=== PATIENT | female | born 1930 | race Caucasian/White ===

== ENCOUNTER 2016-05-12 11:05 | Emergency (ER) | payer OTHER, MEDICARE ==
[2016-05-12 11:18] VITALS: BP 152/73; PULSE 60; TEMP 97.9; BMI 21.6
--- NOTE | 2016-05-12 12:21 | PDOC ---
History of Present Illness - General Chief Complaint: Injury Stated Complaint: FALL, BACK PAIN Time Seen by Provider: 05/12/16 11:56 History Source: Patient, Parent(s) Exam Limitations: No Limitations - History of Present Illness Initial Comments: 05/12/16 12:15 Status post fall 10 days ago, was trying to sit on her walker and did not stabilize the walker when it slipped from behind her causing her to fall onto her bottom. 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 With family's assistance she was able to rise, continue to her activities but states had some tenderness to her lower back and bilateral knees. Has used some Tylenol with minimal relief Occurred: reports: just prior to arrival Severity: reports: mild Pain Location: reports: back Modifying Factors: improves with: None Past History - Travel Traveled outside of the country in the last 30 days: No Close contact w/someone who was outside of country & ill: No - Past Medical History Allergies/Adverse Reactions: Allergies Allergy/AdvReac Type Severity Reaction Status Date / Time codeine [Codeine] Allergy Mild sick Verified 05/12/16 11:13 Home Medications: Ambulatory Orders Aspirin [ASA -] 81 mg PO DAILY #0 tab.chew 02/27/12 Carvedilol [Coreg -] 6.25 mg PO BID #0 tablet 02/27/12 Furosemide [Lasix -] 20 mg PO DAILY #0 tablet 02/27/12 Potassium Chloride [K-Dur -] 10 meq PO DAILY #0 tablet.er 02/27/12 Ramipril [Altace] 2.5 mg PO DAILY #0 capsule 02/27/12 Acetaminophen [Tylenol .Regular Strength -] 650 mg PO Q4H PRN 02/12/13 Calcium Carb/Vit D3/Minerals [Calcium 600 + D Tablet] 1 each PO TID 02/12/13 Omega3/Dha/Epa/Fish Oil/Vit D3 [Cimhm-4-Gnsm Oil-Vit D3 Sftgl] 1 each PO DAILY 02/12/13 Alendronate Na [Fosamax (Weekly)] 70 mg PO MO 08/22/13 Nitroglycerin [Nitrostat] 0.4 mg SL PRN 08/22/13 Isosorbide Mononitrate [Imdur] 40 mg PO DAILY 09/30/14 Atorvastatin Ca [Lipitor] 10 mg PO SUMOTHSA 09/16/15 Atorvastatin Ca [Lipitor] 20 mg PO TUWE 09/16/15 Warfarin Sodium [Coumadin] 3.5 mg PO SUTUWEFRSA 09/16/15 Acetaminophen [Tylenol .Regular Strength -] 650 mg PO Q6H PRN #0 tablet Aspirin Coated [Ecotrin -] 81 mg PO DAILY tablet.ec 09/19/15 Atorvastatin Ca [Lipitor] 10 mg PO HS tablet 09/19/15 Calcium (Oyster Shell) [Os-Maik 500MG -] 1,000 mg PO DAILY tablet 09/19/15 Carvedilol [Coreg -] 6.25 mg PO BID tablet 09/19/15 Cholecalciferol (Vitamin D3) [Vitamin D3 -] 1,000 unit PO DAILY tab 09/19/15 Furosemide [Lasix -] 40 mg PO DAILY tablet 09/19/15 Lidocaine 5% Patch [Lidoderm -] 1 patch TP DAILY patch 09/19/15 Nitroglycerin Sublingual [Nitrostat -] 0.4 mg SL Q5M PRN #0 tab 09/19/15 [place]-3 Acid Ethyl Esters [Lovaza -] 1 gm PO BID cap 09/19/15 Polyethylene Glycol 3350 [Miralax 119 gm Btl -] 17 gm PO DAILY bottle 09/19/15 Ramipril [Altace] 2.5 mg PO DAILY capsule 09/19/15 Sennosides/Docusate Sodium [Pericolace -] 1 tablet PO HS tablet 09/19/15 Warfarin Na [Coumadin -] 6 mg PO DAILY@1800 tablet 09/19/15 Tramadol HCl [Ultram -] 50 mg PO Q6H PRN #30 tablet MDD 4 03/17/16 Anemia: No Asthma: No Cancer: No Cardiac Disorders: Yes (cabg x2 valve replacement) CVA: No COPD: No CHF: No Dementia: No Diabetes: No GI Disorders: No Disorders: No HTN: Yes Hypercholesterolemia: Yes Liver Disease: No Seizures: No Thyroid Disease: No - Surgical History Abdominal Surgery: No Appendectomy: Yes Cardiac Surgery: Yes (OPEN HEART SX X 2) Cholecystectomy: Yes Lung Surgery: No Neurologic Surgery: No Orthopedic Surgery: No - Psycho/Social/Smoking Cessation Hx Anxiety: No Suicidal Ideation: No Smoking Status: No Smoking History: Never smoked Have you smoked in the past 12 months: No Number of Cigarettes Smoked Daily: 0 Hx Alcohol Use: No Drug/Substance Use Hx: No Substance Use Type: None Hx Substance Use Treatment: No Trauma Specific PMHX - Complaint Specific PMHX Arthritis: No Back Injury: No Neck Injury: No Review of Systems - Review of Systems Able to Perform ROS?: Yes Is the patient limited Kyrgyz proficient: Yes Constitutional: Yes: Symptoms Reported HEENTM: No: Symptoms Reported Respiratory: No: Symptoms reported Cardiac (ROS): No: Symptoms Reported Musculoskeletal: Yes: Symptoms Reported, See HPI, Back Pain, Joint Pain (hip and pelvis ) Integumentary: Yes: Symptoms Reported, See HPI, Bruising Neurological: Yes: See HPI. No: Symptoms reported All Other Systems: Reviewed and Negative *Physical Exam - Vital Signs Last Vital Signs Temp Pulse Resp BP Pulse Ox 97.9 F 60 19 152/73 98 05/12/16 11:13 05/12/16 11:13 05/12/16 11:13 05/12/16 11:13 05/12/16 11:13 - Physical Exam General Appearance: Yes: Appropriately Dressed, Apparent Distress, Mild Distress HEENT: positive: BENEDICT, Normal ENT Inspection, TMs Normal, Pharynx Normal Neck: negative: Tender Respiratory/Chest: positive: Lungs Clear, Normal Breath Sounds Musculoskeletal: positive: Other (paion with pelvic rocking ) Extremity: positive: Normal Capillary Refill. negative: Normal Inspection Integumentary: positive: Normal Color, Dry, Pale, Bruising (healing ecchymoses noted to the inner aspect of her upper right thigh extending into groin, and deep purple bruise to the right or tuberosity of right femur. Range of motion is intact although stiff. Able to abduct and rotate either hip. Patient has extensive arthritis and deformities to bilateral knees, no ecchymoses bruising or crepitus noted to the bony aspects. Neurovascular is intact and baseline for patient to feet) Neurologic: positive: outpatient physical therapist II-XII NML intact, Fully Oriented, Alert, Normal Mood/ Affect, Normal Response, Motor Strength 5/5 Progress Note - Progress Note Progress Note: Pelvic fracture right side consistent with injury. Patient is 10 days post fracture and is ambulatory slowly. Is using tramadol for pain relief and will continue. Will follow-up with orthopedist/Dr. Huber this week *DC/Admit/Observation/Transfer Diagnosis at time of Disposition: Pelvic fracture Qualifiers: Encounter type: initial encounter Pelvic bone location: pubis Sublocation of pubis: unspecified portion of pubis Fracture type: closed Laterality: right Qualified Code(s): S32.501A - Unspecified fracture of right pubis, initial encounter for closed fracture Fall at home Qualifiers: Encounter type: initial encounter Qualified Code(s): W19.XXXA - Unspecified fall, initial encounter; Y92.099 - Unspecified place in other non-institutional residence as the place of occurrence of the external cause - Discharge Dispostion Disposition: HOME Condition at time of disposition: Stable Admit: No - Referrals Referrals: Ish Shultz MD [Primary Care Provider] - Juan José Huber MD [Staff Physician] - - Patient Instructions Printed Discharge Instructions: DI for Pelvic Pain Additional Instructions: Rest, ice to area on and off for 15 minutes 4-6 times a day Avoid heavy lifting or exercise until pain and swelling is resolved or until further directed Followup with orthopedist in one to 2 days if significantly improved may wait one week for followup with orthopedist May use tramadol every 8 hours as needed for pain
== END 2016-05-12 13:44 | disposition home or self-care (01) ==
LOC: JERFT 11:05
DX: S32.591A Other specified fracture of right pubis, initial encounter for closed fracture (principal); W17.89XA Other fall from one level to another, initial encounter; Y93.89 Activity, other specified; Y92.018 Other place in single-family (private) house as the place of occurrence of the external cause; I25.10 Atherosclerotic heart disease of native coronary artery without angina pectoris; I10 Essential (primary) hypertension; Z95.1 Presence of aortocoronary bypass graft; E78.00 Pure hypercholesterolemia, unspecified; Z95.2 Presence of prosthetic heart valve; Z79.01 Long term (current) use of anticoagulants
CPT/HCPCS: 73523-TC; 99281-25

== ENCOUNTER 2017-03-22 18:26 | Emergency (ER) | payer OTHER, MEDICARE ==
[2017-03-22 18:36] VITALS: BP 158/93; PULSE 69; TEMP 98.1; BMI 23.5
--- NOTE | 2017-03-22 18:37 | PDOC ---
Rapid Medical Evaluation Time Seen by Provider: 03/22/17 18:31 Medical Evaluation: Allergies Allergy/AdvReac Type Severity Reaction Status Date / Time codeine [Codeine] Allergy Mild sick Verified 02/05/17 14:52 03/22/17 18:31 I have performed a brief in-person evaluation of this patient. The patient presents with a chief complaint of: pain in right arm since last night. Pain to right arm is chronic worse last night preventing her from sleep. Denies fall or injury Pertinent physical exam findings: NAD unlabored breathing unable to raise arm, or extend arm I have ordered the following: analgesia The patient will proceed to the ED for further evaluation.
--- NOTE | 2017-03-22 19:24 | PDOC ---
History of Present Illness - General Chief Complaint: Pain Stated Complaint: ARM PAIN Time Seen by Provider: 03/22/17 18:31 History Source: Patient Exam Limitations: No Limitations - History of Present Illness Initial Comments: 03/22/17 19:19 Pt is an 86F with PMH CAD s/p CABG X2, HTN, HLD, chronic right arm pain who presented with acute onset severe right shoulder pain which woke her from sleep. Pain is severe and worse with slight movement. Pt took Tramadol x2 (last dose at 4PM). Pt states pain is significantly more severe than normal. She adamantly and repeatedly denies trauma, syncope, LOC. Pt is afebrile, hemodynamically stable and in significant distress due to pain of the shoulder. Past History - Past Medical History Allergies/Adverse Reactions: Allergies Allergy/AdvReac Type Severity Reaction Status Date / Time codeine [Codeine] Allergy Mild sick Verified 03/22/17 18:36 Home Medications: Ambulatory Orders Aspirin [ASA -] 81 mg PO DAILY #0 tab.chew 02/27/12 Potassium Chloride [K-Dur -] 10 meq PO DAILY #0 tablet.er 02/27/12 Calcium Carb/Vit D3/Minerals [Calcium 600 + D Tablet] 1 each PO TID 02/12/13 Omega3/Dha/Epa/Fish Oil/Vit D3 [Klphy-3-Rgkx Oil-Vit D3 Sftgl] 1 each PO DAILY 02/12/13 Alendronate Na [Fosamax (Weekly)] 70 mg PO MO 08/22/13 Nitroglycerin [Nitrostat] 0.4 mg SL PRN 08/22/13 Isosorbide Mononitrate [Imdur] 40 mg PO DAILY 09/30/14 Warfarin Sodium [Coumadin] 3.5 mg PO SUTUWEFRSA 09/16/15 Atorvastatin Ca [Lipitor] 10 mg PO HS tablet 09/19/15 Calcium (Oyster Shell) [Os-Maik 500MG -] 1,000 mg PO DAILY tablet 09/19/15 Carvedilol [Coreg -] 6.25 mg PO BID tablet 09/19/15 Cholecalciferol (Vitamin D3) [Vitamin D3 -] 1,000 unit PO DAILY tab 09/19/15 Furosemide [Lasix -] 40 mg PO DAILY tablet 09/19/15 Lidocaine 5% Patch [Lidoderm -] 1 patch TP DAILY patch 09/19/15 Nitroglycerin Sublingual [Nitrostat -] 0.4 mg SL Q5M PRN #0 tab 09/19/15 [place]-3 Acid Ethyl Esters [Lovaza -] 1 gm PO BID cap 09/19/15 Polyethylene Glycol 3350 [Miralax 119 gm Btl -] 17 gm PO DAILY bottle 09/19/15 Ramipril [Altace] 2.5 mg PO DAILY capsule 09/19/15 Sennosides/Docusate Sodium [Pericolace -] 1 tablet PO HS tablet 09/19/15 Tramadol HCl [Ultram -] 50 mg PO Q6H PRN #30 tablet MDD 4 03/17/16 Naproxen [Naprosyn -] 500 mg PO BID PRN #4 tablet 03/22/17 Anemia: No Asthma: No Cancer: No Cardiac Disorders: Yes (cabg x2 valve replacement, AFIB) CVA: No COPD: No CHF: No DVT: No Dementia: No Diabetes: No GI Disorders: No Disorders: No HTN: Yes Hypercholesterolemia: Yes Liver Disease: No Seizures: No Thyroid Disease: No - Surgical History Abdominal Surgery: No Appendectomy: Yes Cardiac Surgery: Yes (OPEN HEART SX X 2) Cholecystectomy: Yes Lung Surgery: No Neurologic Surgery: No Orthopedic Surgery: No - Suicide/Smoking/Psychosocial Hx Smoking Status: No Smoking History: Never smoked Have you smoked in the past 12 months: No Number of Cigarettes Smoked Daily: 0 Information on smoking cessation initiated: No Hx Alcohol Use: No Drug/Substance Use Hx: No Substance Use Type: None Hx Substance Use Treatment: No Review of Systems - Review of Systems HEENTM: Yes: See HPI. No: Blurred Vision, Difficulty Swallowing Respiratory: Yes: Symptoms reported. No: Shortness of Breath Cardiac (ROS): Yes: Symptoms Reported, See HPI. No: Chest Pain, Lightheadedness , Syncope ABD/GI: Yes: Symptoms Reported. No: Abdominal Distended, Nausea, Poor Appetite , Vomiting : Yes: Symptoms Reported. No: Dysuria, Frequency, Urgency Musculoskeletal: Yes: Symptoms Reported, Joint Pain (R shoulder pain with radiation through R arm to hand), Joint Swelling *Physical Exam - Vital Signs Last Vital Signs Temp Pulse Resp BP Pulse Ox 98.1 F 69 19 158/93 100 03/22/17 18:32 03/22/17 18:32 03/22/17 18:32 03/22/17 18:32 03/22/17 18:32 - Physical Exam General Appearance: Yes: Appropriately Dressed, Apparent Distress, Thin HEENT: positive: EOMI, BENEDICT, Normal ENT Inspection, Normal Voice Neck: positive: Trachea midline, Supple Respiratory/Chest: positive: Lungs Clear, Normal Breath Sounds. negative: Chest Tender, Respiratory Distress, Accessory Muscle Use Cardiovascular: positive: Regular Rhythm, Regular Rate, Murmur, Systolic Murmur (4/6 sys murmur at LLSB) Vascular Pulses: Dorsalis-Pedis (R): 2+, Doralis-Pedis (L): 2+ Gastrointestinal/Abdominal: positive: Normal Bowel Sounds, Soft. negative: Tender, Organomegaly, Pulsatile Mass Musculoskeletal: positive: Decreased Range of Motion (R shoulder) Extremity: positive: Normal Capillary Refill, Tender (Very tender on active and passive ROM), Other (R arm held in internal rotation adduction) Integumentary: negative: Erythema Neurologic: positive: Other (exam limited by pain) Medical Decision Making - Medical Decision Making 03/22/17 19:29 Pt is an 86F with PMH CAD s/p CABG X2, HTN, HLD, chronic right arm pain who presented with acute onset severe right shoulder pain which woke her from sleep. She took 2 Tramadol -R shoulder XR -NSAID *DC/Admit/Observation/Transfer Diagnosis at time of Disposition: Joint effusion - Discharge Dispostion Disposition: HOME Condition at time of disposition: Stable Admit: No - Prescriptions Prescriptions: Naproxen [Naprosyn -] 500 mg PO BID PRN #4 tablet PRN Reason: Pain - Referrals Referrals: Ish Shultz MD [Primary Care Provider] - Juan José Huber MD [Staff Physician] - - Patient Instructions Printed Discharge Instructions: DI for Osteoarthritis, DI for Joint Pain Additional Instructions: Please make sure you follow up with your primary doctor within 1 week. Please make sure you follow up with the orthopedist (Dr. Huber/Dr. Dang) within 1 week. Please take all your prescription medications as directed. If your symptoms get worse or if you develop new symptoms, please return to the emergency department. - Post Discharge Activity
[2017-03-22] MEDS ORDERED: NAPROXEN 500 MG TABLET (FP) PO PRN (19:58)
[2017-03-22] MEDS ORDERED: NAPROXEN 500 MG TABLET (FP) ONE (20:05)
--- NOTE | 2017-03-22 22:58 | PDOC ---
Attending Attestation - Resident Resident Name: Kai Mccullough - ED Attending Attestation I have performed the following: I have examined & evaluated the patient, The case was reviewed & discussed with the resident, I agree w/resident's findings & plan, Exceptions are as noted - HPI HPI: 03/22/17 22:58 86 yo female with chronic rt shoulder pain - Physicial Exam PE: 03/22/17 22:58 86 petite female with rt shoulder pain head ncat neck supple lungs cta b.l cvs [id number] abd soft,nontender extremities rt shoulder- no cellulitis, pain in rt AC joint,no deformity neuro axox3 ,ambulatory - Medical Decision Making 03/22/17 23:00 plan ortho follow
== END 2017-03-22 23:01 | disposition home or self-care (01) ==
LOC: JER 18:26
DX: M25.40 Effusion, unspecified joint (principal); I10 Essential (primary) hypertension; E78.5 Hyperlipidemia, unspecified; I25.10 Atherosclerotic heart disease of native coronary artery without angina pectoris
CPT/HCPCS: 73030-TC-RT; 99282-25

== ENCOUNTER 2017-03-25 08:45 | Emergency (ER) | payer OTHER, MEDICARE ==
[2017-03-25 08:52] VITALS: BMI 24.6
[2017-03-25 09:49] LABS: BASO % 0.4 % (0-2.0); EOS % 1.9 % (0-4.5); MCH 27.7 pg (25.7-33.7); MCHC 31.7 g/dl (32.0-36.0); MEAN CELL VOLUME 87.3 fl (80-96); NEUT % 73.7 % (42.8-82.8); PLATELET COUNT 222 K/MM3 (134-434); RDW 16.3 % (11.6-15.6); WHITE BLOOD COUNT 7.7 K/mm3 (4.0-10.0)
[2017-03-25 10:07] LABS: PROTHROMBIN TIME (PATIENT) 48.4 SEC (9.98-11.88)
--- NOTE | 2017-03-25 10:11 | PDOC ---
History of Present Illness - General Chief Complaint: Pain, Acute Stated Complaint: REVISIT/ RT ARM PAIN Time Seen by Provider: 03/25/17 09:10 - History of Present Illness Initial Comments: 03/25/17 10:06 " The patient is a 86 year old female, with a significant past medical history of afib on coumadin, CAD s/p CABG x2, HTN, HLD, and chronic right arm pain, who presents to the emergency department with bruising to R chest. Patient was here in this ER for R shoulder pain on 03/22/17. She was scheduled to see Dr. Huber for evaluation of her shoulder today but noticed that she had bruising along the R side of her chest. She denies any injury or trauma. Does not know exactly when the bruising started because she hasn't been able to undress herself due to her arm pain. She denies recent fevers, chills, headache or dizziness. She denies recent nausea, vomit, diarrhea or constipation. She denies recent dysuria, frequency, urgency or hematuria. She denies recent chest pain or shortness of breath. Pt is currently on coumadin, last INR check was 2 weeks ago. Pt denies any changes in her dosage recently. However, when she was seen here 3 days ago, she was started on naproxen for her shoulder pain, which she has been taking. Allergies: NKA Past surgical history: None reported. Social history: Nonsmoker. Denies EtOH use and recreational drug use. " Past History - Past Medical History Allergies/Adverse Reactions: Allergies Allergy/AdvReac Type Severity Reaction Status Date / Time codeine [Codeine] Allergy Mild sick Verified 03/25/17 08:47 Home Medications: Ambulatory Orders Aspirin [ASA -] 81 mg PO DAILY #0 tab.chew 02/27/12 Potassium Chloride [K-Dur -] 10 meq PO DAILY #0 tablet.er 02/27/12 Calcium Carb/Vit D3/Minerals [Calcium 600 + D Tablet] 1 each PO TID 02/12/13 Omega3/Dha/Epa/Fish Oil/Vit D3 [Cwswr-9-Tzxd Oil-Vit D3 Sftgl] 1 each PO DAILY 02/12/13 Alendronate Na [Fosamax (Weekly)] 70 mg PO MO 08/22/13 Nitroglycerin [Nitrostat] 0.4 mg SL PRN 08/22/13 Isosorbide Mononitrate [Imdur] 60 mg PO DAILY 09/30/14 Warfarin Sodium [Coumadin] 3.5 mg PO HS 09/16/15 Atorvastatin Ca [Lipitor] 10 mg PO HS tablet 09/19/15 Carvedilol [Coreg -] 6.25 mg PO BID tablet 09/19/15 Cholecalciferol (Vitamin D3) [Vitamin D3 -] 1,000 unit PO DAILY tab 09/19/15 Furosemide [Lasix -] 40 mg PO DAILY tablet 09/19/15 Carbidopa/Levodopa [Carbidopa-Levodopa 10-100 Tab] 1 each PO TID 03/25/17 Valsartan 80 mg PO HS 03/25/17 Valsartan [Diovan] 160 mg PO AM 03/25/17 Anemia: No Asthma: No Cancer: No Cardiac Disorders: Yes (cabg x2 valve replacement, AFIB) CVA: No COPD: No CHF: No DVT: No Dementia: No Diabetes: No GI Disorders: No Disorders: No HTN: Yes Hypercholesterolemia: Yes Liver Disease: No Seizures: No Thyroid Disease: No - Surgical History Abdominal Surgery: No Appendectomy: Yes Cardiac Surgery: Yes (OPEN HEART SX X 2) Cholecystectomy: Yes Lung Surgery: No Neurologic Surgery: No Orthopedic Surgery: No - Immunization History Immunization Up to Date: Yes - Suicide/Smoking/Psychosocial Hx Smoking Status: No Smoking History: Never smoked Have you smoked in the past 12 months: No Number of Cigarettes Smoked Daily: 0 Information on smoking cessation initiated: No Hx Alcohol Use: No Drug/Substance Use Hx: No Substance Use Type: None Hx Substance Use Treatment: No Review of Systems - Review of Systems Comments:: 03/25/17 10:09 "GENERAL/CONSTITUTIONAL: No fever or chills. No weakness. HEAD, EYES, EARS, NOSE AND THROAT: No change in vision. No ear pain or discharge. No sore throat. CARDIOVASCULAR: No chest pain or shortness of breath. RESPIRATORY: No cough, wheezing, or hemoptysis. GASTROINTESTINAL: No nausea, vomiting, diarrhea or constipation. GENITOURINARY: No dysuria, frequency, or change in urination. MUSCULOSKELETAL: +Right shoulder pain. No joint or muscle swelling or pain. No neck or back pain. SKIN: +Bruising to R chest wall NEUROLOGIC: No headache, vertigo, loss of consciousness, or change in strength/ sensation. ENDOCRINE: No increased thirst. No abnormal weight change. HEMATOLOGIC/LYMPHATIC: No anemia, easy bleeding, or history of blood clots. ALLERGIC/IMMUNOLOGIC: No hives or skin allergy. " *Physical Exam - Vital Signs Last Vital Signs Temp Pulse Resp BP Pulse Ox 97.7 F 52 L 16 135/87 98 03/25/17 08:49 03/25/17 08:49 03/25/17 08:49 03/25/17 08:49 03/25/17 08:49 - Physical Exam Comments: 03/25/17 10:10 "GENERAL: Awake, alert, and fully oriented, in no acute distress HEAD: No signs of trauma EYES: PERRLA, EOMI, sclera anicteric, conjunctiva clear ENT: Auricles normal inspection, hearing grossly normal, nares patent, oropharynx clear without exudates. Moist mucosa NECK: Nontender, no stepoffs, Normal ROM, supple, no lymphadenopathy, JVD, or masses LUNGS: Breath sounds equal, clear to auscultation bilaterally. No wheezes, and no crackles HEART: Regular rate and rhythm, normal S1 and S2, no murmurs, rubs or gallops CHEST: No chest wall tenderness, no crepitus ABDOMEN: Soft, nontender, normoactive bowel sounds. No guarding, no rebound. No masses EXTREMITIES: Normal range of motion, no edema. No clubbing or cyanosis. No cords , erythema, or tenderness NEUROLOGICAL: Cranial nerves II through XII intact. 5/5 strength and sensation in all extremities, Normal speech, normal gait SKIN: Warm, Dry, normal turgor, ecchymosis extending from Right breast to right upper back. No bruising over abdomen, no weiss-duncan or manish's sign " ED Treatment Course - LABORATORY CBC & Chemistry Diagram: 03/25/17 09:30 03/25/17 09:30 - ADDITIONAL ORDERS Additional order review: 03/25/17 09:30 RBC 3.73 MCV 87.3 MCHC 31.7 L RDW 16.3 H MPV 8.0 Neutrophils % 73.7 D Lymphocytes % 12.8 D Monocytes % 11.2 H Eosinophils % 1.9 Basophils % 0.4 - RADIOLOGY Radiology Studies Ordered: Category Date Time Status CHEST CT WITHOUT CONTRAST [CT] Stat CT Scan 03/25/17 09:24 Ordered Medical Decision Making - Medical Decision Making 03/25/17 10:13 86 F with bruising to R chest wall. No history of trauma and no tenderness on exam to suggest acute injury. However, pt does report R shoulder pain and may have suffered an injury despite having no recollection of it. Ecchymosis may also be spontaneous bleed 2/2 supratherapeutic coumadin or 2/2 concomitant coumadin and NSAID use. Pt hemodynamically stable at this time. No evidence of significant blood loss. - Labs, coags - CT chest 03/25/17 12:02 CT without fracture, no hematoma. Pt with INR 4. Pt instructed to hold coumadin tonight and f/u with PMD tomorrow. I discussed the physical exam findings, ancillary test results and final diagnoses with the patient. I answered all of the patient's questions. The patient was satisfied with the care received and felt comfortable with the discharge plan and treatment plan. The patient agrees to follow up with the primary care physician within 24-72 hours. *DC/Admit/Observation/Transfer Diagnosis at time of Disposition: Bruise without fracture or open wound, Spontaneous ecchymosis - Discharge Dispostion Disposition: HOME - Referrals - Patient Instructions Printed Discharge Instructions: DI for Hematoma (Bruise) Additional Instructions: DO NOT take your Coumadin until you have your bloodwork rechecked and have been evaluated by your primary doctor. You must see your primary doctor within 48 hours, as your Coumadin levels are too high. This is likely the cause of your bruising. DO NOT take any more naproxen for pain. Do not take any motrin, advil, aleve, or aspirin. These can worsen bleeding caused by Coumadin and can also cause damage to your kidneys. Your kidney function today was slightly worse than usual. Please have your primary doctor recheck this within 1 week. If you experience worsening bruising, bleeding, pain, lightheadedness, difficulty breathing, palpitations, or any other concerning symptoms, return to the ER immediately. - Post Discharge Activity - Attestations Physician Attestion: 03/25/17 10:48 I, Dr. Zion Penn MD, attest that this document has been prepared under my direction and personally reviewed by me in its entirety. I further attest, that it accurately reflects all work, treatment, procedures and medical decision -making performed by me.
[2017-03-25 10:12] LABS: ANION GAP 6 (8-16); BILIRUBIN,TOTAL 1.3 mg/dL (0.2-1.0); CALCIUM 9.7 mg/dL (8.5-10.1); CO2 28 mmol/L (21-32); CREATININE 1.3 mg/dL (0.55-1.02); GLUCOSE,RANDOM 82 mg/dL (74-106); SGOT/AST 25 U/L (15-37); SGPT/ALT 9 U/L (12-78); TOT PROT 6.6 g/dl (6.4-8.2)
[2017-03-25 10:13] LABS: ALK PHOS 120 U/L (45-117)
[2017-03-25 10:37] LABS: INR 4.28 (0.82-1.09)
[2017-03-25 12:46] VITALS: BP 145/68; PULSE 58; TEMP 98.2
== END 2017-03-25 12:45 | disposition home or self-care (01) ==
LOC: JER 08:45
DX: S49.81XA Other specified injuries of right shoulder and upper arm, initial encounter (principal); X58.XXXA Exposure to other specified factors, initial encounter; Y93.89 Activity, other specified; Y92.89 Other specified places as the place of occurrence of the external cause; Y99.8 Other external cause status; I25.10 Atherosclerotic heart disease of native coronary artery without angina pectoris; I10 Essential (primary) hypertension; Z95.1 Presence of aortocoronary bypass graft; I48.91 Unspecified atrial fibrillation; Z79.01 Long term (current) use of anticoagulants
CPT/HCPCS: 36415; 71250-TC; 80053; 85025; 85610; 85730; 86850; 86900; 86901; 99282-25

== ENCOUNTER 2018-02-16 14:35 | Inpatient (IN) | payer OTHER, MEDICARE ==
[2018-02-16 15:05] VITALS: BMI 20.4
--- NOTE | 2018-02-16 15:38 | PDOC ---
History of Present Illness - General Chief Complaint: Pain, Acute Stated Complaint: KNEE PAIN Time Seen by Provider: 02/16/18 15:03 History Source: Patient Exam Limitations: No Limitations - History of Present Illness Initial Comments: 02/16/18 15:37 The patient is a 87F with a PMH of afib on coumadin, CAD s/p CABG x2, HTN, HLD, and chronic right arm pain who presents to the ER with complaints of R knee pain. The patient states that she was in her normal state of health last night. In the middle of the night, she woke up and felt pain as she was walking behind her R knee. She fell back asleep. As she tried to get out of bed this morning around 0630, she states that she felt a sharp pain as she tried to walk on her R foot. She states that the pain goes away when she lays down and is only worsened by walking. The pain is located behind her R knee and does not radiate. She denies CP, SOB, fever, chills, nausea, vomiting, cough. Past History - Past Medical History Allergies/Adverse Reactions: Allergies Allergy/AdvReac Type Severity Reaction Status Date / Time codeine [Codeine] Allergy Mild sick Verified 02/16/18 15:04 NSAIDS (Non-Steroidal AdvReac Verified 02/16/18 15:04 Anti-Inflamma Home Medications: Ambulatory Orders Aspirin [ASA -] 81 mg PO DAILY #0 tab.chew 02/27/12 Potassium Chloride [K-Dur -] 10 meq PO DAILY #0 tablet.er 02/27/12 Calcium Carb/Vit D3/Minerals [Calcium 600 + D Tablet] 1 each PO TID 02/12/13 Omega3/Dha/Epa/Fish Oil/Vit D3 [Btikx-3-Oyby Oil-Vit D3 Sftgl] 1 each PO DAILY 02/12/13 Alendronate Na [Fosamax (Weekly)] 70 mg PO MO 08/22/13 Nitroglycerin [Nitrostat] 0.4 mg SL PRN 08/22/13 Isosorbide Mononitrate [Imdur] 60 mg PO DAILY 09/30/14 Warfarin Sodium [Coumadin] 3.5 mg PO HS 09/16/15 Atorvastatin Ca [Lipitor] 10 mg PO HS tablet 09/19/15 Carvedilol [Coreg -] 6.25 mg PO BID tablet 09/19/15 Cholecalciferol (Vitamin D3) [Vitamin D3 -] 1,000 unit PO DAILY tab 09/19/15 Furosemide [Lasix -] 40 mg PO DAILY tablet 09/19/15 Carbidopa/Levodopa [Carbidopa-Levodopa 10-100 Tab] 1 each PO TID 03/25/17 Valsartan 80 mg PO HS 03/25/17 Valsartan [Diovan] 160 mg PO AM 03/25/17 Anemia: No Asthma: No Cancer: No Cardiac Disorders: Yes (cabg x2 valve replacement, AFIB) CVA: No COPD: No CHF: No DVT: No Dementia: No Diabetes: No GI Disorders: No Disorders: No HTN: Yes Hypercholesterolemia: Yes Liver Disease: No Seizures: No Thyroid Disease: No - Surgical History Abdominal Surgery: No Appendectomy: Yes Cardiac Surgery: Yes (OPEN HEART SX X 2) Cholecystectomy: Yes Lung Surgery: No Neurologic Surgery: No Orthopedic Surgery: No - Immunization History Immunization Up to Date: Yes - Suicide/Smoking/Psychosocial Hx Smoking Status: No Smoking History: Never smoked Have you smoked in the past 12 months: No Number of Cigarettes Smoked Daily: 0 Hx Alcohol Use: No Drug/Substance Use Hx: No Substance Use Type: None Hx Substance Use Treatment: No Review of Systems - Review of Systems Able to Perform ROS?: Yes Comments:: 02/16/18 15:50 GENERAL/CONSTITUTIONAL: No fever or chills. No weakness. HEAD, EYES, EARS, NOSE AND THROAT: No change in vision. No ear pain or discharge. No sore throat. CARDIOVASCULAR: No chest pain, palpitations, or lightheadedness. RESPIRATORY: No cough, wheezing, shortness of breath, or hemoptysis. GASTROINTESTINAL: No nausea, vomiting, diarrhea, constipation, or abdominal pain. GENITOURINARY: No dysuria, frequency, hematuria, or change in urination. MUSCULOSKELETAL: Positive for R knee pain. No neck or back pain. SKIN: No rash or lesions. NEUROLOGIC: No headache, numbness, tingling, focal weakness, loss of consciousness, or change in strength/sensation. Is the patient limited Mauritanian proficient: No *Physical Exam - Vital Signs Last Vital Signs Temp Pulse Resp BP Pulse Ox 97.5 F L 48 L 17 133/49 L 100 02/16/18 15:02 02/16/18 15:02 02/16/18 15:02 02/16/18 15:02 02/16/18 15:02 - Physical Exam Comments: 02/16/18 15:51 GENERAL: Well developed, well nourished. Awake and alert. No acute distress. HEENT: Normocephalic, atraumatic. Hearing grossly normal. Moist mucous membranes. PERRLA, EOMI. No conjunctival pallor. Sclera are non-icteric. NECK: Supple. Full ROM. No JVD. CARDIOVASCULAR: Regular rate and rhythm. No murmurs, rubs, or gallops. Distal pulses are 2+ and symmetric. PULMONARY: No evidence of respiratory distress. Lungs clear to auscultation bilaterally. No wheezing, rales or rhonchi. ABDOMINAL: Soft. Non-tender. Non-distended. No rebound or guarding. GENITOURINARY: No CVA tenderness bilaterally. MUSCULOSKELETAL: Limited active and passive ROM in R knee 2/2 pain. TTP over posterior knee. EXTREMITIES: No cyanosis. No clubbing. No edema. No calf tenderness or swelling. SKIN: Warm and dry. Normal capillary refill. No rashes. No jaundice. NEUROLOGICAL: Alert, awake, appropriate. Cranial nerves 2-12 grossly intact. Normal speech. PSYCHIATRIC: Cooperative. Good eye contact. Appropriate mood and affect. ED Treatment Course - LABORATORY CBC & Chemistry Diagram: 02/16/18 16:00 02/16/18 16:00 - RADIOLOGY Radiology Studies Ordered: Category Date Time Status KNEE 3 POS-RIGHT [RAD] Stat Radiology 02/16/18 15:32 Ordered DUPLEX VASCUL US-1 LEG [US] Stat Ultrasound 02/16/18 15:28 Ordered Medical Decision Making - Medical Decision Making 02/16/18 15:52 The patient is an 87F with an extensive PMH who presents to the ER with complaints of R knee pain concerning for DVT, keating's cyst, fracture. Will order imaging and labs to ensure pt is in therapeutic range for coumadin. EKG unremarkable. Pending imaging and labs. 02/16/18 17:35 BNP elevated. Will d/w cardiology, Dr. Meyer. US reveals bakers cyst. Will inform pt. 02/16/18 18:11 Case d/w Dr. Laguna, cardiology, who states that the patient does not need to increase lasix and can f/u outpatient. Pt states that she cannot ambulate. I have endorsed the patient to JOHN Snyder for admission. *DC/Admit/Observation/Transfer Diagnosis at time of Disposition: Ambulatory dysfunction - Discharge Dispostion Condition at time of disposition: Guarded Decision to Admit order: Yes - Referrals Referrals: Ish Shultz MD [Primary Care Provider] - - Patient Instructions - Post Discharge Activity
--- NOTE | 2018-02-16 16:12 | PDOC ---
Attending Attestation - Resident Resident Name: RobbrianSamuel - ED Attending Attestation I have performed the following: I have examined & evaluated the patient, The case was reviewed & discussed with the resident, I agree w/resident's findings & plan, Exceptions are as noted - Medical Decision Making 02/16/18 16:12 I, Dr. Serena Anne, DO, attest that this document has been prepared under my direction and personally reviewed by me in its entirety. I further attest, that it accurately reflects all work, treatment, procedures and medical decision -making performed by me. 02/16/18 17:53 a/p: 87yo female with R knee pain and inability to ambulate -pt lives at home alone -on coumadin for aflutter -R posterior knee pain -leg swelling R>L -no calf ttp, ttp posterior knee, no warmth, no swelling, no effusion, no signs/ symptoms of septic joint -will send for xrays, labs, duplex ultrasound 02/16/18 17:55 knee xray shows extensive djd poss bakers cyst on duplex ultrasound - awaiting official read pt lives alone with bedroom upstairs pt unable to ambulate even with her walker will need obs, pt, social work and poss placement family and patient in agreement 02/16/18 18:11 resident discussed the case with SYMPHONY covering for Dr. Shultz who accepts pt to service <Serena Anne - Last Filed: 02/16/18 18:11> - HPI HPI: 02/16/18 18:02 The patient is an 87-year-old female with past medical history significant for Afib (on Coumadin), CAD s/p CABG x2, HTN, HLD presents to the emergency department with R. knee pain. The patient reports she woke up in middle of the night with the pain. The patient indicates the pain is localized towards the back of the R. knee, that worsened into a sharp pain when she woke up in the morning. The patient reports the pain is aggravated with ambulation even with a walker, with relief noted when lying down. The patient reports associated concern of bilateral lower extremity swelling Denies fever, chills, chest pain, shortness of breath, injury or trauma to the area, numbness, tingling, loss of sensation. Allergies: codeine, NSAIDs Social history: No past or present use of tobacco, alcohol, or recreational drugs. Surgical history: CABG, Joint Replacement (hip), Valve Replacement. PCP: Ish Aguirre MD - Physicial Exam PE: 02/16/18 18:13 GENERAL: Awake, alert, and fully oriented, in no acute distress HEAD: No signs of trauma EYES: PERRLA, EOMI, sclera anicteric, conjunctiva clear ENT: Auricles normal inspection, hearing grossly normal, nares patent, oropharynx clear without exudates. Moist mucosa NECK: Normal ROM, supple, no lymphadenopathy, JVD, or masses LUNGS: Breath sounds equal, clear to auscultation bilaterally. No wheezes, and no crackles HEART: +Irregular, not tachycardia, normal S1 and S2, no murmurs, rubs or gallops ABDOMEN: Soft, nontender. No guarding, no rebound. No masses EXTREMITIES: +R. Knee tenderness posteriorly, 2+ pitting edema R. lower extremity, 1+ pitting edema to the L. lower extremity, sleeve over the knee making the indentation, pedial pulse intact, brisk capillary refill. NEUROLOGICAL: Cranial nerves II through XII grossly intact. Normal speech. SKIN: Warm, Dry, normal turgor, no rashes or lesions noted. - Medical Decision Making 02/16/18 18:02 Documentation prepared by Perlita Navarro, acting as medical device for Serena Anne DO. <Perlita Navarro - Last Filed: 02/16/18 18:13>
[2018-02-16 16:27] LABS: EOS % 2.3 % (0-4.5); HEMATOCRIT 32.1 % (32.4-45.2); HEMOGLOBIN 10.6 GM/dL (10.7-15.3); LYMPH % 23.3 % (8-40); MCH 28.7 pg (25.7-33.7); MEAN PLT VOLUME 8.6 fl (7.5-11.1); MONO % 16.6 % (3.8-10.2); NEUT % 56.8 % (42.8-82.8); PLATELET COUNT 186 K/MM3 (134-434); RBC 3.69 M/mm3 (3.60-5.2); RDW 16.1 % (11.6-15.6); WHITE BLOOD COUNT 4.4 K/mm3 (4.0-10.0)
[2018-02-16 16:48] LABS: INR 2.4 (0.83-1.09); PROTHROMBIN TIME (PATIENT) 28.6 SEC (9.7-13.0)
[2018-02-16 17:03] LABS: ALBUMIN 3.1 g/dl (3.4-5.0); ALK PHOS 119 U/L (45-117); ANION GAP 6 MMOL/L (8-16); BLOOD UREA NITROGEN 24 mg/dL (7-18); CHLORIDE 106 mmol/L (98-107); CO2 28 mmol/L (21-32); CREATININE 0.7 mg/dL (0.55-1.3); GLUCOSE,RANDOM 90 mg/dL (74-106); N-TERMINAL BNP 2776.6 pg/ml (5-450); POTASSIUM 4.3 mmol/L (3.5-5.1); SGOT/AST 25 U/L (15-37); SGPT/ALT 8 U/L (13-61); SODIUM 139 mmol/L (136-145); TOT PROT 6.1 g/dl (6.4-8.2)
[2018-02-16] MEDS ORDERED: NITROGLYCERIN SUBLINGUAL 1/150 0.4 MG TAB SL PRN (18:30)
--- NOTE | 2018-02-16 20:52 | HP ---
CHIEF COMPLAINT: Right knee pain, inability to ambulate PCP: Dr. Ish Shultz HISTORY OF PRESENT ILLNESS: 87 year old female with a PMH significant for A-fib, CAD, HTN, HLD, Parkinson's disease, and osteoporosis presented to the ED with right knee pain that prevented her from ambulating. Patient reports that the pain started in the middle of the night and worsened until the morning. She reports the pain is worse towards the posterior aspect of the knee. When she tried to ambulate with her walker, she could not because the pain was too severe. She denies recent weight change, no SOB, chest pain, dizziness, numbness or tingling, LOC, syncope , n/v/d. Upon admission to the ED, patient was afebrile, VSS. Labs notable for BNP of 2776 (1 year ago 1643). X-ray of the right knee showed extensive DJD, duplex US showed keating's cyst. ED staff consulted with police judge Dr. Laguna, who found no need to increase lasix dose at this time and may f/u outpatient. Recent Travel: [facility], 3 months ago PAST MEDICAL HISTORY: A-fib (on coumadin) CAD HTN HLD PAST SURGICAL HISTORY: CABG x 2 Hip replacement Valve replacement Social History: Born in [facility], lives alone in a 2 story house, ambulates with a walker Smoking: Never Alcohol: Rarely, red wine Drugs: No Family History: Sister: Liver cancer Mother: Arthritis Allergies codeine [Codeine] Allergy (Mild, Verified 02/16/18 15:04) sick NSAIDS (Non-Steroidal Anti-Inflamma Adverse Reaction (Verified 02/16/18 15:04) pt is in coumadin HOME MEDICATIONS: Home Medications Medication Instructions Recorded Aspirin [ASA -] 81 mg PO DAILY #0 tab.chew 02/27/12 Potassium Chloride [K-Dur -] 10 meq PO DAILY #0 tablet.er 02/27/12 Calcium Carb/Vit D3/Minerals 1 each PO TID 02/12/13 [Calcium 600 + D Tablet] Omega3/Dha/Epa/Fish Oil/Vit D3 1 each PO DAILY 02/12/13 [Gazls-6-Ltfu Oil-Vit D3 Sftgl] Alendronate Na [Fosamax (Weekly)] 70 mg PO MO 08/22/13 Nitroglycerin [Nitrostat] 0.4 mg SL PRN 08/22/13 Isosorbide Mononitrate [Imdur] 60 mg PO DAILY 09/30/14 Warfarin Sodium [Coumadin] 3.5 mg PO HS 09/16/15 Atorvastatin Ca [Lipitor] 10 mg PO HS tablet 09/19/15 Carvedilol [Coreg -] 6.25 mg PO BID tablet 09/19/15 Cholecalciferol (Vitamin D3) 1,000 unit PO DAILY tab 09/19/15 [Vitamin D3 -] Furosemide [Lasix -] 40 mg PO DAILY tablet 09/19/15 Carbidopa/Levodopa 1 each PO TID 03/25/17 [Carbidopa-Levodopa 10-100 Tab] Losartan Potassium 0 mg PO DAILY 02/16/18 REVIEW OF SYSTEMS CONSTITUTIONAL: Absent: fever, chills, diaphoresis, generalized weakness, malaise, loss of appetite, weight change HEENT: Absent: rhinorrhea, nasal congestion, throat pain, throat swelling, difficulty swallowing, mouth swelling, ear pain, eye pain, visual changes CARDIOVASCULAR: Absent: chest pain, syncope, palpitations, irregular heart rate, lightheadedness , peripheral edema RESPIRATORY: Absent: cough, shortness of breath, dyspnea with exertion, orthopnea, wheezing, stridor, hemoptysis GASTROINTESTINAL: Absent: abdominal pain, abdominal distension, nausea, vomiting, diarrhea, constipation, melena, hematochezia GENITOURINARY: Absent: dysuria, frequency, urgency, hesitancy, hematuria, flank pain, genital pain MUSCULOSKELETAL: (+) Right knee pain Absent: myalgia, arthralgia, joint swelling, back pain, neck pain SKIN: Absent: rash, itching, pallor HEMATOLOGIC/IMMUNOLOGIC: Absent: easy bleeding, easy bruising, lymphadenopathy, frequent infections ENDOCRINE: Absent: unexplained weight gain, unexplained weight loss, heat intolerance, cold intolerance NEUROLOGIC: Absent: headache, focal weakness or paresthesias, dizziness, unsteady gait, seizure, mental status changes, bladder or bowel incontinence PSYCHIATRIC: Absent: anxiety, depression, suicidal or homicidal ideation, hallucinations. PHYSICAL EXAMINATION Vital Signs - 24 hr 02/16/18 02/16/18 02/16/18 15:02 18:08 19:10 Temperature 97.5 F L 97.8 F 97.9 F Pulse Rate 48 L Pulse Rate [ 50 L Apical] Respiratory 17 17 16 Rate Blood Pressure 133/49 L Blood Pressure 158/64 147/52 L [Right Arm] O2 Sat by Pulse 100 99 99 Oximetry (%) 02/16/18 02/16/18 20:13 20:19 Temperature 98.0 F Pulse Rate Pulse Rate [ 66 Apical] Respiratory 16 Rate Blood Pressure Blood Pressure 146/55 L [Right Arm] O2 Sat by Pulse 99 99 Oximetry (%) GENERAL: Elderly, thin, awake, alert, and fully oriented, in no acute distress. HEAD: Normal with no signs of trauma. EYES: Pupils equal, round and reactive to light, extraocular movements intact, sclera anicteric, conjunctiva clear. No lid lag. EARS, NOSE, THROAT: Ears normal, nares patent, oropharynx clear without exudates. Moist mucous membranes. NECK: Normal range of motion, supple without lymphadenopathy, JVD, or masses. LUNGS: Breath sounds equal, clear to auscultation bilaterally. No wheezes, and no crackles. No accessory muscle use. HEART: Regular rate and rhythm, normal S1 and S2 without murmur, rub or gallop. ABDOMEN: Soft, nontender, not distended, normoactive bowel sounds, no guarding, no rebound, no masses. No hepatomegaly or splenomegaly. MUSCULOSKELETAL: Normal range of motion at all joints. No bony deformities or tenderness. No CVA tenderness. UPPER EXTREMITIES: 5/5 parts advisor strength b/l 2+ pulses, warm, well-perfused. No cyanosis. No clubbing. No peripheral edema. LOWER EXTREMITIES: b/l knees enlarged bony deformities + crepitus with flexion, 3/5 strength with right leg raise, 5/5 left leg raise. Edematous, non-pitting R >L, no warmth or erythema, No calf tenderness. NEUROLOGICAL: No facial droop, normal speech. Normal gait. PSYCHIATRIC: Cooperative. Good eye contact. Appropriate mood and affect. SKIN: Warm, dry, normal turgor, no rashes or lesions noted, normal capillary refill. Laboratory Results - last 24 hr 02/16/18 02/16/18 02/16/18 16:00 16:00 16:00 WBC 4.4 RBC 3.69 Hgb 10.6 L Hct 32.1 L MCV 87.0 MCH 28.7 MCHC 33.0 RDW 16.1 H Plt Count 186 MPV 8.6 Absolute Neuts (auto) 2.5 Neutrophils % 56.8 D Lymphocytes % 23.3 D Monocytes % 16.6 H Eosinophils % 2.3 Basophils % 1.0 Nucleated RBC % 0 PT with INR 28.60 H INR 2.40 H Sodium 139 Potassium 4.3 Chloride 106 Carbon Dioxide 28 Anion Gap 6 L BUN 24 H Creatinine 0.7 Creat Clearance w eGFR > 60 Random Glucose 90 Calcium 9.0 Total Bilirubin 1.0 AST 25 ALT 8 L Alkaline Phosphatase 119 H B-Natriuretic Peptide 2776.6 H Total Protein 6.1 L Albumin 3.1 L CXR - Final read pending Right knee x-ray - Loss of bone density, extensive osteoarthritic changes with possible old lateral tibial plateau fracture, medial clips and vascular calcifications. There is a joint effusion. Similar findings in September 2015 study. [place] US RLE - 6 x 3.3 x 1.7 cm popliteal fossa cyst. - No DVT ASSESSMENT/PLAN: 87 year old female with a PMH significant for A-fib, CAD, HTN, HLD, Parkinson's disease, and osteoporosis presented to the ED with right knee pain that prevented her from ambulating. US showed bakers cyst. Patient was placed on observation and will need case management consult and possible LT placement. Right Knee pain - X-ray - APAP for pain management - PT consult ordered - Ortho consult ordered - Auto Accessories Installer consult for possible snf care placement A-fib - S/p mechanical valve placement - Currently on coumadin 3.5 mg - INR 2.40 today - Monitor INR and adjust coumadin dose accordingly CAD - S/p CABG - Asa 81 mg qday - Imdur 60 mg PO qday - Nitrostat 0.4 mg SL q5min PRN HTN - Valstartan 80 mg QHS - Lasix 40 mg PO qday HLD - Atorvastatin 10 mg PO qhs Parkinson's Disease - Carbidopa/Levodopa 10/100 PO TID Osteoporosis - Foxamax 70 mg PO qweek - Os-Maik 500 +D Supplements - Yarnell-3 2 mg PO BID - KcL 10 meq PO qday FEN - PO intake adequate - Electrolytes replete as indicated - Low sodium diet DVT Prophylaxis - On Coumadin Dispo: pt currently requires further inpatient care. FULL CODE Visit type - Emergency Visit Emergency Visit: Yes ED Registration Date: 02/16/18 Care time: The patient presented to the Emergency Department on the above date and was hospitalized for further evaluation of their emergent condition. - New Patient This patient is new to me today: Yes Date on this admission: 02/16/18 - Critical Care Critical Care patient: No
[2018-02-16] MEDS: CALCIUM 500MG/VIT-D 200 UNITS COMBO TABLET (FP) PO SCH (21:32)
[2018-02-16] MEDS: CARBIDOPA/LEVODOPA 10/100 TABLET (FP) PO SCH (21:32)
[2018-02-16] MEDS: CARVEDILOL 6.25 MG TABLET (FP) PO SCH (21:32)
[2018-02-16] MEDS: ATORVASTATIN CA 10 MG TABLET (FP) PO SCH (21:32)
[2018-02-16] MEDS ORDERED: ACETAMINOPHEN 325 MG TABLET (FP) PO PRN (22:40)
[2018-02-17] MEDS: CALCIUM 500MG/VIT-D 200 UNITS COMBO TABLET (FP) PO SCH ×3 (05:56→22:10)
[2018-02-17] MEDS: CARBIDOPA/LEVODOPA 10/100 TABLET (FP) PO SCH ×3 (05:56→22:10)
[2018-02-17] MEDS ORDERED: VALSARTAN 160 MG TABLET (UD) PO SCH (07:00)
[2018-02-17 07:28] LABS: HEMATOCRIT 33.8 % (32.4-45.2); HEMOGLOBIN 10.7 GM/dL (10.7-15.3); MCH 27.6 pg (25.7-33.7); MCHC 31.6 g/dl (32.0-36.0); MEAN CELL VOLUME 87.3 fl (80-96); MEAN PLT VOLUME 8.6 fl (7.5-11.1); PLATELET COUNT 177 K/MM3 (134-434); RBC 3.87 M/mm3 (3.60-5.2); RDW 15.6 % (11.6-15.6); WHITE BLOOD COUNT 4.8 K/mm3 (4.0-10.0)
[2018-02-17 07:34] LABS: INR 2.18 (0.83-1.09); PROTHROMBIN TIME (PATIENT) 25.9 SEC (9.7-13.0)
[2018-02-17 08:00] LABS: ANION GAP 8 MMOL/L (8-16); BLOOD UREA NITROGEN 23 mg/dL (7-18); CALCIUM 9.2 mg/dL (8.5-10.1); CHLORIDE 106 mmol/L (98-107); CO2 28 mmol/L (21-32); CREATININE 0.7 mg/dL (0.55-1.3); GLUCOSE,RANDOM 84 mg/dL (74-106); MAGNESIUM 2.1 mg/dL (1.8-2.4); POTASSIUM 3.9 mmol/L (3.5-5.1); SODIUM 141 mmol/L (136-145)
--- NOTE | 2018-02-17 09:11 | CON.ORTH ---
Consult Reason for Consultation:: right knee pain - Past Medical History Cardio/Vascular: Yes: AFIB, CAD, HTN, Hyperlipdemia Musculoskeletal: Yes: Chronic low back pain - Past Surgical History Past Surgical History: Yes: Joint Replacement (hip), Valve Replacement - Alcohol/Substance Use Hx Alcohol Use: No - Smoking History Smoking history: Never smoked Have you smoked in the past 12 months: No Aproximately how many cigarettes per day: 0 Home Medications - Allergies Allergies/Adverse Reactions: Allergies Allergy/AdvReac Type Severity Reaction Status Date / Time codeine [Codeine] Allergy Mild sick Verified 02/16/18 15:04 NSAIDS (Non-Steroidal AdvReac Verified 02/16/18 15:04 Anti-Inflamma - Home Medications Home Medications: Ambulatory Orders Aspirin [ASA -] 81 mg PO DAILY #0 tab.chew 02/27/12 Potassium Chloride [K-Dur -] 10 meq PO DAILY #0 tablet.er 02/27/12 Calcium Carb/Vit D3/Minerals [Calcium 600 + D Tablet] 1 each PO TID 02/12/13 Omega3/Dha/Epa/Fish Oil/Vit D3 [Cypyt-2-Mwxu Oil-Vit D3 Sftgl] 1 each PO DAILY 02/12/13 Alendronate Na [Fosamax (Weekly)] 70 mg PO MO 08/22/13 Nitroglycerin [Nitrostat] 0.4 mg SL PRN 08/22/13 Isosorbide Mononitrate [Imdur] 60 mg PO DAILY 09/30/14 Warfarin Sodium [Coumadin] 3.5 mg PO HS 09/16/15 Atorvastatin Ca [Lipitor] 10 mg PO HS tablet 09/19/15 Carvedilol [Coreg -] 6.25 mg PO BID tablet 09/19/15 Cholecalciferol (Vitamin D3) [Vitamin D3 -] 1,000 unit PO DAILY tab 09/19/15 Furosemide [Lasix -] 40 mg PO DAILY tablet 09/19/15 Carbidopa/Levodopa [Carbidopa-Levodopa 10-100 Tab] 1 each PO TID 03/25/17 Losartan Potassium 0 mg PO DAILY 02/16/18 Physical Exam for Ortho Vital Signs: Vital Signs Temperature 97.9 F 02/17/18 06:48 Pulse Rate 57 L 02/17/18 06:48 Respiratory Rate 20 02/17/18 06:48 Blood Pressure 157/56 L 02/17/18 06:48 O2 Sat by Pulse Oximetry (%) 99 02/16/18 20:44 Labs: CBC, BMP 02/17/18 06:15 02/17/18 06:15 INR, PTT INR 2.18 (0.83-1.09) H 02/17/18 06:15 - Lower Extremity Knee: Yes: Right, Deformity, Pain, Swelling, Tenderness, Other (+ swelling, + valgus deformity, + ttp, ROM 0-100, calf soft ,nt, nvi) Imaging - Results X-ray: Report Reviewed, Image Reviewed Assessment/Plan 87 year old female with a PMH significant for A-fib, CAD, HTN, HLD, Parkinson's disease, and osteoporosis presented to the ED with right knee pain that prevented her from ambulating. Patient reports that the pain started in the middle of the night and worsened until the morning. She reports the pain is worse towards the posterior aspect of the knee. When she tried to ambulate with her walker, she could not because the pain was too severe. She denies recent weight change, no SOB, chest pain, dizziness, numbness or tingling, LOC, syncope , n/v/d. Denies any recent injury/trauma. She has had injections in the past without much relief. a/p right knee severe tricompartmental djd with valgus deformity Risks and benefits were d/w pt in detail PT eval wbat she will think about whether or not she would like to have a cortisone injection will follow d/w Dr. Dang
[2018-02-17] MEDS ORDERED: PT OWN MED DRAWER 7, Y5N ONE ×3 (09:33→21:23)
[2018-02-17] MEDS: OMEGA-3 ACID ETHYL ESTERS (FATTY-ACIDS) 1 GM CAPSULE (FP) PO SCH ×2 (09:35→22:10)
[2018-02-17] MEDS: POTASSIUM CHLORIDE TABS 10 MEQ TABLET.ER (FP) PO SCH (09:35)
[2018-02-17] MEDS: CHOLECALCIFEROL (VITAMIN D3) 1,000 UNIT TABLET (FP) PO SCH (09:35)
[2018-02-17] MEDS: ISOSORBIDE MONONITRATE 30 MG TAB.SR.24H (FP) PO SCH (09:35)
[2018-02-17] MEDS: CARVEDILOL 6.25 MG TABLET (FP) PO SCH ×2 (09:35→22:10)
[2018-02-17] MEDS: ASPIRIN 81 MG CHEWABLE TABLETS PO SCH (09:35)
[2018-02-17] MEDS: FUROSEMIDE 40 MG TABLET (FP) PO SCH (09:35)
--- NOTE | 2018-02-17 10:31 | PN ---
Progress Note, Physician Chief Complaint: SEEN IN ROOM WITH ORTHOPEDICS DR GORDON B/L KNEE PAIN RIGHT GREATER THAN LEFT - Current Medication List Current Medications: Active Medications Acetaminophen (Tylenol -) 650 mg PO Q6H PRN PRN Reason: PAIN LEVEL 4 - 6 Aspirin (Asa -) 81 mg PO DAILY [facility] Last Admin: 02/17/18 09:35 Dose: 81 mg Atorvastatin Calcium (Lipitor -) 10 mg PO HS [facility] Last Admin: 02/16/18 21:32 Dose: 10 mg Calcium Carbonate/Cholecalciferol (Os-Maik 500+D -) 1 tab PO TID [facility] Last Admin: 02/17/18 05:56 Dose: 1 tab Carbidopa/Levodopa (Sinemet 10/100 -) 1 each PO TID [facility] Last Admin: 02/17/18 05:56 Dose: 1 each Carvedilol (Coreg -) 6.25 mg PO BID [facility] Last Admin: 02/17/18 09:35 Dose: 6.25 mg Cholecalciferol (Vitamin D3 -) 1,000 unit PO DAILY [facility] Last Admin: 02/17/18 09:35 Dose: 1,000 unit Furosemide (Lasix -) 40 mg PO DAILY [facility] Last Admin: 02/17/18 09:35 Dose: 40 mg Isosorbide Mononitrate (Imdur -) 60 mg PO DAILY [facility] Last Admin: 02/17/18 09:35 Dose: 60 mg Nitroglycerin (Nitrostat -) 0.4 mg SL [id number] PRN PRN Reason: CHEST PAINS Non-Formulary Medication (Alendronate Na [Fosamax (Weekly)]) 70 mg PO MO [facility] Lyobg-5-Dqos Ethyl Esters (Lovaza -) 2 gm PO BID [facility] Last Admin: 02/17/18 09:35 Dose: 2 gm Potassium Chloride (K-Dur -) 10 meq PO DAILY [facility] Last Admin: 02/17/18 09:35 Dose: 10 meq Valsartan (Diovan -) 80 mg PO HS [facility] Warfarin Sodium 3 mg/ Warfarin (Sodium 0.5 mg) 3.5 mg PO DAILY@1800 [facility] - Objective Vital Signs: Vital Signs Temperature 97.9 F 02/17/18 06:48 Pulse Rate 57 L 02/17/18 06:48 Respiratory Rate 20 02/17/18 06:48 Blood Pressure 157/56 L 02/17/18 06:48 O2 Sat by Pulse Oximetry (%) 99 02/16/18 20:44 Constitutional: Yes: Mild Distress Eyes: Yes: WNL HENT: Yes: WNL Neck: Yes: WNL Cardiovascular: Yes: Pulse Irregular Respiratory: Yes: WNL Gastrointestinal: Yes: WNL Genitourinary: Yes: WNL Musculoskeletal: Yes: Muscle Pain, Muscle Weakness Extremities: Yes: Other Integumentary: Yes: WNL Wound/Incision: Yes: Clean/Dry ...Motor Strength: LLE, RLE Psychiatric: Yes: WNL Labs: CBC, BMP 02/17/18 06:15 02/17/18 06:15 INR, PTT INR 2.18 (0.83-1.09) H 02/17/18 06:15 Problem List - Problems (1) Ambulatory dysfunction Code(s): R26.2 - DIFFICULTY IN WALKING, NOT ELSEWHERE CLASSIFIED (2) Afib Code(s): I48.91 - UNSPECIFIED ATRIAL FIBRILLATION Qualifiers: Atrial fibrillation type: paroxysmal Qualified Code(s): I48.0 - Paroxysmal atrial fibrillation (3) Arthritis Code(s): M19.90 - UNSPECIFIED OSTEOARTHRITIS, UNSPECIFIED SITE (4) Joint effusion Code(s): M25.40 - EFFUSION, UNSPECIFIED JOINT Assessment/Plan SCHEDULED FOR CORTISONE INJECTION TOMORROW TO RIGHT KNEE BY ORTHOPEDICS INR STABLE PAIN CONTROL PT EVAL
--- NOTE | 2018-02-17 10:36 | PN ---
Progress Note (short form) - Note Progress Note: Pt seen and examined with PMD. She has had gel injections in past which failed. I agree with my PA's note and impression. 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
[2018-02-17] MEDS ORDERED: methylPREDNISolone ACET (DEPO) 80 MG/1 ML VIAL IAR ONE (10:37)
--- NOTE | 2018-02-17 11:52 | EKG ---
Test Reason : Blood Pressure : / mmHG Vent. Rate : 043 BPM Atrial Rate : 043 BPM P-R Int : 154 ms QRS Dur : 100 ms QT Int : 424 ms P-R-T Axes : 082 015 -68 degrees QTc Int : 358 ms ATRIAL FIBRILLATION WITH SLOW VENTRICULAR RESPONSE INCOMPLETE RIGHT BUNDLE BRANCH BLOCK NONSPECIFIC ST AND T WAVE ABNORMALITY ABNORMAL ECG Confirmed by CHRISTIANO GATES MD ([id number]) on 02/17/2018 11:52:29 AM Referred By: Confirmed By:CHRISTIANO GATES MD
[2018-02-17] MEDS ORDERED: WARFARIN NA 3 MG TABLET ONE (17:54)
[2018-02-17] MEDS ORDERED: WARFARIN NA 1 MG TABLET (FP) ONE (17:54)
[2018-02-17] MEDS: WARFARIN NA PO SCH (18:05)
[2018-02-17] MEDS ORDERED: WARFARIN NA 3 MG TABLET PO SCH (22:00)
[2018-02-17] MEDS: ATORVASTATIN CA 10 MG TABLET (FP) PO SCH (22:10)
[2018-02-17] MEDS: VALSARTAN 80 MG TABLET (UD) PO SCH (22:10)
[2018-02-18] MEDS: CARBIDOPA/LEVODOPA 10/100 TABLET (FP) PO SCH ×3 (05:50→21:21)
[2018-02-18] MEDS: CALCIUM 500MG/VIT-D 200 UNITS COMBO TABLET (FP) PO SCH ×4 (05:50→21:26)
[2018-02-18] MEDS ORDERED: PT OWN MED DRAWER 7, Y5N ONE ×3 (07:10→15:01)
[2018-02-18 07:46] LABS: HEMATOCRIT 33.2 % (32.4-45.2); HEMOGLOBIN 10.6 GM/dL (10.7-15.3); MCH 27.5 pg (25.7-33.7); MCHC 31.8 g/dl (32.0-36.0); MEAN CELL VOLUME 86.6 fl (80-96); MEAN PLT VOLUME 8.5 fl (7.5-11.1); PLATELET COUNT 172 K/MM3 (134-434); RBC 3.83 M/mm3 (3.60-5.2); RDW 15.8 % (11.6-15.6); WHITE BLOOD COUNT 6.6 K/mm3 (4.0-10.0)
[2018-02-18 08:10] LABS: ANION GAP 6 MMOL/L (8-16); BLOOD UREA NITROGEN 26 mg/dL (7-18); CHLORIDE 107 mmol/L (98-107); CO2 27 mmol/L (21-32); CREATININE 0.7 mg/dL (0.55-1.3); GLUCOSE,RANDOM 90 mg/dL (74-106); POTASSIUM 3.9 mmol/L (3.5-5.1); SODIUM 140 mmol/L (136-145)
[2018-02-18 08:23] LABS: INR 2.19 (0.83-1.09)
[2018-02-18] MEDS: ASPIRIN 81 MG CHEWABLE TABLETS PO SCH (09:55)
[2018-02-18] MEDS: ISOSORBIDE MONONITRATE 30 MG TAB.SR.24H (FP) PO SCH (09:55)
[2018-02-18] MEDS: CHOLECALCIFEROL (VITAMIN D3) 1,000 UNIT TABLET (FP) PO SCH (09:55)
[2018-02-18] MEDS: POTASSIUM CHLORIDE TABS 10 MEQ TABLET.ER (FP) PO SCH (09:55)
[2018-02-18] MEDS: CARVEDILOL 6.25 MG TABLET (FP) PO SCH ×2 (09:55→21:22)
[2018-02-18] MEDS: FUROSEMIDE 40 MG TABLET (FP) PO SCH (09:55)
[2018-02-18] MEDS: OMEGA-3 ACID ETHYL ESTERS (FATTY-ACIDS) 1 GM CAPSULE (FP) PO SCH ×2 (09:56→21:25)
--- NOTE | 2018-02-18 10:09 | DS ---
Physical Examination Vital Signs: Vital Signs Temperature 98.3 F 02/18/18 06:59 Pulse Rate 60 02/18/18 06:59 Respiratory Rate 20 02/18/18 06:59 Blood Pressure 125/62 02/18/18 06:59 O2 Sat by Pulse Oximetry (%) 99 02/17/18 21:00 Constitutional: Yes: Moderate Distress Eyes: Yes: WNL HENT: Yes: WNL Neck: Yes: WNL Cardiovascular: Yes: Pulse Irregular Respiratory: Yes: WNL Gastrointestinal: Yes: WNL Renal/: Yes: WNL Musculoskeletal: Yes: Joint Stiffness, Muscle Pain, Muscle Weakness Extremities: Yes: Other Edema: Yes Peripheral Pulses WNL: Yes Integumentary: Yes: Other Wound/Incision: Yes: Open to air Neurological: Yes: Pre-Existing Deficit ...Motor Strength: LLE, RLE Psychiatric: Yes: WNL Labs: CBC, BMP 02/18/18 06:45 02/18/18 06:45 Discharge Summary Reason For Visit: AMBULATORY DYSFUNCTION Current Active Problems Ambulatory dysfunction (Acute) RIGHT KNEE ARTHRITIS AFIB HTN Procedures: Principal: XRAYS Hospital Course: CORTISONE INJECTION RIGHT KNEE PENDING, WILL NEED REHAB/SNF Condition: Guarded - Instructions Diet, Activity, Other Instructions: [facility] Referrals: Ish Shultz MD [Primary Care Provider] - Disposition: [facility] - Home Medications Comprehensive Discharge Medication List: Ambulatory Orders Aspirin [ASA -] 81 mg PO DAILY #0 tab.chew 02/27/12 Potassium Chloride [K-Dur -] 10 meq PO DAILY #0 tablet.er 02/27/12 Calcium Carb/Vit D3/Minerals [Calcium 600 + D Tablet] 1 each PO TID 02/12/13 Omega3/Dha/Epa/Fish Oil/Vit D3 [[id number]-[id number] Oil-Vit D3 Sftgl] 1 each PO DAILY 02/12/13 Alendronate Na [Fosamax (Weekly)] 70 mg PO MO 08/22/13 Nitroglycerin [Nitrostat] 0.4 mg SL PRN 08/22/13 Isosorbide Mononitrate [Imdur] 60 mg PO DAILY 09/30/14 Warfarin Sodium [Coumadin] 3.5 mg PO HS 09/16/15 Atorvastatin Ca [Lipitor] 10 mg PO HS tablet 09/19/15 Carvedilol [Coreg -] 6.25 mg PO BID tablet 09/19/15 Cholecalciferol (Vitamin D3) [Vitamin D3 -] 1,000 unit PO DAILY tab 09/19/15 Furosemide [Lasix -] 40 mg PO DAILY tablet 09/19/15 Carbidopa/Levodopa [Carbidopa-Levodopa 10-100 Tab] 1 each PO TID 03/25/17 Losartan Potassium 0 mg PO DAILY 02/16/18 Acetaminophen [Tylenol .Regular Strength -] 650 mg PO Q6H PRN tablet 02/18/18 Warfarin Na [Coumadin -] 3.5 mg PO DAILY@1800 tablet 02/18/18
--- NOTE | 2018-02-18 10:51 | PN ---
Progress Note (short form) - Note Progress Note: Ortho Pt seen and examined still with right knee pain Selected Entries 02/18/18 06:59 Temperature 98.3 F Pulse Rate 60 Respiratory 20 Rate Blood Pressure 125/62 Laboratory Tests 02/18/18 06:45 WBC 6.6 Hgb 10.6 L Hct 33.2 Plt Count 172 + swelling, + ttp, decr rom nvi a/p consent obtained, time out-performed, under sterile technique, right knee was aspirated, 40 cc of inflammatory fluid removed, 80 mg of depo-medrol injected into knee joint, injection tolerated well PT wbat pain control ok to d/c from ortho pov d/w Dr. Dang
[2018-02-18] MEDS ORDERED: LIDOCAINE HCL 1%, 10 MG/ML (20ML VIAL) NR ONE (11:00)
[2018-02-18] MEDS ORDERED: WARFARIN NA 1 MG TABLET (FP) ONE (18:01)
[2018-02-18] MEDS ORDERED: WARFARIN NA 3 MG TABLET ONE (18:01)
[2018-02-18] MEDS: WARFARIN NA PO SCH (18:02)
[2018-02-18] MEDS: ATORVASTATIN CA 10 MG TABLET (FP) PO SCH (21:23)
[2018-02-18] MEDS: VALSARTAN 80 MG TABLET (UD) PO SCH (21:26)
[2018-02-19] MEDS: CALCIUM 500MG/VIT-D 200 UNITS COMBO TABLET (FP) PO SCH ×3 (05:44→21:13)
[2018-02-19] MEDS: CARBIDOPA/LEVODOPA 10/100 TABLET (FP) PO SCH ×3 (05:44→21:15)
[2018-02-19] MEDS: CARVEDILOL 6.25 MG TABLET (FP) PO SCH ×2 (09:27→21:13)
[2018-02-19] MEDS: ISOSORBIDE MONONITRATE 30 MG TAB.SR.24H (FP) PO SCH (09:27)
[2018-02-19] MEDS: ASPIRIN 81 MG CHEWABLE TABLETS PO SCH (09:27)
[2018-02-19] MEDS: FUROSEMIDE 40 MG TABLET (FP) PO SCH ×2 (09:28→09:34)
[2018-02-19] MEDS: CHOLECALCIFEROL (VITAMIN D3) 1,000 UNIT TABLET (FP) PO SCH (09:28)
[2018-02-19] MEDS: POTASSIUM CHLORIDE TABS 10 MEQ TABLET.ER (FP) PO SCH (09:28)
[2018-02-19] MEDS: OMEGA-3 ACID ETHYL ESTERS (FATTY-ACIDS) 1 GM CAPSULE (FP) PO SCH ×2 (09:29→21:14)
[2018-02-19] MEDS ORDERED: PT OWN MED DRAWER 7, Y5N ONE ×2 (09:30→21:02)
[2018-02-19] MEDS ORDERED: WARFARIN NA 1 MG TABLET (FP) ONE (17:27)
[2018-02-19] MEDS ORDERED: WARFARIN NA 3 MG TABLET ONE (17:27)
[2018-02-19] MEDS: WARFARIN NA PO SCH (17:58)
--- NOTE | 2018-02-19 18:35 | PN ---
Progress Note (short form) - Note Progress Note: AWAITING SNF PLACEMENT COMFORTABLE POOR AMBULATORY MOTIONS NEEDS WALKER Problem List - Problems (1) Ambulatory dysfunction Code(s): R26.2 - DIFFICULTY IN WALKING, NOT ELSEWHERE CLASSIFIED (2) Afib Code(s): I48.91 - UNSPECIFIED ATRIAL FIBRILLATION Qualifiers: Atrial fibrillation type: paroxysmal Qualified Code(s): I48.0 - Paroxysmal atrial fibrillation (3) Arthritis Code(s): M19.90 - UNSPECIFIED OSTEOARTHRITIS, UNSPECIFIED SITE (4) Joint effusion Code(s): M25.40 - EFFUSION, UNSPECIFIED JOINT
[2018-02-19] MEDS: VALSARTAN 80 MG TABLET (UD) PO SCH (21:13)
[2018-02-19] MEDS: ATORVASTATIN CA 10 MG TABLET (FP) PO SCH (21:14)
[2018-02-20] MEDS ORDERED: PT OWN MED DRAWER 7, Y5N ONE ×2 (05:47→10:12)
[2018-02-20] MEDS: CALCIUM 500MG/VIT-D 200 UNITS COMBO TABLET (FP) PO SCH (05:58)
[2018-02-20] MEDS: CARBIDOPA/LEVODOPA 10/100 TABLET (FP) PO SCH (05:58)
[2018-02-20] MEDS: ISOSORBIDE MONONITRATE 30 MG TAB.SR.24H (FP) PO SCH (10:16)
[2018-02-20] MEDS: ASPIRIN 81 MG CHEWABLE TABLETS PO SCH (10:16)
[2018-02-20] MEDS: CARVEDILOL 6.25 MG TABLET (FP) PO SCH (10:16)
[2018-02-20] MEDS: FUROSEMIDE 40 MG TABLET (FP) PO SCH (10:16)
[2018-02-20] MEDS: POTASSIUM CHLORIDE TABS 10 MEQ TABLET.ER (FP) PO SCH (10:16)
[2018-02-20] MEDS: OMEGA-3 ACID ETHYL ESTERS (FATTY-ACIDS) 1 GM CAPSULE (FP) PO SCH (10:18)
[2018-02-20] MEDS: CHOLECALCIFEROL (VITAMIN D3) 1,000 UNIT TABLET (FP) PO SCH (10:18)
[2018-02-20 10:24] VITALS: BP 121/60; PULSE 57; TEMP 98.2
--- NOTE | 2018-02-20 11:58 | PN ---
Progress Note (short form) - Note Progress Note: AWAITING AUTH FOR SNF TOMORROW NO ACUTE CHANGES PAIN CONTROL +BM Problem List - Problems (1) Ambulatory dysfunction Code(s): R26.2 - DIFFICULTY IN WALKING, NOT ELSEWHERE CLASSIFIED (2) Afib Code(s): I48.91 - UNSPECIFIED ATRIAL FIBRILLATION Qualifiers: Atrial fibrillation type: paroxysmal Qualified Code(s): I48.0 - Paroxysmal atrial fibrillation (3) Arthritis Code(s): M19.90 - UNSPECIFIED OSTEOARTHRITIS, UNSPECIFIED SITE (4) Joint effusion Code(s): M25.40 - EFFUSION, UNSPECIFIED JOINT
[2018-02-21] MEDS ORDERED: PATIENT'S OWN MEDICATION (NON-FORMULARY) (Alendronate Na [Fosamax (Weekly)] 70 MG) PO SCH (18:29)
== END 2018-02-20 13:20 | DRG 554 ==
LOC: JER 14:35 → UNDOADMOB 18:06 → JERBED 18:06 → J8W 18:33 → JERBED 21:10 → OBSVTOIN 02-17 18:52 → INTOOBSV 02-17 18:52 → UNDODISIN 02-18 16:50
PROVIDERS: ADMIT Internal Medicine; ATTEND Family Medicine
PROC: 0S9C3ZX Drainage of Right Knee Joint, Percutaneous Approach, Diagnostic (ICD-10-PCS; principal; 2018-02-18)
PROC: 3E0U33Z Introduction of Anti-inflammatory into Joints, Percutaneous Approach (ICD-10-PCS; 2018-02-18)
PROC: 3E0U3BZ Introduction of Anesthetic Agent into Joints, Percutaneous Approach (ICD-10-PCS; 2018-02-18)
DX: M17.11 Unilateral primary osteoarthritis, right knee (principal); M25.461 Effusion, right knee; I25.10 Atherosclerotic heart disease of native coronary artery without angina pectoris; I10 Essential (primary) hypertension; E78.5 Hyperlipidemia, unspecified; G20 Parkinson's disease; M54.5 Low back pain; M81.0 Age-related osteoporosis without current pathological fracture; R26.2 Difficulty in walking, not elsewhere classified; I48.0 Paroxysmal atrial fibrillation; M25.40 Effusion, unspecified joint; M19.90 Unspecified osteoarthritis, unspecified site; Z95.2 Presence of prosthetic heart valve; Z79.01 Long term (current) use of anticoagulants; Z95.1 Presence of aortocoronary bypass graft; Z96.649 Presence of unspecified artificial hip joint
CPT/HCPCS: 36415; 71045-TC-FY; 73562-TC-RT-FY; 80048; 80053; 83735; 83880; 85025; 85027; 85610; 93005; 93010; 93971-TC; 97116-GP; 97161-GP; 99285-25; G0378

== ENCOUNTER 2018-10-18 08:57 | Inpatient (IN) | payer OTHER, MEDICARE ==
[2018-10-18 09:17] VITALS: BMI 23.5
--- NOTE | 2018-10-18 09:42 | PDOC ---
History of Present Illness - General Chief Complaint: Pain Stated Complaint: LT SIDE PAIN Time Seen by Provider: 10/18/18 09:17 - History of Present Illness Initial Comments: 10/18/18 09:42 88 y/o F hx of A-fib on coumadin, HTN , arthritis, osteoporosis presenting with 1 day of left shoulder pain. Pain worsened at 4 a.m this morning and was not relieved with tylenol. Describes pain as throbbing and radiating from her shoulder, down to her back and arm. No relieving factors, exacerbated by movement. There was a similar episode last year and she was treated in the ED for pain. She denies any chest pain, sob, fevers,loss of sensation in the affected arm, numbness, tingling or weakness. 10/18/18 13:40 Past History - Past Medical History Allergies/Adverse Reactions: Allergies Allergy/AdvReac Type Severity Reaction Status Date / Time codeine [Codeine] Allergy Mild sick Verified 10/18/18 09:21 NSAIDS (Non-Steroidal AdvReac Verified 10/18/18 09:21 Anti-Inflamma Home Medications: Ambulatory Orders Aspirin [ASA -] 81 mg PO DAILY #0 tab.chew 02/27/12 Potassium Chloride [K-Dur -] 10 meq PO DAILY #0 tablet.er 02/27/12 Calcium Carb/Vit D3/Minerals [Calcium 600 + D Tablet] 1 each PO TID 02/12/13 Omega3/Dha/Epa/Fish Oil/Vit D3 [Tkvll-7-Ecre Oil-Vit D3 Sftgl] 1 each PO DAILY 02/12/13 Alendronate Na [Fosamax (Weekly)] 70 mg PO MO 08/22/13 Nitroglycerin [Nitrostat] 0.4 mg SL PRN 08/22/13 Isosorbide Mononitrate [Imdur] 60 mg PO DAILY 09/30/14 Atorvastatin Ca [Lipitor] 10 mg PO HS tablet 09/19/15 Carvedilol [Coreg -] 6.25 mg PO BID tablet 09/19/15 Cholecalciferol (Vitamin D3) [Vitamin D3 -] 1,000 unit PO DAILY tab 09/19/15 Furosemide [Lasix -] 40 mg PO DAILY tablet 09/19/15 Carbidopa/Levodopa [Carbidopa-Levodopa 10-100 Tab] 1 each PO TID 03/25/17 Losartan Potassium 25 mg PO DAILY 02/16/18 Acetaminophen [Tylenol .Regular Strength -] 650 mg PO Q6H PRN tablet 02/18/18 Warfarin Na [Coumadin -] 3.5 mg PO DAILY@1800 tablet 02/18/18 Anemia: No Asthma: No Cancer: No Cardiac Disorders: Yes (cabg x2 valve replacement, AFIB) CVA: No COPD: No CHF: No DVT: No Dementia: No Diabetes: No GI Disorders: No Disorders: No HTN: Yes Hypercholesterolemia: Yes Liver Disease: No Seizures: No Thyroid Disease: No - Surgical History Abdominal Surgery: No Appendectomy: Yes Cardiac Surgery: Yes (OPEN HEART SX X 2) Cholecystectomy: Yes Lung Surgery: No Neurologic Surgery: No Orthopedic Surgery: Yes (right THR 9yrs ago) - Immunization History Immunization Up to Date: Yes - Suicide/Smoking/Psychosocial Hx Smoking Status: No Smoking History: Unknown if ever smoked Have you smoked in the past 12 months: No Number of Cigarettes Smoked Daily: 0 Hx Alcohol Use: No Drug/Substance Use Hx: No Substance Use Type: None Hx Substance Use Treatment: No *Physical Exam - Vital Signs Last Vital Signs Temp Pulse Resp BP Pulse Ox 97.5 F L 59 L 16 160/95 100 10/18/18 09:06 10/18/18 09:06 10/18/18 09:06 10/18/18 09:06 10/18/18 09:06 - Physical Exam General Appearance: Yes: Appropriately Dressed, Apparent Distress. No: Disheveled Respiratory/Chest: positive: Lungs Clear, Normal Breath Sounds. negative: Rales , Wheezing Cardiovascular: positive: Regular Rhythm, Regular Rate, S1, S2. negative: Edema , JVD Comments:: 10/18/18 09:46 2+ radial pulse bilaterally Musculoskeletal: positive: Normal Inspection, Decreased Range of Motion, Other ( Pt. unable to abduct left arm due to pain either passively or actively. Tenderness to palpation, no bruising observed. capillary refill time 2s. Able to move finger. No numbness or tingling, no less of sensation. Strength 3/5 on left, 5/5 on right) Neurologic: positive: Fully Oriented, Alert, Normal Mood/Affect, Normal Response. negative: Numbness, Confused, Disoriented ED Treatment Course - LABORATORY CBC & Chemistry Diagram: 10/18/18 10:30 10/18/18 11:48 Medical Decision Making - Medical Decision Making 10/18/18 12:01 ekg shows sinus bradycardia with 1st degree av block. Elevated troponin to 0.13 on labs back pain is improved on percocet at this time. Shoulder pain still persists. Patient is more comfortable. 10/18/18 13:[address] Laguna (sr[employer] system administrator covering for. Dr. guillen) he recommends continuing to trend her trops and admit the patient to telmetry. Additional aspirin 324mg not necessary since patient is already on anticoagulation and also takes daily baby aspirin. *DC/Admit/Observation/Transfer Diagnosis at time of Disposition: Pain, Atypical chest pain, Elevated troponin Left shoulder pain Qualifiers: Chronicity: chronic Qualified Code(s): M25.512 - Pain in left shoulder - Discharge Dispostion Decision to Admit order: Yes - Referrals Referrals: Ish Shultz MD [Primary Care Provider] - - Patient Instructions - Post Discharge Activity
--- NOTE | 2018-10-18 10:33 | PDOC ---
Documentation entered by Daniel Thayer SCRIBE, acting as scribe for Suzanne Juarez MD. Suzanne Juarez MD: This documentation has been prepared by the Flaca perez Elijah, SCRIBE, under my direction and personally reviewed by me in its entirety. I confirm that the documentation accurately reflects all work, treatment, procedures, and medical decision making performed by me. Attending Attestation - Resident Resident Name: YolyRiddhi - ED Attending Attestation I have performed the following: I have examined & evaluated the patient, The case was reviewed & discussed with the resident, I agree w/resident's findings & plan, Exceptions are as noted - HPI HPI: 10/18/18 10:26 The patient is an 88 year old female with a significant PMH of AFIB (Coumadin), CAD s/p CABG x2, HTN, HLD, and chronic right arm pain who presents to the emergency department with worsening L Shoulder pain lasting for x1 day. Patient describes the pain as 8/10 intensity and it radiates down her back/ L arm. Patient notes similar pain in the past and was admitted in the ED a year prior in the opposite Shoulder. Denies SOB, Nausea and Vomiting Allergies: Codeine and NSAIDS PCP: Dr. Shultz - Physicial Exam PE: GENERAL: Awake, alert, and fully oriented. In obvious discomfort. HEAD: No signs of trauma EYES: PERRLA, EOMI, sclera anicteric, conjunctiva clear ENT: Auricles normal inspection, hearing grossly normal, nares patent, oropharynx clear without exudates. Moist mucosa NECK: Normal ROM, supple, no lymphadenopathy, JVD, or masses LUNGS: Breath sounds equal, clear to auscultation bilaterally. No wheezes, and no crackles HEART: Regular rate and rhythm, normal S1 and S2, no murmurs, rubs or gallops ABDOMEN: Soft, nontender, normoactive bowel sounds. No guarding, no rebound. No masses EXTREMITIES: +Pain with palpation of the entire L shoulder, limited ROM due to pain. No obvious deformity. Remainder of extremities with normal range of motion , no edema. No clubbing or cyanosis. No cords, erythema, or tenderness NEUROLOGICAL: Cranial nerves II through XII grossly intact. Normal speech, normal gait. Motor and sensation intact SKIN: Warm, dry, normal turgor, no rashes or lesions noted. - Medical Decision Making 10/18/18 10:24 NSAIDs are not an option both due to coumadin and patient age. She is in severe pain, tylenol alone will not be sufficient. Pt and daughter are unclear what her prior reaction to codeine was (documented as "sick" in chart), will give 1 percocet. Will obtain cardiac workup in light of prior cardiac history, as the shoulder pain may be a manifestation of ACS
[2018-10-18 10:51] LABS: BASO % 0.8 % (0-2.0); EOS % 0.6 % (0-4.5); HEMATOCRIT 33.7 % (32.4-45.2); HEMOGLOBIN 11.1 GM/dL (10.7-15.3); LYMPH % 13.4 % (8-40); MCH 27.8 pg (25.7-33.7); MEAN CELL VOLUME 84.2 fl (80-96); MEAN PLT VOLUME 8.8 fl (7.5-11.1); MONO % 5.5 % (3.8-10.2); NEUT % 79.7 % (42.8-82.8); RDW 19.7 % (11.6-15.6)
[2018-10-18] MEDS ORDERED: LIDOCAINE 5% TOPICAL PATCH TP ONE (11:06)
[2018-10-18 11:14] LABS: PLATELET COUNT 196 K/MM3 (134-434)
[2018-10-18 11:22] LABS: INR 2.05 (0.83-1.09); PROTHROMBIN TIME (PATIENT) 24.4 SEC (9.7-13.0)
[2018-10-18] MEDS ORDERED: LIDOCAINE 5% TOPICAL PATCH ONE (11:23)
[2018-10-18 12:30] LABS: ALBUMIN 3.6 g/dl (3.4-5.0); BILIRUBIN,TOTAL 1.4 mg/dL (0.2-1); BLOOD UREA NITROGEN 21.6 mg/dL (7-18); CALCIUM 9.7 mg/dL (8.5-10.1); CREATININE 0.8 mg/dL (0.55-1.3); POTASSIUM 4.4 mmol/L (3.5-5.1); TOT PROT 6.5 g/dl (6.4-8.2)
[2018-10-18] MEDS ORDERED: ASPIRIN 81 MG CHEWABLE TABLETS PO ONE (13:09)
[2018-10-18] MEDS ORDERED: NITROGLYCERIN SUBLINGUAL 1/150 0.4 MG TAB SL PRN ×2 (13:15→13:21)
[2018-10-18] MEDS: CARBIDOPA/LEVODOPA 10/100 TABLET (FP) PO SCH ×2 (15:01→23:05)
--- NOTE | 2018-10-18 15:43 | HP ---
Admitting History and Physical - Primary Care Physician PCP: Ish Shultz - Admission Chief Complaint: L shoulder pain History of Present Illness: Patient is an 88 y/o female with past medical history of Afib on coumadin, CAD s /p CABG x 2, HTN, HLD, and chronic right arm pain. Patient presented to ER after experiencing left shoulder pain this morning at 430am. Patient states she took tylenol x 2 at home and did not feel any relief. While in ER EKG showed sinus bradycardia with 1st degree AV block which is a change from previous EKG and elevated troponin of 0.13. Patient denies chest pain or palpitations. History Source: Patient Limitations to Obtaining History: No Limitations - Past Medical History Cardiovascular: Yes: AFIB, CAD, HTN, Hyperlipdemia Musculoskeletal: Yes: Chronic low back pain - Past Surgical History Past Surgical History: Yes: Joint Replacement (hip), Valve Replacement - Smoking History Smoking history: Unknown if ever smoked Have you smoked in the past 12 months: No Aproximately how many cigarettes per day: 0 - Alcohol/Substance Use Hx Alcohol Use: No Home Medications - Allergies Allergies/Adverse Reactions: Allergies Allergy/AdvReac Type Severity Reaction Status Date / Time codeine [Codeine] Allergy Mild sick Verified 10/18/18 09:21 NSAIDS (Non-Steroidal AdvReac Verified 10/18/18 09:21 Anti-Inflamma - Home Medications Home Medications: Ambulatory Orders Aspirin [ASA -] 81 mg PO DAILY #0 tab.chew 02/27/12 Potassium Chloride [K-Dur -] 10 meq PO DAILY #0 tablet.er 02/27/12 Calcium Carb/Vit D3/Minerals [Calcium 600 + D Tablet] 1 each PO TID 02/12/13 Omega3/Dha/Epa/Fish Oil/Vit D3 [Baoql-9-Xzbb Oil-Vit D3 Sftgl] 1 each PO DAILY 02/12/13 Nitroglycerin [Nitrostat] 0.4 mg SL PRN 08/22/13 Isosorbide Mononitrate [Imdur] 60 mg PO DAILY 09/30/14 Atorvastatin Ca [Lipitor] 10 mg PO HS tablet 09/19/15 Carvedilol [Coreg -] 6.25 mg PO BID tablet 09/19/15 Cholecalciferol (Vitamin D3) [Vitamin D3 -] 1,000 unit PO DAILY tab 09/19/15 Furosemide [Lasix -] 40 mg PO DAILY tablet 09/19/15 Carbidopa/Levodopa [Carbidopa-Levodopa 10-100 Tab] 1 each PO TID 03/25/17 Losartan Potassium 25 mg PO DAILY 02/16/18 Acetaminophen [Tylenol .Regular Strength -] 650 mg PO Q6H PRN tablet 02/18/18 Warfarin Na [Coumadin -] 3.5 mg PO DAILY@1800 tablet 02/18/18 Review of Systems - Review of Systems Constitutional: reports: Weakness Eyes: reports: No Symptoms HENT: reports: No Symptoms Neck: reports: No Symptoms Cardiovascular: reports: No Symptoms Respiratory: reports: No Symptoms Gastrointestinal: reports: No Symptoms Genitourinary: reports: Dysuria, Frequency Breasts: reports: No Symptoms Reported Musculoskeletal: reports: Joint Pain (L shoulder) Integumentary: reports: No Symptoms Neurological: reports: Numbness Endocrine: reports: No Symptoms Hematology/Lymphatic: reports: No Symptoms Psychiatric: reports: No Symptoms Physical Examination Vital Signs: Vital Signs Temperature 97.7 F 10/18/18 14:20 Pulse Rate 56 L 10/18/18 14:20 Respiratory Rate 16 10/18/18 09:06 Blood Pressure 104/48 L 10/18/18 14:20 O2 Sat by Pulse Oximetry (%) 95 10/18/18 14:20 Constitutional: Yes: No Distress, Calm Eyes: Yes: Conjunctiva Clear HENT: Yes: Atraumatic Neck: Yes: Supple Cardiovascular: Yes: Regular Rate and Rhythm Respiratory: Yes: Regular, CTA Bilaterally Gastrointestinal: Yes: Normal Bowel Sounds, Soft Musculoskeletal: Yes: Back Pain, Other (L arm/shoulder pain) Extremities: Yes: WNL Edema: No Neurological: Yes: Alert, Oriented Psychiatric: Yes: Alert, Oriented Labs: CBC, BMP 10/18/18 10:30 10/18/18 11:48 Imaging - Results Chest X-ray: Report Reviewed X-ray: Report Reviewed Problem List - Problems (1) Atypical chest pain Assessment/Plan: -Cardiology consult -tele monitoring -Troponin 0.13, 0.29 -Nitro 0.4 SL q5m PRN -Aspirin 324mg PO x 1 in ER Code(s): R07.89 - OTHER CHEST PAIN (2) Elevated troponin Assessment/Plan: -Cardiology consult -tele monitoring -Troponin 0.13, 0.29 -Nitro 0.4 SL q5m PRN -Aspirin 324mg PO x 1 in ER Code(s): R74.8 - ABNORMAL LEVELS OF OTHER SERUM ENZYMES (3) Left shoulder pain Assessment/Plan: -Rheumatology consult -Shoulder xray shows chronic deformity -pain control Code(s): M25.512 - PAIN IN LEFT SHOULDER Qualifiers: Chronicity: chronic Qualified Code(s): M25.512 - Pain in left shoulder; G89.29 - Other chronic pain (4) Afib Assessment/Plan: -Coumadin 3.5mg -INR 2.05 -monitor INR daily -INR therapeutic range 2-3 Code(s): I48.91 - UNSPECIFIED ATRIAL FIBRILLATION Qualifiers: (5) Hyperlipidemia Assessment/Plan: -Atorvastatin Code(s): E78.5 - HYPERLIPIDEMIA, UNSPECIFIED Qualifiers: (6) S/P CABG (coronary artery bypass graft) Assessment/Plan: -Cardiology consult -Aspirin Code(s): Z95.1 - PRESENCE OF AORTOCORONARY BYPASS GRAFT (7) HTN (hypertension) Assessment/Plan: -Imdur, Furosemide, Carvedilol -low Na diet Code(s): I10 - ESSENTIAL (PRIMARY) HYPERTENSION Assessment/Plan see problem list SCDs
[2018-10-18] MEDS ORDERED: WARFARIN NA 1 MG TABLET (FP) PO SCH (18:00)
[2018-10-18] MEDS: WARFARIN NA 2.5 MG, WARFARIN NA 1 MG PO SCH (19:30)
[2018-10-18] MEDS: CARVEDILOL 6.25 MG TABLET (FP) PO SCH (22:05)
[2018-10-18] MEDS ORDERED: CARVEDILOL 3.125 MG TABLET (FP) ONE (22:20)
[2018-10-18] MEDS ORDERED: ATORVASTATIN CA 10 MG TABLET (FP) ONE (22:21)
[2018-10-18] MEDS: CALCIUM 500MG/VIT-D 200 UNITS COMBO TABLET (FP) PO SCH (23:05)
[2018-10-18] MEDS: ATORVASTATIN CA 10 MG TABLET (FP) PO SCH (23:05)
[2018-10-19] MEDS ORDERED: ACETAMINOPHEN 325 MG TABLET (FP) ONE (04:06)
[2018-10-19] MEDS: ACETAMINOPHEN 325 MG TABLET (FP) PO PRN ×2 (04:09→11:02)
[2018-10-19] MEDS: CALCIUM 500MG/VIT-D 200 UNITS COMBO TABLET (FP) PO SCH ×3 (07:10→22:54)
[2018-10-19] MEDS: CARBIDOPA/LEVODOPA 10/100 TABLET (FP) PO SCH ×3 (07:10→23:10)
[2018-10-19 07:25] LABS: BASO % 0.3 % (0-2.0); HEMATOCRIT 35.2 % (32.4-45.2); HEMOGLOBIN 11.5 GM/dL (10.7-15.3); LYMPH % 7.6 % (8-40); MCH 27.9 pg (25.7-33.7); MCHC 32.8 g/dl (32.0-36.0); MEAN PLT VOLUME 8.9 fl (7.5-11.1); MONO % 10.6 % (3.8-10.2); NEUT % 81.5 % (42.8-82.8); PLATELET COUNT 195 K/MM3 (134-434); RBC 4.14 M/mm3 (3.60-5.2); RDW 19.4 % (11.6-15.6); WHITE BLOOD COUNT 8.6 K/mm3 (4.0-10.0)
[2018-10-19 07:40] LABS: INR 2.61 (0.83-1.09); PROTHROMBIN TIME (PATIENT) 31.1 SEC (9.7-13.0)
[2018-10-19 08:01] LABS: ALBUMIN 3.7 g/dl (3.4-5.0); BILIRUBIN,TOTAL 1.7 mg/dL (0.2-1); BLOOD UREA NITROGEN 21.4 mg/dL (7-18); CALCIUM 9.3 mg/dL (8.5-10.1); CREATININE 0.8 mg/dL (0.55-1.3); MAGNESIUM 2.2 mg/dL (1.8-2.4); PHOSPHOROUS 2.9 mg/dL (2.5-4.9); TOT PROT 6.9 g/dl (6.4-8.2)
--- NOTE | 2018-10-19 08:17 | PDOC ---
*Physical Exam - Vital Signs Last Vital Signs Temp Pulse Resp BP Pulse Ox 98.6 F 73 22 H 128/86 98 10/18/18 18:00 10/18/18 21:10 10/18/18 21:10 10/18/18 21:10 10/18/18 21:10 - Physical Exam Comments: 10/19/18 08:16 received report from the lab regarding elevated troponin. pt resting comfortably, pain free. dr. bueno informed. ED Treatment Course - LABORATORY CBC & Chemistry Diagram: 10/19/18 06:05 10/19/18 06:05 - ADDITIONAL ORDERS Additional order review: 10/18/18 10:30 RBC 4.00 MCV 84.2 MCHC 33.0 RDW 19.7 H MPV 8.8 Neutrophils % 79.7 D Lymphocytes % 13.4 D Monocytes % 5.5 Eosinophils % 0.6 Basophils % 0.8 - Medications Given in the ED: ED Medications Discontinued Medications Generic Name Dose Route Start Last Admin Trade Name Freq PRN Reason Stop Dose Admin Aspirin 324 mg 10/18/18 13:09 10/18/18 15:01 Asa - PO 10/18/18 13:10 Not Given ONCE ONE Lidocaine 1 patch 10/18/18 11:06 10/18/18 11:30 Lidoderm Patch - TP 10/18/18 11:07 1 patch ONCE ONE Administration Oxycodone/Acetaminophen 1 combo 10/18/18 10:20 10/18/18 11:30 Percocet 5/325 - PO 10/18/18 10:21 1 combo ONCE ONE Administration *DC/Admit/Observation/Transfer Diagnosis at time of Disposition: Pain, Atypical chest pain, Elevated troponin Left shoulder pain Qualifiers: Chronicity: chronic Qualified Code(s): M25.512 - Pain in left shoulder - Referrals - Patient Instructions - Post Discharge Activity
--- NOTE | 2018-10-19 08:29 | PN ---
Progress Note, Physician - Current Medication List Current Medications: Active Medications Acetaminophen (Tylenol -) 650 mg PO Q6H PRN PRN Reason: PAIN LEVEL 4 - 6 Last Admin: 10/19/18 04:09 Dose: 650 mg Aspirin (Asa -) 81 mg PO DAILY [facility] Atorvastatin Calcium (Lipitor -) 10 mg PO HS [facility] Last Admin: 10/18/18 23:05 Dose: 10 mg Calcium Carbonate/Cholecalciferol (Os-Maik 500+D -) 1 tab PO TID [facility] Last Admin: 10/19/18 07:10 Dose: 1 tab Carbidopa/Levodopa (Sinemet 10/100 -) 1 each PO TID [facility] Last Admin: 10/19/18 07:10 Dose: 1 each Carvedilol (Coreg -) 6.25 mg PO BID [facility] Last Admin: 10/18/18 22:05 Dose: 6.25 mg Cholecalciferol (Vitamin D3 -) 1,000 unit PO DAILY [facility] Furosemide (Lasix -) 40 mg PO DAILY [facility] Isosorbide Mononitrate (Imdur -) 60 mg PO DAILY [facility] Lidocaine (Lidoderm Patch -) 1 patch TP DAILY [facility] Losartan Potassium (Cozaar -) 25 mg PO DAILY [facility] Miscellaneous (Lidoderm Patch Removal) 1 each MC DAILY@2200 [facility] Nitroglycerin (Nitrostat -) 0.4 mg SL Q5M PRN PRN Reason: CHEST PAIN Potassium Chloride (K-Dur -) 10 meq PO DAILY [facility] Warfarin Sodium 2.5 mg/ (Warfarin Sodium 1 mg) 3.5 mg PO DAILY@1800 [facility] Last Admin: 10/18/18 19:30 Dose: 3.5 mg - Objective Vital Signs: Vital Signs Temperature 98.6 F 10/18/18 18:00 Pulse Rate 73 10/18/18 21:10 Respiratory Rate 22 H 10/18/18 21:10 Blood Pressure 128/86 10/18/18 21:10 O2 Sat by Pulse Oximetry (%) 98 10/18/18 21:10 Cardiovascular: Yes: Regular Rate and Rhythm Respiratory: Yes: Regular, CTA Bilaterally Gastrointestinal: Yes: Normal Bowel Sounds, Soft Musculoskeletal: Yes: Joint Stiffness, Muscle Pain, Muscle Weakness Labs: CBC, BMP 10/19/18 06:05 10/19/18 06:05 INR, PTT INR 2.61 (0.83-1.09) H 10/19/18 06:05 Assessment/Plan Problems (1) Atypical chest pain Assessment/Plan: -Cardiology consult -tele monitoring -Troponin Laboratory Tests 10/18/18 10/18/18 10/19/18 10:30 11:48 06:05 Troponin I 0.13 H 0.29 H 0.84 H* -Nitro 0.4 SL q5m PRN -Aspirin 324mg PO x 1 in ER Code(s): R07.89 - OTHER CHEST PAIN (2) Elevated troponin Assessment/Plan: -Cardiology consult -tele monitoring -Troponin see above -Nitro 0.4 SL q5m PRN -Aspirin 324mg PO x 1 in ER Code(s): R74.8 - ABNORMAL LEVELS OF OTHER SERUM ENZYMES (3) Left shoulder pain Assessment/Plan: -Rheumatology consult--Ortho -Shoulder xray shows chronic deformity -pain control Code(s): M25.512 - PAIN IN LEFT SHOULDER Qualifiers: Chronicity: chronic Qualified Code(s): M25.512 - Pain in left shoulder; G89.29 - Other chronic pain (4) Afib Assessment/Plan: -Coumadin 3.5mg -INR 2.05 -monitor INR daily -INR therapeutic range 2-3 Code(s): I48.91 - UNSPECIFIED ATRIAL FIBRILLATION Qualifiers: (5) Hyperlipidemia Assessment/Plan: -Atorvastatin Code(s): E78.5 - HYPERLIPIDEMIA, UNSPECIFIED Qualifiers: (6) S/P CABG (coronary artery bypass graft) Assessment/Plan: -Cardiology consult -Aspirin Code(s): Z95.1 - PRESENCE OF AORTOCORONARY BYPASS GRAFT (7) HTN (hypertension) Assessment/Plan: -Imdur, Furosemide, Carvedilol -low Na diet Code(s): I10 - ESSENTIAL (PRIMARY) HYPERTENSION
[2018-10-19] MEDS: POTASSIUM CHLORIDE TABS 10 MEQ TABLET.ER (FP) PO SCH (09:35)
[2018-10-19] MEDS: CHOLECALCIFEROL (VIT D3) 1,000 UNIT (25 MCG) TABLET PO SCH (09:35)
[2018-10-19] MEDS: LOSARTAN POTASSIUM 25 MG TABLET PO SCH (09:35)
[2018-10-19] MEDS: ASPIRIN 81 MG CHEWABLE TABLETS PO SCH (09:35)
[2018-10-19] MEDS: CARVEDILOL 6.25 MG TABLET (FP) PO SCH ×2 (09:35→22:54)
[2018-10-19] MEDS: LIDOCAINE 5% TOPICAL PATCH TP SCH (09:36)
[2018-10-19] MEDS: FUROSEMIDE 40 MG TABLET (FP) PO SCH (09:36)
[2018-10-19] MEDS: ISOSORBIDE MONONITRATE 60 MG TAB.SR.24H (FP) PO SCH (09:36)
[2018-10-19] MEDS ORDERED: OMEGA3 PO SCH (10:00)
[2018-10-19] MEDS ORDERED: EPA PO SCH (10:00)
[2018-10-19] MEDS ORDERED: VIT D3 PO SCH (10:00)
[2018-10-19] MEDS ORDERED: FISH OIL PO SCH (10:00)
[2018-10-19] MEDS ORDERED: DHA PO SCH (10:00)
[2018-10-19] MEDS ORDERED: [UNRECOGNIZED DRUG - OTHER] PO SCH (10:00)
--- NOTE | 2018-10-19 10:27 | EKG ---
Test Reason : Blood Pressure : / mmHG Vent. Rate : 048 BPM Atrial Rate : 048 BPM P-R Int : 648 ms QRS Dur : 112 ms QT Int : 490 ms P-R-T Axes : 092 041 252 degrees QTc Int : 437 ms SINUS BRADYCARDIA WITH 1ST DEGREE A-V BLOCK NONSPECIFIC ST AND T WAVE ABNORMALITY ABNORMAL ECG WHEN COMPARED WITH ECG OF 16-FEB-2018 15:43, [place] INTERVAL HAS INCREASED ST NOW DEPRESSED IN ANTERIOR LEADS QT HAS LENGTHENED Confirmed by NATASHA WINTERS, NOE ([id number]) on 10/19/2018 10:27:31 AM Referred By: Confirmed By:NOE KAUR MD
[2018-10-19] MEDS ORDERED: PT OWN MED DRAWER 7, Y5N ONE ×2 (10:50→22:58)
--- NOTE | 2018-10-19 11:31 | CON.CARD ---
Consult Consult Specialty:: Cardiology Referred by:: Socrates Mayer DNP Reason for Consultation:: Demand ischemia - History of Present Illness Chief Complaint: Left shoulder pain History of Present Illness: The patient is an 86 year old female with a significant past medical history of HTN, hypercholesterolemia, A-Fib on coumadin, CAD s/p reop CABG (FREEMAN->mLAD, SVG ->PDA since occluded), diastolic dysfunction, s/p MV repair with mid MS, mod pulm HTN, HTN/HCVD, hyperlipidemia presented with left shoulder pain worse with lifting arm, sxs not amenable to Tylenol. She denies chest pain, dyspnea, palpitations, near or true syncope, orthopnea, PND or LE edema, loss of sensation in the affected arm, numbness, tingling or weakness. Elevated trops and BNP was noted. - History Source History Provided By: Patient Limitations to Obtaining History: No Limitations - Past Medical History Cardio/Vascular: Yes: AFIB, CAD, HTN, Hyperlipdemia Musculoskeletal: Yes: Chronic low back pain - Past Surgical History Past Surgical History: Yes: CABG, Joint Replacement (hip), Valve Replacement - Alcohol/Substance Use Hx Alcohol Use: No - Smoking History Smoking history: Unknown if ever smoked Have you smoked in the past 12 months: No Aproximately how many cigarettes per day: 0 Home Medications - Allergies Allergies/Adverse Reactions: Allergies Allergy/AdvReac Type Severity Reaction Status Date / Time codeine [Codeine] Allergy Mild sick Verified 10/18/18 09:21 NSAIDS (Non-Steroidal AdvReac Verified 10/18/18 09:21 Anti-Inflamma - Home Medications Home Medications: Ambulatory Orders Aspirin [ASA -] 81 mg PO DAILY #0 tab.chew 02/27/12 Potassium Chloride [K-Dur -] 10 meq PO DAILY #0 tablet.er 02/27/12 Calcium Carb/Vit D3/Minerals [Calcium 600 + D Tablet] 1 each PO TID 02/12/13 Omega3/Dha/Epa/Fish Oil/Vit D3 [Msuce-4-Jvrk Oil-Vit D3 Sftgl] 1 each PO DAILY 02/12/13 Nitroglycerin [Nitrostat] 0.4 mg SL PRN 08/22/13 Isosorbide Mononitrate [Imdur] 60 mg PO DAILY 09/30/14 Atorvastatin Ca [Lipitor] 10 mg PO HS tablet 09/19/15 Carvedilol [Coreg -] 6.25 mg PO BID tablet 09/19/15 Cholecalciferol (Vitamin D3) [Vitamin D3 -] 1,000 unit PO DAILY tab 09/19/15 Furosemide [Lasix -] 40 mg PO DAILY tablet 09/19/15 Carbidopa/Levodopa [Carbidopa-Levodopa 10-100 Tab] 1 each PO TID 03/25/17 Losartan Potassium 25 mg PO DAILY 02/16/18 Acetaminophen [Tylenol .Regular Strength -] 650 mg PO Q6H PRN tablet 02/18/18 Warfarin Na [Coumadin -] 3.5 mg PO DAILY@1800 tablet 02/18/18 Review of Systems - Review of Systems Musculoskeletal: reports: Joint Pain (Left shoulder discomfort) Vital Signs: Vital Signs Temperature 98.6 F 10/18/18 18:00 Pulse Rate 62 10/19/18 09:43 Respiratory Rate 22 H 10/19/18 09:43 Blood Pressure 152/88 10/19/18 09:43 O2 Sat by Pulse Oximetry (%) 98 10/18/18 21:10 Constitutional: Yes: Calm, Mild Distress Neck: Yes: Supple Respiratory: Yes: Regular, CTA Bilaterally Gastrointestinal: Yes: Normal Bowel Sounds, Soft Cardiovascular: Yes: Pulse Irregular JVD: No Carotid Bruit: No Heart Sounds: Yes: S1, S2 Murmur: Yes: Systolic Murmur, Grade 2 Edema: Yes Edema: LLE: Trace, RLE: Trace - Other Data Labs, Other Data: CBC, BMP 10/19/18 06:05 10/19/18 06:05 INR, PTT INR 2.61 (0.83-1.09) H 10/19/18 06:05 Troponin, BNP 10/18/18 10/19/18 11:48 06:05 Troponin I 0.29 H 0.84 H* B-Natriuretic Peptide 34692.0 H Troponin, BNP 10/18/18 10/19/18 11:48 06:05 Troponin I 0.29 H 0.84 H* B-Natriuretic Peptide 80224.0 H SB @ 48 1st deg AVB simiular to previous 10/05/2018 Prior Cardiac Procedures: CABG Ejection Fraction %: LVEF > or = 40 % Imaging - Results Chest X-ray: Report Reviewed (NAD) X-ray: Report Reviewed (Chronic deformity left shoulder similar to previous) Problem List - Problems (1) Atypical chest pain Code(s): R07.89 - OTHER CHEST PAIN (2) Elevated troponin Code(s): R74.8 - ABNORMAL LEVELS OF OTHER SERUM ENZYMES (3) HTN (hypertension) Code(s): I10 - ESSENTIAL (PRIMARY) HYPERTENSION Qualifiers: Hypertension type: essential hypertension Qualified Code(s): I10 - Essential (primary) hypertension (4) Left shoulder pain Code(s): M25.512 - PAIN IN LEFT SHOULDER Qualifiers: Chronicity: chronic Qualified Code(s): M25.512 - Pain in left shoulder; G89.29 - Other chronic pain (5) Anticoagulation adequate with anticoagulant therapy Code(s): Z79.01 - SNF (CURRENT) USE OF ANTICOAGULANTS (6) Coronary artery disease Code(s): I25.10 - ATHSCL HEART DISEASE OF [place] CORONARY ARTERY W/O ANG PCTRS Qualifiers: Coronary Disease-Associated Artery/Lesion type: [place] artery [place] vs. transplanted heart: [place] heart Associated angina: without angina Qualified Code(s): I25.10 - Atherosclerotic heart disease of [place] coronary artery without angina pectoris (7) Diastolic dysfunction with chronic heart failure Code(s): I50.32 - CHRONIC DIASTOLIC (CONGESTIVE) HEART FAILURE (8) Hyperlipidemia Code(s): E78.5 - HYPERLIPIDEMIA, UNSPECIFIED Qualifiers: Hyperlipidemia type: pure hypercholesterolemia (9) Hypertensive cardiomegaly without heart failure Code(s): I11.9 - HYPERTENSIVE HEART DISEASE WITHOUT HEART FAILURE (10) S/P CABG (coronary artery bypass graft) Code(s): Z95.1 - PRESENCE OF AORTOCORONARY BYPASS GRAFT (11) S/P mitral valve repair Code(s): Z98.890 - OTHER SPECIFIED POSTPROCEDURAL STATES (12) Shoulder arthritis Code(s): M12.9 - ARTHROPATHY, UNSPECIFIED (13) Demand ischemia Code(s): I24.8 - OTHER FORMS OF ACUTE ISCHEMIC HEART DISEASE Assessment/Plan 03/24/2018 Echo: cLVH with normal LV and RV size and systolic fxn LVEF 60-65%, severe LAE, mild LIANA, mildAS KATHRYN 1.1 cm^2, mod AR, mitral annular ring with mod MR, mod-severe TR RVSP 60 mm Hg 01/29/2017 Echo: Mild-mod cLVH, normal LV fxn, severe LAE 6.9 cm, LIANA, mild MS, mild-mod MR with mitral annular ring, mild-mod AR, mild MG 17 mmHg, KATHRYN 1.3 cm^2, severe TR and TV ring with RVSP 77 mmHg c/w severe pulm HTN 1. Atypical chest pain syndrome, left frozen shoulder 2. CAD s/p re-op CABG, demand ischemia 3. Diastolic dysfunction with severe pulm HTN 4. Paroxysmal aflutter, PAF on coumadin with therapeutic INR 5. s/p MV and TV repair, mild 6. HTN/HCVD 7. Hyperlipidemia 8. Postural hypotension with Parkinson's P:1. Trend trop to document peak 2. Continue ASA 81 qd, Imdur 60 qd, coumadin per INR with GI protection, Lipitor 40 qhs, carvedilol 6.25 bid, increased Lasix 40 qd, Lovaza 1 gm bid, losartan 25 qd 3. Analgesia as needed, rheum eval 4. F/u with Dr. Strickland as outpatient 5. Thank you for consultative opportunity
--- NOTE | 2018-10-19 11:45 | PN ---
Progress Note (short form) - Note Progress Note: PULMONARY CONSULTATION DICTATED 10/19/18 IMP LEFT ARM AND SHOULDER PAIN +TROPONIN ASHD S/P CABG PULMONARY HTN S/P MV REPAIR DIASTOLIC DYSFUNCTION HTN HLD AFIB OSTEOARTHRITIS [place] PLAN TREND TROPONIN ECHO ANALGESICS NITRATES CONSIDER ORTHOPEDICS CONSULT DR SUTTON Problem List - Problems (1) Atypical chest pain Code(s): R07.89 - OTHER CHEST PAIN (2) Demand ischemia Code(s): I24.8 - OTHER FORMS OF ACUTE ISCHEMIC HEART DISEASE (3) Elevated troponin Code(s): R74.8 - ABNORMAL LEVELS OF OTHER SERUM ENZYMES (4) HTN (hypertension) Code(s): I10 - ESSENTIAL (PRIMARY) HYPERTENSION Qualifiers: Hypertension type: essential hypertension Qualified Code(s): I10 - Essential (primary) hypertension (5) Left shoulder pain Code(s): M25.512 - PAIN IN LEFT SHOULDER Qualifiers: Chronicity: chronic Qualified Code(s): M25.512 - Pain in left shoulder; G89.29 - Other chronic pain (6) Pain Code(s): R52 - PAIN, UNSPECIFIED (7) AC separation Code(s): S43.109A - UNSP DISLOCATION OF UNSP ACROMIOCLAVICULAR JOINT, INIT Qualifiers: Encounter type: initial encounter Laterality: right Qualified Code(s): S43.101A - Unspecified dislocation of right acromioclavicular joint, initial encounter (8) Afib Code(s): I48.91 - UNSPECIFIED ATRIAL FIBRILLATION Qualifiers: (9) Anticoagulation adequate with anticoagulant therapy Code(s): Z79.01 - REHAB AID (CURRENT) USE OF ANTICOAGULANTS (10) Arthritis Code(s): M19.90 - UNSPECIFIED OSTEOARTHRITIS, UNSPECIFIED SITE (11) Coronary artery disease Code(s): I25.10 - ATHSCL HEART DISEASE OF [place] CORONARY ARTERY W/O ANG PCTRS Qualifiers: Coronary Disease-Associated Artery/Lesion type: [place] artery [place] vs. transplanted heart: [place] heart Associated angina: without angina Qualified Code(s): I25.10 - Atherosclerotic heart disease of [place] coronary artery without angina pectoris (12) Diastolic dysfunction with chronic heart failure Code(s): I50.32 - CHRONIC DIASTOLIC (CONGESTIVE) HEART FAILURE (13) S/P CABG (coronary artery bypass graft) Code(s): Z95.1 - PRESENCE OF AORTOCORONARY BYPASS GRAFT (14) S/P mitral valve repair Code(s): Z98.890 - OTHER SPECIFIED POSTPROCEDURAL STATES (15) Shoulder arthritis Code(s): M12.9 - ARTHROPATHY, UNSPECIFIED
--- NOTE | 2018-10-19 12:52 | PN ---
Progress Note (short form) - Note Progress Note: Pt seen and examined. She is an 88 year old female patient with many years of pain, decreased ROM, and overall dysfunction of both shoulders, recently left more than right. Denies recent history of trauma. I was asked to see the pt for her left shoulder today. PE Left shoulder - has dramatically decreased range of motion, very poor active motion. She can only actively forward flex or abduct about 15 degrees. Very poor RTC resistance strength. LUE grossly NVI. + swollen and tender globally around the left shoulder. X-rays Show extensive destruction of the left glenohumeral joint, very high riding humeral head, significant RTC arthropathy. Imp 88 yo F with chronic, end stage left shoulder RTC arthropathy. Rec Only surgical option would be a Total shoulder replacement, she is not interested in that. I offered her a cortisone injection, she is refusing at this time. Therefore I am recommending only Physical therapy. She can f/u as an out patient.
--- NOTE | 2018-10-19 13:17 | EKG ---
Test Reason : Blood Pressure : / mmHG Vent. Rate : 053 BPM Atrial Rate : 053 BPM P-R Int : 230 ms QRS Dur : 120 ms QT Int : 484 ms P-R-T Axes : 087 056 102 degrees QTc Int : 454 ms SINUS BRADYCARDIA WITH 1ST DEGREE A-V BLOCK RSR' OR QR PATTERN IN V1 SUGGESTS RIGHT VENTRICULAR CONDUCTION DELAY NONSPECIFIC ST AND T WAVE ABNORMALITY ABNORMAL ECG WHEN COMPARED WITH ECG OF 18-OCT-2018 11:08, NON-SPECIFIC CHANGE IN ST SEGMENT IN INFERIOR LEADS ST NO LONGER DEPRESSED IN ANTERIOR LEADS NONSPECIFIC T WAVE ABNORMALITY NO LONGER EVIDENT IN INFERIOR LEADS T WAVE INVERSION NO LONGER EVIDENT IN ANTERIOR LEADS Confirmed by NOE KAUR MD ([id number]) on 10/19/2018 1:17:44 PM Referred By: Zachery PERLA Confirmed By:NOE KAUR MD
[2018-10-19] MEDS ORDERED: LIDOCAINE HCL 1%, 10 MG/ML (50 mL VIAL) SQ ONE (15:16)
[2018-10-19] MEDS ORDERED: methylPREDNISolone ACET (DEPO) 40 MG/1 ML VIAL IM ONE (15:16)
--- NOTE | 2018-10-19 15:38 | CONSULT ---
Consult Consult Specialty:: Rheumatology - History of Present Illness History of Present Illness: 88 y/o female with past medical history of A. fib on Coumadin, CAD s/p CABG x 2 , HTN, HLD, osteoarthritis of the knees with significant damage in the right, osteoarthritis of shoulders and osteoporosis (on Zoledronic acid yearly injections), admitted with severe pain in the left shoulder. HPI. 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 She has not have steroid injections to the shoulders probably in more than 2 years. Two days ago she developed progressive pain in the left shoulder wityh no obvious triggering factor and yesterday the pain was very severe. X rays of the shoulders revealed no significant changes as compared with 07/05/18 : Right shoulder. Superior migration of the humerus having contact with acromion and clavicle. deformity with flattening of the upper area of the humeral head. Left shoulder. Narrowing of the glenohumeral joint with bone on bone contact and increased sclerosis and superior migration of humeral head and bone on bone contact with clavicle and increased sclerosis. Possible calcification of the rotator cuff Laboratory work-up: PT INR 2.61, creatinine 0.8, total bilirubin 1.7, AST 26 and ALT 8. - Past Medical History Cardio/Vascular: Yes: AFIB, CAD, HTN, Hyperlipdemia Musculoskeletal: Yes: Chronic low back pain Rheumatology: Yes: Other - Past Surgical History Past Surgical History: Yes: CABG, Joint Replacement (hip), Valve Replacement - Alcohol/Substance Use Hx Alcohol Use: No - Smoking History Smoking history: Unknown if ever smoked Have you smoked in the past 12 months: No Aproximately how many cigarettes per day: 0 Home Medications - Allergies Allergies/Adverse Reactions: Allergies Allergy/AdvReac Type Severity Reaction Status Date / Time codeine [Codeine] Allergy Mild sick Verified 10/18/18 09:21 NSAIDS (Non-Steroidal AdvReac Verified 10/18/18 09:21 Anti-Inflamma - Home Medications Home Medications: Ambulatory Orders Aspirin [ASA -] 81 mg PO DAILY #0 tab.chew 02/27/12 Potassium Chloride [K-Dur -] 10 meq PO DAILY #0 tablet.er 02/27/12 Calcium Carb/Vit D3/Minerals [Calcium 600 + D Tablet] 1 each PO TID 02/12/13 Omega3/Dha/Epa/Fish Oil/Vit D3 [Egwzr-2-Kvzs Oil-Vit D3 Sftgl] 1 each PO DAILY 02/12/13 Nitroglycerin [Nitrostat] 0.4 mg SL PRN 08/22/13 Isosorbide Mononitrate [Imdur] 60 mg PO DAILY 09/30/14 Atorvastatin Ca [Lipitor] 10 mg PO HS tablet 09/19/15 Carvedilol [Coreg -] 6.25 mg PO BID tablet 09/19/15 Cholecalciferol (Vitamin D3) [Vitamin D3 -] 1,000 unit PO DAILY tab 09/19/15 Furosemide [Lasix -] 40 mg PO DAILY tablet 09/19/15 Carbidopa/Levodopa [Carbidopa-Levodopa 10-100 Tab] 1 each PO TID 03/25/17 Losartan Potassium 25 mg PO DAILY 02/16/18 Acetaminophen [Tylenol .Regular Strength -] 650 mg PO Q6H PRN tablet 02/18/18 Warfarin Na [Coumadin -] 3.5 mg PO DAILY@1800 tablet 02/18/18 Review of Systems - Review of Systems Constitutional: reports: No Symptoms Eyes: reports: No Symptoms HENT: reports: No Symptoms Neck: reports: No Symptoms Cardiovascular: reports: No Symptoms Respiratory: reports: No Symptoms Musculoskeletal: reports: Other (See HPI) Physical Exam Vital Signs: Vital Signs Temperature 98 F 10/19/18 14:10 Pulse Rate 60 10/19/18 14:10 Respiratory Rate 19 10/19/18 14:10 Blood Pressure 143/74 10/19/18 14:10 O2 Sat by Pulse Oximetry (%) 100 10/19/18 13:01 Constitutional: Yes: Moderate Distress Eyes: Yes: WNL HENT: Yes: WNL Neck: Yes: WNL Cardiovascular: Yes: WNL Respiratory: Yes: WNL Gastrointestinal: Yes: WNL Musculoskeletal: Yes: Other (Tenderness and swelling of the left shoulder, mainly over the gleno-humeral joint and also tenderness over the grater tuberosity and lateral aspect of the joint (acromio-humeral). Moderate tenderness in the right shoulder and right knee.) Labs: CBC, BMP 10/19/18 06:05 10/19/18 06:05 Problem List - Problems (1) Left shoulder pain Assessment/Plan: Acute pain and swelling of the left shoulder. PROCEDURE: Under aseptic conditions I aspirated the left shoulder, obtained 3 ml of dark blood and injected 40 mg Depomedrol and 2 ml Lidocaine 1%. Impression. Probable hemarthrosis of the left shoulder. Rule out pseudogout. Patient has significant shoulder damage related to osteoarthritis and probable rotator cuff tear., Plan: Most likely she will improve with steroid injection. She is a poor candidate for surgery and she refuses surgery. Code(s): M25.512 - PAIN IN LEFT SHOULDER Qualifiers: Chronicity: chronic Qualified Code(s): M25.512 - Pain in left shoulder; G89.29 - Other chronic pain
--- NOTE | 2018-10-19 15:52 | ECHO ---
Name: LUZ SEBASTIAN Exam:Adult Echocardiogram Study Date: 10/19/2018 02:41 PM Age: 88 yrs Reason For Study: ACS Height: 56 in Weight: 105 lb BSA: 1.4 m2 MMode/2D Measurements & Calculations IVSd: 0.91 cm Ao root diam: 2.4 cm LVIDd: 4.3 cm LA dimension: 5.2 cm LVIDs: 2.9 cm LVPWd: 0.86 cm EDV(Teich): 83.2 ml LVOT diam: 2.0 cm ESV(Teich): 32.3 ml Doppler Measurements & Calculations MV E max arturo: 109.7 cm/sec Ao V2 max: 236.8 cm/sec MV A max arturo: 63.1 cm/sec Ao max P.4 mmHg MV E/A: 1.7 Ao V2 mean: 158.0 cm/sec Ao mean P.3 mmHg Ao V2 VTI: 52.3 cm KATHRYN(I,D): 1.1 cm2 AI P1/2t: 487.1 msec KATHRYN(V,D): 1.2 cm2 AI max arturo: 371.4 cm/sec LV V1 max P.5 mmHg AI max P.3 mmHg LV V1 mean P.7 mmHg AI dec slope: 223.3 cm/sec2 LV V1 max: 93.2 cm/sec LV V1 mean: 61.5 cm/sec LV V1 VTI: 19.1 cm MR max arturo: 400.5 cm/sec SV(LVOT): 57.0 ml MR max P.3 mmHg TR max arturo: 285.7 cm/sec Med Peak E' Arturo: 3.2 cm/sec TR max P.7 mmHg Med E/e': 33.9 Lat Peak E' Arturo: 5.2 cm/sec Lat E/e': 21.2 Procedure The study was technically difficult with many images being suboptimal in quality. Left Ventricle The left ventricular size, thickness and function are normal. The left ventricular ejection fraction is normal. Septal motion is consistent with post-operative state. Right Ventricle The right ventricle is not well visualized. Atria The left atrium is severely dilated. The right atrium is severely dilated. The interatrial septum bow s toward right atrium consistent with elevated left atrial pressure. Mitral Valve MV ring present. cannot exclude mitral stenosis. There is moderate mitral regurgitation. Tricuspid Valve There is mild tricuspid valve thickening. There is no tricuspid stenosis. There is severe tricuspid regurgitation. Right ventricular systolic pressure is elevated at 50-60mmHg. Aortic Valve The aortic valve is not well visualized. There is moderate aortic valve thickening. There is moderate aortic sclerosis.;. Mild valvular aortic stenosis. Mild to moderate aortic regurgitation. Pulmonic Valve The pulmonic valve is not well visualized. Great Vessels The aortic root is normal size. Pericardium/Pleura There is no pericardial effusion. Interpretation Summary MV ring present. There is moderate mitral regurgitation. The left ventricular ejection fraction is normal. Septal motion is consistent with post-operative state. The left atrium is severely dilated. The right atrium is severely dilated. There is moderate aortic valve thickening. The aortic valve is not well visualized. There is moderate aortic sclerosis.; Mild valvular aortic stenosis. There is severe tricuspid regurgitation. Right ventricular systolic pressure is elevated at 50-60mmHg. The interatrial septum bows toward right atrium consistent with elevated left atrial pressure. cannot exclude mitral stenosis Mild to moderate aortic regurgitation. The left ventricular size, thickness and function are normal MD Fahad Angeles 10/19/2018 03:51 PM
--- NOTE | 2018-10-19 15:53 | CONS ---
PULMONARY CONSULTATION DATE OF CONSULTATION: 10/19/2018 REFERRING PHYSICIAN: An Pack MD HISTORY: The patient is an 88-year-old white female who presents with a past medical history, which includes ASHD, status post coronary artery bypass graft, status post reopen, hypertension, status post mitral valve replacement, hypercholesterolemia , atrial fibrillation maintained on anticoagulation, hypertension, pulmonary hypertension, hypertensive cardiovascular disease, hyperlipidemia, diastolic dysfunction, hyperlipidemia, nonsmoker. Admitted to [facility] on October 18 with the complaint of left shoulder pain increasing with lifting arm. Patient denied recent travel. She denied any recent trauma to the area. She stated the symptoms would not improve with Tylenol. She denied any recent falls. Of note is on admission she was noted to have elevated troponin and BNP. She denied any shortness of breath, cough, or hemoptysis. She denies any history of occupational exposure to chemicals or fumes. Apparently, she is a nonsmoker. PAST MEDICAL HISTORY: Again includes ASHD, status post coronary artery bypass graft, status post reopen, history of hypertension, hyperlipidemia, moderate pulmonary hypertension, diastolic dysfunction, status post mitral valve replacement with mitral stenosis, atrial fibrillation, hypertension, hypercholesterolemia,Parkinsons SURGICAL HISTORY: Includes coronary artery bypass graft, hip replacement, and mitral valve replacement. MEDICATIONS: Include Lidoderm, Tylenol, Cozaar, Coumadin, Coreg, Sinemet, Lipitor, Lasix, Imdur, Nitrostat, aspirin, Os-Maik, K-Dur, and Vitamin D3. REVIEW OF SYSTEMS: No shortness of breath, no chest pain. Positive left arm pain, left shoulder pain. No abdominal pain, no lower extremity edema. PHYSICAL EXAMINATION: General: The patient is an elderly white female thin, well developed, awake in moderate distress secondary to pain. Vital Signs: Blood pressure is 152/88, respiratory rate is 98.6, heart rate is 62, respiratory rate is 22, O2 saturation is 98% on room air. HEENT: Normocephalic, atraumatic. Neck: Supple. Heart: Irregular S1, S2. Chest: Clear. Abdomen: Soft. Bowel sounds are present. Extremities: No cyanosis or edema. LABORATORIES: WBCs 8.6, hemoglobin 11.5, hematocrit 35.2 with a platelet count of 195,000. INR is 2.61. Troponin initially 0.13, most recent is 0.84. BNP is 13 ,515. Chest x-ray: Marked cardiomegaly. No acute infiltrates, no effusions, no evidence of cardiopulmonary congestion. Shoulder x-ray: Chronic deformity left humeral head, distal clavicle, and glenoid. No change from the previous exam July 05, 2018. IMPRESSION: 1. Left arm and shoulder pain, musculoskeletal. 2. Positive troponins 3. Diastolic dysfunction. 4. Arteriosclerotic heart disease status post coronary artery bypass graft. 5. Pulmonary hypertension. 6. Status post mitral valve replacement, residual mitral stenosis. 7. Hypertension. 8. Hyperlipidemia. 9. Atrial fibrillation. 10. Osteoarthritis. 11. Parkinsons PLAN: Trend troponins. Echocardiogram. Analgesics. Nitrates. Consult Orthopaedic consult as well as Rheumatology consult. Follow up chest x-ray. ARISTIDES SUTTON M.D. [id number] MTDD
[2018-10-19] MEDS ORDERED: WARFARIN NA 1 MG TABLET (FP) ONE (17:14)
[2018-10-19] MEDS ORDERED: WARFARIN NA 2.5 MG TABLET (FP) ONE (17:15)
[2018-10-19] MEDS: WARFARIN NA 2.5 MG, WARFARIN NA 1 MG PO SCH (17:35)
[2018-10-19] MEDS: ATORVASTATIN CA 10 MG TABLET (FP) PO SCH (22:53)
[2018-10-19] MEDS: LIDOCAINE PATCH REMOVAL MC SCH (23:03)
[2018-10-20] MEDS: CARBIDOPA/LEVODOPA 10/100 TABLET (FP) PO SCH ×3 (06:40→21:34)
[2018-10-20] MEDS: CALCIUM 500MG/VIT-D 200 UNITS COMBO TABLET (FP) PO SCH ×3 (06:40→21:32)
--- NOTE | 2018-10-20 08:14 | PN ---
Progress Note, Physician - Current Medication List Current Medications: Active Medications Acetaminophen (Tylenol -) 650 mg PO Q6H PRN PRN Reason: PAIN LEVEL 4 - 6 Last Admin: 10/19/18 11:02 Dose: 650 mg Aspirin (Asa -) 81 mg PO DAILY [facility] Last Admin: 10/19/18 09:35 Dose: 81 mg Atorvastatin Calcium (Lipitor -) 10 mg PO HS [facility] Last Admin: 10/19/18 22:53 Dose: 10 mg Calcium Carbonate/Cholecalciferol (Os-Maik 500+D -) 1 tab PO TID [facility] Last Admin: 10/20/18 06:40 Dose: 1 tab Carbidopa/Levodopa (Sinemet 10/100 -) 1 each PO TID [facility] Last Admin: 10/20/18 06:40 Dose: 1 each Carvedilol (Coreg -) 6.25 mg PO BID [facility] Last Admin: 10/19/18 22:54 Dose: 6.25 mg Cholecalciferol (Vitamin D3 -) 1,000 unit PO DAILY [facility] Last Admin: 10/19/18 09:35 Dose: 1,000 unit Furosemide (Lasix -) 40 mg PO DAILY [facility] Last Admin: 10/19/18 09:36 Dose: 40 mg Isosorbide Mononitrate (Imdur -) 60 mg PO DAILY [facility] Last Admin: 10/19/18 09:36 Dose: 60 mg Lidocaine (Lidoderm Patch -) 1 patch TP DAILY [facility] Last Admin: 10/19/18 09:36 Dose: 1 patch Losartan Potassium (Cozaar -) 25 mg PO DAILY [facility] Last Admin: 10/19/18 09:35 Dose: 25 mg Miscellaneous (Lidoderm Patch Removal) 1 each MC DAILY@2200 [facility] Last Admin: 10/19/18 23:03 Dose: 1 each Nitroglycerin (Nitrostat -) 0.4 mg SL Q5M PRN PRN Reason: CHEST PAIN Potassium Chloride (K-Dur -) 10 meq PO DAILY [facility] Last Admin: 10/19/18 09:35 Dose: 10 meq Warfarin Sodium 2.5 mg/ (Warfarin Sodium 1 mg) 3.5 mg PO DAILY@1800 [facility] Last Admin: 10/19/18 17:35 Dose: 3.5 mg - Objective Vital Signs: Vital Signs Temperature 98.1 F 10/20/18 02:00 Pulse Rate 67 10/20/18 05:33 Respiratory Rate 20 10/20/18 05:33 Blood Pressure 141/80 10/20/18 05:33 O2 Sat by Pulse Oximetry (%) 100 10/19/18 21:00 Cardiovascular: Yes: S1, S2 Respiratory: Yes: Regular, CTA Bilaterally Gastrointestinal: Yes: Normal Bowel Sounds, Soft. No: Tenderness Labs: CBC, BMP 10/19/18 06:05 10/19/18 06:05 INR, PTT INR 2.61 (0.83-1.09) H 10/19/18 06:05 Assessment/Plan Problems (1) Atypical chest pain Assessment/Plan: -Cardiology consult NOTED -tele monitoring -Troponin Laboratory Tests 10/18/18 10/19/18 10/20/18 11:48 06:05 05:30 Troponin I 0.29 H 0.84 H* 0.38 H -Nitro 0.4 SL q5m PRN -Aspirin 324mg PO x 1 in ER Code(s): R07.89 - OTHER CHEST PAIN (2) Elevated troponin Assessment/Plan: -Cardiology consult NOTED -tele monitoring -Troponin see above -Nitro 0.4 SL q5m PRN -Aspirin 324mg PO x 1 in ER Code(s): R74.8 - ABNORMAL LEVELS OF OTHER SERUM ENZYMES (3) Left shoulder pain Assessment/Plan: -Rheumatology consult--Ortho APPRECIATED -Shoulder xray shows chronic deformity -pain control Code(s): M25.512 - PAIN IN LEFT SHOULDER Qualifiers: Chronicity: chronic Qualified Code(s): M25.512 - Pain in left shoulder; G89.29 - Other chronic pain (4) Afib Assessment/Plan: -Coumadin 3.5mg -INR 2.05 -monitor INR daily -INR therapeutic range 2-3 Code(s): I48.91 - UNSPECIFIED ATRIAL FIBRILLATION Qualifiers: (5) Hyperlipidemia Assessment/Plan: -Atorvastatin Code(s): E78.5 - HYPERLIPIDEMIA, UNSPECIFIED Qualifiers: (6) S/P CABG (coronary artery bypass graft) Assessment/Plan: -Cardiology consult -Aspirin Code(s): Z95.1 - PRESENCE OF AORTOCORONARY BYPASS GRAFT (7) HTN (hypertension) Assessment/Plan: -Imdur, Furosemide, Carvedilol -low Na diet Code(s): I10 - ESSENTIAL (PRIMARY) HYPERTENSION DC PLAN DISCUSSED WITH PATIENT--SNF
[2018-10-20] MEDS: ISOSORBIDE MONONITRATE 60 MG TAB.SR.24H (FP) PO SCH (10:49)
[2018-10-20] MEDS: FUROSEMIDE 40 MG TABLET (FP) PO SCH (10:49)
[2018-10-20] MEDS: CHOLECALCIFEROL (VIT D3) 1,000 UNIT (25 MCG) TABLET PO SCH (10:49)
[2018-10-20] MEDS: ASPIRIN 81 MG CHEWABLE TABLETS PO SCH (10:49)
[2018-10-20] MEDS: LIDOCAINE 5% TOPICAL PATCH TP SCH (10:50)
[2018-10-20] MEDS: LOSARTAN POTASSIUM 25 MG TABLET PO SCH (10:50)
[2018-10-20] MEDS: POTASSIUM CHLORIDE TABS 10 MEQ TABLET.ER (FP) PO SCH (10:50)
[2018-10-20] MEDS: CARVEDILOL 6.25 MG TABLET (FP) PO SCH ×2 (10:50→21:31)
--- NOTE | 2018-10-20 10:55 | PN ---
Progress Note, Physician History of Present Illness: Left shoulder discomfort improved with arthrocensis of bloody effusion and intraarticular injection of steroids and lidocaine, denies chest pain or dyspnea. - Current Medication List Current Medications: Active Medications Acetaminophen (Tylenol -) 650 mg PO Q6H PRN PRN Reason: PAIN LEVEL 4 - 6 Last Admin: 10/19/18 11:02 Dose: 650 mg Aspirin (Asa -) 81 mg PO DAILY [facility] Last Admin: 10/19/18 09:35 Dose: 81 mg Atorvastatin Calcium (Lipitor -) 10 mg PO HS [facility] Last Admin: 10/19/18 22:53 Dose: 10 mg Calcium Carbonate/Cholecalciferol (Os-Maik 500+D -) 1 tab PO TID [facility] Last Admin: 10/20/18 06:40 Dose: 1 tab Carbidopa/Levodopa (Sinemet 10/100 -) 1 each PO TID [facility] Last Admin: 10/20/18 06:40 Dose: 1 each Carvedilol (Coreg -) 6.25 mg PO BID [facility] Last Admin: 10/19/18 22:54 Dose: 6.25 mg Cholecalciferol (Vitamin D3 -) 1,000 unit PO DAILY [facility] Last Admin: 10/19/18 09:35 Dose: 1,000 unit Furosemide (Lasix -) 40 mg PO DAILY [facility] Last Admin: 10/19/18 09:36 Dose: 40 mg Isosorbide Mononitrate (Imdur -) 60 mg PO DAILY [facility] Last Admin: 10/19/18 09:36 Dose: 60 mg Lidocaine (Lidoderm Patch -) 1 patch TP DAILY [facility] Last Admin: 10/19/18 09:36 Dose: 1 patch Losartan Potassium (Cozaar -) 25 mg PO DAILY [facility] Last Admin: 10/19/18 09:35 Dose: 25 mg Miscellaneous (Lidoderm Patch Removal) 1 each MC DAILY@2200 [facility] Last Admin: 10/19/18 23:03 Dose: 1 each Nitroglycerin (Nitrostat -) 0.4 mg SL Q5M PRN PRN Reason: CHEST PAIN Potassium Chloride (K-Dur -) 10 meq PO DAILY [facility] Last Admin: 10/19/18 09:35 Dose: 10 meq Warfarin Sodium 2.5 mg/ (Warfarin Sodium 1 mg) 3.5 mg PO DAILY@1800 [facility] Last Admin: 07/17/19 17:35 Dose: 3.5 mg - Objective Vital Signs: Vital Signs Temperature 98.1 F 10/20/18 02:00 Pulse Rate 67 10/20/18 05:33 Respiratory Rate 20 10/20/18 05:33 Blood Pressure 141/80 10/20/18 05:33 O2 Sat by Pulse Oximetry (%) 100 10/19/18 21:00 Constitutional: Yes: No Distress, Calm, Thin Neck: Yes: Supple Cardiovascular: Yes: Regular Rate and Rhythm, Murmur (2/6 SM) Respiratory: Yes: Regular, CTA Bilaterally Gastrointestinal: Yes: Soft, Hypoactive Bowel Sounds Musculoskeletal: Yes: Joint Stiffness (Left shoulde) Edema: No Labs: CBC, BMP 10/19/18 06:05 10/19/18 06:05 INR, PTT INR 2.61 (0.83-1.09) H 10/19/18 06:05 - ....Imaging EKG: Report Reviewed (Tele: SR) Problem List - Problems (1) Atypical chest pain Code(s): R07.89 - OTHER CHEST PAIN (2) Elevated troponin Code(s): R74.8 - ABNORMAL LEVELS OF OTHER SERUM ENZYMES (3) HTN (hypertension) Code(s): I10 - ESSENTIAL (PRIMARY) HYPERTENSION Qualifiers: Hypertension type: essential hypertension Qualified Code(s): I10 - Essential (primary) hypertension (4) Left shoulder pain Code(s): M25.512 - PAIN IN LEFT SHOULDER Qualifiers: Chronicity: chronic Qualified Code(s): M25.512 - Pain in left shoulder; G89.29 - Other chronic pain (5) Anticoagulation adequate with anticoagulant therapy Code(s): Z79.01 - S[employer] LIVING (CURRENT) USE OF ANTICOAGULANTS (6) Coronary artery disease Code(s): I25.10 - ATHSCL HEART DISEASE OF [place] CORONARY ARTERY W/O ANG PCTRS Qualifiers: Coronary Disease-Associated Artery/Lesion type: [place] artery [place] vs. transplanted heart: [place] heart Associated angina: without angina Qualified Code(s): I25.10 - Atherosclerotic heart disease of [place] coronary artery without angina pectoris (7) Diastolic dysfunction with chronic heart failure Code(s): I50.32 - CHRONIC DIASTOLIC (CONGESTIVE) HEART FAILURE (8) Hyperlipidemia Code(s): E78.5 - HYPERLIPIDEMIA, UNSPECIFIED Qualifiers: Hyperlipidemia type: pure hypercholesterolemia Qualified Code(s): E78.00 - Pure hypercholesterolemia, unspecified; E78.0 - Pure hypercholesterolemia (9) Hypertensive cardiomegaly without heart failure Code(s): I11.9 - HYPERTENSIVE HEART DISEASE WITHOUT HEART FAILURE (10) S/P CABG (coronary artery bypass graft) Code(s): Z95.1 - PRESENCE OF AORTOCORONARY BYPASS GRAFT (11) S/P mitral valve repair Code(s): Z98.890 - OTHER SPECIFIED POSTPROCEDURAL STATES (12) Shoulder arthritis Code(s): M12.9 - ARTHROPATHY, UNSPECIFIED (13) Demand ischemia Code(s): I24.8 - OTHER FORMS OF ACUTE ISCHEMIC HEART DISEASE Assessment/Plan 10/18/2018 X-rays: Extensive destruction of the left glenohumeral joint, very high riding humeral head, significant RTC arthropathy 10/19/2018 Echo: Normal LV size and fxn, RV not well seen, severe KRISTAN, MV ring, mild KATHRYN 1.1 cm^2, MG 11 mmHg, mild-mod AR, severe TR, RVSP 50-60 mmHg 03/24/2018 Echo: cLVH with normal LV and RV size and systolic fxn LVEF 60-65%, severe LAE, mild LIANA, mild KATHRYN 1.1 cm^2, mod AR, mitral annular ring with mod MR, mod-severe TR RVSP 60 mm Hg 01/29/2017 Echo: Mild-mod cLVH, normal LV fxn, severe LAE 6.9 cm, LIANA, mild MS, mild-mod MR with mitral annular ring, mild-mod AR, mild MG 17 mmHg, KATHRYN 1.3 cm^2, severe TR and TV ring with RVSP 77 mmHg c/w severe pulm HTN 1. Atypical chest pain syndrome referable to chronic, end stage left shoulder RTC arthropathy, probable hemarthrosis of the left shoulder. Rule out pseudogout 2. CAD s/p re-op CABG, demand ischemia 3. Diastolic dysfunction with severe pulm HTN 4. Paroxysmal aflutter, PAF on coumadin with therapeutic INR 5. s/p MV and TV repair, mild 6. HTN/HCVD 7. Hyperlipidemia 8. Postural hypotension with Parkinson's P:1.Trops have peaked and downtrending 2. Continue ASA 81 qd, Imdur 60 qd, coumadin per INR with GI protection, Lipitor 40 qhs, carvedilol 6.25 bid, increased Lasix 40 qd, Lovaza 1 gm bid, losartan 25 qd 3. Analgesia as needed, declined total shoulder replacement, underwent let shoulder arthrocentesis by rheum with relief, plan for PT 4. F/u with Dr. Strickland as outpatient, august d/c [facility]
--- NOTE | 2018-10-20 12:44 | PN ---
Progress Note (short form) - Note Progress Note: PULMONARY Denies shortness of breath, cough or wheezing. Still with left shoulder pain. Vital Signs Period Temp Pulse Resp BP Sys/Pratt Pulse Ox Last 24 Hr 97.5 F-98.6 F 60-71 18-20 127-143/67-80 100-100 Gen: NAD at rest Heart: RRR Lung: decreased breath sounds at the bases Abd: soft, nontender Ext: no edema CBC, BMP 10/19/18 06:05 10/19/18 06:05 Active Medications Acetaminophen (Tylenol -) 650 mg PO Q6H PRN PRN Reason: PAIN LEVEL 4 - 6 Last Admin: 10/19/18 11:02 Dose: 650 mg Aspirin (Asa -) 81 mg PO DAILY [facility] Last Admin: 10/20/18 10:49 Dose: 81 mg Atorvastatin Calcium (Lipitor -) 10 mg PO HS [facility] Last Admin: 10/19/18 22:53 Dose: 10 mg Calcium Carbonate/Cholecalciferol (Os-Maik 500+D -) 1 tab PO TID [facility] Last Admin: 10/20/18 06:40 Dose: 1 tab Carbidopa/Levodopa (Sinemet 10/100 -) 1 each PO TID [facility] Last Admin: 10/20/18 06:40 Dose: 1 each Carvedilol (Coreg -) 6.25 mg PO BID [facility] Last Admin: 10/20/18 10:50 Dose: 6.25 mg Cholecalciferol (Vitamin D3 -) 1,000 unit PO DAILY [facility] Last Admin: 10/20/18 10:49 Dose: 1,000 unit Furosemide (Lasix -) 40 mg PO DAILY [facility] Last Admin: 10/20/18 10:49 Dose: 40 mg Isosorbide Mononitrate (Imdur -) 60 mg PO DAILY [facility] Last Admin: 10/20/18 10:49 Dose: 60 mg Lidocaine (Lidoderm Patch -) 1 patch TP DAILY [facility] Last Admin: 10/20/18 10:50 Dose: 1 patch Losartan Potassium (Cozaar -) 25 mg PO DAILY [facility] Last Admin: 10/20/18 10:50 Dose: 25 mg Miscellaneous (Lidoderm Patch Removal) 1 each MC DAILY@2200 [facility] Last Admin: 10/19/18 23:03 Dose: 1 each Nitroglycerin (Nitrostat -) 0.4 mg SL Q5M PRN PRN Reason: CHEST PAIN Potassium Chloride (K-Dur -) 10 meq PO DAILY [facility] Last Admin: 10/20/18 10:50 Dose: 10 meq Warfarin Sodium 2.5 mg/ (Warfarin Sodium 1 mg) 3.5 mg PO DAILY@1800 [facility] Last Admin: 10/19/18 17:35 Dose: 3.5 mg A/P Atypical Chest Pain CAD s/p CABG +Troponins likely Demand Ischemia LV Diastolic Dysfunction Pulmonary HTN Paroxysmal Atrial Fibrillation h/o MVR/TVR HTN Hyperlipidemia Parkinsons - continue lasix - rate controlled - continue anticoagulation - pain control - d/c planning
[2018-10-20 15:26] LABS: INR 3.09 (0.83-1.09); PROTHROMBIN TIME (PATIENT) 36.9 SEC (9.7-13.0)
[2018-10-20] MEDS: WARFARIN NA 2.5 MG, WARFARIN NA 1 MG PO SCH (18:02)
[2018-10-20] MEDS: ATORVASTATIN CA 10 MG TABLET (FP) PO SCH (21:32)
[2018-10-20] MEDS: LIDOCAINE PATCH REMOVAL MC SCH (21:38)
[2018-10-21] MEDS: CARBIDOPA/LEVODOPA 10/100 TABLET (FP) PO SCH ×2 (05:58→14:44)
[2018-10-21] MEDS: CALCIUM 500MG/VIT-D 200 UNITS COMBO TABLET (FP) PO SCH ×2 (05:59→14:44)
[2018-10-21 06:37] VITALS: PULSE 59
[2018-10-21 06:39] LABS: INR 2.93 (0.83-1.09); PROTHROMBIN TIME (PATIENT) 34.9 SEC (9.7-13.0)
--- NOTE | 2018-10-21 10:44 | PN ---
Progress Note, Physician History of Present Illness: Left shoulder discomfort recurred despite arthrocensis of bloody effusion and intraarticular injection of steroids and lidocaine, denies chest pain or dyspnea. - Current Medication List Current Medications: Active Medications Acetaminophen (Tylenol -) 650 mg PO Q6H PRN PRN Reason: PAIN LEVEL 4 - 6 Last Admin: 10/19/18 11:02 Dose: 650 mg Aspirin (Asa -) 81 mg PO DAILY [facility] Last Admin: 10/20/18 10:49 Dose: 81 mg Atorvastatin Calcium (Lipitor -) 10 mg PO HS [facility] Last Admin: 10/20/18 21:32 Dose: 10 mg Calcium Carbonate/Cholecalciferol (Os-Maik 500+D -) 1 tab PO TID [facility] Last Admin: 10/21/18 05:59 Dose: 1 tab Carbidopa/Levodopa (Sinemet 10/100 -) 1 each PO TID [facility] Last Admin: 10/21/18 05:58 Dose: 1 each Carvedilol (Coreg -) 6.25 mg PO BID [facility] Last Admin: 10/20/18 21:31 Dose: 6.25 mg Cholecalciferol (Vitamin D3 -) 1,000 unit PO DAILY [facility] Last Admin: 10/20/18 10:49 Dose: 1,000 unit Furosemide (Lasix -) 40 mg PO DAILY [facility] Last Admin: 10/20/18 10:49 Dose: 40 mg Isosorbide Mononitrate (Imdur -) 60 mg PO DAILY [facility] Last Admin: 10/20/18 10:49 Dose: 60 mg Lidocaine (Lidoderm Patch -) 1 patch TP DAILY [facility] Last Admin: 10/20/18 10:50 Dose: 1 patch Losartan Potassium (Cozaar -) 25 mg PO DAILY [facility] Last Admin: 10/20/18 10:50 Dose: 25 mg Miscellaneous (Lidoderm Patch Removal) 1 each MC DAILY@2200 [facility] Last Admin: 10/20/18 21:38 Dose: 1 each Nitroglycerin (Nitrostat -) 0.4 mg SL Q5M PRN PRN Reason: CHEST PAIN Potassium Chloride (K-Dur -) 10 meq PO DAILY [facility] Last Admin: 10/20/18 10:50 Dose: 10 meq Warfarin Sodium 2.5 mg/ (Warfarin Sodium 1 mg) 3.5 mg PO DAILY@1800 [facility] Last Admin: 10/20/18 18:02 Dose: Not Given - Objective Vital Signs: Vital Signs Temperature 98.3 F 10/21/18 06:00 Pulse Rate 59 L 10/21/18 06:00 Respiratory Rate 18 10/21/18 06:00 Blood Pressure 138/65 10/21/18 06:00 O2 Sat by Pulse Oximetry (%) 96 10/20/18 21:00 Constitutional: Yes: No Distress, Calm Neck: Yes: Supple Cardiovascular: Yes: Regular Rate and Rhythm, Murmur (2/6 SM) Respiratory: Yes: Regular, CTA Bilaterally Gastrointestinal: Yes: Normal Bowel Sounds, Soft Edema: No Labs: CBC, BMP 10/19/18 06:05 10/19/18 06:05 INR, PTT INR 2.93 (0.83-1.09) H 10/21/18 05:35 - ....Imaging EKG: Report Reviewed (Tele: NS PAC) Problem List - Problems (1) Atypical chest pain Code(s): R07.89 - OTHER CHEST PAIN (2) Elevated troponin Code(s): R74.8 - ABNORMAL LEVELS OF OTHER SERUM ENZYMES (3) HTN (hypertension) Code(s): I10 - ESSENTIAL (PRIMARY) HYPERTENSION Qualifiers: Hypertension type: essential hypertension Qualified Code(s): I10 - Essential (primary) hypertension (4) Left shoulder pain Code(s): M25.512 - PAIN IN LEFT SHOULDER Qualifiers: Chronicity: chronic Qualified Code(s): M25.512 - Pain in left shoulder; G89.29 - Other chronic pain (5) Anticoagulation adequate with anticoagulant therapy Code(s): Z79.01 - [employer] (CURRENT) USE OF ANTICOAGULANTS (6) Coronary artery disease Code(s): I25.10 - ATHSCL HEART DISEASE OF [place] CORONARY ARTERY W/O ANG PCTRS Qualifiers: Coronary Disease-Associated Artery/Lesion type: [place] artery [place] vs. transplanted heart: [place] heart Associated angina: without angina Qualified Code(s): I25.10 - Atherosclerotic heart disease of [place] coronary artery without angina pectoris (7) Diastolic dysfunction with chronic heart failure Code(s): I50.32 - CHRONIC DIASTOLIC (CONGESTIVE) HEART FAILURE (8) Hyperlipidemia Code(s): E78.5 - HYPERLIPIDEMIA, UNSPECIFIED Qualifiers: Hyperlipidemia type: pure hypercholesterolemia Qualified Code(s): E78.00 - Pure hypercholesterolemia, unspecified; E78.0 - Pure hypercholesterolemia (9) Hypertensive cardiomegaly without heart failure Code(s): I11.9 - HYPERTENSIVE HEART DISEASE WITHOUT HEART FAILURE (10) S/P CABG (coronary artery bypass graft) Code(s): Z95.1 - PRESENCE OF AORTOCORONARY BYPASS GRAFT (11) S/P mitral valve repair Code(s): Z98.890 - OTHER SPECIFIED POSTPROCEDURAL STATES (12) Shoulder arthritis Code(s): M12.9 - ARTHROPATHY, UNSPECIFIED (13) Demand ischemia Code(s): I24.8 - OTHER FORMS OF ACUTE ISCHEMIC HEART DISEASE Assessment/Plan 10/18/2018 X-rays: Extensive destruction of the left glenohumeral joint, very high riding humeral head, significant RTC arthropathy 10/19/2018 Echo: Normal LV size and fxn, RV not well seen, severe KRISTAN, MV ring, mild KATHRYN 1.1 cm^2, MG 11 mmHg, mild-mod AR, severe TR, RVSP 50-60 mmHg 03/24/2018 Echo: cLVH with normal LV and RV size and systolic fxn LVEF 60-65%, severe LAE, mild LIANA, mild KATHRYN 1.1 cm^2, mod AR, mitral annular ring with mod MR, mod-severe TR RVSP 60 mm Hg 01/29/2017 Echo: Mild-mod cLVH, normal LV fxn, severe LAE 6.9 cm, LIANA, mild MS, mild-mod MR with mitral annular ring, mild-mod AR, mild MG 17 mmHg, KATHRYN 1.3 cm^2, severe TR and TV ring with RVSP 77 mmHg c/w severe pulm HTN 1. Atypical chest pain syndrome referable to chronic, end stage left shoulder RTC arthropathy, probable hemarthrosis of the left shoulder. Rule out pseudogout 2. CAD s/p re-op CABG, demand ischemia 3. Diastolic dysfunction with severe pulm HTN 4. Paroxysmal aflutter, PAF on coumadin with therapeutic INR 5. s/p MV and TV repair, mild 6. HTN/HCVD 7. Hyperlipidemia 8. Postural hypotension with Parkinson's P:1.Trops have peaked and downtrending 2. Continue ASA 81 qd, Imdur 60 qd, coumadin per INR with GI protection, Lipitor 40 qhs, carvedilol 6.25 bid, increased Lasix 40 qd, Lovaza 1 gm bid, losartan 25 qd 3. Analgesia as needed, declined total shoulder replacement, underwent let shoulder arthrocentesis by rheum, plan for PT 4. F/u with Dr. Strickland as outpatient, august d/c [facility]
[2018-10-21] MEDS: ASPIRIN 81 MG CHEWABLE TABLETS PO SCH (11:00)
[2018-10-21] MEDS: FUROSEMIDE 40 MG TABLET (FP) PO SCH (11:00)
[2018-10-21] MEDS: ISOSORBIDE MONONITRATE 60 MG TAB.SR.24H (FP) PO SCH (11:00)
[2018-10-21] MEDS: POTASSIUM CHLORIDE TABS 10 MEQ TABLET.ER (FP) PO SCH (11:00)
[2018-10-21] MEDS: CARVEDILOL 6.25 MG TABLET (FP) PO SCH (11:00)
[2018-10-21] MEDS: CHOLECALCIFEROL (VIT D3) 1,000 UNIT (25 MCG) TABLET PO SCH (11:00)
[2018-10-21] MEDS: LOSARTAN POTASSIUM 25 MG TABLET PO SCH (11:00)
[2018-10-21] MEDS: LIDOCAINE 5% TOPICAL PATCH TP SCH (11:07)
[2018-10-21 11:10] VITALS: BP 116/60; TEMP 98.1
--- NOTE | 2018-10-21 11:18 | PN ---
Progress Note, Physician History of Present Illness: pulmonary alert,oob-chair,+ shoulder pain s/p arthrocentesis ,-sob - Current Medication List Current Medications: Active Medications Acetaminophen (Tylenol -) 650 mg PO Q6H PRN PRN Reason: PAIN LEVEL 4 - 6 Last Admin: 10/19/18 11:02 Dose: 650 mg Aspirin (Asa -) 81 mg PO DAILY [facility] Last Admin: 10/21/18 11:00 Dose: 81 mg Atorvastatin Calcium (Lipitor -) 10 mg PO HS [facility] Last Admin: 10/20/18 21:32 Dose: 10 mg Calcium Carbonate/Cholecalciferol (Os-Maik 500+D -) 1 tab PO TID [facility] Last Admin: 10/21/18 05:59 Dose: 1 tab Carbidopa/Levodopa (Sinemet 10/100 -) 1 each PO TID [facility] Last Admin: 10/21/18 05:58 Dose: 1 each Carvedilol (Coreg -) 6.25 mg PO BID [facility] Last Admin: 10/21/18 11:00 Dose: 6.25 mg Cholecalciferol (Vitamin D3 -) 1,000 unit PO DAILY [facility] Last Admin: 10/21/18 11:00 Dose: 1,000 unit Furosemide (Lasix -) 40 mg PO DAILY [facility] Last Admin: 10/21/18 11:00 Dose: 40 mg Isosorbide Mononitrate (Imdur -) 60 mg PO DAILY [facility] Last Admin: 10/21/18 11:00 Dose: 60 mg Lidocaine (Lidoderm Patch -) 1 patch TP DAILY [facility] Last Admin: 10/21/18 11:07 Dose: 1 patch Losartan Potassium (Cozaar -) 25 mg PO DAILY [facility] Last Admin: 10/21/18 11:00 Dose: 25 mg Miscellaneous (Lidoderm Patch Removal) 1 each MC DAILY@2200 [facility] Last Admin: 10/20/18 21:38 Dose: 1 each Nitroglycerin (Nitrostat -) 0.4 mg SL Q5M PRN PRN Reason: CHEST PAIN Potassium Chloride (K-Dur -) 10 meq PO DAILY [facility] Last Admin: 10/21/18 11:00 Dose: 10 meq Warfarin Sodium 2.5 mg/ (Warfarin Sodium 1 mg) 3.5 mg PO DAILY@1800 [facility] Last Admin: 10/20/18 18:02 Dose: Not Given - Objective Vital Signs: Vital Signs Temperature 98.1 F 10/21/18 11:09 Pulse Rate 59 L 10/21/18 11:09 Respiratory Rate 18 10/21/18 11:09 Blood Pressure 116/60 10/21/18 11:09 O2 Sat by Pulse Oximetry (%) 96 10/20/18 21:00 Constitutional: Yes: Calm, Thin Eyes: Yes: WNL HENT: Yes: WNL Neck: Yes: WNL Cardiovascular: Yes: Regular Rate and Rhythm, S1, S2 Respiratory: Yes: Rales (few bibasailar crackles) Gastrointestinal: Yes: Normal Bowel Sounds, Soft Extremities: Yes: WNL Edema: No Labs: CBC, BMP 10/19/18 06:05 10/19/18 06:05 INR, PTT INR 2.93 (0.83-1.09) H 10/21/18 05:35 Problem List - Problems (1) Atypical chest pain Code(s): R07.89 - OTHER CHEST PAIN (2) Demand ischemia Code(s): I24.8 - OTHER FORMS OF ACUTE ISCHEMIC HEART DISEASE (3) Elevated troponin Code(s): R74.8 - ABNORMAL LEVELS OF OTHER SERUM ENZYMES (4) HTN (hypertension) Code(s): I10 - ESSENTIAL (PRIMARY) HYPERTENSION Qualifiers: Hypertension type: essential hypertension Qualified Code(s): I10 - Essential (primary) hypertension (5) Left shoulder pain Code(s): M25.512 - PAIN IN LEFT SHOULDER Qualifiers: Chronicity: chronic Qualified Code(s): M25.512 - Pain in left shoulder; G89.29 - Other chronic pain (6) Pain Code(s): R52 - PAIN, UNSPECIFIED (7) AC separation Code(s): S43.109A - UNSP DISLOCATION OF UNSP ACROMIOCLAVICULAR JOINT, INIT Qualifiers: Encounter type: initial encounter Laterality: right Qualified Code(s): S43.101A - Unspecified dislocation of right acromioclavicular joint, initial encounter (8) Afib Code(s): I48.91 - UNSPECIFIED ATRIAL FIBRILLATION Qualifiers: (9) Anticoagulation adequate with anticoagulant therapy Code(s): Z79.01 - [facility] (CURRENT) USE OF ANTICOAGULANTS (10) Arthritis Code(s): M19.90 - UNSPECIFIED OSTEOARTHRITIS, UNSPECIFIED SITE (11) Coronary artery disease Code(s): I25.10 - ATHSCL HEART DISEASE OF [place] CORONARY ARTERY W/O ANG PCTRS Qualifiers: Coronary Disease-Associated Artery/Lesion type: [place] artery [place] vs. transplanted heart: [place] heart Associated angina: without angina Qualified Code(s): I25.10 - Atherosclerotic heart disease of [place] coronary artery without angina pectoris (12) Diastolic dysfunction with chronic heart failure Code(s): I50.32 - CHRONIC DIASTOLIC (CONGESTIVE) HEART FAILURE (13) S/P CABG (coronary artery bypass graft) Code(s): Z95.1 - PRESENCE OF AORTOCORONARY BYPASS GRAFT (14) S/P mitral valve repair Code(s): Z98.890 - OTHER SPECIFIED POSTPROCEDURAL STATES (15) Shoulder arthritis Code(s): M12.9 - ARTHROPATHY, UNSPECIFIED Assessment/Plan IMP LEFT ARM AND SHOULDER PAIN ATYPICAL CP +TROPONIN ASHD S/P CABG PULMONARY HTN S/P MV REPAIR DIASTOLIC DYSFUNCTION HTN HLD AFIB OSTEOARTHRITIS [facility] DR SUTTON Problem List - Problems (1) Atypical chest pain Code(s): R07.89 - OTHER CHEST PAIN (2) Demand ischemia Code(s): I24.8 - OTHER FORMS OF ACUTE ISCHEMIC HEART DISEASE (3) Elevated troponin Code(s): R74.8 - ABNORMAL LEVELS OF OTHER SERUM ENZYMES (4) HTN (hypertension) Code(s): I10 - ESSENTIAL (PRIMARY) HYPERTENSION Qualifiers: Hypertension type: essential hypertension Qualified Code(s): I10 - Essential (primary) hypertension (5) Left shoulder pain Code(s): M25.512 - PAIN IN LEFT SHOULDER Qualifiers: Chronicity: chronic Qualified Code(s): M25.512 - Pain in left shoulder; G89.29 - Other chronic pain (6) Pain Code(s): R52 - PAIN, UNSPECIFIED (7) AC separation Code(s): S43.109A - UNSP DISLOCATION OF UNSP ACROMIOCLAVICULAR JOINT, INIT Qualifiers: Encounter type: initial encounter Laterality: right Qualified Code(s): S43.101A - Unspecified dislocation of right acromioclavicular joint, initial encounter (8) Afib Code(s): I48.91 - UNSPECIFIED ATRIAL FIBRILLATION Qualifiers: (9) Anticoagulation adequate with anticoagulant therapy Code(s): Z79.01 - ACCOUNT [employer]ANNER (CURRENT) USE OF ANTICOAGULANTS (10) Arthritis Code(s): M19.90 - UNSPECIFIED OSTEOARTHRITIS, UNSPECIFIED SITE (11) Coronary artery disease Code(s): I25.10 - ATHSCL HEART DISEASE OF [place] CORONARY ARTERY W/O ANG PCTRS Qualifiers: Coronary Disease-Associated Artery/Lesion type: [place] artery [place] vs. transplanted heart: [place] heart Associated angina: without angina Qualified Code(s): I25.10 - Atherosclerotic heart disease of [place] coronary artery without angina pectoris (12) Diastolic dysfunction with chronic heart failure Code(s): I50.32 - CHRONIC DIASTOLIC (CONGESTIVE) HEART FAILURE (13) S/P CABG (coronary artery bypass graft) Code(s): Z95.1 - PRESENCE OF AORTOCORONARY BYPASS GRAFT (14) S/P mitral valve repair Code(s): Z98.890 - OTHER SPECIFIED POSTPROCEDURAL STATES (15) Shoulder arthritis Code(s): M12.9 - ARTHROPATHY, UNSPECIFIED
--- NOTE | 2018-10-21 12:21 | DS ---
Physical Examination Vital Signs: Vital Signs Temperature 98.1 F 10/21/18 11:09 Pulse Rate 59 L 10/21/18 11:09 Respiratory Rate 18 10/21/18 11:09 Blood Pressure 116/60 10/21/18 11:09 O2 Sat by Pulse Oximetry (%) 96 10/21/18 10:00 Findings/Remarks: Patient is an 88 y/o female with past medical history of Afib on coumadin, CAD s /p CABG x 2, HTN, HLD, and chronic right arm pain. Patient presented to ER after experiencing left shoulder pain this morning at 430am. Patient states she took tylenol x 2 at home and did not feel any relief. While in ER EKG showed sinus bradycardia with 1st degree AV block which is a change from previous EKG and elevated troponin of 0.13. Patient denies chest pain or palpitations. Constitutional: Yes: Well Nourished, No Distress, Calm Cardiovascular: Yes: Regular Rate and Rhythm Respiratory: Yes: Regular Gastrointestinal: Yes: Normal Bowel Sounds, Soft Musculoskeletal: Yes: Other (lEFT SHOULDER PAIN) Extremities: Yes: WNL Edema: No Peripheral Pulses WNL: Yes Neurological: Yes: Alert, Oriented Psychiatric: Yes: Alert, Oriented Labs: CBC, BMP 10/19/18 06:05 10/19/18 06:05 Discharge Summary Reason For Visit: CORONARY ARTERY DISEASE, ATYPICAL CHEST PAIN Current Active Problems Atypical chest pain (Acute) Demand ischemia (Acute) Elevated troponin (Acute) HTN (hypertension) (Acute) Left shoulder pain (Acute) Pain (Acute) Hospital Course: Laboratory Last Values WBC 8.6 K/mm3 (4.0-10.0) 10/19/18 06:05 RBC 4.14 M/mm3 (3.60-5.2) 10/19/18 06:05 Hgb 11.5 GM/dL (10.7-15.3) 10/19/18 06:05 Hct 35.2 % (32.4-45.2) 10/19/18 06:05 MCV 85.0 fl (80-96) 10/19/18 06:05 MCH 27.9 pg (25.7-33.7) 10/19/18 06:05 MCHC 32.8 g/dl (32.0-36.0) 10/19/18 06:05 RDW 19.4 % (11.6-15.6) H 10/19/18 06:05 Plt Count 195 K/MM3 (134-434) 10/19/18 06:05 MPV 8.9 fl (7.5-11.1) 10/19/18 06:05 Absolute Neuts (auto) 7.0 K/mm3 (1.5-8.0) 10/19/18 06:05 Neutrophils % 81.5 % (42.8-82.8) 10/19/18 06:05 Lymphocytes % 7.6 % (8-40) L D 10/19/18 06:05 Monocytes % 10.6 % (3.8-10.2) H D 10/19/18 06:05 Eosinophils % 0.0 % (0-4.5) D 10/19/18 06:05 Basophils % 0.3 % (0-2.0) 10/19/18 06:05 Nucleated RBC % 0 % (0-0) 10/19/18 06:05 PT with INR 34.90 SEC (9.7-13.0) H 10/21/18 05:35 INR 2.93 (0.83-1.09) H 10/21/18 05:35 PTT (Actin FS) 35.4 SECONDS (25.2-36.5) 10/18/18 10:30 Sodium 141 mmol/L (136-145) 10/19/18 06:05 Potassium 4.0 mmol/L (3.5-5.1) 10/19/18 06:05 Chloride 106 mmol/L (98-107) 10/19/18 06:05 Carbon Dioxide 28 mmol/L (21-32) 10/19/18 06:05 Anion Gap 8 MMOL/L (8-16) 10/19/18 06:05 BUN 21.4 mg/dL (7-18) H 10/19/18 06:05 Creatinine 0.8 mg/dL (0.55-1.3) 10/19/18 06:05 Est GFR (CKD-EPI)AfAm 76.29 10/19/18 06:05 Est GFR (CKD-EPI)NonAf 65.82 10/19/18 06:05 POC Glucometer 84 UNITS (80-120) 10/21/18 12:03 Random Glucose 123 mg/dL (74-106) H 10/19/18 06:05 Calcium 9.3 mg/dL (8.5-10.1) 10/19/18 06:05 Phosphorus 2.9 mg/dL (2.5-4.9) 10/19/18 06:05 Magnesium 2.2 mg/dL (1.8-2.4) 10/19/18 06:05 Total Bilirubin 1.7 mg/dL (0.2-1) H 10/19/18 06:05 AST 26 U/L (15-37) 10/19/18 06:05 ALT 8 U/L (13-61) L 10/19/18 06:05 Alkaline Phosphatase 107 U/L (45-117) 10/19/18 06:05 Creatine Kinase 120 U/L (26-192) 10/20/18 05:30 Creatine Kinase Index 1.3 % (0.0-5.0) 10/18/18 10:30 CK-MB (CK-2) 2.2 ng/mL (0.5-3.6) 10/18/18 10:30 Troponin I 0.38 ng/ml (0.00-0.05) H 10/20/18 05:30 B-Natriuretic Peptide 72325.0 pg/ml (5-450) H 10/19/18 06:05 Total Protein 6.9 g/dl (6.4-8.2) 10/19/18 06:05 Albumin 3.7 g/dl (3.4-5.0) 10/19/18 06:05 Triglycerides 73 mg/dL (0-150) 10/19/18 06:05 Cholesterol 124 mg/dL (50-200) 10/19/18 06:05 Total LDL Cholesterol 59 mg/dL (5-100) 10/19/18 06:05 HDL Cholesterol 68 mg/dL (40-60) H 10/19/18 06:05 TSH 0.68 uIU/ml (0.358-3.74) 10/19/18 06:05 Vital Signs Temp 98.1 F 10/21/18 11:09 Pulse 59 L 10/21/18 11:09 Resp 18 10/21/18 11:09 BP 116/60 10/21/18 11:09 Pulse Ox 96 10/21/18 10:00 Intake & Output 10/20/18 10/21/18 10/21/18 23:59 11:59 23:59 Intake Total 804 250 Balance 804 250 Weight 47.446 kg Intake: IV 10 10 saline lock 10 10 Oral 794 240 Other: Voiding Method Toilet Toilet # Unmeasured Voids Void 1 1 Weight Measurement Method Standing Scale Condition: Stable - Instructions Diet, Activity, Other Instructions: INR check on wednesday10/24/18 F/U with cardiology and orthopedic surgery outpatient within 2 weeks Referrals: Eduarda Strickland MD [Staff Physician] - Pasquale Dang MD [Staff Physician] - Disposition: [facility] FACILITY - Home Medications Comprehensive Discharge Medication List: Ambulatory Orders Aspirin [ASA -] 81 mg PO DAILY #0 tab.chew 02/27/12 Potassium Chloride [K-Dur -] 10 meq PO DAILY #0 tablet.er 02/27/12 Calcium Carb/Vit D3/Minerals [Calcium 600 + D Tablet] 1 each PO TID 02/12/13 Omega3/Dha/Epa/Fish Oil/Vit D3 [Wuuph-7-Ojlt Oil-Vit D3 Sftgl] 1 each PO DAILY 02/12/13 Nitroglycerin [Nitrostat] 0.4 mg SL PRN 08/22/13 Isosorbide Mononitrate [Imdur] 60 mg PO DAILY 09/30/14 Atorvastatin Ca [Lipitor] 10 mg PO HS tablet 09/19/15 Carvedilol [Coreg -] 6.25 mg PO BID tablet 09/19/15 Cholecalciferol (Vitamin D3) [Vitamin D3 -] 1,000 unit PO DAILY tab 09/19/15 Furosemide [Lasix -] 40 mg PO DAILY tablet 09/19/15 Carbidopa/Levodopa [Carbidopa-Levodopa 10-100 Tab] 1 each PO TID 03/25/17 Losartan Potassium 25 mg PO DAILY 02/16/18 Acetaminophen [Tylenol .Regular Strength -] 650 mg PO Q6H PRN tablet 02/18/18 Alendronate Na [Fosamax (Weekly)] 70 mg PO WEEKLY mg 10/21/18 Lidocaine 5% Patch [Lidoderm -] 1 patch TP DAILY patch 10/21/18 Warfarin Na [Coumadin -] 2.5 mg PO WEFR tablet 10/21/18 Warfarin Na [Coumadin -] 3.5 mg PO SUMOTUTHSA tablet 10/21/18
[2018-10-21] MEDS ORDERED: WARFARIN NA 2.5 MG TABLET (FP) PO SCH (18:00)
[2018-10-22] MEDS ORDERED: WARFARIN NA 2.5 MG, WARFARIN NA 1 MG PO SCH (18:00)
[2018-10-24] MEDS ORDERED: PATIENT'S OWN MEDICATION (NON-FORMULARY) (Alendronate Na [Fosamax (Weekly)] 70 MG) PO SCH (13:05)
== END 2018-10-21 15:01 | DRG 554 ==
LOC: JER 08:57 → JERBED 15:02 → J4W 10-19 08:41
PROVIDERS: ADMIT Family Medicine; ATTEND Family Medicine
PROC: 0R9K3ZX Drainage of Left Shoulder Joint, Percutaneous Approach, Diagnostic (ICD-10-PCS; principal; 2018-10-19)
PROC: 3E0U3BZ Introduction of Anesthetic Agent into Joints, Percutaneous Approach (ICD-10-PCS; 2018-10-19)
PROC: 3E0U33Z Introduction of Anti-inflammatory into Joints, Percutaneous Approach (ICD-10-PCS; 2018-10-19)
DX: M25.012 Hemarthrosis, left shoulder (principal); I24.8 Other forms of acute ischemic heart disease; I48.92 Unspecified atrial flutter; M25.512 Pain in left shoulder; R07.89 Other chest pain; I48.91 Unspecified atrial fibrillation; E78.5 Hyperlipidemia, unspecified; R00.1 Bradycardia, unspecified; I44.0 Atrioventricular block, first degree; I25.10 Atherosclerotic heart disease of native coronary artery without angina pectoris; Z95.1 Presence of aortocoronary bypass graft; R74.8 Abnormal levels of other serum enzymes; I27.20 Pulmonary hypertension, unspecified; G20 Parkinson's disease; I11.9 Hypertensive heart disease without heart failure; I95.1 Orthostatic hypotension
CPT/HCPCS: 36415; 71045-TC-FY; 73030-TC-LT-FY; 80053; 80061; 82550; 82553; 82962; 83721; 83735; 83880; 84100; 84436; 84443; 84484; 85025; 85610; 85730; 93005; 93010; 93306-TC; 97116-GP; 97161-GP; 99284-25

== ENCOUNTER 2020-01-07 05:05 | Inpatient (IN) | payer OTHER, MEDICARE ==
--- NOTE | 2020-01-07 05:29 | PDOC ---
Attending Attestation - Resident Resident Name: Carson Cordero - ED Attending Attestation I have performed the following: I have examined & evaluated the patient, The case was reviewed & discussed with the resident, I agree w/resident's findings & plan - HPI HPI: 01/07/20 05:41 Pt comes with CP radiating to the back 01/07/20 06:54 She mainly complains of right neck pain extending to her right arm - Physicial Exam PE: 01/07/20 06:54 Pt has no fever pt has aura heart rate pt has mechanical valve; crunching sound of S1S2 lungs CTA B abd soft NT ND + BS no flank pain right calf swollen>> left - Medical Decision Making 01/07/20 06:57 CBC normal labs and CXR and duplex of the right leg pending pt will need admission 01/07/20 21:35 SIGNED OUT TO THE DAY TEAM Discharge - Discharge Information Problems reviewed: Yes Clinical Impression/Diagnosis: Neck pain, Acute electrocardiogram changes Condition: Guarded - Follow up/Referral - Patient Discharge Instructions - Post Discharge Activity
--- OUTSIDE RECORDS SUMMARY | 2020-01-07 05:45 | XMS ---
:1930 Author Organization [facility] Care Team Providers Name Role Phone Nicora, Christopher Unavailable Nicora, Christopher Unavailable Nicora, Christopher Unavailable Nicora, Christopher Unavailable Nicora, Christopher Unavailable Nicora, Christopher Unavailable Nicora, Christopher Unavailable Nicora, Christopher Unavailable Nicora, Christopher Unavailable Nicora, Christopher Unavailable Nicora, Christopher Unavailable Re-disclosure Warning The records that you are about to access may contain information from federally- assisted alcohol or drug abuse programs. If such information is present, then the following federally mandated warning applies: This information has been disclosed to you from records protected by federal confidentiality rules (42 CFR part 2). The federal rules prohibit you from making any further disclosure of this information unless further disclosure is expressly permitted by the written consent of the person to whom it pertains or as otherwise permitted by 42 CFR part 2. A general authorization for the release of medical or other information is NOT sufficient for this purpose. The Federal rules restrict any use of the information to criminally investigate or prosecute any alcohol or drug abuse patient.The records that you are about to access may contain highly sensitive health information, the redisclosure of which is protected by Article 27-F of the [facility] Public Health law. If you continue you may haveaccess to information: Regarding HIV / AIDS; Provided by facilities licensed or operated by the [facility] Office of Mental Health; or Provided by the [facility] Office for People With Developmental Disabilities. If such information is present, then the following [facility] mandated warning applies: This information has been disclosed to you from confidential records which are protected by state law. State law prohibits you from making any further disclosure of this information without the specific written consent of the person to whom it pertains, or as otherwise permitted by law. Any unauthorized further disclosure in violation of state law may result in a fine or long-term sentence or both. A general authorization for the release of medical or other information is NOT sufficient authorization for further disclosure. Advance Directives Directive Description Insurance Salesperson Marketing Performance Analyst Status Observation Data S ource(s) Description Resuscitation [facility] Resuscitat ion SIG[facility]ARE Rehabilitation ([facility] & [facility] [place]) Resuscitation [facility] Resuscitat ion [facility] Rehabilitation ([facility] tion & [facility] [place]) CPR [facility] CPR SIGM ACARE [facility] ([facility] [place]) Allergies and Adverse Reactions Type Description Substance Reaction Status Data Source(s ) Miscellaneous nsaids nsaids SIG[facility]ARE allergy ([facility] [place] ) Drug allergy codeine phosphate codeine SIGMA CARE (bulk) phosphate ([facility] (bulk) [facility] & [facility] [place] ) Encounters Encounter Providers Location Date Indications Data Source(s ) [place] [facility] ( Joanna Keron Nicora 03:00:00 PM [facility] EDT & Nursing [facility] er) Patient admitted. Medications Medication Brand Start Product Dose Route Administrative Pharm[facility] Indications Reaction Description Data Name Date Form Instructions Instructions Source(s) gabapentin gabape 11/22/ complet gabapen tin SIG[facility]ARE 100 mg ntin 2019 ed 100 mg (Joanna capsule 100 MG 11:00: capsule [place] Oral 00 AM [facility] EDT tion & e Nursing Center) Xarelto rivaro 11/18/ complet Xarelto 15 SIGMACARE (rivaroxaba xaban 2019 ed mg tablet ([facility] n) 15 mg 15 MG 08:45: [place] tablet Oral 45 AM Rehabilita Tablet EDT tion & [Xarel Nursing to] Center) Miralax POLYET 11/18/ complet Miralax 17 SIG[facility]ARE (polyethyle HYLENE 2019 ed gram/dose ( Joanna ne glycol GLYCOL 03:23: oral powder Ewing 3350) 17 3350 16 AM Rehabilita gram/dose 02820 EDT tion & oral powder MG Nursing Powder Center) for Oral Soluti on [Lindsey ax] tramadol 50 tramad 11/15/ complet tramad ol 50 SIGMACARE mg tablet ol 2019 ed mg tablet ([facility] hydroc 07:11: Ewing hlorid 52 AM Rehabilita e 50 EDT tion & MG Nursing Oral Center) Tablet warfarin 3 Warfar 11/15/ complet warfari n 3 SIG[facility]ARE mg tablet in 2018 ed mg tablet ([facility] Sodium 06:25: Ewing 3 MG 02 AM Rehabilita Oral EDT tion & Tablet Nursing Center) acetaminoph Acetam 11/09/ complet acetam inophe SIGMACARE en 325 mg inophe 2019 ed n 325 mg ([facility] tablet n 325 07:03: tablet Ewing MG 57 AM Rehabilita Oral EDT tion & Tablet Nursing Center) acetaminoph Acetam 11/09/ complet acetam inophe SIGMACARE en 325 mg inophe 2019 ed n 325 mg ([facility] tablet n 325 07:03: tablet Ewing MG 57 AM Rehabilita Oral EDT tion & Tablet Nursing Center) Coumadin Warfar 10/24/ complet Coumadin 4 SIGMACARE (warfarin) in 2019 ed mg tablet ([facility] 4 mg tablet Sodium 05:35: Hill s 4 MG 38 AM Rehabilita Oral EDT tion & Tablet Nursing [[facility]) din] calcium 507708 10/21/ complet calcium SI GMACARE carbonate-v 60577 2018 ed carbonate-vi (Room 77 itamin D3 01:07: tamin D3 500 Ewing 500 mg 56 PM mg (1,250 Rehabil eula (1,250 EDT mg)-600 unit tion & mg)-600 tablet Nursing unit tablet Center) calcium 464466 10/21/ complet calcium SI GMACARE carbonate-v 89753 2018 ed carbonate-vi (Joanna itamin D3 01:07: tamin D3 500 Ewing 500 mg 56 PM mg (1,250 Rehabil eula (1,250 EDT mg)-600 unit tion & mg)-600 tablet Nursing unit tablet Center) atorvastati atorva atorva statin SIGMACARE n 10 mg statin 2019 ed 10 mg tablet ([facility] tablet 10 MG 12:47: Ewing Oral 28 PM Rehabilita Tablet EDT tion & Nursing Center) atorvastati atorva atorva statin SIGMACARE n 10 mg statin 2019 ed 10 mg tablet ([facility] tablet 10 MG 12:47: Ewing Oral 28 PM Rehabilita Tablet EDT tion & Nursing Center) lidocaine 5 Lidoca lidoca ine 5 SIGMACARE % topical ine 2019 ed % topical ([facility] patch 0.05 09:54: patch Ewing MG/MG 42 AM Rehabilita Medica EDT tion & susan Nursing Patch Center) lidocaine 5 Lidoca lidoca ine 5 SIGMACARE % topical ine 2019 ed % topical ([facility] patch 0.05 09:54: patch Ewing MG/MG 42 AM Rehabilita Medica EDT tion & susan Nursing Patch Center) Tubersol Purifi Tubersol 5 SIGMACARE (tuberculin ed 2019 ed tub. ([facility] ppd) 5 tub. Protei 07:45: unit/0.1 mL Ewing unit/0.1 mL n 29 AM intradermal Rehabilita intradermal Deriva EDT injection t ion & injection tive solution Nursin g solution of Center) Tuberc ulin 50 UNT/ML Inject able Soluti on [Tuber jose guadalupe] atorvastati atorva atorva statin SIG[facility]ARE n 10 mg statin 2018 ed 10 mg tablet ([facility] tablet 10 MG 07:45: Ewing Oral 29 AM Rehabilita Tablet EDT tion & Nursing Center) cholecalcif Cholec cholec alcife SIGMACARE jenna alcife 2019 ed rol (vitamin ([facility] (vitamin rol 07:45: D3) 1,000 Hill s D3) 1,000 1000 29 AM unit tablet Re habilita unit tablet UNT EDT tion & Oral Nursing Tablet Center) warfarin 1 Warfar warfari n 1 SIGMACARE mg tablet in 2019 ed mg tablet ([facility] Sodium 07:45: Ewing 1 MG 29 AM Rehabilita Oral EDT tion & Tablet Nursing Center) warfarin Warfar complet warfarin 2.5 SIGMACARE 2.5 mg in 2019 ed mg tablet ([facility] tablet Sodium 07:45: Ewing 2.5 MG 29 AM Rehabilita Oral EDT tion & Tablet Nursing Center) warfarin Warfar complet warfarin 2.5 SIG[facility] 2.5 mg in 2019 ed mg tablet ([facility] tablet Sodium 07:45: Ewing 2.5 MG 29 AM Rehabilita Oral EDT tion & Tablet Nursing Center) isosorbide 24 HR complet isosorbi de SIGMACARE mononitrate Isosor 2019 ed mononitrate (Joanna ER 60 mg bide 07:45: ER 60 mg Ewing tablet,exte Mononi 29 AM tablet,ext en Rehabilita nded trate EDT ded release tion & release 24 60 MG 24 hr Nursing hr Extend Center) ed Releas e Oral Tablet cholecalcif Cholec complet cholec alcife SIGMACARE jenna alcife 2019 ed rol (vitamin ([facility] (vitamin rol 07:45: D3) 1,000 Hill s D3) 1,000 1000 29 AM unit tablet Re habilita unit tablet UNT EDT tion & Oral Nursing Tablet Center) Coreg carved Coreg 12.5 S IGMACARE (carvedilol ilol 2019 ed mg tablet ([facility] ) 12.5 mg 12.5 07:45: Ewing tablet MG 29 AM Rehabilita Oral EDT tion & Tablet Nursing [Coreg Center) ] furosemide Furose complet furosem verenice SIGMACARE 40 mg mide 2018 ed 40 mg tablet ([facility] tablet 40 MG 07:45: Ewing Oral 29 AM Rehabilita Tablet EDT tion & Nursing Center) losartan 25 Losart complet losart an 25 SIGMACARE mg tablet an 2019 ed mg tablet ([facility] Potass 07:45: Ewing ium 25 29 AM Rehabilita MG EDT tion & Oral Nursing Tablet Center) furosemide Furose complet furosem verenice SIGMACARE 40 mg mid2018 ed 40 mg tablet ([facility] tablet 40 MG 07:45: Ewing Oral 29 AM Rehabilita Tablet EDT tion & Nursing Center) carbidopa Carbid carbidop a 10 SIGMACARE 10 opa 10 2019 ed mg-levodopa ([facility] mg-levodopa MG / 07:45: 100 mg Hill s 100 mg Levodo 29 AM tablet Rehabili ta tablet pa 100 EDT tion & MG Nursing Oral Center) Tablet acetaminoph Acetam acetam inophe SIGMACARE en 325 mg inophe 2019 ed n 325 mg ([facility] tablet n 325 07:45: tablet Ewing MG 29 AM Rehabilita Oral EDT tion & Tablet Nursing Center) Nitrostat Nitrog Nitrosta t SIGMACARE (nitroglyce lyceri 2019 ed 0.4 mg ([facility] rin) 0.4 mg n 0.4 07:45: sublingual Ewing sublingual MG 29 AM tablet Rehabi cirilo tablet Sublin EDT tion & gual Nursing Tablet Center) [Nitro stat] calcium 219154 calcium SI GMACARE carbonate [id number] ed carbonate ([facility] 600 mg 07:45: 600 mg Ewing (1,500 29 AM (1,500 Rehabilita mg)-vitamin EDT mg)-vitamin t ion & D3 400 unit D3 400 unit N ursing tablet tablet Center) omega 525698 omega SIGMAC ARE 3-dha-epa-f 58002 2019 ed 6-yuo-ejo-fi (Joanna nuris oil 07:45: sh oil 1,000 Hi lls 1,000 mg 29 AM mg (120 Rehabil eula (120 mg-180 EDT mg-180 mg) ti on & mg) capsule capsule Nursi ng [place]) losartan 25 Losart losart an 25 SIGMACARE mg tablet an 2019 ed mg tablet ([facility] Potass 07:45: Ewing ium 25 29 AM Rehabilita MG EDT tion & Oral Nursing Tablet Center) Coreg carved Coreg 12.5 S IGMACARE (carvedilol ilol 2019 ed mg tablet ([facility] ) 12.5 mg 12.5 07:45: Ewing tablet MG 29 AM Rehabilita Oral EDT tion & Tablet Nursing [Coreg Center) ] potassium Microe potassiu m SIGMACARE chloride ER ncapsu 2019 ed chloride ER (Joanna 10 mEq lated 07:45: 10 mEq Ewing tablet,exte Potass 29 AM tablet,ext en Rehabilita nded ium EDT ded tion & release(par Chlori release(par t Nursing t/cryst) de ) Center) MEQ Extend ed Releas e Oral Tablet carbidopa Carbid 10/21/ complet carbidop a 10 SIGMACARE 10 opa 10 2018 ed mg-levodopa ([facility] mg-levodopa MG / 07:45: 100 mg Hill s 100 mg Levodo 29 AM tablet Rehabili ta tablet pa 100 EDT tion & MG Nursing Oral Center) Tablet Nitrostat Nitrog complet Nitrosta t SIGMACARE (nitroglyce lyceri 2019 ed 0.4 mg ([facility] rin) 0.4 mg n 0.4 07:45: sublingual Ewing sublingual MG 29 AM tablet Rehabi cirilo tablet Sublin EDT tion & gual Nursing Tablet Center) [Nitro stat] Enteric Aspiri Enteric SI GMACARE Coated n 81 2018 ed Coated (Joanna Aspirin MG 07:45: Aspirin 81 [facility] (aspirin) Delaye 29 AM mg Rehabil eula 81 mg d EDT tablet,delay tion & tablet,uzma Releas ed release Nursing yed release e Oral Center ) Tablet isosorbide 24 HR isosorbi de SIGMACARE mononitrate Isosor 2019 ed mononitrate (Joanna ER 60 mg bide 07:45: ER 60 mg Ewing tablet,exte Mononi 29 AM tablet,ext en Rehabilita nded trate EDT ded release tion & release 24 60 MG 24 hr Nursing hr Extend Center) ed Releas e Oral Tablet potassium Microe potassiu m SIGMACARE chloride ER ncapsu 2019 ed chloride ER (Joanna 10 mEq lated 07:45: 10 mEq Ewing tablet,exte Potass 29 AM tablet,ext en Rehabilita nded ium EDT ded tion & release(par Chlori release(par t Nursing t/cryst) de ) Center) MEQ Extend ed Releas e Oral Tablet omega 752559 omega SIGMAC ARE 3-dha-epa-f 59344 2019 ed 1-zyj-dhy-fi (Joanna nuris oil 07:45: sh oil 1,000 Hi lls 1,000 mg 29 AM mg (120 Rehabil eula (120 mg-180 EDT mg-180 mg) ti on & mg) capsule capsule Nursi [facility]) Enteric Aspiri Enteric SI GMACARE Coated n 81 2019 ed Coated (Joanna Aspirin MG 07:45: Aspirin 81 [facility] (aspirin) Delaye 29 AM mg Rehabil eula 81 mg d EDT tablet,delay tion & tablet,uzma Releas ed release Nursing yed release e Oral Center ) Tablet acetaminoph Acetam acetam inophe SIGMACARE en 325 mg inophe 2019 ed n 325 mg ([facility] tablet n 325 07:45: tablet Ewing MG 28 AM Rehabilita Oral EDT tion & Tablet Nursing Center) acetaminoph Acetam acetam inophe SIGMACARE en 325 mg inophe 2019 ed n 325 mg ([facility] tablet n 325 07:45: tablet Ewing MG 28 AM Rehabilita Oral EDT tion & Tablet Nursing Center) Insurance Providers Payer name Policy type Policy ID Covered Covered republican's Policy P shelton / Coverage republican ID relationship to Torres Inf ormation type torres [facility] [id number] Self [id number] Medicare Medicare [id number] Self [id number] A Part B Part B Medicare Medicare [id number] Self [id number] A Part A Part A [facility] 8 [id number] [employer] [id number] Medicare 2 [id number] Self [id number] A Part B Medicare 18 [id number] Self [id number] A Part A MEDICARE [id number] SP [id number] A [facility] [id number] SP [id number] CARE OPTIONS MEDICARE [id number] SP [id number] A [facility] [id number] SP [id number] CARE OPTIONS Problems, Conditions, and Diagnoses Code Display Name Description Problem Effective Data Source (s) Type Dates K59.00 Constipation, Constipation, Diagnosis 11/18/2018 SIGMACAR E unspecified unspecified 12:00:00 AM ([facility] & [facility] [place] ) M25.512 Pain in left Pain in left Diagnosis 11/15/2018 SIGMACARE shoulder shoulder 12:00:00 AM ([facility] & Nursing [place] ) M19.90 Unspecified Unspecified Diagnosis 11/08/2018 SIGMACARE osteoarthritis, osteoarthritis, 12:00:00 AM ([facility] unspecified site unspecified site EDT Re habilitation & Nursing Center ) 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 12:00:00 AM ([facility] & Nursing Center ) G20 Parkinson's disease Parkinson's disease Diagnosis 019 SIGMACARE 12:00:00 AM ([facility] Rehabilitation & Nursing Center ) E78.5 Hyperlipidemia, Hyperlipidemia, Diagnosis 10/21/2018 SIGM ACARE unspecified unspecified 12:00:00 AM ([facility] Rehabilitation & [facility] ) I10 Essential (primary) Essential (primary) Diagnosis SIGMACARE hypertension hypertension 12:00:00 AM ([facility] [place] ) I20.9 Angina pectoris, Angina pectoris, Diagnosis 10/21/2018 SI GMACARE unspecified unspecified 12:00:00 AM ([facility] & [facility] [place] ) I20.0 Unstable angina Unstable angina Diagnosis 10/21/2018 SIGM ACARE 12:00:00 AM ([facility] [place] ) E55.9 Vitamin D Vitamin D Diagnosis 10/21/2018 SIGMACARE deficiency, deficiency, 12:00:00 AM ([facility] unspecified unspecified EDT Rehabilitati on & Nursing Center ) E78.1 Pure Pure Diagnosis 10/21/2018 SIGMACARE hyperglyceridemia hyperglyceridemia 12:00:00 AM ([facility] & [facility] [place] ) E87.6 Hypokalemia Hypokalemia Diagnosis 10/21/2018 SIGMACARE 12:00:00 AM ([facility] [place] ) Z29.9 Encounter for Encounter for Diagnosis 10/21/2018 SIGMACAR E prophylactic prophylactic 12:00:00 AM ([facility] measures, measures, EDT Rehabilitation & unspecified unspecified Nursing Cent er) M81.8 Other osteoporosis Other osteoporosis Diagnosis 9 SIGMACARE without current without current 12:00:00 AM ([facility] pathological pathological EDT Rehabilita tion & fracture fracture Nursing Center ) Z11.1 Encounter for Encounter for Diagnosis 10/21/2018 SIGMACAR E screening for screening for 12:00:00 AM ([facility] respiratory respiratory EDT Rehabilitati on & tuberculosis tuberculosis Nursing Ce nter) I48.2 Chronic atrial Chronic atrial Diagnosis 10/21/2018 SIGMAC ARE fibrillation fibrillation 12:00:00 AM ([facility] ) R52 Pain, unspecified Pain, unspecified Diagnosis 10/21/2018 SIGMACARE 12:00:00 AM ([facility] & [facility] ) R50.9 Fever, unspecified Fever, unspecified Diagnosis 9 SIGMACARE 12:00:00 AM ([facility] ) Results ID Date Data Source 400 11/18/2018 03:02:00 AM EDT SIGMACARE ([facility]) Name Value Range Interpretation Description Data Source(s ) Supporting Code Document(s ) PROTIME 16.4SEC 10.5-12. Above high normal <td SIGMACARE 9 ID="Observatio ([facility] s w-Gdsy-zz4t182 Rehabilitation & 2-dp3o-3874rs3c-4269-q9 Nursing Center) [id number] d">(205) PROTIME</td><t d ID="Observatio b-Ypyos-aq0a50 12-oc4q-9935-a 322-755fi99u9n 6d">16.4</td>< td ID="Observatio h-Chgo-ly6j133 0-lz6v-9898ni5m-0050-b4 22-026gp91t9v4 d">SEC</td><td ID="Observatio e-CjqRlohd-ra0 i5639-op0j-770 4-h510-166uz05 e8e6d">10.5-12 .9</td><td ID="Observatio g-Xdndnqvu-av3 i3235-dg5p-934 2-b914-084ry33 e8e6d">H</td>< td ID="Observatio m-Kygqpj-tq2i8 560-my9o-6374- w310-274ur58i7 e6d">Final</td > INR 1.45 0.90-1.11 Above <td ID="Iiekijdijbe-Kqri-o3l5k83qh3q9k89q-f6j6-79e5-[id number]">(405) INR</td><td SIGMACARE high ID="Observation -Qauen-e9t5d20v-[id number]">1.45</td><td (Joanna normal ID="Yibzamtweix-Oilk-r5g0 [id number]"></td><td Ewing ID="Shgcrlxhlpc-YluVshph-[id number]-[id number]">0.90-1.11</td><td Rehabilitation ID="Observation-Abnormal- [id number]">H</td><td & Nursing ID="Xiqdzyvraif-Pacuar-w8 [id number]">Final</td> Center) Type: Lab, Date: 11/18/2018 12:32 PM, User: N/APLEASE NOTE NEW REFERENCE RANGE2.0-3.0: FOR TREATMENT OF VENOUS THROMBOSIS,PULMONARY EMBOLISM,SYTEMIC ID Date Data Source 400 11/15/2018 03:42:00 AM EDT SIGMACARE ([facility] Rehabilitation & Nursing Center) Name Value Range Interpretation Description Data Source(s ) Supporting Code Document(s ) PROTIME 28.7SEC 10.5-12. Above high normal <td SIGMACARE 9 ID="Observatio ([facility] z-Xjaf-tt435lv Rehabilitation & 9-g792-7470j502-0573-q3 Nursing Center) [id number] 0">(205) PROTIME</td><t d ID="Observatio y-Unwyj-zr407s f7-z555-9569-b 2a5-16m18qo3bu 80">28.7</td>< td ID="Observatio y-Bkrj-os178ir 7-a722-6667x247-6229-r8 e8-28e76xf2ay5 0">SEC</td><td ID="Observatio w-AcrSdvmk-jv7 86ih0-j930-887 2-e7p9-99z38jb 9bb80">10.5-12 .9</td><td ID="Observatio t-Ejvwsimz-gn1 42on4-d284-270 7-e1e1-08l91ic 9bb80">H</td>< td ID="Observatio q-Mylfzu-vx266 rv5-j473-0566- d4r9-77f94ir9m b80">Final</td > INR 2.52 0.90-1.11 Above <td ID="Qyaironyssb-Zpvr-[id number]">(405) INR</td><td SIGMACARE high ID="Observation -Ldtaw-29dt3971-p18e23ep3663-u55p-0063-3874-5l1zd3sn9pc3">2.52</td><td (Joanna normal ID="Ttptgaphcnc-Eqof-26kc [id number]"></td><td Ewing ID="Tekdgwbtjro-LejCbufq-[id number]">0.90-1.11</td><td Rehabilitation ID="Observation-Abnormal- [id number]-[id number]">H</td><td & Nursing ID="Ukkyrjpbrjy-Kcrlrj-54 ej9906-r15x-0130-1005-8u7lx4zr7hj7">Final</td> Center) Type: Lab, Date: 11/15/2018 12:57 PM, User: N/APLEASE NOTE NEW REFERENCE RANGE2.0-3.0: FOR TREATMENT OF VENOUS THROMBOSIS,PULMONARY EMBOLISM,SYTEMIC ID Date Data Source 400 11/14/2018 03:42:00 AM EDT SIGMACARE ([facility] & [facility] [place]) Name Value Range Interpretation Description Data Source(s ) Supporting Code Document(s ) PROTIME 37.2SEC 10.5-12. Above high normal <td SIGMACARE 9 ID="Observatio ([facility] k-Utub-5of874o Rehabilitation & i-sf4a-9290bi7n-5560-i9 Nursing Center) [id number] a">(205) PROTIME</td><t d ID="Observatio b-Oyfjl-1zt546 jk-kg5q-4232-a 16e-53b5o3ql05 1a">37.2</td>< td ID="Observatio i-Frjp-9co965b a-to3p-2489px3k-1514-q8 6e-34t0b7lr473 a">SEC</td><td ID="Observatio o-XgkPndmd-2wz 362au-dv3s-029 6-w30b-98d5s9t f961a">10.5-12 .9</td><td ID="Observatio e-Bcermdjl-5sy 909hz-dn6m-063 8-b40r-42x0o4d f961a">H</td>< td ID="Observatio w-Xrpuuw-6pc61 9ge-vp7d-0507- v86o-05x3f8si0 61a">Final</td > INR 3.25 0.90-1.11 Above <td ID="Qwxutqmgnwb-Yctt-[id number]-e773-vqrc1d87r3zy">(405) INR</td><td SIGMACARE high ID="Observation -[id number]-[id number]-o134-qtst1y48w2uq">3.25</td><td (Joanna normal ID="Cijutthcxaw-Loqv-4226 70r9-6840-253k-q580-gzle2z82n8lr"></td><td Ewing ID="Ueljfqbncat-VmrRsrtm-[id number]-v069-knxg1d50p9bx">0.90-1.11</td><td Rehabilitation ID="Observation-Abnormal- [id number]-[id number]">H</td><td & Nursing ID="Blbhteozwcj-Hppjnp-77 [id number]-o638-nkmt5h56h8cn">Final</td> Center) Type: Lab, Date: 11/14/2018 12:59 PM, User: N/APLEASE NOTE NEW REFERENCE RANGE2.0-3.0: FOR TREATMENT OF VENOUS THROMBOSIS,PULMONARY EMBOLISM,SYTEMIC ID Date Data Source PANIC 11/11/2018 04:04:00 AM EDT SIGMACARE ([facility]) Name Value Range Interpretation Description Data Source(s ) Supporting Code Document(s ) PANIC ST Very abnormal <td SIGMACARE RESOLUTIONS (applies to ID="Observati (Joanna H ills non-numeric units nf-Kiti-h6737 Rehabili tation & f95-967d-8169 Nursing Center) -bded-fd6jd65 ea344">(PANIC ) PANIC RESOLUTIONS</ td><td ID="Observati kg-Fqabj-m243 4q01-003w-096 3-vwfs-zs3rq6 7kc897">ST</t d><td ID="Observati at-Xevu-u8487 b38-737m-4072 -bded-lm8jl32 ea344"></td>< td ID="Observati oj-SngNlhww-n 2715w46-840o- 5994-uikn-oi1 hg66kt739"></ td><td ID="Observati va-Nujhcjpi-v 6442g74-559s- 7165-xnjp-xh3 ax28ac374">AA </td><td ID="Observati xe-Fgfksx-i95 12m35-131m-34 86-vhtv-tu0ii 58gz363">Delia l</td> ID Date Data Source 400 11/11/2018 03:42:00 AM EDT SIGMACARE ([facility]) Name Value Range Interpretation Description Data Source(s ) Supporting Code Document(s ) PROTIME 57.5SEC 10.5-12. Above high normal <td SIGMACARE 9 ID="Observatio ([facility] a-Oyen-2h4xe35 Rehabilitation & 1-225k-0222-87 Nursing Center) [id number] e">(205) PROTIME</td><t d ID="Observatio y-Lkixx-4s3th9 13-999k-4885-8 8a2-4n4yjx9803 ce">57.5</td>< td ID="Observatio k-Ynif-8w3sz55 6-615g-5528-87 a9-6s0lwz2569q e">SEC</td><td ID="Observatio v-MueDknhy-8a2 zi984-730a-513 0-44f3-0x1rad8 950ce">10.5-12 .9</td><td ID="Observatio t-Lnwymrlm-8w7 bj383-657z-380 1-02i2-6z2xkx6 950ce">H</td>< td ID="Observatio o-Mymtda-1r5eg [id number]- 72h8-9h6wph434 0ce">Final</td > INR 5.01 0.90-1.11 Above <td ID="Kuhnlzhidco-Rizq-[id number]-0zmv-6w1341a57n91">(405) INR</td><td SIGMACARE upper ID="Tjhkanqemrj-Snhys-[id number]-0srd-0w1116j97p16">5.01</td><td (Joanna panic ID="Xygwbitiems-Ynmr-v0g9 [id number]-5f4569e11u40"></td><td Ewing limits ID="Itejizfjhgn-CmvTqksd-c1w4rf87j5x7hj26-2tj3-293n-2bzs-6r6814p81r09">0.90-1.11</td><td Rehabilitation ID="Observation-Abnormal- [id number]">HH</td><td & Nursing ID="Observation -Raeesd-[id number]">Correction</td> Center) Type: Lab, Date: 11/11/2018 01:20 PM, User: N/ACONFIRMED BYREPEAT TESTINGPLEASE NOTE NEW REFERENCE RANGE2.0-3.0: FOR JOSIE ATMENT OF VENOUS THROMBOSIS,PULMONARY EMBOLISM,SYTEMIC EMBOLISM,TISSUE HEART V ALVE,ACUTE MYOCARDIAL INFARCTION AND ATRIAL FIB.2.5-3.5: FOR RECURRENT EMBOLISM, MEC HANICAL HEART VALVES AND ANTIPHOSPHOLIPID ANTIBODIES.Performed at: A ID Date Data Source 140 11/08/2018 05:32:00 AM EDT [facility] ([facility]) Name Value Range Interpretation Description Data Source(s ) Supporting Code Document(s ) SED RATE 42MM 0-22 Above high normal <td [facility] ID="Observation ([facility] ls -Test-lp41evw1- Rehabilitation & r93a-319t-xf5t- Nursing Center ) 705p6s126rwz">( 140) SED RATE</td><td ID="Observation -Value-sr70rdn0 -o50n-166o-ob3d -531y5j140ngq"> 42</td><td ID="Observation -Unit-by96nrq3- q27k-888n-ij8t- 389w1y440ciw">M M</td><td ID="Observation -RefRange-ab99e hi5-n84d-940e-a m6t-014y1j879jy d">0-22</td><td ID="Observation -Abnormal-ab99e vl1-f70m-819u-a h6z-007u6k148ec d">H</td><td ID="Observation -Status-qd61lhc 9-x74y-662sf02z-898z-uy2 f-069r8q744eyn" >Final</td> ID Date Data Source 100 11/08/2018 03:22:00 AM EDT [facility] ([facility]) Name Value Range Interpretation Description Data Source(s ) Supporting Code Document(s ) WBC 4.99509 4.1-10. <td [facility] 0/MM3 9 ID="Observati ([facility] lr-Qint-66358 Rehabilitation & 281-n7at-6830 [facility]) -oe72-478u942 85d34">(110) WBC</td><td ID="Observati dn-Lpgri-8676 7796-p8bo-581 9-ux38-323r91 185d34">4.80< /td><td ID="Observati oh-Nbcw-41543 068-w3kb-3122 -bu57-235d180 85d34">1000/M M3</td><td ID="Observati tj-YmpNuxqq-5 6430133-b1oe- 6755-dw02-968 p15814k54">4. 1-10.9</td><t d ID="Observati ge-Eatjaluw-6 1429082-c4sg- 8839-mk25-193 n21458y40"></ td><td ID="Observati gi-Vsally-673 11737-x1fx-66 79-fy65-667k4 0510q20">Delia l</td> RBC 3.49MIL 4.00-6. Below low normal <td [facility] /MM3 10 ID="Observati ([facility] kz-Gpob-vaiel Rehabilitation & 0pl-9xkh-05f6 [facility]) -98q5-oc98v24 a24f0">(111) RBC</td><td ID="Observati bi-Qcjca-jrtk e4fo-3zun-22i 3-99j3-tz46z3 7a24f0">3.49< /td><td ID="Observati yi-Lpiw-phwuq 4dn-0tlb-38n8 -33b6-dh87u70 a24f0">MIL/MM 3</td><td ID="Observati cx-EqfBhlwn-s enph2af-0mye- 19h7-86d3-rb1 1e35k45g9">4. 00-6.10</td>< td ID="Observati wa-Tklcrsqn-z dyqe0eo-5otu- 08z8-56q8-vm4 4o86d59l6">L< /td><td ID="Observati ce-Lbrhcc-ydx vy2td-9vaw-85 h3-89y7-fh56e 64l94c8">Delia l</td> HEMOGLOBIN 9.79G/D 12.0-15 Below low normal <td [facility] L .5 ID="Observati ([facility] uj-Skwr-m601z Rehabilitation & ad6-tm86-693x [facility]) -9667-71qwbo3 1fe31">(113) HEMOGLOBIN</t d><td ID="Observati pv-Hbajr-s602 ixc1-wi46-362 d-2081-63ylac 51fe31">9.79< /td><td ID="Observati sb-Plsl-a960q te3-wv31-760r -9667-86okvo4 1fe31">G/DL</ td><td ID="Observati sz-YecErtky-l 749kaw3-nb82- 523g-4108-21f mes97mm03">12 .0-15.5</td>< td ID="Observati yg-Fvbzwbqh-p 165ujx9-go31- 615j-7751-25k hhv99hx60">L< /td><td ID="Observati lm-Aqhbke-i46 7rlu4-jy21-80 8o-3846-91ade d07gq53">Delia l</td> HEMATOCRIT 30.5% 36-46 Below low normal <td [facility] ID="Observati ([facility] gj-Rnlm-924z0 Rehabilitation & 825-819m-617r [facility]) -p8j1-78rr04l ea63c">(114) HEMATOCRIT</t d><td ID="Observati if-Innyh-052i 9608-412k-609 z-n8o2-60xj41 aea63c">30.5< /td><td ID="Observati vo-Wrcb-570a0 409-560r-465o -u8a2-95xc39o ea63c">%</td> <td ID="Observati cy-HobEltmw-8 29f9740-090j- 992a-a5m2-32b v18unx79y">36 -46</td><td ID="Observati ui-Sqhfwyji-9 09p4374-138v- 814d-e6l1-30u n37mnf38h">L< /td><td ID="Observati rb-Ydhpww-008 l4457-254o-09 4w-o5q3-90vu3 2zgd34s">Delia l</td> MCV 87.4FL 80-97 <td [facility] ID="Observati ([facility] ag-Urkb-6694c Rehabilitation & i41-67hu-3476 Nursing Center) -h824-u2bpiv7 42ea8">(115) MCV</td><td ID="Observati xo-Jrjco-3999 ui96-90yy-320 4-o298-y2bxxh 442ea8">87.4< /td><td ID="Observati aw-Ukld-3225l f05-22kb-9977 -w096-e8mnmj1 42ea8">FL</td ><td ID="Observati vy-EvcTcmyg-3 632wj55-23it- 1068-c599-u1j jvn901vq8">80 -97</td><td ID="Observati fo-Hbbceqcq-0 309qr44-65wt- 1631-a816-b5r cba970ga4"></ td><td ID="Observati ix-Ciqicp-120 5cr23-94qv-08 22-q892-g4biv d329he2">Delia l</td> MCH 28.0PG 26-32 <td [facility] ID="Observati ([facility] hg-Whpi-43wo8 Rehabilitation & 6o7-ah9h-6lf5 Nursing Center) -992e-k50vkw4 d1c78">(116) MCH</td><td ID="Observati vp-Ypmpj-07nu 85q6-cr0i-7pk 9-655p-p42ezf 5d1c78">28.0< /td><td ID="Observati sg-Mxya-75cb6 7l0-og0v-0sx2 -992e-e66bin1 d1c78">PG</td ><td ID="Observati sp-BrgEbqlg-7 1fi91i5-wb7z- 2ly9-325w-f05 qpp5u6a37">26 -32</td><td ID="Observati cq-Vphzmqfa-0 5js59u8-wh8q- 4ix3-824z-e19 dmr1t2v12"></ td><td ID="Observati pa-Ujmpnh-79k u38m6-oj9w-5a j3-824l-s41xj u3k5e76">Delia l</td> MCHC 32.1G/D 31-36 <td [facility] L ID="Observati ([facility] zp-Qrky-87315 Rehabilitation & gmt-597p-235f [facility]) -05e7-0rgn1b9 c23e7">(117) MCHC</td><td ID="Observati ru-Vnotq-7264 8hfq-532s-992 y-96o5-5gbm5c 3c23e7">32.1< /td><td ID="Observati rv-Pqwf-06995 rvi-842m-320u -94x3-0tmp7h0 c23e7">G/DL</ td><td ID="Observati xo-KwzUpczb-2 8719bbd-545e- 514e-17g6-4rn a5k5f41o3">31 -36</td><td ID="Observati as-Qmzryzfw-7 8719bbd-545e- 373y-08w9-3qm r5o3w74g6"></ td><td ID="Observati iv-Saidod-628 49vhb-620s-50 0k-80g2-2weu5 j8p73l5">Delia l</td> RDW 20.1% 11.5-16 Above high <td [facility] .5 normal ID="Observati ([facility] bw-Jebn-75bw6 Rehabilitation & 94f-5638-0241 [facility]) -r82m-4we0541 a1fcf">(118) RDW</td><td ID="Observati pz-Qfrfh-23km 553w-4503-790 2-p82x-1zk178 8a1fcf">20.1< /td><td ID="Observati yp-Dsaw-88yz1 68h-6400-5800 -g78b-8mi9417 a1fcf">%</td> <td ID="Observati wl-CmgXcpgl-5 7fe083q-1623- 1526-x15l-2hs 0704b1awb">11 .5-16.5</td>< td ID="Observati sx-Tbcoiqml-2 0fp665y-3400- 5206-y28h-8oj 4284a8fpp">H< /td><td ID="Observati av-Iznert-43l z953t-5094-99 65-m50l-8qr40 25a6rdc">Delia l</td> PLATELET 485Z210 140-440 <td [facility] COUNT 0/MM3 ID="Observati ([facility] op-Lszu-4503y Rehabilitation & 93l-185h-33x8 Nursing Center) -pr5y-9o40523 c7243">(119) PLATELET COUNT</td><td ID="Observati ou-Gkoqf-7600 d71s-777u-69c 8-vc6w-6l6418 9j0486">221</ td><td ID="Observati gc-Axfw-6162c 04b-585j-38i1 -rv9g-1x66993 c7243">X1000/ MM3</td><td ID="Observati nd-XyzSxvev-2 534m09p-350k- 29p6-kd9u-3d8 6932j5820">14 0-440</td><td ID="Observati db-Xyrokkol-5 530m48j-993p- 01j4-gg3b-5d5 3917f2274"></ td><td ID="Observati fs-Xvagsq-934 1q43p-369t-46 t0-ue3q-3p591 68k5809">Delia l</td> NEUTROPHILS 63.0% 37-80 <td [facility] ID="Observati ([facility] kp-Jozd-28o3y Rehabilitation & v64-901z-30r3 [facility]) -6yk8-ar3uk9c 51ff6">(120) NEUTROPHILS</ td><td ID="Observati gc-Lsfke-38n6 ww90-355l-52d 2-9dg9-ob0xj0 d51ff6">63.0< /td><td ID="Observati if-Mqax-01e6a k37-820i-61s7 -4cs1-zb1fv4x 51ff6">%</td> <td ID="Observati kp-VqdOlvfw-3 9c4aq49-843f- 68c0-3ec3-rq6 vm7y86ai0">37 -80</td><td ID="Observati tc-Gvqyqwyl-0 7q1do83-309y- 73s0-6ol6-zu1 oe7l10pb4"></ td><td ID="Observati vg-Ifkogc-06w 4di56-747r-26 r3-5wh9-my4ko 4w60pc6">Delia l</td> LYMPHOCYTES 22.4% 10-50 <td [facility] ID="Observati ([facility] sf-Piip-brf90 Rehabilitation & f73-4859-9wc7 [facility]) -k323-949799z d5373">(121) LYMPHOCYTES</ td><td ID="Observati ue-Fhdpx-voc9 1a08-1241-6xg 4-j815-031440 qd2307">22.4< /td><td ID="Observati oe-Gimo-nyn80 i21-5155-4vy4 -e284-952925v d5373">%</td> <td ID="Observati we-CxkQwbhf-l sq34v97-8707- 8ny0-y673-031 461zr2363">10 -50</td><td ID="Observati sp-Hprskuhi-d vl60n28-1909- 9lp5-n974-619 953oe2878"></ td><td ID="Observati ro-Cagojd-xnh 13q23-9490-7l d7-l320-74371 9sk1041">Delia l</td> MONOCYTES 11.6% 1-12 <td [facility] ID="Observati ([facility] sy-Uapw-wc8c1 Rehabilitation & 033-mrq5-2z5v [facility]) -e9o8-734797l 11276">(122) MONOCYTES</td ><td ID="Observati hl-Aoach-af2y 1885-ken1-6b9 e-n1c9-117682 s81306">11.6< /td><td ID="Observati pd-Ritc-ey7y1 744-uvm6-8w0v -h7q7-857047r 33664">%</td> <td ID="Observati vq-EgnCabmp-o r8m3499-xna9- 5y3m-t6q4-025 014f95335">1- 12</td><td ID="Observati rr-Qifszdxs-s l0s0359-lrc1- 4p5k-v4p9-820 809m59854"></ td><td ID="Observati gn-Vumprs-xb4 e3085-gfw4-3l 2h-v0t8-80224 6g80031">Delia l</td> EOSINOPHILS 2.6% 0-5 <td [facility] ID="Observati ([facility] nb-Gjgv-626q2 Rehabilitation & wa4-64j5-9i6q [facility]) -o069-8jwf9c7 00b">(123) EOSINOPHILS</ td><td ID="Observati rh-Mapqf-478x 8ne0-23g0-1o7 e-w166-8ztv8o 000b">2.6</ td><td ID="Observati ar-Cekl-001y6 ts7-88p0-5t6t -c270-4zkv8q4 ">%</td> <td ID="Observati xr-BpvRhfxb-3 67b7bq1-21r1- 3e2j-t350-8kz x1o402h66">0- 5</td><td ID="Observati wp-Sgmxhvgz-7 17c1jx7-58y2- 1d2z-y578-8zp s8i149y90"></ td><td ID="Observati rs-Vgibci-701 h5ni5-14a4-7q 4d-l913-0pnd8 z444o72">Delia l</td> BASOPHILS 0.4% 0-2 <td [facility] ID="Observati ([facility] cr-Xfaz-34n96 Rehabilitation & 1jr-001m-3333 [facility]) -l070-5uv1ncb 84daf">(124) BASOPHILS</td ><td ID="Observati gp-Gpeub-41z2 59rz-687k-137 1-p984-9fw7md a84daf">0.4</ td><td ID="Observati tt-Hjay-10x36 7bj-003f-7488 -q128-9ew5bae 84daf">%</td> <td ID="Observati dz-EzjDarwe-6 1o347it-127f- 4593-v109-5fk 7ufd33mnn">0- 2</td><td ID="Observati qr-Lwxiywry-8 3f577tc-678b- 9682-m616-1lj 6npp15jth"></ td><td ID="Observati qf-Jdsids-24r 380rh-836c-99 44-c539-9of5l or00rwa">Delia l</td> ABS 3030CEL 2000-78 <td [facility] NEUTROPHILS LS/MM3 00 ID="Observati ([facility] oa-Flen-w7056 Rehabilitation & 600-58y3-0qy8 Nursing Center) -47r7-7fr7560 0ee93">(181) ABS NEUTROPHILS</ td><td ID="Observati zh-Vbszy-o752 2978-63i9-4bi 1-11b6-6sf547 50ee93">3030< /td><td ID="Observati vt-Dula-t2011 761-45j6-3vl5 -70d6-8fy9655 0ee">CELLS/ MM3</td><td ID="Observati zu-QtyRiivn-y 7099162-14y8- 3oj5-66r7-1df 25281xg89">20 00-7800</td>< td ID="Observati bo-Ubmpmpge-a 1898195-72j8- 3cj5-78i4-2ns 28123zy70"></ td><td ID="Observati pn-Xmdbjq-u94 64097-20f6-4y o9-37o3-4jn50 555pz47">Delia l</td> ID Date Data Source 400 11/04/2018 02:42:00 AM EDT [facility] ([facility]) Name Value Range Interpretation Description Data Source(s ) Supporting Code Document(s ) PROTIME 33.8SEC 10.5-12. Above high normal <td [facility] 9 ID="Observatio ([facility] p-Myri-7421d27 Rehabilitation & 0-k185-9h38e563-7g70-q3 Nursing Center) c1-s6y30n115y3 5">(205) PROTIME</td><t d ID="Observatio p-Zybva-7741o9 01-p238-3h41-a 7z4-u4m15n907b 05">33.8</td>< td ID="Observatio b-Trsj-6831o91 5-x929-3w83c160-4n62-b5 c1-v2i88o139k8 5">SEC</td><td ID="Observatio d-ZjhJpykk-352 6c916-a235-4l8 9-m6v7-e2a98l3 15c05">10.5-12 .9</td><td ID="Observatio s-Nyjprsek-354 3s296-u023-2l7 2-i4p0-i4c66n9 15c05">H</td>< td ID="Observatio w-Lzxmqh-5143s 802-p104-0d07- b1u3-g1s36e785 c05">Final</td > INR 2.96 0.90-1.11 Above <td ID="Crfqfxsnfxy-Aycb-653cq69f106sm41r-37vo-4p7p-cn5e-40113nd0un10">(405) INR</td><td [facility] high ID="Observation -Tefus-884xp18n-01rp030kf58a-59xa-2w9q-jh1g-20321so8qx94">2.96</td><td (Joanna normal ID="Xqtjowjbgup-Kcoa-794i j45q-19la-6f8o-on3c-24942zs4lx23"></td><td Ewing ID="Qecnqbtoeon-RpdVujzw-220hj12s266mr38d-79vn-5r0n-wn8p-92781qh9ro58">0.90-1.11</td><td Rehabilitation ID="Observation-Abnormal- 739gm03z-63lf-6a5z-pb3l-63366ty8wn43">H</td><td & Nursing ID="Qpvqgeqwcfl-Seylbe-16 4td33r-68oh-2e8g-xb3b-04195bn1ya59">Final</td> Center) Type: Lab, Date: 11/04/2018 01:56 PM, User: N/APLEASE NOTE NEW REFERENCE RANGE2.0-3.0: FOR TREATMENT OF VENOUS THROMBOSIS,PULMONARY EMBOLISM,SYTEMIC ID Date Data Source 400 10/28/2018 03:12:00 AM EDT [facility] ([facility]) Name Value Range Interpretation Description Data Source(s ) Supporting Code Document(s ) PROTIME 25.3SEC 10.5-12. Above high normal <td [facility] 9 ID="Observatio ([facility] u-Mytd-969p652 Rehabilitation & 3-64l9-02q755d9-83q8-d4 Nursing Center) 05-93x624m4v52 c">(205) PROTIME</td><t d ID="Observatio v-Drecg-607v81 13-42o1-04m7-a 605-83u833z2k8 6c">25.3</td>< td ID="Observatio z-Sqre-257f943 8-84b0-89i020t6-96y9-u1 05-73e998i1t99 c">SEC</td><td ID="Observatio w-XntXhgbo-097 m0296-64k7-59i 4-r942-21b948p 0f26c">10.5-12 .9</td><td ID="Observatio q-Xfgotpji-803 c3787-09r3-67b 4-w319-16q837i 0f26c">H</td>< td ID="Observatio a-Cwvzhj-069a6 629-70z1-05e3- p072-79p342s4k 26c">Final</td > INR 2.22 0.90-1.11 Above <td ID="Sswabpblnck-Jexo-77o1n84l29l8q28m-2zs5-6c18-m514-a09z13i75137">(405) INR</td><td [facility] high ID="Observation -Btvcm-10e2u17r-9qe304r6f89i-3an5-7w25-c488-j15t94w92629">2.22</td><td (Joanna normal ID="Eptxhmkbauc-Gvyh-75h8 g51j-4vi1-8z76-e967-h03u40z80395"></td><td Ewing ID="Leuvyfkonia-SlgRzonf-27g4s97w89q8y49g-6ya2-7v75-c276-f04c44y91898">0.90-1.11</td><td Rehabilitation ID="Observation-Abnormal- 61h1d08u-0yi2-5o45-z709-u04u03z77405">H</td><td & Nursing ID="Nxagxbkirqk-Hmslne-48 f2x28p-8lz2-5j93-r463-o46z15f89974">Final</td> Center) Type: Lab, Date: 10/28/2018 12:31 PM, User: N/APLEASE NOTE NEW REFERENCE RANGE2.0-3.0: FOR TREATMENT OF VENOUS THROMBOSIS,PULMONARY EMBOLISM,SYTEMIC ID Date Data Source 400 10/24/2018 03:13:00 AM EDT [facility] ([facility]) Name Value Range Interpretation Description Data Source(s ) Supporting Code Document(s ) PROTIME 18.2SEC 10.5-12. Above high normal <td [facility] 9 ID="Observatio ([facility] i-Lpge-7e6y513 Rehabilitation & h-05hy-3h50-a1 Nursing Center) 28-g4ge1wt79e8 1">(205) PROTIME</td><t d ID="Observatio p-Plrvr-0z3o03 7b-55uv-3c77-a 128-n0bc8is30f 41">18.2</td>< td ID="Observatio j-Mjki-7q1o274 i-82ob-9p65-a1 28-e1ok7uh82p4 1">SEC</td><td ID="Observatio u-EtePvgmx-3z8 i452c-41if-6v2 7-v269-a1rh0px 12f41">10.5-12 .9</td><td ID="Observatio z-Atfkwlme-1b7 x809i-81xv-3v1 6-y565-d9zj8em 12f41">H</td>< td ID="Observatio u-Snvfqq-2t4y7 87d-31rd-4e64- r979-c3tx9ov93 f41">Final</td > INR 1.60 0.90-1.11 Above <td ID="Rltzikpmwrc-Bysn-e980304wo257710z-eczy-0ai1-c088-6013fjo71408">(405) INR</td><td [facility] high ID="Observation -Nzbws-h456720m-ayuvz410548f-ilwe-5gb0-q923-4232ezv96149">1.60</td><td (Joanna normal ID="Jhgsunineqb-Mcie-q413 667o-nmba-0qx34sh9-h595-8381wqt17602"></td><td Ewing ID="Ozufgacnfcg-IzxPdxcs-n985661xk627135e-mzqo-7nm7-p410-5826muf87205">0.90-1.11</td><td Rehabilitation ID="Observation-Abnormal- e320161u-qpjd-9qn9-m552-8002frw99999">H</td><td & Nursing ID="Btttkkzjhcn-Ngdqld-u5 14794j-axjr-4wo7-t649-3357tix60795">Final</td> Center) Type: Lab, Date: 10/24/2018 12:46 PM, User: N/APLVELVETE NOTE NEW REFERENCE RANGE2.0-3.0: FOR TREATMENT OF VENOUS THROMBOSIS,PULMONARY EMBOLISM,SYTEMIC ID Date Data Source 100 10/24/2018 03:13:00 AM EDT [facility] ([facility]) Name Value Range Interpretation Description Data Source(s ) Supporting Code Document(s ) WBC 5.77243 4.1-10. <td [facility] 0/MM3 9 ID="Observati ([facility] dl-Ipwv-28r5i Rehabilitation & 209-0470-1tj5 [facility]) -acd0-67uf820 6fede">(110) WBC</td><td ID="Observati zv-Jdiqh-30r3 y905-9632-7pa 3-uny9-16ci32 26fede">5.18< /td><td ID="Observati xd-Voua-55q3b 445-7556-6tv4 -acd0-28rb124 6fede">1000/M M3</td><td ID="Observati uq-GvzMjlth-8 1o1q296-5757- 3qm7-iec1-91n g5196qkdy">4. 1-10.9</td><t d ID="Observati ps-Poeasqun-9 2x3b982-1601- 3cf9-qbj9-62k x2426wtyd"></ td><td ID="Observati ig-Pjdwoc-57z 4w751-0495-8b o4-xzv5-36rx8 426fede">Delia l</td> RBC 4.29MIL 4.00-6. <td [facility] /MM3 10 ID="Observati ([facility] cc-Lgin-17h2b Rehabilitation & 351-m291-05r1 [facility]) -9440-8lf6r42 82116">(111) RBC</td><td ID="Observati ww-Ydivh-04u1 o074-a399-04m 6-5372-1sv7n8 592207">4.29< /td><td ID="Observati ud-Oecb-87e3d 741-c031-35l6 -9440-2ju8d10 38624">MIL/MM 3</td><td ID="Observati hi-QmtNhysu-9 7c5g295-n517- 26h3-8996-4lz 5d7406942">4. 00-6.10</td>< td ID="Observati ae-Dyqxksxy-6 0c4p978-i411- 13y5-4037-0fs 2o6113967"></ td><td ID="Observati fc-Xqlbzy-03a 6a937-d862-24 h1-5205-8hn7p 9509913">Delia l</td> HEMOGLOBIN 11.3G/D 12.0-15 Below low normal <td [facility] L .5 ID="Observati ([facility] bi-Kftx-3k0n0 Rehabilitation & mnl-v73y-6y41 [facility]) -9817-zq79h72 3919c">(113) HEMOGLOBIN</t d><td ID="Observati hg-Hjzsj-9i4a 2hhk-c63e-4f6 8-0049-kn65o0 48967o">11.3< /td><td ID="Observati fj-Hqvh-7c5x8 utp-q54l-5c71 -9817-vb75i83 3919c">G/DL</ td><td ID="Observati vu-GtiEefaq-3 g5q6xlp-j33r- 2m37-6599-rv4 9w340286m">12 .0-15.5</td>< td ID="Observati ib-Phonykkr-3 l8s5xch-o86y- 4z04-5759-ln2 2h146712h">L< /td><td ID="Observati zu-Gnldaz-2w5 n4fst-y94x-8z 28-9876-yx91e 689825h">Delia l</td> HEMATOCRIT 35.4% 36-46 Below low normal <td [facility] ID="Observati ([facility] uo-Gskp-0c6q0 Rehabilitation & tk7-62fv-4tv3 [facility]) -4b97-9442d35 4eeea">(114) HEMATOCRIT</t d><td ID="Observati pe-Hsrww-5o6t 8sk8-65db-2ff 2-4z98-3398i4 04eeea">35.4< /td><td ID="Observati di-Pqof-8s7w1 qy3-90sg-5sv5 -2q73-9132f21 4eeea">%</td> <td ID="Observati dw-YauFksyw-6 v9v6ju9-91sd- 1ap0-9u01-674 2f521vsyi">36 -46</td><td ID="Observati ut-Sdzikdzb-0 f1v8vt9-68qd- 0rh9-4t11-195 9r106ucre">L< /td><td ID="Observati yr-Ewyjdv-7c5 b8tn6-17du-3m u2-5w24-8660k 904eeea">Delia l</td> MCV 82.6FL 80-97 <td [facility] ID="Observati ([facility] bl-Zbhv-30p3k Rehabilitation & 787-7503-893m [facility]) -p5d0-cl4buj1 af872">(115) MCV</td><td ID="Observati wm-Zokrf-07f3 x915-4106-019 f-q8y4-qg2ptt 4oz626">82.6< /td><td ID="Observati ob-Ooac-42l5p 009-2838-008u -e5a4-ot0bup1 af872">FL</td ><td ID="Observati ei-FjyUcunm-8 5u9j190-6004- 896m-u4n8-sm2 pvn4md441">80 -97</td><td ID="Observati vb-Ranagjpi-7 9y8w600-4660- 282k-t3y4-bn6 cpo7eg909"></ td><td ID="Observati io-Lvugij-68m 5s984-0443-32 1i-j7d4-do2vt q5nl205">Delia l</td> MCH 26.3PG 26-32 <td [facility] ID="Observati ([facility] ec-Illb-5e7w6 Rehabilitation & e13-0722-65g6 [facility]) -8402-n61tj39 f69e7">(116) MCH</td><td ID="Observati nj-Jsvxx-3n7b 8z25-5453-75o 1-2785-t07xw1 1f69e7">26.3< /td><td ID="Observati ut-Akrf-4v0q9 m51-0305-05k0 -8402-b75hy11 f69e7">PG</td ><td ID="Observati wt-BscJcagg-3 l3y0f28-5082- 97u8-0893-m77 oe10l38k2">26 -32</td><td ID="Observati uy-Necvdmlc-8 l4z4c84-2642- 68q6-6625-d28 mc81k62x3"></ td><td ID="Observati qi-Rqvkqh-6u7 a5h40-2502-74 l4-6952-g19cd 35e58b8">Delia l</td> MCHC 31.9G/D 31-36 <td [facility] L ID="Observati ([facility] lk-Xxew-9q495 Rehabilitation & 22c-q490-95zi [facility]) -8761-xzb85u5 2ee39">(117) MCHC</td><td ID="Observati pn-Mkdfo-1n50 451l-z738-86e c-9962-hch08e 52ee39">31.9< /td><td ID="Observati ks-Eujq-0l503 82m-a501-05vj -8761-xzz14a6 2ee39">G/DL</ td><td ID="Observati mi-TfaHvyjn-6 q99987x-c249- 69mq-7489-uaw 90b41qb49">31 -36</td><td ID="Observati ve-Ogpytcch-8 l57710x-x717- 38xy-4879-weo 28i21bu40"></ td><td ID="Observati if-Lakdie-7e0 9754m-d785-03 pw-7651-dnx73 g51cj53">Delia l</td> RDW 21.4% 11.5-16 Above high <td [facility] .5 normal ID="Observati ([facility] am-Nqzv-n25xg Rehabilitation & ljz-4hm5-9pmb [facility]) -8096-a20396b cc856">(118) RDW</td><td ID="Observati dd-Qcisk-d93n pzzz-1nj3-5id y-5695-u25205 dme961">21.4< /td><td ID="Observati dm-Lnfg-s83hv rat-9mh3-6afy -8096-c85896w cc856">%</td> <td ID="Observati ca-IwnZanxi-s 88fbaee-3ed5- 4tma-2190-v03 255pyd573">11 .5-16.5</td>< td ID="Observati fb-Tbtodgyz-y 88fbaee-3ed5- 1qsi-3007-y01 766huc266">H< /td><td ID="Observati qu-Potvqn-f15 fgppr-6id5-3t jv-1461-r8345 2pod557">Delia l</td> PLATELET 054R074 140-440 <td [facility] COUNT 0/MM3 ID="Observati ([facility] kd-Zaof-b9at2 Rehabilitation & 13t-6578-878l [facility]) -f77i-755iz6j fb34c">(119) PLATELET COUNT</td><td ID="Observati rj-Tfefx-t6fz 161g-4916-929 d-v58t-256ia7 cfb34c">235</ td><td ID="Observati ui-Dvlf-z8uf5 05l-5244-467g -s94n-841xv4b fb34c">X1000/ MM3</td><td ID="Observati hv-ZnwOwffe-v 1se183z-7492- 955i-m69t-140 om7fpj33v">14 0-440</td><td ID="Observati nn-Nepnicyv-a 5tb605k-9794- 680a-z64d-454 pq3xtc58f"></ td><td ID="Observati oj-Ccpefr-w1n s145n-6080-11 2f-t46o-792md 7tuv39e">Delia l</td> NEUTROPHILS 55.2% 37-80 <td [facility] ID="Observati ([facility] fz-Jydi-yyts9 Rehabilitation & 511-or55-7h81 [facility]) -p7fc-obyb40k 88516">(120) NEUTROPHILS</ td><td ID="Observati wx-Nwhrl-vhov 6807-vk43-7f8 7-j9vm-juqp73 q09569">55.2< /td><td ID="Observati tg-Jsmy-fqgc5 177-oi50-3h34 -q4hu-zynb64t 91102">%</td> <td ID="Observati mw-ZqnFxlqd-w frc2092-us30- 5d19-p1ly-yew k31s41560">37 -80</td><td ID="Observati gq-Yltyuorb-r ofh5281-ju91- 7l23-k6lu-qeg v04q77321"></ td><td ID="Observati vz-Oabwtk-wvi w5962-fa49-3u 97-u9fh-oflf2 6h23709">Delia l</td> LYMPHOCYTES 27.5% 10-50 <td [facility] ID="Observati ([facility] wm-Fkgl-56v49 Rehabilitation & 726-2762-4o64 [facility]) -b4dm-o0yu4q7 52ad0">(121) LYMPHOCYTES</ td><td ID="Observati et-Qkhgi-28i2 6022-3525-9k4 5-g2pr-j5oh5c 552ad0">27.5< /td><td ID="Observati tv-Eqoa-23n49 992-6762-4y50 -z7pp-j1nr1y9 52ad0">%</td> <td ID="Observati sx-UjfRjnpt-6 3t14039-8605- 8g20-w5jo-d8l c1e707gx2">10 -50</td><td ID="Observati uc-Unwjywdp-9 4h92026-4030- 0e09-x2rv-v9a c3r141dp6"></ td><td ID="Observati qm-Vyleuh-53j [address]2909-7l 53-h8rb-e2wp6 z354dq5">Delia l</td> MONOCYTES 12.1% 1-12 Above high <td [facility] normal ID="Observati ([facility] xf-Qsdz-935p3 Rehabilitation & pm6-d408-63ww [facility]) -e167-3d71ndr 23e14">(122) MONOCYTES</td ><td ID="Observati zn-Ngymn-065x 6tb5-y979-04c r-g341-6s35tk a23e14">12.1< /td><td ID="Observati ny-Iakx-792l0 he7-m858-62vh -x580-0s18gjc 23e14">%</td> <td ID="Observati vg-GncObigh-7 19q3as7-h500- 63wk-f014-4x4 2ndx94r70">1- 12</td><td ID="Observati ty-Aobfticd-3 62d5np1-s017- 36td-r826-1v7 7uuv76k44">H< /td><td ID="Observati ph-Bahtdo-725 t5ky5-e880-97 cz-a600-9r80b mg14i97">Delia l</td> EOSINOPHILS 4.4% 0-5 <td [facility] ID="Observati ([facility] gt-Tczm-2u575 Rehabilitation & 72u-x641-5w4h [facility]) -q57e-j24485e ff9f8">(123) EOSINOPHILS</ td><td ID="Observati mp-Mbyqy-9p97 869h-b605-7n7 a-p63h-x67674 dff9f8">4.4</ td><td ID="Observati po-Ldxa-3r739 10r-p080-5x7o -o81e-i86582a ff9f8">%</td> <td ID="Observati un-AzvXuxzi-3 c28357d-r455- 3g0f-z25u-k97 028cxu6d0">0- 5</td><td ID="Observati zs-Dyqitcct-5 w59849y-s476- 9i3s-n43y-n61 053gnw4t0"></ td><td ID="Observati en-Xgiqnf-9y7 7411t-x156-0e 4f-j98p-k6576 7rkr9v1">Delia l</td> BASOPHILS 0.8% 0-2 <td [facility] ID="Observati ([facility] ut-Grpy-65b29 Rehabilitation & 9w2-nm79-55a5 [facility]) -b443-ak36f80 0c95a">(124) BASOPHILS</td ><td ID="Observati mx-Uxivd-44c5 65x0-dy61-46e 8-e557-fe81c0 80c95a">0.8</ td><td ID="Observati dv-Yylw-45j95 9v5-ay07-80j7 -m581-au71q96 0c95a">%</td> <td ID="Observati br-JicImxqw-9 5w760o4-mb75- 75e9-n460-og5 2h652r26y">0- 2</td><td ID="Observati ql-Dkapohve-6 3i950h4-hq73- 67z7-k588-dt8 1r608x09p"></ td><td ID="Observati kc-Lsrcik-15g 539t8-yz83-88 u8-z572-cr81u 489a82w">Delia l</td> ABS 2860CEL 1999- <td [facility] NEUTROPHILS LS/MM3 00 ID="Observati ([facility] zn-Kdjm-e48p9 Rehabilitation & 56k-j287-707f Nursing [facility]) -868e-agi0n0g b8dd5">(181) ABS NEUTROPHILS</ td><td ID="Observati ko-Ceumq-t31p 178o-i380-151 q-196t-wfc6s6 fb8dd5">2860< /td><td ID="Observati kl-Zabm-j03x3 24x-n653-363c -868e-efr1j1c b8dd5">CELLS/ MM3</td><td ID="Observati hq-EtlYeisu-q 74c482o-w712- 284t-228a-wzq 3b5ec7vo4">20 00-7800</td>< td ID="Observati ws-Pagepvwm-k 53f627g-j338- 381z-249s-qoz 7x2pd4ni1"></ td><td ID="Observati mp-Cajamn-t58 u476k-t628-84 0z-016t-gfd6b 3qt7nh1">Delia l</td> ID Date Data Source 380 10/24/2018 03:02:00 AM EDT [facility] ([facility] & [facility]) Name Value Range Interpretation Description Data Source(s ) Supporting Code Document(s ) GLUCOSE 84MG/DL 70-99 <td [facility] ID="Observati ([facility] fm-Qvqe-447w8 Rehabilitation & v98-9ke0-85y4 Nursing Center) -2u15-zy13a13 baf18">(301) GLUCOSE</td>< td ID="Observati gv-Zuetn-530x 0u70-4iu5-02v 8-3q11-yr28k2 9baf18">84</t d><td ID="Observati he-Trxr-528v1 w64-0ro8-73h1 -7f10-jb51g70 baf18">MG/DL< /td><td ID="Observati ln-RnqPfylp-3 21g2c68-3xp2- 26a6-0s83-ki5 0j48scb31">70 -99</td><td ID="Observati pm-Jlzhiuwb-2 02w3l38-0gf9- 17s6-4u32-fy6 3o37mti46"></ td><td ID="Observati yj-Jmiuvl-675 p2d20-8nn3-34 w2-5h75-sm35y 87zbw16">Delia l</td> BLOOD UREA 20MG/DL 8-20 <td [facility] NITR ID="Observati ([facility] qd-Iiva-gh277 Rehabilitation & p17-20o3-4072 [facility]) -9364-w0292u2 55fa1">(302) BLOOD UREA NITR</td><td ID="Observati ga-Pjntc-gg44 7c91-45w7-762 8-0897-o3914m 355fa1">20</t d><td ID="Observati qn-Yugu-vx943 p08-81q4-2703 -9364-h7608o9 55fa1">MG/DL< /td><td ID="Observati pa-EhfEsmbc-y o956s72-89f0- 5580-6478-w27 18l779su5">8- 20</td><td ID="Observati xb-Jizmdaxl-x y300j04-98d2- 4088-8897-r51 26b208ej1"></ td><td ID="Observati xg-Darieh-gd1 10p15-45r7-45 87-3619-o5471 g342qk6">Delia l</td> CREATININE 0.66MG/ 0.44-1. <td [facility] DL 03 ID="Observati ([facility] sb-Cooj-5f560 Rehabilitation & e7s-66p1-88f8 [facility]) -895e-35c1v6h ffc40">(311) CREATININE</t d><td ID="Observati wf-Rfudi-5h37 6x7j-75r5-69s 8-245y-06w8b0 cffc40">0.66< /td><td ID="Observati zh-Eogb-1z817 y6x-11p4-99p4 -895e-64a2d9e ffc40">MG/DL< /td><td ID="Observati cu-BxvEriai-5 f443w8g-34h3- 48m4-887k-99e 9p8zfua42">0. 44-1.03</td>< td ID="Observati ga-Zihdfyic-8 a920a8v-59z7- 38q7-491t-22i 9p8qzfd35"></ td><td ID="Observati zu-Fkwdwc-5m9 10f1v-69k8-52 z1-255s-45h7g 4ugpt54">Delia l</td> GFR >60mL/m 60-100 <td [facility] in ID="Observati ([facility] na-Vwmg-v6422 Rehabilitation & gi0-wn41-0c9u [facility]) -t301-3p24q97 f8472">(412) GFR</td><td ID="Observati xh-Gagyi-y833 9dc5-so01-3l3 g-t629-5d54s6 0p4420">>60</ td><td ID="Observati ak-Ejab-y2048 vn5-aj68-7k3d -m034-1n25o65 f8472">mL/min </td><td ID="Observati mw-YskTabty-e 4742iv0-gw53- 7j1v-f597-2i0 1q20b5030">60 -100</td><td ID="Observati go-Ebuloyod-b 4872fs0-iz58- 7c6o-a231-5m2 3r59o5238"></ td><td ID="Observati xy-Cncxpr-r47 51dz6-bi57-1e 0c-v914-2d35s 75g0890">Delia l</td> GFR - AA >60mL/m 60-100 <td [facility] in ID="Observati ([facility] ui-Hajl-x7362 Rehabilitation & rtf-e966-4lv7 [facility]) -j895-dpu87l4 6d6fb">(411) GFR - AA</td><td ID="Observati qw-Xybeg-d746 6pgu-b548-2ec 5-d396-oyp53l 96d6fb">>60</ td><td ID="Observati bs-Jfsk-w6293 wup-v763-7jx8 -p203-sca85n9 6d6fb">mL/min </td><td ID="Observati la-AgiVoqxv-z 0559edc-e560- 1qa9-o147-ijq 91c06m6gb">60 -100</td><td ID="Observati gu-Sgkihmlu-u 0559edc-e560- 9ng1-q980-uwn 56q39a0ec"></ td><td ID="Observati va-Mrdzum-p02 53vpz-d909-7b r1-o710-rjv58 b02e5qe">Delia l</td> SODIUM 139MMOL 136-144 <td [facility] /L ID="Observati ([facility] wa-Fbfi-c1119 Rehabilitation & 200-3741-3ji8 [facility]) -9461-1p3i1x7 5703a">(307) SODIUM</td><t d ID="Observati nl-Feekk-j395 4168-8794-3ad 3-9997-7f4n4e 64782q">139</ td><td ID="Observati ka-Kbrn-l1532 180-3371-1ng9 -9461-9r5h5c7 5703a">MMOL/L </td><td ID="Observati oj-EfrWnywy-o 3373570-2961- 4sb7-1806-3i9 q2m36739h">13 6-144</td><td ID="Observati jv-Rccywktf-p 9378812-5506- 2xu3-6424-3m9 o2y17093l"></ td><td ID="Observati xs-Xkiubm-u89 [address]-5d a6-7437-5p2i2 j08122r">Delia l</td> POTASSIUM 4.4MMOL 3.6-5.1 <td [facility] /L ID="Observati ([facility] wp-Glmp-54z30 Rehabilitation & jql-n844-0246 [facility]) -r0l2-5x208m2 57db3">(308) POTASSIUM</td ><td ID="Observati xu-Nvdro-59v8 8poq-r719-029 3-y8x1-1f332i 157db3">4.4</ td><td ID="Observati ts-Bnpk-24l22 xzv-q679-9054 -y2x2-4x771n9 57db3">MMOL/L </td><td ID="Observati yh-UbkQbcyr-5 1t17ahw-h547- 6296-f9s6-5f1 00c727yh9">3. 6-5.1</td><td ID="Observati bn-Iyaqthbd-6 4y09hse-t301- 4727-a0m2-2e9 89j158gx8"></ td><td ID="Observati dc-Qofpxz-73x 14hhy-z508-54 74-h0b1-5k325 j485fl8">Delia l</td> CHLORIDE 103MMOL 101-111 <td [facility] /L ID="Observati ([facility] oz-Yiod-7qqh2 Rehabilitation & p1c-9354-2h24 [facility]) -45i9-r909v78 fa7fc">(309) CHLORIDE</td> <td ID="Observati pu-Bulry-2tiy 8e3v-6338-2v7 0-99h4-q806a9 8fa7fc">103</ td><td ID="Observati af-Jrao-1vtf7 b2l-1166-0y09 -81t4-w565d38 fa7fc">MMOL/L </td><td ID="Observati sv-BarJhvac-2 hca5s4o-0455- 0g95-78a6-u22 2r01ou1sn">10 1-111</td><td ID="Observati ub-Sftciwwv-6 fds8w3h-6497- 8f16-93q1-x73 9g31il3uu"></ td><td ID="Observati qe-Ocrbua-8mj v9c9g-5816-4t 67-03a3-g554o 24ee6at">Delia l</td> TOTAL CO2 26MEQ/L 23-29 <td [facility] ID="Observati ([facility] vw-Vkbb-k2s76 Rehabilitation & 829-106z-68b1 [facility]) -81bb-3n1t928 941f0">(310) TOTAL CO2</td><td ID="Observati js-Dzbcd-m3r5 6660-575b-83f 9-62he-6l5d58 4941f0">26</t d><td ID="Observati ks-Eevi-h8v79 041-762p-30z2 -81bb-7r9y901 941f0">MEQ/L< /td><td ID="Observati oo-BnqDhzhp-o 3v14653-557h- 78c8-42wn-3z0 q145794n6">23 -29</td><td ID="Observati go-Kvnkioso-t 6l11392-957w- 79z5-63zq-2u4 q451954n1"></ td><td ID="Observati ok-Vrdeiv-b7e 36731-841s-47 y2-83nc-0e6r1 74657y8">Delia l</td> TOTAL PROTEIN 5.6G/DL 6.1-7.9 Below low normal <td [facility] ID="Observati ([facility] nn-Ozdk-9fy6c Rehabilitation & u35-k2g4-78b7 [facility]) -9756-5b8mu69 ade8d">(315) TOTAL PROTEIN</td>< td ID="Observati ro-Gzrxb-1yg1 fv12-j0o0-56q 7-8976-6e1cc0 9ade8d">5.6</ td><td ID="Observati zk-Oslq-0eh3h q92-n7e5-45i1 -9756-6v9pr35 ade8d">G/DL</ td><td ID="Observati pj-PysRlliv-6 fr8om22-m2a4- 23l2-2998-8j6 dv98hio8x">6. 1-7.9</td><td ID="Observati at-Quuflxpf-4 gd7av21-t9s7- 03c4-4722-2l4 rj78xnx5z">L< /td><td ID="Observati la-Acmlbh-6ld 0ug48-x1r5-21 w2-2913-1d9vd 28psx1o">Delia l</td> ALBUMIN 3.1G/DL 3.5-4.8 Below low normal <td [facility] ID="Observati ([facility] fz-Vtaz-5t527 Rehabilitation & 8ma-393h-502d [facility]) -9cbb-kn898zp b80c1">(303) ALBUMIN</td>< td ID="Observati ch-Dugqk-9x18 95jp-653a-205 k-2bkz-ce848q bb80c1">3.1</ td><td ID="Observati th-Kqhk-6x406 2xk-795m-827n -9cbb-uu163ut b80c1">G/DL</ td><td ID="Observati nk-KwgUcach-1 d4084kz-258m- 904v-7zxi-xh6 90brn84q4">3. 5-4.8</td><td ID="Observati ts-Lbdfvjgo-7 a2851og-790j- 838s-9kcb-pb5 33ovd84w6">L< /td><td ID="Observati hx-Lqrbtm-2a9 951ki-097u-19 3m-7izb-sd002 yqa78t5">Delia l</td> AST 23U/L 15-41 <td [facility] ID="Observati ([facility] je-Mjdk-b0253 Rehabilitation & 76s-3bm2-3122 [facility]) -k0v3-5v69zcd dc7d4">(314) AST</td><td ID="Observati nq-Zetsy-d350 440j-0pg0-242 7-g4r0-0i79sh adc7d4">23</t d><td ID="Observati ae-Wrdz-l7971 31z-4cg7-3221 -g9k2-3b47mfw dc7d4">U/L</t d><td ID="Observati re-RdaBfgwz-o 950563a-7oa5- 5654-r7s2-0p4 4mtvyj9y4">15 -41</td><td ID="Observati zv-Mzhsfjge-z 802304d-8jt5- 6138-y7v2-6a7 4aykim0g1"></ td><td ID="Observati zk-Sicojd-a18 5050z-9bt0-23 05-i2f9-4b68k cpsd6w1">Delia l</td> ALK PHOS 67U/L 32-91 <td [facility] ID="Observati ([facility] fz-Aufh-4o3et Rehabilitation & 9ip-17jr-14p5 [facility]) -xu4b-3gn56u8 aa9e1">(304) ALK PHOS</td><td ID="Observati tf-Tqtvq-5a2t m9wg-94jx-61m 6-hx1w-6sn14b 7aa9e1">67</t d><td ID="Observati bu-Hbrz-2m6gy 8mn-91db-33r3 -nt8r-6me28k8 aa9e1">U/L</t d><td ID="Observati uc-YsyKqjek-1 s7aa5xy-77ca- 25q1-co6a-1gt 66x3mf7m8">32 -91</td><td ID="Observati qd-Ewmubjya-4 w4do7lr-71td- 98j3-lt5u-0ny 50i0jt7b9"></ td><td ID="Observati fw-Tbzwcr-0w7 fh2kz-05iy-60 e5-at5d-7ye19 a5hc3j2">Delia l</td> ALT 21U/L 14-54 <td [facility] ID="Observati ([facility] mn-Qnav-r9436 Rehabilitation & 749-9436-16cw [facility]) -2z37-06705o1 c49c1">(305) ALT</td><td ID="Observati bi-Tapvt-v335 3451-4611-26w h-7x87-93363h 2c49c1">21</t d><td ID="Observati ft-Bcoo-f3376 894-5147-72vo -9t00-62099n0 c49c1">U/L</t d><td ID="Observati uo-IynYqinq-m 0405797-9047- 82jq-8y89-737 38k1f41f3">14 -54</td><td ID="Observati iy-Clceznbr-i 5130627-4038- 52wh-1d73-116 23d0c42v8"></ td><td ID="Observati yq-Jqwjfm-r77 [address]-11 zh-5j59-24528 a8s06t7">Delia l</td> CALCIUM 9.4MG/D 8.9-10. <td [facility] L 3 ID="Observati ([facility] eq-Fejq-37yx0 Rehabilitation & 44a-315n-87p2 [facility]) -4vz8-oh909t5 55e37">(306) CALCIUM</td>< td ID="Observati zc-Zggqt-72tu 061a-361k-24h 9-1fe6-ji163o 855e37">9.4</ td><td ID="Observati fm-Frni-94hj2 93b-025u-81f0 -4mv9-qj574t8 55e37">MG/DL< /td><td ID="Observati kg-XjcXcebp-8 7pb451g-730f- 28z2-1op5-ax9 91t366b56">8. 9-10.3</td><t d ID="Observati he-Ynallstr-1 4bq906c-931u- 97i7-9ev2-gi2 83q404z30"></ td><td ID="Observati gm-Axrbgq-09k h931g-905p-92 g9-8ek3-kj542 l087p87">Delia l</td> TOTAL BILI 1.6MG/D 0.3-1.2 Above high <td [facility] L normal ID="Observati ([facility] nc-Onkr-35l64 Rehabilitation & 466-71c7-5161 [facility]) -99aa-3684f32 27da7">(316) TOTAL BILI</td><td ID="Observati fx-Zyxjv-34r7 3000-47r8-292 4-21io-0657x4 427da7">1.6</ td><td ID="Observati as-Ydzc-26v52 697-90e4-7252 -99aa-7124h55 27da7">MG/DL< /td><td ID="Observati ej-NybCfxcn-2 5f08843-02d9- 5675-52dm-533 3z7361be1">0. 3-1.2</td><td ID="Observati ru-Cdkydjgd-3 3m50982-84y8- 8781-12xj-334 1m8155pq5">H< /td><td ID="Observati qn-Rfifcv-87o 49841-20c1-10 65-08hm-6974b 4625dg3">Delia l</td> Procedure Vital Signs ID Date Data Source [id number] 11/18/2018 12:28:40 PM EDT [facility] ([facility]) Name Value Range Interpretation Code Description Data Source(s) PULSE 60 bpm 60 bpm [facility] ([facility] PAIN LEVEL 0 0 [facility] ([facility] DIASTOLIC BLOOD 50 mmHg 50 mmHg [facility] ([facility] SYSTOLIC BLOOD 109 mmHg 109 mmHg [facility] ([facility] PAIN LEVEL 0 0 [facility] PULSE 63 bpm 63 bpm [facility] PAIN LEVEL 4 4 [facility] ([facility] DIASTOLIC BLOOD 62 mmHg 62 mmHg [facility] ([facility] SYSTOLIC BLOOD 120 mmHg 120 mmHg [facility] ([facility] WEIGHT 101.2 lbs 101.2 lbs [facility] PULSE 58 bpm 58 bpm [facility] PAIN LEVEL 0 0 [facility] ([facility] DIASTOLIC BLOOD 78 mmHg 78 mmHg [facility] ([facility] SYSTOLIC BLOOD 140 mmHg 140 mmHg [facility] ([facility] PAIN LEVEL 0 0 [facility] DIASTOLIC BLOOD 71 mmHg 71 mmHg [facility] ([facility] SYSTOLIC BLOOD 105 mmHg 105 mmHg [facility] PAIN LEVEL 0 0 [facility] PULSE 73 bpm 73 bpm [facility] DIASTOLIC BLOOD 65 mmHg 65 mmHg [facility] ([facility] SYSTOLIC BLOOD 115 mmHg 115 mmHg [facility] ([facility] PAIN LEVEL 0 0 [facility] WEIGHT 100.2 lbs 100.2 lbs [facility] ([facility] PAIN LEVEL 0 0 [facility] ([facility] TEMPERATURE 97.9 F 97.9 F [facility] PULSE 67 bpm 67 bpm [facility] PAIN LEVEL 0 0 [facility] DIASTOLIC BLOOD 54 mmHg 54 mmHg [facility] ([facility] SYSTOLIC BLOOD 107 mmHg 107 mmHg [facility] ([facility] PAIN LEVEL 0 0 [facility] WEIGHT 103.6 lbs 103.6 lbs [facility] DIASTOLIC BLOOD 56 mmHg 56 mmHg [facility] ([facility] SYSTOLIC BLOOD 126 mmHg 126 mmHg [facility] ([facility] PULSE 55 bpm 55 bpm [facility] PAIN LEVEL 0 0 [facility] DIASTOLIC BLOOD 77 mmHg 77 mmHg [facility] ([facility] SYSTOLIC BLOOD 135 mmHg 135 mmHg [facility] ([facility] PULSE 65 bpm 65 bpm [facility] PAIN LEVEL 2 2 [facility] PAIN LEVEL 0 0 [facility] HEIGHT 56 in 56 in [facility] ([facility] WEIGHT 104.4 lbs 104.4 lbs [facility] DIASTOLIC BLOOD 61 mmHg 61 mmHg [facility] ([facility] SYSTOLIC BLOOD 123 mmHg 123 mmHg [facility] ([facility])
--- NOTE | 2020-01-07 05:46 | PDOC ---
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 She was on the couch when the pain started. It is severe (9/10), sharp and achy. It is made worse by any manipulation of the aforementioned areas yet it is painful at rest too. She endorses regular pain episodes like this except they always happen on the left side. She states the episodes are from her OA. 01/07/20 20:14 01/09/20 03:15 Past History - Medical History Allergies/Adverse Reactions: Allergies Allergy/AdvReac Type Severity Reaction Status Date / Time codeine [Codeine] Allergy Mild sick Verified 10/18/18 09:21 NSAIDS (Non-Steroidal AdvReac Verified 10/18/18 09:21 Anti-Inflamma Home Medications: Ambulatory Orders Aspirin [ASA -] 81 mg PO DAILY #0 tab.chew 02/27/12 Potassium Chloride [K-Dur -] 10 meq PO DAILY #0 tablet.er 02/27/12 Calcium Carb/Vit D3/Minerals [Calcium 600 + D Tablet] 1 each PO TID 02/12/13 Omega3/Dha/Epa/Fish Oil/Vit D3 [Miepo-6-Hohg Oil-Vit D3 Sftgl] 1 each PO DAILY 02/12/13 Nitroglycerin [Nitrostat] 0.4 mg SL PRN 08/22/13 Isosorbide Mononitrate [Imdur] 60 mg PO DAILY 09/30/14 Carvedilol [Coreg -] 6.25 mg PO BID tablet 09/19/15 Cholecalciferol (Vitamin D3) [Vitamin D3 -] 1,000 unit PO DAILY tab 09/19/15 Furosemide [Lasix -] 40 mg PO DAILY tablet 09/19/15 Carbidopa/Levodopa [Carbidopa-Levodopa 10-100 Tab] 1 each PO TID 03/25/17 Losartan Potassium 100 mg PO DAILY 02/16/18 Acetaminophen [Tylenol .Regular Strength -] 650 mg PO Q6H PRN tablet 02/18/18 Lidocaine 5% Patch [Lidoderm -] 1 patch TP DAILY patch 10/21/18 Atorvastatin Ca [Lipitor] 40 mg PO HS 01/07/20 Rivaroxaban [Xarelto] 20 mg PO DAILY 01/07/20 Anemia: No Asthma: No Cancer: No Cardiac Disorders: Yes (cabg x2 valve replacement, AFIB) CVA: No COPD: No CHF: No DVT: No Dementia: No Diabetes: No GI Disorders: No Disorders: No HTN: Yes Hypercholesterolemia: Yes Liver Disease: No Seizures: No Thyroid Disease: No - Surgical History Abdominal Surgery: No Appendectomy: Yes Cardiac Surgery: Yes (OPEN HEART SX X 2) Cholecystectomy: Yes Lung Surgery: No Neurologic Surgery: No Orthopedic Surgery: Yes (right THR 9yrs ago) - Immunization History Immunization Up to Date: Yes - Psycho-Social/Smoking History Smoking Status: No Smoking History: Unknown if ever smoked Have you smoked in the past 12 months: No Number of Cigarettes Smoked Daily: 0 Review of Systems - Review of Systems Able to Perform ROS?: No (too much pain to answer ) *Physical Exam - Physical Exam General Appearance: Yes: Nourished, Appropriately Dressed, Apparent Distress, Moderate Distress (in 8/10 pain. ) HEENT: positive: EOMI, BENEDICT Neck: positive: Trachea midline, Supple Respiratory/Chest: positive: Lungs Clear. negative: Chest Tender Cardiovascular: positive: Regular Rhythm, Regular Rate Gastrointestinal/Abdominal: positive: Normal Bowel Sounds, Soft Musculoskeletal: positive: Normal Inspection, Decreased Range of Motion. negative: CVA Tenderness Extremity: positive: Normal Capillary Refill, Normal Inspection. negative: Normal Range of Motion Integumentary: positive: Normal Color, Warm. negative: Rash Neurologic: positive: Fully Oriented, Alert ED Treatment Course - LABORATORY CBC & Chemistry Diagram: 01/08/20 06:17 01/08/20 06:17 Medical Decision Making - Medical Decision Making 01/09/20 03:16 Admit ACS r/o Discharge - Discharge Information Problems reviewed: Yes Clinical Impression/Diagnosis: Neck pain, Acute electrocardiogram changes Condition: Guarded - Follow up/Referral - Patient Discharge Instructions - Post Discharge Activity
[2020-01-07 06:52] LABS: BASO % 0.4 % (0-2.0); EOS % 0.5 % (0-4.5); HEMATOCRIT 36.1 % (32.4-45.2); LYMPH % 8.9 % (8-40); MCH 32.5 pg (25.7-33.7); MCHC 33.1 g/dl (32.0-36.0); MEAN CELL VOLUME 98.2 fl (80-96); MEAN PLT VOLUME 8.4 fl (7.5-11.1); MONO % 5.6 % (3.8-10.2); NEUT % 84.6 % (42.8-82.8); PLATELET COUNT 182 K/MM3 (134-434); RBC 3.68 M/mm3 (3.60-5.2); RDW 15.7 % (11.6-15.6); WHITE BLOOD COUNT 7.6 K/mm3 (4.0-10.0)
[2020-01-07] MEDS ORDERED: LIDOCAINE 5% TOPICAL PATCH TP ONE (06:52)
[2020-01-07 06:57] LABS: ALBUMIN 3.8 g/dl (3.4-5.0); ALK PHOS 74 U/L (45-117); ANION GAP 5 MMOL/L (8-16); BILIRUBIN,TOTAL 1.2 mg/dL (0.2-1); BLOOD UREA NITROGEN 19.9 mg/dL (7-18); CALCIUM 9.2 mg/dL (8.5-10.1); CHLORIDE 103 mmol/L (98-107); CO2 29 mmol/L (21-32); CREATININE 0.7 mg/dL (0.55-1.3); GLUCOSE,RANDOM 129 mg/dL (74-106); POTASSIUM 4.5 mmol/L (3.5-5.1); SGOT/AST 24 U/L (15-37); SGPT/ALT 9 U/L (13-61); SODIUM 137 mmol/L (136-145); TOT PROT 6.9 g/dl (6.4-8.2)
[2020-01-07 07:06] LABS: INR 2.15 (0.83-1.09); PROTHROMBIN TIME (PATIENT) 25.6 SEC (9.7-13.0)
[2020-01-07 07:08] LABS: ACTIVATED PTT 36.7 SECONDS (25.2-36.5)
--- NOTE | 2020-01-07 07:17 | PDOC ---
*Physical Exam - Vital Signs Last Vital Signs Temp Pulse Resp BP Pulse Ox 98.0 F 59 L 20 189/75 H 100 01/07/20 06:36 01/07/20 06:36 01/07/20 06:36 01/07/20 06:36 01/07/20 06:36 Heart Score/ECG Review - History History: Moderately suspicious - Electrocardiogram EKG: Non specific repolarization disturbance - Age Age: >/= 65 - Risk Factors Risk Factors Heart Score: Yes Hx Hypertension, Yes Positive family hx of cardiac disease Based on the list above the patient has:: 1-2 risk factors - Troponin Troponin: 1-3x normal limit - Score Heart Score - Total: 6 - ECG Intrepretation Rhythm: Irregularly Irregular - [place]: Normal ED Treatment Course - LABORATORY CBC & Chemistry Diagram: 01/07/20 06:13 01/07/20 06:13 - ADDITIONAL ORDERS Additional order review: Laboratory Results 01/07/20 01/07/20 06:13 06:13 PT with INR 25.60 H INR 2.15 H PTT (Actin FS) 36.7 H Sodium 137 Potassium 4.5 Chloride 103 Carbon Dioxide 29 Anion Gap 5 L BUN 19.9 H Creatinine 0.7 Est GFR (CKD-EPI)AfAm 89.03 Est GFR (CKD-EPI)NonAf 76.82 Random Glucose 129 H Calcium 9.2 Total Bilirubin 1.2 H AST 24 ALT 9 L Alkaline Phosphatase 74 Troponin I < 0.02 Total Protein 6.9 Albumin 3.8 01/07/20 06:13 RBC 3.68 MCV 98.2 H MCHC 33.1 RDW 15.7 H D MPV 8.4 Neutrophils % 84.6 H Lymphocytes % 8.9 Monocytes % 5.6 Eosinophils % 0.5 D Basophils % 0.4 - Medications Given in the ED: ED Medications Discontinued Medications Generic Name Dose Route Start Last Admin Trade Name Freq PRN Reason Stop Dose Admin Lidocaine 1 patch 01/07/20 06:52 01/07/20 07:06 Lidoderm Patch - TP 01/07/20 06:53 1 patch ONCE ONE Administration Oxycodone/Acetaminophen 1 combo 01/07/20 05:36 01/07/20 06:16 Percocet 5/325 - PO 01/07/20 05:37 1 combo ONCE ONE Administration Medical Decision Making - Medical Decision Making 01/07/20 07:13 Signed out to me from Dr. Cordero. 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 Per chart review has history of AFIB. Now here for R-sided neck and back pain. New onset ECG changes: AFLUTTER HR 52, QTc 451, no REUBEN/D, TWI II/III RLE swelling, non-tender. 01/07/20 07:31 Discussed with son at bedside who takes care of patient. Patient has had cardiac valve replacement, 2x CABG 20 years ago and 8 years ago, significant cardiac history Past ECG: sinus bradycardia with 1st degree AV block, no TWI or REUBEN/D on October 2018 Patient still says she has R neck pain, has a lidocaine patch and Percocet given. No chest pain or SOB now. Given patient has significant cardiac surgical history and new onset Aflutter with inferior lead TWI with right neck pain, high suspicion for cardiac pathology. HEART score at least 6 Labs notable for: - CBC WNL - INR 2.15, undertherapeutic for valve replacement goal 2.5-3.5 - CMP WNL - trop negative BP 190/90, has not taken anti-HTN medications today. Takes carvedilol, losartan, and isosorbide for HTN. Bradycardic to 55 at this time, giving home losartan 25mg out of concern for HTN and bradycardia. 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 01/07/20 08:35 R arm BP 111/71 L arm BP 172/86 Confirming by manual BP, but considering aortic dissection given BP differential. Cleared for contrast for CTA. 01/07/20 10:00 BLLE US no DVT either leg. 01/07/20 10:43 BP 170/80, holding from prior. 01/07/20 11:32 CTA: Normal enhancement of the thoracic and abdominal aorta without evidence of aneurysmal dilatation or dissection. Significant cardiomegaly. Bilateral lung interstitial thickening that may be chronic or on the basis of mild pulmonary venous congestion. No focal infiltrates are identified. Nonvisualization of the gallbladder likely post cholecystectomy. Dilated intrahepatic bile ducts and dilated common bile duct measuring 1.2 cm in AP dimension. Right renal cyst measuring 3 cm. No evidence of dissection on CTA. Will admit for ECG changes and R neck pain to tele for further evaluation. Contacting Dr. Shultz. 01/07/20 12:31 Discussed case with donna Aguirre for tele/obs admit. Regular diet ordered for lunch. Discharge - Discharge Information Problems reviewed: Yes Clinical Impression/Diagnosis: Neck pain, Acute electrocardiogram changes Condition: Guarded - Admission Yes - Follow up/Referral Referrals: Ish Shultz MD [Primary Care Provider] - - Patient Discharge Instructions - Post Discharge Activity
[2020-01-07] MEDS ORDERED: LOSARTAN POTASSIUM 25 MG TABLET PO ONE (07:34)
--- OUTSIDE RECORDS SUMMARY | 2020-01-07 13:05 | XMS ---
:1930 Author Organization [facility] Care Team Providers Name Role Phone [...] is protected by Article 27-F of the [facility] Public Health law. If you continue you may haveaccess to information: Regarding HIV / AIDS; Provided by facilities licensed or operated by the [facility] Office of Mental Health; or Provided by the [facility] Office for People With Developmental Disabilities. If such information is present, then the following [facility] mandated warning applies: This information has been [...] law may result in a fine or senior care sentence or both. A general authorization for the release of medical or other information is NOT sufficient authorization for further disclosure. Advance Directives Directive Description Dope Heater Labeler Status Observation Data S ource(s) Description Resuscitation [facility] Resuscitat ion SIGMACARE Rehabilitation ([facility] tion & Nursing [place]) Resuscitation [facility] Resuscitat ion SIGMACARE Rehabilitation ([facility] tion & Nursing [place]) CPR [facility] CPR SIGM ACARE [facility] & [facility] [place]) Allergies and Adverse Reactions Type Description Substance Reaction Status Data Source(s ) Miscellaneous nsaids nsaids SIGMACARE allergy ([facility] Rehabilitation & Nursing [place] ) Drug allergy codeine phosphate codeine SIGMA CARE (bulk) phosphate ([facility] (bulk) [facility] & Nursing [place] ) Encounters Encounter Providers Location Date Indications Data Source(s ) Inpatient Attender: [facility] 10/21/2018 SIGMACARE ( [employer] Christnicholaser Nicora 03:00:00 PM [facility] EDT & Nursing [facility] er) Patient admitted. Medications Medication Brand Start Product Dose Route Administrative Pharmacy [facility] Indications Reaction Description Data Name Date Form Instructions Instructions Source(s) gabapentin gabape 11/22/ complet gabapen tin SIGMACARE 100 mg ntin 2019 ed 100 mg ([employer] capsule 100 MG 11:00: capsule [place] [facility] Xarelto rivaro 11/18/ complet Xarelto 15 SIGMACARE (rivaroxaba xaban 2019 ed mg tablet ([facility] n) 15 mg 15 MG 08:45: [place] tablet Oral 45 AM Rehabilita Tablet EDT tion & [Xarel Nursing to] Center) Miralax POLYET 11/18/ complet Miralax 17 SIGMACARE (polyethyle HYLENE 2019 ed gram/dose ( [employer] ne glycol GLYCOL 03:23: oral powder [place] 3350) 17 3350 16 AM Rehabilita gram/dose 13563 EDT tion & oral powder MG Nursing Powder Center) for Oral Soluti on [Lindsey ax] tramadol 50 tramad 11/15/ complet tramad ol 50 SIGMACARE mg tablet ol 2019 ed mg tablet ([facility] hydroc 07:11: [place] hlorid 52 AM Rehabilita e 50 EDT tion & MG Nursing Oral Center) Tablet warfarin 3 Warfar 11/15/ complet warfari n 3 SIGMACARE mg tablet in 2019 ed mg tablet ([facility] Sodium 06:25: [place] 3 MG 02 AM Rehabilita Oral EDT tion & Tablet Nursing Center) acetaminoph Acetam 11/09/ complet acetam inophe SIGMACARE en 325 mg inophe 2019 ed n 325 mg ([facility] tablet n 325 07:03: tablet [place] MG 57 AM Rehabilita Oral EDT tion & Tablet Nursing Center) acetaminoph Acetam 11/09/ complet acetam inophe SIGMACARE en 325 mg inophe 2019 ed n 325 mg ([facility] tablet n 325 07:03: tablet [place] MG 57 AM Rehabilita Oral EDT tion & Tablet Nursing Center) Coumadin Warfar 10/24/ complet Coumadin 4 SIGMACARE (warfarin) in 2019 ed mg tablet ([facility] 4 mg tablet Sodium 05:35: [place] 4 MG 38 AM Rehabilita Oral EDT tion & Tablet Nursing [[facility] Center) din] calcium 989471 10/21/ complet calcium SI GMACARE carbonate-v 17138 2018 ed carbonate-vi (Zayo itamin D3 01:07: tamin D3 500 [place] 500 mg 56 PM mg (1,250 Rehabil eula (1,250 EDT mg)-600 unit tion & mg)-600 tablet Nursing unit tablet Center) calcium 540158 10/21/ complet calcium SI GMACARE carbonate-v 94570 2019 ed carbonate-vi ([employer] itamin D3 01:07: tamin D3 500 [place] 500 mg 56 PM mg (1,250 Rehabil eula (1,250 EDT mg)-600 unit tion & mg)-600 tablet Nursing unit tablet Center) atorvastati atorva atorva statin SIG[facility] n 10 mg statin 2019 ed 10 mg tablet ([facility] tablet 10 MG 12:47: [place] Oral 28 PM Rehabilita Tablet EDT tion & Nursing Center) atorvastati atorva atorva statin SIGMACARE n 10 mg statin 2019 ed 10 mg tablet ([facility] tablet 10 MG 12:47: [place] Oral 28 PM Rehabilita Tablet EDT tion & Nursing Center) lidocaine 5 Lidoca lidoca ine 5 SIGMACARE % topical ine 2019 ed % topical ([facility] patch 0.05 09:54: patch [place] MG/MG 42 AM Rehabilita Medica EDT tion & susan Nursing Patch Center) lidocaine 5 Lidoca lidoca ine 5 SIGMACARE % topical ine 2019 ed % topical ([facility] patch 0.05 09:54: patch [place] MG/MG 42 AM Rehabilita Medica EDT tion & susan Nursing Patch Center) Tubersol Purifi Tubersol 5 SIGMACARE (tuberculin ed 2019 ed tub. ([facility] ppd) 5 tub. Protei 07:45: unit/0.1 mL [place] unit/0.1 mL n 29 AM intradermal Rehabilita intradermal Deriva EDT injection t ion & injection tive solution Nursin g solution of Center) Tuberc ulin 50 UNT/ML Inject able Soluti on [Tuber jose guadalupe] atorvastati atorva atorva statin SIGMACARE n 10 mg statin 2018 ed 10 mg tablet ([facility] tablet 10 MG 07:45: [place] Oral 29 AM Rehabilita Tablet EDT tion & Nursing Center) cholecalcif Cholec cholec alcife SIGMACARE jenna alcife 2019 ed rol (vitamin ([facility] (vitamin rol 07:45: D3) 1,000 [place] D3) 1,000 1000 29 AM unit tablet Re habilita unit tablet UNT EDT tion & Oral Nursing Tablet Center) warfarin 1 Warfar 07/19/ complet warfari n 1 SIG[facility]ARE mg tablet in 2019 ed mg tablet ([facility] Sodium 07:45: [place] 1 MG 29 AM Rehabilita Oral EDT tion & Tablet Nursing Center) warfarin Warfar complet warfarin 2.5 SIGMACARE 2.5 mg in 2019 ed mg tablet ([facility] tablet Sodium 07:45: [place] 2.5 MG 29 AM Rehabilita Oral EDT tion & Tablet Nursing Center) warfarin Warfar complet warfarin 2.5 SIGMACARE 2.5 mg in 2019 ed mg tablet ([facility] tablet Sodium 07:45: [place] 2.5 MG 29 AM Rehabilita Oral EDT tion & Tablet Nursing Center) isosorbide 24 HR complet isosorbi de SIGMACARE mononitrate Isosor 2019 ed mononitrate ([employer] ER 60 mg bide 07:45: ER 60 mg [place] tablet,exte Mononi 29 AM tablet,ext en Rehabilita [...] ([facility] ) 12.5 mg 12.5 07:45: [place] tablet MG 29 AM Rehabilita Oral EDT tion & Tablet Nursing [[facility]) ] furosemide Furose complet furosem verenice SIGMACARE 40 mg mide 2018 ed 40 mg tablet ([place] [facility] tablet 40 MG 07:45: [place] Oral 29 AM Rehabilita Tablet EDT tion & Nursing Center) losartan 25 Losart complet losart an 25 SIGMACARE mg tablet an 2019 ed mg tablet ([facility] Potass 07:45: [place] ium 25 29 AM Rehabilita MG EDT tion & Oral Nursing Tablet Center) furosemide Furose complet furosem verenice SIGMACARE 40 mg mide 2018 ed 40 mg tablet ([facility] tablet 40 MG 07:45: [place] Oral 29 AM Rehabilita Tablet EDT tion [...] ([facility] tablet n 325 07:45: tablet [place] MG 29 AM Rehabilita Oral EDT tion & Tablet Nursing Center) Nitrostat Nitrog complet Nitrosta t SIGMACARE (nitroglyce lyceri 2019 ed 0.4 mg ([facility] rin) 0.4 mg n 0.4 07:45: sublingual [place] sublingual MG 29 AM tablet Rehabi cirilo tablet Sublin EDT tion & gual Nursing Tablet Center) [Nitro stat] calcium 188824 calcium SI GMAC[facility] carbonate 136532018 ed carbonate ([facility] 600 mg 07:45: 600 mg [place] (1,500 29 AM (1,500 Rehabilita mg)-vitamin EDT mg)-vitamin t ion & D3 400 unit D3 400 unit N ursing tablet tablet Center) omega 765432 omega SIGMAC ARE 3-dha-epa-f 98493 2019 ed 9-ijo-fco-fi ([employer] nuris oil 07:45: sh oil 1,000 Hi lls 1,000 mg 29 AM mg (120 Rehabil eula (120 mg-180 EDT mg-180 mg) ti on & mg) capsule capsule Nursi ng [place]) losartan 25 Losart losart an 25 SIGMACARE mg tablet an 2019 ed mg tablet ([facility] Potass 07:45: [place] ium 25 29 AM Rehabilita MG EDT tion & Oral Nursing Tablet Center) Coreg carved Coreg 12.5 S IGMACARE (carvedilol ilol 2019 ed mg tablet ([facility] ) 12.5 mg 12.5 07:45: [place] tablet MG 29 AM Rehabilita Oral EDT tion & Tablet Nursing [[facility]) ] potassium Microe potassiu m SIGMACARE chloride ER ncapsu 2019 ed chloride ER ([employer] 10 mEq lated 07:45: 10 mEq [place] tablet,exte Potass 29 AM tablet,ext en Rehabilita [...] rin) 0.4 mg n 0.4 07:45: sublingual [place] sublingual MG 29 AM tablet Rehabi cirilo tablet Sublin EDT tion & gual Nursing Tablet Center) [Nitro stat] Enteric Aspiri complet Enteric SI GMACARE Coated n 81 2019 ed Coated ([employer] Aspirin MG 07:45: Aspirin 81 [place] [facility] (aspirin) Delaye 29 AM mg Rehabil eula 81 mg d EDT tablet,delay tion & tablet,uzma Releas ed release Nursing yed release e Oral Center ) Tablet isosorbide 24 HR complet isosorbi de SIGMACARE mononitrate Isosor 2019 ed mononitrate ([employer] ER 60 mg bide 07:45: ER 60 mg [place] tablet,exte Mononi 29 AM tablet,ext en Rehabilita nded trate EDT ded release tion & release 24 60 MG 24 hr Nursing hr Extend Center) ed Releas e Oral Tablet potassium Microe complet potassiu m SIGMACARE chloride ER ncapsu 2019 ed chloride ER ([employer] 10 mEq lated 07:45: 10 mEq [place] tablet,exte Potass 29 AM tablet,ext en Rehabilita nded ium EDT ded tion & release(par Chlori release(par t Nursing t/cryst) de ) Center) MEQ Extend ed Releas e Oral Tablet omega 931779 complet omega SIGMAC ARE 3-dha-epa-f 62715 2019 ed 3-zyl-lfw-fi ([employer] nuris oil 07:45: sh oil 1,000 Hi lls 1,000 mg 29 AM mg (120 Rehabil eula (120 mg-180 EDT mg-180 mg) ti on & mg) capsule capsule Nursi [facility]) Enteric Aspiri complet Enteric SI GMACARE Coated n 81 2019 ed Coated ([employer] Aspirin MG 07:45: Aspirin 81 [place] [facility] (aspirin) [place] 29 AM mg Rehabil eula 81 mg d EDT tablet,delay tion & tablet,uzma Releas ed release Nursing yed release e Oral Center ) Tablet acetaminoph Acetam acetam inophe SIGMACARE en 325 mg inophe 2019 ed n 325 mg ([facility] tablet n 325 07:45: tablet [place] MG 28 AM Rehabilita Oral EDT tion & Tablet Nursing Center) acetaminoph Acetam complet acetam inophe SIGMACARE en 325 mg inophe 2019 ed n 325 mg ([facility] tablet n 325 07:45: tablet [place] MG 28 AM Rehabilita Oral EDT tion & Tablet Nursing Center) Insurance Providers Payer name Policy type Policy ID Covered Covered green party's Policy P shelton / Coverage green party ID relationship to [facility] Inf ormation type torres MEDICARE [id number] SP [id number] [facility] [id number] SP [id number] CARE OPTIONS [facility] [id number] Self [id number] Medicare Medicare [id number] [facility] [id number] A Part B Part B Medicare Medicare [id number] [facility] [id number] A Part A Part A [facility] [id number] [facility] [id number] Medicare 2 [id number] Self [id number] A Part B Medicare 18 [id number] Self [id number] A Part A MEDICARE [id number] A MEDICARE [id number] SP [id number] A [facility] [id number] SP [id number] CARE OPTIONS Problems, Conditions, and Diagnoses Code Display Name Description Problem Effective Data Source (s) Type Dates K59.00 Constipation, Constipation, Diagnosis 11/18/2018 SIGMACAR E unspecified unspecified 12:00:00 AM ([facility] Rehabilitation & Nursing [place] ) M25.512 Pain in left Pain in left Diagnosis 11/15/2018 SIGMACARE shoulder shoulder 12:00:00 AM ([facility] Rehabilitation & Nursing [place] ) M19.90 Unspecified Unspecified Diagnosis 11/08/2018 SIGMACARE osteoarthritis, osteoarthritis, 12:00:00 AM ([facility] unspecified site unspecified site ED Re habilitation & Nursing Center ) 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 ) I10 Essential (primary) Essential (primary) Diagnosis SIGMACARE hypertension hypertension 12:00:00 AM ([facility] & [facility] ) I20.9 Angina pectoris, Angina pectoris, Diagnosis 10/21/2018 SI GMACARE unspecified unspecified 12:00:00 AM ([facility] & [facility] ) I20.0 Unstable angina Unstable angina Diagnosis 10/21/2018 SIGM ACARE 12:00:00 AM ([facility] Rehabilitation & [facility] ) E55.9 Vitamin D Vitamin D Diagnosis 10/21/2018 SIGMACARE deficiency, deficiency, 12:00:00 AM ([facility] unspecified unspecified [facility] Rehabilitati on & Nursing Center ) E78.1 Pure Pure Diagnosis 10/21/2018 SIGMACARE hyperglyceridemia hyperglyceridemia 12:00:00 AM ([facility] & [facility] ) E87.6 Hypokalemia Hypokalemia Diagnosis 10/21/2018 SIGMACARE 12:00:00 AM ([facility] Rehabilitation & [facility] ) Z29.9 Encounter for Encounter for Diagnosis 10/21/2018 SIGMACAR E prophylactic prophylactic 12:00:00 AM ([facility] measures, measures, EDT Rehabilitation & unspecified unspecified Nursing Cent er) M81.8 Other osteoporosis Other osteoporosis Diagnosis 9 SIGMACARE without current without current 12:00:00 AM ([facility] pathological pathological EDT Rehabilita tion & fracture fracture Nursing Center ) Z11.1 Encounter for Encounter for Diagnosis 10/21/2018 SIGMACAR E screening for screening for 12:00:00 AM ([facility] tuberculosis Nursing Ce nter) I48.2 Chronic atrial Chronic atrial Diagnosis 10/21/2018 SIGMAC ARE fibrillation fibrillation 12:00:00 AM ([facility] Rehabilitation & [facility] ) R52 Pain, unspecified Pain, unspecified Diagnosis 10/21/2018 SIGMACARE 12:00:00 AM ([facility] Rehabilitation & [facility] ) R50.9 Fever, unspecified Fever, unspecified Diagnosis 9 SIGMACARE 12:00:00 AM ([facility] ) Results ID Date Data Source 400 11/18/2018 03:02:00 AM EDT SIGMACARE ([facility]) Name Value Range Interpretation Description Data Source(s ) Supporting Code Document(s ) PROTIME 16.4SEC 10.5-12. Above high normal <td SIGMACARE 9 ID="Observatio ([facility] s b-Lene-ea9u414 Rehabilitation & 4-ug2m-8296qa6e-0261-s1 Nursing Center) 22-833ue86e5d9 d">(205) PROTIME</td><t d ID="Observatio f-Rceub-gm2n69 08-yq2q-0139-a 322-795ja06c8l 6d">16.4</td>< td ID="Observatio l-Ugze-jy2n907 4-dy1u-9044sq4r-4354-e0 22-829us48l5v0 d">SEC</td><td ID="Observatio g-XnqRhawl-ra8 t4326-uq6q-964 8-w920-247rt48 e8e6d">10.5-12 .9</td><td ID="Observatio s-Wnenrwmj-md5 e6304-lo2e-207 9-w752-091ad40 e8e6d">H</td>< td ID="Observatio o-Qwhgca-dy5r5 270-de3b-8060- c212-714tt89u3 e6d">Final</td > INR 1.45 0.90-1.11 Above <td ID="Lwzhqgywskq-Hrtc-y4r1q92di8e9k28o-n8t7-57s6-[id number]">(405) INR</td><td SIGMACARE high ID="Observation -Tlodl-w6k5w41s-j0n5a9u3d64k-c8b7-28c6-[id number]">1.45</td><td ([employer] normal ID="Xbndnjbvhhp-Crll-k7p4 x75p-r7g0-22j0-[id number]"></td><td [place] ID="Mvjitmqiuku-TkpNxboa-i5s0e67kd6c3k61u-k6q7-81x4-[id number]">0.90-1.11</td><td Rehabilitation ID="Observation-Abnormal- n4p0z56u-x8o5-98r0-[id number]">H</td><td & Nursing ID="Fcohrvjxtcm-Jliexw-p4 b2o05g-h2b7-82a9-[id number]">Final</td> Center) Type: Lab, Date: 11/18/2018 12:32 PM, User: N/APLEASE NOTE NEW REFERENCE RANGE2.0-3.0: FOR TREATMENT OF VENOUS THROMBOSIS,PULMONARY EMBOLISM,SYTEMIC ID Date Data Source 400 11/15/2018 03:42:00 AM EDT SIGMACARE ([facility] Rehabilitation & Nursing Center) Name Value Range Interpretation Description Data Source(s ) Supporting Code Document(s ) PROTIME 28.7SEC 10.5-12. Above high normal <td SIGMACARE 9 ID="Observatio ([facility] y-Ouai-ky491iz Rehabilitation & 0-h013-9571i363-9468-a4 Nursing Center) [id number] 0">(205) PROTIME</td><t d ID="Observatio s-Bdcxc-ry222d o1-s993-0359-b 7y8-57p27jm5oi 80">28.7</td>< td ID="Observatio t-Upfn-bd552db 5-c107-2653j953-5809-s8 e8-46m19sj3wi7 0">SEC</td><td ID="Observatio p-IxmVusuz-as0 20vo4-s406-990 3-l1s2-63b10re 9bb80">10.5-12 .9</td><td ID="Observatio k-Bwwalvtk-ep9 47hg9-z417-866 2-v7v1-83u23zm 9bb80">H</td>< td ID="Observatio d-Dpucip-mp713 zi8-v456-0834- s5r8-08w15mq2j b80">Final</td > INR 2.52 0.90-1.11 Above <td ID="Bftifobktys-Pzts-11vm946888py6018-u10x-6996-3974-4s7kx0mk4rx8">(405) INR</td><td SIGMACARE high ID="Observation -Eqvei-08mk2365-v86v54eb5267-f10a-6443-4153-5m5oq7nj9jg3">2.52</td><td ([employer] normal ID="Emqgxhkedyh-Ncza-51my 9918-[id number]-1699-0044-5x4wq5ma7ph7"></td><td [place] ID="Ltkdduipdmk-BhcDnewh-[id number]-u23o-[id number]">0.90-1.11</td><td Rehabilitation ID="Observation-Abnormal- 16id7764-x66t-9316-5521-4m6bt4qo8uh2">H</td><td & Nursing ID="Bkjjzyfsczw-Jdsjid-73 eg1293-i84h-4535-1806-5f1zk4pz7la7">Final</td> Center) Type: Lab, Date: 11/15/2018 12:57 PM, User: N/APLEASE NOTE NEW REFERENCE RANGE2.0-3.0: FOR TREATMENT OF VENOUS THROMBOSIS,PULMONARY EMBOLISM,SYTEMIC ID Date Data Source 400 11/14/2018 03:42:00 AM EDT SIGMACARE ([facility] & Nursing [place]) Name Value Range Interpretation Description Data Source(s ) Supporting Code Document(s ) PROTIME 37.2SEC 10.5-12. Above high normal <td SIGMACARE 9 ID="Observatio ([facility] q-Enlx-2mz844s Rehabilitation & r-fv0y-7388in8l-5744-c4 Nursing Center) 6e-90i4l7ol806 a">(205) PROTIME</td><t d ID="Observatio j-Przpk-6qq859 or-ds2i-8232-a 16e-78x3z3uu79 1a">37.2</td>< td ID="Observatio c-Mpnc-3cv068s r-is6t-6420bb2o-9454-b6 6e-58c0g2wo350 a">SEC</td><td ID="Observatio v-KgjJtueg-7et 293sa-jk8q-659 7-t64u-88x5o5m f961a">10.5-12 .9</td><td ID="Observatio t-Lyughrwj-8ec 126ax-xy2b-252 6-t34a-44n9q1a f961a">H</td>< td ID="Observatio b-Gfbinh-8jb12 3xq-no5q-2030- k20h-37y7m9nc2 61a">Final</td > INR 3.25 0.90-1.11 Above <td ID="Mwkwtufocjn-Zmdu-704231o7391401i7-3296-427h-b748-uqrc2d46e6fo">(405) INR</td><td SIGMACARE high ID="Observation -Dpxsf-091445q1-4906795995z4-7954-058k-r341-owcj8q85t2ms">3.25</td><td ([employer] normal ID="Wchvcwicyll-Wwuy-8876 89n1-0264-950t-k464-mudn3m77g4ze"></td><td [place] ID="Hqitkrnlxxa-SsvWncqh-[id number]-x150-oawp3d28f1wi">0.90-1.11</td><td Rehabilitation ID="Observation-Abnormal- 325621t2-0043-625c-k978-gxno6i66k1ks">H</td><td & Nursing ID="Djntdhbczqd-Tshlnd-23 1284p3-6450-936g-f817-hjqn6u18j5vi">Final</td> Center) Type: Lab, Date: 11/14/2018 12:59 PM, User: N/APLEASE NOTE NEW REFERENCE RANGE2.0-3.0: FOR TREATMENT OF VENOUS THROMBOSIS,PULMONARY EMBOLISM,SYTEMIC ID Date Data Source PANIC 11/11/2018 04:04:00 AM EDT SIGMACARE ([facility]) Name Value Range Interpretation Description Data Source(s ) Supporting Code Document(s ) PANIC ST Very abnormal <td SIG[facility]ARE RESOLUTIONS (applies to ID="Observati ([employer] H ills non-numeric units qv-Ndpa-b4768 Rehabili tation & e34-915g-2869 Nursing Center) -bded-nm3xc07 ea344">(PANIC ) PANIC RESOLUTIONS</ td><td ID="Observati mr-Wghbk-v606 7a51-637k-826 2-ettn-dl7uk9 4xt875">ST</t d><td ID="Observati zj-Tuif-o3650 w61-253g-6595 -bded-rb6ix24 ea344"></td>< td ID="Observati ve-PqaXgaze-d 2368h51-007t- 3070-ljsl-ll6 pe06tv930"></ td><td ID="Observati rq-Hhognzad-x 3964t51-662q- 8079-jama-kw1 fb39lp883">AA </td><td ID="Observati xu-Plulmy-o84 88l16-560k-00 39-rrmq-yt4gv 45ra187">Delia l</td> ID Date Data Source 400 11/11/2018 03:42:00 AM EDT SIGMACARE ([facility]) Name Value Range Interpretation Description Data Source(s ) Supporting Code Document(s ) PROTIME 57.5SEC 10.5-12. Above high normal <td SIGMACARE 9 ID="Observatio ([facility] j-Oqig-4t6gb83 Rehabilitation & 7-005q-2318-87 Nursing Center) [id number] e">(205) PROTIME</td><t d ID="Observatio s-Vexem-3p0kh5 33-057s-0399-8 8j9-4y4qem8544 ce">57.5</td>< td ID="Observatio c-Ozdq-2b7gp96 6-074m-2709-87 a9-5h8wwa3955h e">SEC</td><td ID="Observatio v-RxpLzrfs-5u0 mn787-220t-567 1-49v5-1d2oxt5 950ce">10.5-12 .9</td><td ID="Observatio t-Qpdboubw-1a8 np263-048m-959 7-83z4-6l2eaa3 950ce">H</td>< td ID="Observatio j-Nngvbf-8k9jf 162-881d-3951- 83i0-0f8rak014 0ce">Final</td > INR 5.01 0.90-1.11 Above <td ID="Hrnsqvztfwd-Preb-d4y9hr32i0l1fs60-6mn3-126l-5muh-7f9421e87l57">(405) INR</td><td SIG[facility]ARE upper ID="Oaxhjgvraez-Qproa-h7g2ma05m5r3om86-2ro2-593a-0mxd-7u4818h94l28">5.01</td><td ([employer] panic ID="Lctbbrnggib-Juwh-j8a8 pw53-5wx9-286u-5wye-8b3207t07q00"></td><td [place] limits ID="Wtyaqamljyu-EdrYxhvk-m4i9xm78i1o3vi98-6rl4-967c-1rqu-5n3420h28j05">0.90-1.11</td><td Rehabilitation ID="Observation-Abnormal- d6q8je12-3ax4-678f-8vvu-6g8946h58l37">HH</td><td & Nursing ID="Observation -Zpmzke-p1r5cv81-6hn8i0v3vs66-4ni9-892h-1tul-5p8579m67i28">Correction</td> Center) Type: Lab, Date: 11/11/2018 01:20 PM, User: N/ACONFIRMED BYREPEAT TESTINGPLEASE NOTE NEW REFERENCE RANGE2.0-3.0: FOR JOSIE ATMENT OF VENOUS THROMBOSIS,PULMONARY EMBOLISM,SYTEMIC EMBOLISM,TISSUE HEART V ALVE,ACUTE MYOCARDIAL INFARCTION AND ATRIAL FIB.2.5-3.5: FOR RECURRENT EMBOLISM, MEC HANICAL HEART VALVES AND ANTIPHOSPHOLIPID ANTIBODIES.Performed at: A ID Date Data Source 140 11/08/2018 05:32:00 AM EDT SIGMACARE ([facility]) Name Value Range Interpretation Description Data Source(s ) Supporting Code Document(s ) SED RATE 42MM 0-22 Above high normal <td SIGMACARE ID="Observation ([facility] ls -Test-nw26mif0- Rehabilitation & v24z-215j-eo6c- Nursing Center ) 468t5w227fsn">( 140) SED RATE</td><td ID="Observation -Value-ku29zci2 -j44t-541r-fd9f -611j2m507gry"> 42</td><td ID="Observation -Unit-kd24eiw9- z48i-929a-lu2b- 630g6r263bva">M M</td><td ID="Observation -RefRange-ab99e xa7-s99x-962n-a e7e-062h0q628dj d">0-22</td><td ID="Observation -Abnormal-ab99e qc5-o29m-389n-a x9q-633e6d394ej d">H</td><td ID="Observation -Status-ph58sfe 5-y51g-451zh66e-033c-uz7 f-574u9r191aog" >Final</td> ID Date Data Source 100 11/08/2018 03:22:00 AM EDT SIGMACARE ([facility]) Name Value Range Interpretation Description Data Source(s ) Supporting Code Document(s ) WBC 4.50614 4.1-10. <td [facility] 0/MM3 9 ID="Observati ([facility] cx-Vtpo-37052 Rehabilitation & [id number]-[id number]-[id number] [facility] [place]) -[id number] 85d34">(110) WBC</td><td ID="Observati wr-Xafgr-0100 [id number]-y7zd-698 5-zh22-855w66 185d34">4.80< /td><td ID="Observati ur-Thdq-36333 302-k1ge-5092 -qb04-982m096 85d34">1000/M M3</td><td ID="Observati qt-GhbXyqxp-1 [id number]- 1204-lf48-776 [id number]">4. 1-10.9</td><t d ID="Observati in-Dwmbfpah-1 [id number]-s0cl- 5299-vk68-225 [id number]"></ td><td ID="Observati cz-Vxhtuc-602 39312-s3vo-32 43-rp88-059o3 2359p38">Delia l</td> RBC 3.49MIL 4.00-6. Below low normal <td [facility] /MM3 10 ID="Observati ([facility] gh-Mdzr-nkwnq Rehabilitation & 1ia-5zbm-55b2 [facility] [place]) -25n7-xx50x80 a24f0">(111) RBC</td><td ID="Observati ib-Jfvak-gxsg i5ok-2kbt-73c 9-78a2-jj74a3 7a24f0">3.49< /td><td ID="Observati ay-Lkhu-ymflo 3re-9xxt-14o8 -70v6-sa09p59 a24f0">MIL/MM 3</td><td ID="Observati zc-IwgLfhxi-i dtqs9oh-1sif- 74p0-77h3-tx9 1m63f59e0">4. 00-6.10</td>< td ID="Observati zc-Rvlrqndx-q dmtc4kn-1wpg- 86w7-91e5-jn8 4b53b46t6">L< /td><td ID="Observati nw-Uvqiek-lhx xu8rr-0toq-23 w3-43i8-ew91f 02h78e0">Delia l</td> HEMOGLOBIN 9.79G/D 12.0-15 Below low normal <td [facility] L .5 ID="Observati ([facility] az-Mhnr-w608e Rehabilitation & py2-xv23-326y [facility] [place]) -9667-76chhv1 1fe31">(113) HEMOGLOBIN</t d><td ID="Observati el-Lkume-j251 ynb9-bh57-856 s-8903-61ixuq 51fe31">9.79< /td><td ID="Observati og-Ablt-f934q dz6-zj64-877b -9667-63ceco5 1fe31">G/DL</ td><td ID="Observati ix-MeyMdfgu-k 681xhr8-lz12- 941a-7915-87z wpq28va65">12 .0-15.5</td>< td ID="Observati xx-Ktdnzuvx-m 757yza2-os86- 813y-5997-21m zjb34bg95">L< /td><td ID="Observati qd-Racuur-t96 3ibp4-ln00-37 3m-2825-68wqq y13eh55">Delia l</td> HEMATOCRIT 30.5% 36-46 Below low normal <td [facility] ID="Observati ([facility] sr-Ljos-993m9 Rehabilitation & 784-252r-334q [facility] [place]) -m5a7-77an66f ea63c">(114) HEMATOCRIT</t d><td ID="Observati en-Dxzhy-568x 3952-999i-363 q-f4r8-14wl77 aea63c">30.5< /td><td ID="Observati wb-Vkus-468c6 708-432j-930b -u7w9-61xa98l ea63c">%</td> <td ID="Observati hc-NfnZxuaq-0 22q7642-339s- 995u-v4t6-35g z65uzt05z">36 -46</td><td ID="Observati hd-Ouitslds-8 18y4725-268u- 714d-s6r7-49h p55tid15f">L< /td><td ID="Observati xk-Nobwpf-782 m8174-172r-73 3q-a3o5-74kq5 3pnc31r">Delia l</td> MCV 87.4FL 80-97 <td [facility] ID="Observati ([facility] au-Pqmq-4316i Rehabilitation & l40-22wm-6532 [facility] [place]) -p184-l5jocq7 42ea8">(115) MCV</td><td ID="Observati sk-Qgvyg-3509 fr30-15oi-990 4-s460-s4gzer 442ea8">87.4< /td><td ID="Observati ud-Qexr-3058n q61-58cg-5408 -x349-s8jwyk4 42ea8">FL</td ><td ID="Observati iz-XpjCtpiv-8 349sm63-19kn- 5431-o842-e8v kez109av7">80 -97</td><td ID="Observati em-Qtlizveb-1 772kp34-38kt- 4530-e370-b8q byd342wp1"></ td><td ID="Observati hy-Sntjzc-537 2jz33-45vg-57 05-x873-v9kcm x806bz8">Delia l</td> MCH 28.0PG 26-32 <td [facility] ID="Observati ([facility] jb-Hzzn-25sz3 Rehabilitation & 0i7-qk7f-4xr1 Nursing Center) -992e-q19pml6 d1c78">(116) MCH</td><td ID="Observati cp-Ydpve-61vo 45i9-uf2f-7im 6-673t-x40mok 5d1c78">28.0< /td><td ID="Observati ko-Gjhm-93ww3 1m6-dl2o-3fs2 -992e-b49yyb2 d1c78">PG</td ><td ID="Observati rs-JaaYfqsv-1 9nj41w5-ou6g- 6id9-883w-y30 tmy5i8b76">26 -32</td><td ID="Observati zc-Rahuhchc-0 3el98d8-co9s- 2ly5-206r-d99 sub9p2y31"></ td><td ID="Observati cy-Quiskr-50e j08w4-dn4t-7e y4-754g-x37uz t6o0w69">Delia l</td> MCHC 32.1G/D 31-36 <td [facility] L ID="Observati ([facility] ob-Scqs-62595 Rehabilitation & wsr-655a-825q [facility] [place]) -70e8-5vns1g9 c23e7">(117) MCHC</td><td ID="Observati dv-Ziaym-5319 3cmh-410h-739 c-81m1-4coi5y 3c23e7">32.1< /td><td ID="Observati jg-Codb-46856 oyu-489m-045w -19r6-0roi1v3 c23e7">G/DL</ td><td ID="Observati mf-DwyInmvm-8 8719bbd-545e- 780d-97r0-5rg s7e4c46r8">31 -36</td><td ID="Observati dc-Ekknchbk-1 8719bbd-545e- 892t-99k1-7mn g8b5e44s3"></ td><td ID="Observati tf-Bbmtlx-881 98exx-854g-27 4w-65v2-8axp9 a4o84x9">Delia l</td> RDW 20.1% 11.5-16 Above high <td [facility] .5 normal ID="Observati ([facility] oi-Odtw-54yt9 Rehabilitation & 95s-2448-3693 [facility] [place]) -p52k-1nn6549 a1fcf">(118) RDW</td><td ID="Observati vt-Ulqgy-76al 454n-5233-849 7-r69o-5eo433 8a1fcf">20.1< /td><td ID="Observati yc-Msku-01hc2 23a-8062-5180 -m58q-2tc9502 a1fcf">%</td> <td ID="Observati vk-NkeWzejl-6 9wj834f-1304- 8451-v49s-1na 1027t7syn">11 .5-16.5</td>< td ID="Observati tk-Stteociz-3 2ks452v-5843- 7954-s93a-2xg 6889l3sfs">H< /td><td ID="Observati ya-Zoccgp-50j w503r-8830-13 94-k44t-4bv59 75l6vps">Delia l</td> PLATELET 572Q383 140-440 <td [facility] COUNT 0/MM3 ID="Observati ([facility] zp-Xmbj-9869k Rehabilitation & 11o-962n-85j4 [facility] [place]) -st6m-9v20731 c7243">(119) PLATELET COUNT</td><td ID="Observati ix-Tdpqv-7656 k94w-858n-25m 5-sz7a-8e5328 3q4688">221</ td><td ID="Observati mf-Xirp-9845v 73u-457e-22h9 -os4u-9d95660 c7243">X1000/ MM3</td><td ID="Observati yf-RtnLuulh-9 595p98x-987l- 21z7-fu6n-7d7 4726o9729">14 0-440</td><td ID="Observati wd-Ovfjsghe-5 596y01w-622x- 75y5-lo5w-8c8 5679i2762"></ td><td ID="Observati xo-Qpcprt-527 2i61n-795z-66 e0-pi1m-0p809 17p9268">Delia l</td> NEUTROPHILS 63.0% 37-80 <td [facility] ID="Observati ([facility] up-Pfsw-91x1p Rehabilitation & i87-930p-94l1 [facility] [place]) -3wk9-hm9kz6h 51ff6">(120) NEUTROPHILS</ td><td ID="Observati oo-Ovtgy-06k0 hs63-125p-14p 2-9wd6-bz9rd6 d51ff6">63.0< /td><td ID="Observati qf-Vzsj-01x8a p43-428f-28y9 -3lb8-em2ru4c 51ff6">%</td> <td ID="Observati wz-DqgHopno-2 4s8mx14-270i- 44q1-6rm3-ww5 qv2z04qx3">37 -80</td><td ID="Observati uc-Nhmgomvk-3 4g5jw75-165z- 81u7-7lc5-ee0 zd9t68iz5"></ td><td ID="Observati in-Eehvcn-55y 2ak30-283f-21 r2-3bp5-uk9kx 9r55wr1">Delia l</td> LYMPHOCYTES 22.4% 10-50 <td [facility] ID="Observati ([facility] br-Squs-oym50 Rehabilitation & i88-2659-1nx8 [facility] [place]) -x022-632741x d5373">(121) LYMPHOCYTES</ td><td ID="Observati jc-Bzoqn-bsi9 8k18-4122-9pf 0-v912-790356 sb9097">22.4< /td><td ID="Observati tg-Nhfz-sic42 x37-4864-3et7 -u561-132307w d5373">%</td> <td ID="Observati dg-YuuXuozf-s vi70m84-3775- 1qg2-j238-454 742qh7115">10 -50</td><td ID="Observati wf-Kmogzfwk-v fe81o09-9023- 4lr7-p404-048 466uo3199"></ td><td ID="Observati ni-Egfefq-eac 21b32-6906-9z y6-g627-21727 5qj2811">Delia l</td> MONOCYTES 11.6% 1-12 <td [facility] ID="Observati ([facility] bm-Kqat-tx8u8 Rehabilitation & 015-dyv9-0m2l [facility] [place]) -e4a4-384714h 84621">(122) MONOCYTES</td ><td ID="Observati hq-Xjdst-pv9l 4729-rxr5-4t4 i-v1i8-794595 y57541">11.6< /td><td ID="Observati sj-Czqc-cm1n9 626-yab8-6p0u -b8p2-089276y 91101">%</td> <td ID="Observati ch-VtuWfbjb-o s3z5461-blr1- 7z2d-i4x6-178 961m43356">1- 12</td><td ID="Observati rh-Qgdfwcbk-l j0o0167-idh6- 3d1h-d1f1-310 691c87385"></ td><td ID="Observati eu-Vvxwur-en5 d2223-peh8-6n 2q-b2y9-30633 4u33727">Delia l</td> EOSINOPHILS 2.6% 0-5 <td [facility] ID="Observati ([facility] cg-Sgor-371h2 Rehabilitation & fz3-01i7-4u1b [facility] [place]) -b564-7ete7h3 00b">(123) EOSINOPHILS</ td><td ID="Observati gf-Rcvtf-393e 2xu9-99w9-4w5 j-v182-8fkw5s 000b">2.6</ td><td ID="Observati ry-Xnze-511b5 cz2-60j4-6z5r -d140-3rnk5a2 ">%</td> <td ID="Observati aw-KacNutjj-2 12o3jt1-72z2- 1s4t-e575-9au j5u767g54">0- 5</td><td ID="Observati et-Gcqilqzr-8 11r9ra0-10p1- 9o3l-e913-7zh z2r711q73"></ td><td ID="Observati gr-Hmjuxu-575 m4aa5-10b8-3o 0z-k908-8qou0 p800e35">Delia l</td> BASOPHILS 0.4% 0-2 <td [facility] ID="Observati ([facility] qf-Mvwq-52e98 Rehabilitation & 4ft-849a-8631 [facility] [place]) -w127-2kz1gyl 84daf">(124) BASOPHILS</td ><td ID="Observati ee-Gjcga-34m6 90in-054b-676 7-h570-8jr1px a84daf">0.4</ td><td ID="Observati zf-Hpws-54h33 4up-322v-9218 -j360-9jo6qtr 84daf">%</td> <td ID="Observati ky-MhdRxaiy-2 5z601xo-796a- 4429-y958-5mn 5uoc14ban">0- 2</td><td ID="Observati rv-Inkbfkfg-0 7k624uq-848x- 3829-k284-8ur 0ecu27viy"></ td><td ID="Observati br-Faiatf-72a 044ps-271i-63 40-p241-3xo0i dh66gtm">Delia l</td> ABS 3030CEL 1999- <td [facility] NEUTROPHILS LS/MM3 00 ID="Observati ([facility] ly-Btnb-f2357 Rehabilitation & 982-91a9-0vj0 Nursing Center) -87i1-0nt3647 0ee93">(181) ABS NEUTROPHILS</ td><td ID="Observati cd-Asukr-m173 3457-41h3-1bn 0-28a7-5dt859 50ee93">3030< /td><td ID="Observati uj-Jyaf-u4969 044-28y6-5is3 -51q8-3nu1576 0ee">CELLS/ MM3</td><td ID="Observati sx-HnvVpszl-n 8211382-15k8- 4sr7-82j7-4ks 09445lx38">20 00-7800</td>< td ID="Observati lz-Yyqymdsl-g 8229971-57k9- 3ke6-38m2-0pg 87126uj79"></ td><td ID="Observati ba-Rdeodm-v60 68091-92d5-4f r2-38s7-6rh98 652eb46">Delia l</td> ID Date Data Source 400 11/04/2018 02:42:00 AM EDT [facility] ([facility] [place]) Name Value Range Interpretation Description Data Source(s ) Supporting Code Document(s ) PROTIME 33.8SEC 10.5-12. Above high normal <td [facility] 9 ID="Observatio ([facility] d-Biav-8512k97 Rehabilitation & 0-y998-1h41p573-1r30-u9 Nursing Center) c1-a2z21z449g4 5">(205) PROTIME</td><t d ID="Observatio m-Omvrj-6625o4 01-e545-0g33-a 4e9-u4x40k533m 05">33.8</td>< td ID="Observatio g-Eoxa-8252u49 2-x368-4d18i290-2z02-d9 c1-o6b88u479k3 5">SEC</td><td ID="Observatio j-QcnQznxb-595 7n322-l847-5k6 1-j3p2-e2u12g6 15c05">10.5-12 .9</td><td ID="Observatio d-Hknglguq-093 5g818-t586-9u5 7-r8a6-n3d52w7 15c05">H</td>< td ID="Observatio f-Fttobl-4430s 286-o716-1d65- z9n2-p2d65e303 c05">Final</td > INR 2.96 0.90-1.11 Above <td ID="Zjdfyvwoyfg-Saqn-104xn30g514jf08l-74tm-9w6h-pj8d-56564cv4kk34">(405) INR</td><td [facility] high ID="Observation -Lvftu-196fp82v-27ua148vs41g-71oh-3b4a-um6w-52060on3to25">2.96</td><td ([employer] normal ID="Bctebkduewp-Epvz-965c f87c-55dc-2n0u-qw3s-39429bo8aj54"></td><td [place] ID="Hqggojyenwz-IwoRsccx-366on86l952gl37w-45ok-7t0j-aa3d-10717ft3em48">0.90-1.11</td><td Rehabilitation ID="Observation-Abnormal- 393ab74m-14tn-8d0s-ob8d-40613ay4bs91">H</td><td & Nursing ID="Dmqqiqworbj-Zzqnes-84 6ge60j-48ex-6h1f-ww4y-68541it4dk66">Final</td> Center) Type: Lab, Date: 11/04/2018 01:56 PM, User: N/APLEASE NOTE NEW REFERENCE RANGE2.0-3.0: FOR TREATMENT OF VENOUS THROMBOSIS,PULMONARY EMBOLISM,SYTEMIC ID Date Data Source 400 10/28/2018 03:12:00 AM EDT [facility] ([facility]) Name Value Range Interpretation Description Data Source(s ) Supporting Code Document(s ) PROTIME 25.3SEC 10.5-12. Above high normal <td [facility] 9 ID="Observatio ([facility] v-Romb-229g300 Rehabilitation & 5-39r1-43p552x4-99p4-p6 Nursing Center) 05-70e047z1n53 c">(205) PROTIME</td><t d ID="Observatio l-Hjxhg-036c87 82-41q4-04n4-a 605-29d575t3b4 6c">25.3</td>< td ID="Observatio n-Kulp-666b206 4-27f2-44k208y7-43y7-i5 05-88k917e0k41 c">SEC</td><td ID="Observatio e-ZgeJigeq-964 x4100-48d2-96o 8-h338-82q960e 0f26c">10.5-12 .9</td><td ID="Observatio i-Pbyxniwa-040 d5827-39n5-17m 0-n311-31b642u 0f26c">H</td>< td ID="Observatio e-Oalfzt-488o0 260-99k4-45a7- i854-84o767m5c 26c">Final</td > INR 2.22 0.90-1.11 Above <td ID="Tcniyazykhc-Zxax-79h3s07e36c4d99a-0jf3-7p19-y154-o02a64p68004">(405) INR</td><td [facility] high ID="Observation -Mtvbs-55k5s81a-8lz474t5n54i-2nk3-7u57-y933-l10d02r62318">2.22</td><td ([employer] normal ID="Icumxhaylqb-Krwd-15f3 i23a-7rg7-9c01-l669-o02d52f23539"></td><td [place] ID="Wobjpugdmtf-YgxYtlns-04r7e65g70h3k00e-8su0-6q96-s356-g18d61e83531">0.90-1.11</td><td Rehabilitation ID="Observation-Abnormal- 45i7f33t-4as5-6f45-n714-i32b85t96896">H</td><td & Nursing ID="Svenippwjnk-Zykfhs-17 b9n40n-9up7-5z47-r085-b70a31z90015">Final</td> Center) Type: Lab, Date: 10/28/2018 12:31 PM, User: N/APLEASE NOTE NEW REFERENCE RANGE2.0-3.0: FOR TREATMENT OF VENOUS THROMBOSIS,PULMONARY EMBOLISM,SYTEMIC ID Date Data Source 400 10/24/2018 03:13:00 AM EDT [facility] ([facility] [place] [facility] [place]) Name Value Range Interpretation Description Data Source(s ) Supporting Code Document(s ) PROTIME 18.2SEC 10.5-12. Above high normal <td [facility] 9 ID="Observatio ([facility] r-Bubi-2j3d698 Rehabilitation & j-95wk-5v50-a1 [facility] [place]) 28-k3in8np49e2 1">(205) PROTIME</td><t d ID="Observatio w-Vbxcj-7z9z52 6m-12be-0v68-a 128-p8dz6gq18t 41">18.2</td>< td ID="Observatio z-Pmjx-8i5h597 y-90tw-4c21-a1 28-r5rm5qw29z1 1">SEC</td><td ID="Observatio g-AwcVkumo-1g2 c928f-58ef-3h7 4-b030-u8ck3kr 12f41">10.5-12 .9</td><td ID="Observatio d-Sqjmzbky-1c0 s189t-03zo-7a8 5-o766-n8qh3js 12f41">H</td>< td ID="Observatio x-Embqym-7a9r9 21s-08hm-7l34- z424-z3nv0vz00 f41">Final</td > INR 1.60 0.90-1.11 Above <td ID="Jnpzusacilb-Rmjc-c053794vh726909n-eced-8bn7-m785-0556zog32857">(405) INR</td><td [facility] high ID="Observation -Uwwwo-e176544p-bnatu992661j-ebjv-0ro8-i919-7768aqv12274">1.60</td><td ([employer] normal ID="Azqxijyzcjh-Scvh-f353 169b-zaks-1ti88cn4-z093-0045ozw96284"></td><td [place] ID="Coumkdlqdjp-TpdAjavu-z154487au323447u-ewpt-8hg7-w948-1841emb28961">0.90-1.11</td><td Rehabilitation ID="Observation-Abnormal- m287127k-rojx-1su4-m766-0104bvp60339">H</td><td & Nursing ID="Hoqhnvtubpb-Ewgwcc-j8 88577x-amkh-7qn8-q276-4311bde75761">Final</td> Center) Type: Lab, Date: 10/24/2018 12:46 PM, User: N/APLEASE NOTE NEW REFERENCE RANGE2.0-3.0: FOR TREATMENT OF VENOUS THROMBOSIS,PULMONARY EMBOLISM,SYTEMIC ID Date Data Source 100 10/24/2018 03:13:00 AM EDT [facility] ([facility] & [facility] [place]) Name Value Range Interpretation Description Data Source(s ) Supporting Code Document(s ) WBC 5.91966 4.1-10. <td [facility] 0/MM3 9 ID="Observati ([facility] wl-Amcz-79v8q Rehabilitation & 585-8587-3qt5 [facility] [place]) -acd0-62vm682 6fede">(110) WBC</td><td ID="Observati gl-Mynhs-12d1 x121-0658-4uh 0-ykg9-77jh35 26fede">5.18< /td><td ID="Observati xn-Bbwq-54b4a 747-6939-1en2 -acd0-74xl077 6fede">1000/M M3</td><td ID="Observati fb-OjuFmyst-0 4t0g727-6729- 2op0-tim0-60x h2283kczt">4. 1-10.9</td><t d ID="Observati ew-Bngjiodl-1 3h3c908-7866- 6lm7-vtp8-96x a8655glvf"></ td><td ID="Observati lr-Xhqgua-04e 5k137-5465-8n x5-guh3-39bx6 426fede">Delia l</td> RBC 4.29MIL 4.00-6. <td [facility] /MM3 10 ID="Observati ([facility] wc-Ycin-07y3b Rehabilitation & 924-k896-06z8 Nursing Center) -9440-5il1b91 93049">(111) RBC</td><td ID="Observati df-Oysnv-33y6 y108-n437-12o 9-9825-2uv3t9 741757">4.29< /td><td ID="Observati gr-Zzop-39i7k 916-l996-59v8 -9440-3cq7f59 13836">MIL/MM 3</td><td ID="Observati ts-ExgVckle-8 0o0n917-k760- 40e5-4831-2dy 7c5323497">4. 00-6.10</td>< td ID="Observati wa-Jswhmfwq-5 4c8t688-v169- 26f8-4199-3py 0u4178413"></ td><td ID="Observati os-Ncuhhv-10f 2h117-q999-71 i1-8726-3om6a 0964658">Delia l</td> HEMOGLOBIN 11.3G/D 12.0-15 Below low normal <td [facility] L .5 ID="Observati ([facility] ob-Cgvq-2u8q6 Rehabilitation & esa-v22t-8h07 [facility] [place]) -9817-qx18v12 3919c">(113) HEMOGLOBIN</t d><td ID="Observati tt-Idefj-9g9o 5day-d61c-4s8 9-9274-eg99k3 97186y">11.3< /td><td ID="Observati wy-Qtnv-1v5a2 pqa-n68l-8m03 -9817-es84v94 3919c">G/DL</ td><td ID="Observati vu-XmbRcdni-7 v9k3qzg-v97t- 6r73-8298-mf3 7x043497x">12 .0-15.5</td>< td ID="Observati qs-Cbawrukj-9 i5g9lce-r27y- 9w91-9935-rt5 4s118557x">L< /td><td ID="Observati kz-Leegnj-4e6 n8pog-t90c-6j 93-0747-qa24i 557215t">Delia l</td> HEMATOCRIT 35.4% 36-46 Below low normal <td [facility] ID="Observati ([facility] dd-Efyk-0v7f0 Rehabilitation & ih4-23jh-2gy7 [facility] [place]) -2s67-0876h22 4eeea">(114) HEMATOCRIT</t d><td ID="Observati ny-Rrhpi-1l1f 1km9-68nk-4zm 9-2w34-9834p8 04eeea">35.4< /td><td ID="Observati zu-Jxzs-8z2h8 im3-93dq-7wl8 -9k29-9270m32 4eeea">%</td> <td ID="Observati sk-ErsOpbzs-7 u1q7fk3-34bl- 5wl6-2j92-738 5n677bwfz">36 -46</td><td ID="Observati iw-Tymphkbo-3 j1r3pm1-46wh- 8va0-2e62-824 7d603xdev">L< /td><td ID="Observati xw-Jxwkoi-9t9 x2bf0-55fa-1z j3-8z74-7013j 904eeea">Delia l</td> MCV 82.6FL 80-97 <td [facility] ID="Observati ([facility] cf-Rytd-19x3d Rehabilitation & 026-2837-835a Nursing [place]) -q0k5-nf6icd9 af872">(115) MCV</td><td ID="Observati pp-Xjolz-20e6 q060-4695-613 c-y9y8-od5xql 0vs571">82.6< /td><td ID="Observati oi-Nqtz-89c7t 179-9005-585r -n7c3-gg4vey0 af872">FL</td ><td ID="Observati cs-HnuCmspa-4 5a5k991-2839- 339e-p5s9-pj9 sql1kv968">80 -97</td><td ID="Observati al-Aiwkwyhw-9 1d7q972-0346- 371x-p7e8-le0 hmk8rb635"></ td><td ID="Observati ro-Ovlkzn-11y 2m900-4410-21 4m-m2o0-sm6ok q9ze102">Delia l</td> MCH 26.3PG 26-32 <td [facility] ID="Observati ([facility] fa-Fjyt-4m6v2 Rehabilitation & n15-7803-54e3 [facility] [place]) -8402-v72in46 f69e7">(116) MCH</td><td ID="Observati bd-Wftek-8f2m 8r08-3630-56n 9-6450-f09vd3 1f69e7">26.3< /td><td ID="Observati qz-Zmfi-0z5n7 x73-5693-30h7 -8402-h46wr69 f69e7">PG</td ><td ID="Observati zt-XhwSyxph-4 o9r5t86-1291- 64a1-5924-k22 xa70o93w3">26 -32</td><td ID="Observati we-Maipffxo-0 n1f3s41-8868- 06y8-0165-y58 nk76c38r1"></ td><td ID="Observati ds-Oowxdm-8c7 f7s98-6981-95 k5-0261-z68oy 11o72e0">Delia l</td> MCHC 31.9G/D 31-36 <td [facility] L ID="Observati ([facility] ms-Yeou-6p865 Rehabilitation & 87i-o003-53wb [facility] [place]) -8761-fyx97v2 2ee39">(117) MCHC</td><td ID="Observati cz-Dyrsm-5j76 173j-z304-23f r-3922-cfy90d 52ee39">31.9< /td><td ID="Observati eq-Lyxa-7w758 11r-k314-53sy -8761-csm82z9 2ee39">G/DL</ td><td ID="Observati oj-RylGocen-9 o26985n-f613- 03gb-6746-ccq 39y56ud72">31 -36</td><td ID="Observati qq-Dkzchspo-8 p84255w-y921- 49kh-5904-hur 16d53iw06"></ td><td ID="Observati is-Tvulbw-9z6 5498f-k755-35 nw-8286-hox69 g72gx93">Delia l</td> RDW 21.4% 11.5-16 Above high <td [facility] .5 normal ID="Observati ([facility] hp-Hgpj-f14ob Rehabilitation & kbj-6gd1-9ehi [facility]) -8096-d20683n cc856">(118) RDW</td><td ID="Observati ms-Ddkht-r54b kcou-8ce7-5vb i-0531-r08876 apn774">21.4< /td><td ID="Observati oz-Puvk-u06vx mbe-0vr8-2doh -8096-w15725z cc856">%</td> <td ID="Observati ml-YarPemee-v 88fbaee-3ed5- 9jrm-9109-a96 710tdr405">11 .5-16.5</td>< td ID="Observati kc-Etfrhvio-h 88fbaee-3ed5- 2hpq-1986-v39 318ing229">H< /td><td ID="Observati io-Aevsdj-z85 ahfjo-1nc3-0m mc-8929-r0905 8kkk806">Delia l</td> PLATELET 504B274 140-440 <td [facility] COUNT 0/MM3 ID="Observati ([facility] lz-Uipi-z0ai6 Rehabilitation & 25l-5356-525u [facility]) -r28c-507vx8n fb34c">(119) PLATELET COUNT</td><td ID="Observati io-Swsas-q4tq 463k-7392-803 x-c80f-994hn4 cfb34c">235</ td><td ID="Observati fo-Nogu-f7op0 49u-4875-059k -l66z-375im7m fb34c">X1000/ MM3</td><td ID="Observati kf-SjkJzkbx-o 5ew558l-1478- 405p-e92e-785 ms6hpp09o">14 0-440</td><td ID="Observati eu-Skpkozsl-n 8fd656t-0140- 557n-d38f-563 on5skx53z"></ td><td ID="Observati sm-Wwixit-f0k h683x-9872-08 0e-n69y-660zb 8snk22q">Delia l</td> NEUTROPHILS 55.2% 37-80 <td [facility] ID="Observati ([facility] eb-Zbsj-iigs0 Rehabilitation & 578-jb10-2u39 [facility] [place]) -k1tp-otkn19g 77195">(120) NEUTROPHILS</ td><td ID="Observati yk-Ukvak-eneu 5774-wd54-2m8 3-d5ua-qmis46 y88773">55.2< /td><td ID="Observati ey-Jzpv-qghc2 265-xm03-8n50 -a2hk-aief82r 89234">%</td> <td ID="Observati rf-WqzOmkdw-r qbs3889-dm09- 3v25-q3ys-bdw q30l37939">37 -80</td><td ID="Observati mf-Dgtodkkj-i szp4723-hp51- 5v01-w2ws-jmw n10p49344"></ td><td ID="Observati kj-Roxlvy-mqx d7573-zs49-4x 69-x5yz-kkjw3 0u48486">Delia l</td> LYMPHOCYTES 27.5% 10-50 <td [facility] ID="Observati ([facility] vk-Rrue-27f27 Rehabilitation & 030-4759-7h04 [facility] [place]) -s7ob-s9mp3s1 52ad0">(121) LYMPHOCYTES</ td><td ID="Observati se-Iflke-31q1 1662-9863-0f0 3-b6fv-t1rs3l 552ad0">27.5< /td><td ID="Observati ha-Mmbt-55e97 269-3385-0e63 -y3or-v4da7p0 52ad0">%</td> <td ID="Observati cr-KysSumvk-3 5m19580-6532- 3x61-l8zh-n4j i7o396wu5">10 -50</td><td ID="Observati wo-Klalarpy-6 0b83299-5000- 0t12-l4oj-a0i y1f525ue5"></ td><td ID="Observati xz-Czxpae-26b [address]-2x 53-z9pg-r4de5 v273ry7">Delia l</td> MONOCYTES 12.1% 1-12 Above high <td [facility] normal ID="Observati ([facility] bx-Lnrn-503k9 Rehabilitation & si5-r444-05go [facility] [place]) -s412-0b46gwb 23e14">(122) MONOCYTES</td ><td ID="Observati lg-Zwosg-985l 2yp3-q617-39r j-q562-5e31rq a23e14">12.1< /td><td ID="Observati hk-Jxiq-627t3 yr6-w977-13mo -a244-8o52ugo 23e14">%</td> <td ID="Observati pc-FioVelwv-4 21k3ct2-r809- 18ho-h261-3g8 4iwy58p84">1- 12</td><td ID="Observati mo-Qunvxvlr-7 27c7rn7-z108- 22oy-y189-5x1 0ekd61y45">H< /td><td ID="Observati by-Gbrrlu-921 a1gz5-o766-46 we-i898-2x30a jx85y32">Delia l</td> EOSINOPHILS 4.4% 0-5 <td [facility] ID="Observati ([facility] il-Jxlr-5p030 Rehabilitation & 51p-l882-9d0q [facility] [place]) -r23l-n50021z ff9f8">(123) EOSINOPHILS</ td><td ID="Observati pk-Wysmg-8a59 500m-y546-8m2 v-i55o-z99439 dff9f8">4.4</ td><td ID="Observati lu-Zssb-8g824 60o-j050-9d1x -l35q-d13877h ff9f8">%</td> <td ID="Observati wd-TwtQhbbj-0 l99685p-t936- 1c4r-p31f-m40 001fhf4o8">0- 5</td><td ID="Observati tf-Wpfurqqu-2 k60254f-z417- 5f5g-h18u-r31 463ssw7h5"></ td><td ID="Observati tr-Fpwpyd-3u7 2994e-x498-2v 1u-e36y-s4842 3dnd3z7">Delia l</td> BASOPHILS 0.8% 0-2 <td [facility] ID="Observati ([facility] tf-Jtwn-52j11 Rehabilitation & 2d1-zm44-61q3 [facility] [place]) -z203-wq55o65 0c95a">(124) BASOPHILS</td ><td ID="Observati jj-Vfdji-63o4 02b1-kt78-92s 2-f466-dy99v3 80c95a">0.8</ td><td ID="Observati hb-Evex-10n04 9z9-wd29-65b5 -l774-rm99e73 0c95a">%</td> <td ID="Observati rh-FmqHlxuy-6 6w961e7-vd68- 20k2-z442-hm6 6f299x07w">0- 2</td><td ID="Observati yo-Uidlxgnr-0 2l656u4-wb85- 95g7-m068-vf5 2f305c40p"></ td><td ID="Observati sx-Iandol-87e 569e8-ie38-95 f9-z758-gn58o 080k17h">Delia l</td> ABS 2860CEL 2000-78 <td [facility] NEUTROPHILS LS/MM3 00 ID="Observati ([facility] wl-Vtab-n40h4 Rehabilitation & 92u-c587-050b Nursing Center) -868e-efw7d4z b8dd5">(181) ABS NEUTROPHILS</ td><td ID="Observati gh-Tqfiv-v47i 074s-t804-159 m-396w-sjf4o5 fb8dd5">2860< /td><td ID="Observati zb-Xmhe-b84v5 77z-v717-311c -868e-hld9z1i b8dd5">CELLS/ MM3</td><td ID="Observati ia-ItoDtjgr-t 66t178w-k305- 598x-788o-xvh 6a7mg7ih7">20 00-7800</td>< td ID="Observati kr-Eoulrarg-t 34u523r-n122- 254r-918h-akx 1e6cn0ht5"></ td><td ID="Observati af-Jycpjr-q89 a268b-k566-35 8g-567d-vtz8h 7ev1an7">Delia l</td> ID Date Data Source 380 10/24/2018 03:02:00 AM EDT [facility] ([facility] & [facility] [place]) Name Value Range Interpretation Description Data Source(s ) Supporting Code Document(s ) GLUCOSE 84MG/DL 70-99 <td [facility] ID="Observati ([facility] pm-Llyw-916a0 Rehabilitation & m27-3rb2-34z9 Nursing Center) -7g50-fg14z27 baf18">(301) GLUCOSE</td>< td ID="Observati mx-Jimvg-785k 9k75-9ld1-72g 3-3m97-gq86m5 9baf18">84</t d><td ID="Observati wq-Wmrf-698q7 f79-5sc6-74d9 -5a98-ja97l06 baf18">MG/DL< /td><td ID="Observati zy-ZwnYnmkk-3 29w6r88-6tb5- 94m9-2v91-nf5 1r02fiu68">70 -99</td><td ID="Observati sx-Mzjjjlin-8 72p6c12-7oc6- 31e2-7e51-it1 0h17tyo12"></ td><td ID="Observati ky-Dxeapl-490 f1f65-8yx7-68 l8-7s42-zl90d 41clj43">Delia l</td> BLOOD UREA 20MG/DL 8-20 <td [facility] NITR ID="Observati ([facility] dl-Lzlf-se746 Rehabilitation & d03-78o1-8111 [facility] [place]) -9364-m1873u8 55fa1">(302) BLOOD UREA NITR</td><td ID="Observati xj-Ezwtx-rc16 3d86-42c0-775 0-6416-q0090y 355fa1">20</t d><td ID="Observati mz-Psqk-hw320 z64-49k9-0148 -9364-y4739z2 55fa1">MG/DL< /td><td ID="Observati hl-PooFqanz-l l144t51-15l5- 4427-7995-p28 32d642ij4">8- 20</td><td ID="Observati hs-Aqvzpftx-a w354e19-64m4- 6248-2696-v34 57z445vu8"></ td><td ID="Observati xm-Rywjnl-cl9 40p01-61h7-32 21-5525-k0509 m328cu9">Delia l</td> CREATININE 0.66MG/ 0.44-1. <td [facility] DL 03 ID="Observati ([facility] [facility] wp-Axou-3w835 Rehabilitation & f7v-33y4-45k0 [facility]) -895e-51q1c1y ffc40">(311) CREATININE</t d><td ID="Observati xy-Nqmez-9h42 4q5x-36d7-73y 1-841l-64w9p8 cffc40">0.66< /td><td ID="Observati ys-Tckf-9a680 o5x-93b3-81m7 -895e-27b1d4n ffc40">MG/DL< /td><td ID="Observati tw-NwgMchkl-9 d434x3w-45v4- 99q1-325c-26j 1e8fuoq46">0. 44-1.03</td>< td ID="Observati vb-Rslpueyc-8 o314c9d-51d1- 23p8-989g-49k 2c2ostq72"></ td><td ID="Observati cf-Rrlysd-8o7 73b2r-68y0-87 z4-198o-30i6p 5qcpx62">Delia l</td> GFR >60mL/m 60-100 <td [facility] in ID="Observati ([facility] kc-Wbmf-y5340 Rehabilitation & sb8-vq83-0h3n [facility] [place]) -a857-2c60v46 f8472">(412) GFR</td><td ID="Observati pr-Mmfoa-s306 2gs4-mf03-8w1 v-m296-9x97y6 3a5491">>60</ td><td ID="Observati vd-Avrb-s3570 hj3-kj50-7f7x -p868-6l06f84 f8472">mL/min </td><td ID="Observati hf-OqsEbwgq-p 2856nj5-qn36- 5l2s-r291-6e0 5a83d0309">60 -100</td><td ID="Observati jm-Qcvjchmw-s 8098dy3-ul13- 6e1r-n681-5i4 3c94j5429"></ td><td ID="Observati ml-Cxwqpr-y79 62gt9-zk69-1w 5w-k967-3k47r 19s2521">Delia l</td> GFR - AA >60mL/m 60-100 <td [facility] in ID="Observati ([facility] vq-Cpus-a5798 Rehabilitation & zgm-p488-6eh1 [facility] [place]) -m337-ute66t3 6d6fb">(411) GFR - AA</td><td ID="Observati pt-Tljcq-e556 4uza-i174-2wu 5-b569-jzu61c 96d6fb">>60</ td><td ID="Observati xc-Okbd-t5606 wjb-q225-9db9 -s052-xvp78r8 6d6fb">mL/min </td><td ID="Observati pc-VzcCtznn-e 0559edc-e560- 7nh3-l920-yop 81f08v6bd">60 -100</td><td ID="Observati yw-Tmogmyyg-y 0559edc-e560- 1jm4-n729-msu 94a28c2av"></ td><td ID="Observati wn-Ysebve-l63 61gmz-y033-3e u6-s005-twt40 y61r6ug">Delia l</td> SODIUM 139MMOL 136-144 <td [facility] /L ID="Observati ([facility] uo-Baxp-n6887 Rehabilitation & 695-0148-4vw2 [facility] [place]) -9461-2w4g9u8 5703a">(307) SODIUM</td><t d ID="Observati sk-Qlwpw-p702 6013-0997-0re 7-2574-9z1w1k 64956j">139</ td><td ID="Observati dm-Ckli-i8775 144-1067-4vi3 -9461-2t1v3v2 5703a">MMOL/L </td><td ID="Observati uy-HpfJjeeh-x 7295967-1754- 9jm1-9059-0g7 m1p69226n">13 6-144</td><td ID="Observati qn-Lmqcpcru-g 2211290-7941- 5wc9-1681-0j8 e0q92942q"></ td><td ID="Observati xc-Obtzpy-v58 16863-9261-3d r5-8107-9x2y9 t04466c">Delia l</td> POTASSIUM 4.4MMOL 3.6-5.1 <td [facility] /L ID="Observati ([facility] zb-Biao-83v06 Rehabilitation & xzs-h006-7647 [facility] [place]) -l4n5-5j069m4 57db3">(308) POTASSIUM</td ><td ID="Observati rj-Csgbe-45p2 9ltg-j318-696 3-y2i8-7d020h 157db3">4.4</ td><td ID="Observati pm-Sozc-91k32 ipa-f774-0295 -m1q8-0l324p5 57db3">MMOL/L </td><td ID="Observati tq-RuqRtkjs-7 1p19dap-o183- 4014-f0a5-6y4 24p440ry3">3. 6-5.1</td><td ID="Observati as-Uudxpevk-5 2g36rnk-v377- 3255-a0v7-6v2 63j789vm6"></ td><td ID="Observati ic-Lzkcqo-25k 52kmv-v801-74 65-c1v3-9o037 y217ap9">Delia l</td> CHLORIDE 103MMOL 101-111 <td [facility] /L ID="Observati ([facility] np-Olps-0ahp1 Rehabilitation & s6b-5280-2h52 [facility] [place]) -20k4-a381u43 fa7fc">(309) CHLORIDE</td> <td ID="Observati qn-Wcvjq-1toa 2a8e-8996-9j6 5-44a2-m542e5 8fa7fc">103</ td><td ID="Observati uo-Snhr-4vnz0 j2h-8815-1j27 -92q6-w687o99 fa7fc">MMOL/L </td><td ID="Observati ci-JnxEfzzq-5 xnx7n9z-5770- 9k07-38r5-d66 3u92ys1jh">10 1-111</td><td ID="Observati ga-Lzlwuphv-2 ymc2o8e-6745- 6c95-66p8-g38 2i89qk7ud"></ td><td ID="Observati gp-Tqbwvy-8qf b5w8u-0231-0p 65-34j3-f084y 47qr6lp">Delia l</td> TOTAL CO2 26MEQ/L 23-29 <td [facility] ID="Observati ([facility] tj-Cuxz-f2z84 Rehabilitation & 941-219z-52r2 [facility] [place]) -81bb-5p8b603 941f0">(310) TOTAL CO2</td><td ID="Observati cl-Vjtyv-l0m5 6042-462n-14e 9-14cg-4i0x47 4941f0">26</t d><td ID="Observati mq-Kcfp-u6d20 139-995v-63z0 -81bb-1y3n071 941f0">MEQ/L< /td><td ID="Observati nr-NasJzzxx-j 8e33459-963x- 42s2-22ko-2e7 j587109c2">23 -29</td><td ID="Observati sz-Xjgcxqej-p 8q89448-088f- 56k1-54jo-8x6 d063549v7"></ td><td ID="Observati wq-Rrgnnc-l9o 20823-664a-02 m3-42lq-8h5c1 56273n4">Delia l</td> TOTAL PROTEIN 5.6G/DL 6.1-7.9 Below low normal <td [facility] ID="Observati ([facility] hk-Mfww-0pt4g Rehabilitation & p94-n8o4-39r7 Nursing Center) -9756-1n7mh59 ade8d">(315) TOTAL PROTEIN</td>< td ID="Observati hu-Ukgwq-1vo2 mq10-b9w7-43k 2-2136-8w2ld5 9ade8d">5.6</ td><td ID="Observati uz-Lnph-9ux0m m16-x0u2-98t6 -9756-0v3co46 ade8d">G/DL</ td><td ID="Observati hi-NafXvvhq-3 rm7ak17-w2y2- 41r1-9776-3r8 hd27kyz3f">6. 1-7.9</td><td ID="Observati tq-Elupcteh-5 bj7ee93-c7e0- 33k2-9075-8g6 ui69qjq1d">L< /td><td ID="Observati rc-Wzcdud-5ha 4zs08-u8l7-08 n4-0866-9m2ee 41ogf7f">Delia l</td> ALBUMIN 3.1G/DL 3.5-4.8 Below low normal <td [facility] ID="Observati ([facility] zg-Fpjo-2t053 Rehabilitation & 2fb-101n-167t [facility] [place]) -9cbb-mf812en b80c1">(303) ALBUMIN</td>< td ID="Observati us-Mkvbk-3s84 74ec-704e-400 h-7grk-ua640c bb80c1">3.1</ td><td ID="Observati qs-Stxw-8q197 9lc-121e-824e -9cbb-dw991nm b80c1">G/DL</ td><td ID="Observati nd-DkrDgvlw-4 t7199rv-440y- 790q-6tie-xu7 59olh85j6">3. 5-4.8</td><td ID="Observati qa-Ezieposx-4 y8766nu-535j- 735p-1ujb-sl4 22oxx70c5">L< /td><td ID="Observati vt-Pbdsue-5i1 809bp-748o-47 8w-5jyy-ke976 edl12x3">Delia l</td> AST 23U/L 15-41 <td [facility] ID="Observati ([facility] in-Zzss-o9566 Rehabilitation & 94r-9mu6-5149 [facility] [place]) -w5u4-8k82quf dc7d4">(314) AST</td><td ID="Observati py-Fzxzk-b877 360e-0ds8-206 1-h2x9-9j81yx adc7d4">23</t d><td ID="Observati tp-Wsnz-o0697 87d-4tn8-0851 -a3g1-5o81wch dc7d4">U/L</t d><td ID="Observati lj-QsrHyyfh-l 114088r-9kd2- 4776-f7u5-4v7 7kzsnq5i0">15 -41</td><td ID="Observati oh-Appjhknd-e 402267r-2nt7- 1604-o0k0-1z7 7jupsr1d0"></ td><td ID="Observati wt-Rircwl-s30 2409p-0pk5-64 47-c4t8-8o09w cukf1n5">Delia l</td> ALK PHOS 67U/L 32-91 <td [facility] ID="Observati ([facility] wy-Zadx-5c0il Rehabilitation & 4ay-70cb-46l6 Nursing Center) -na5x-0tj61k4 aa9e1">(304) ALK PHOS</td><td ID="Observati qc-Jaqof-1c6k g2do-91te-32y 7-qx9t-5wd26f 7aa9e1">67</t d><td ID="Observati zj-Mvyc-1r6ru 6ij-71no-72q7 -uc1n-8he48l2 aa9e1">U/L</t d><td ID="Observati ys-TuaBfeoa-1 w5oq3vx-77sm- 64g7-ea7d-2zd 39y8td2i9">32 -91</td><td ID="Observati rt-Orxvtipc-8 z7tb8ms-69os- 35i1-zz8m-9ey 89w9fv4l7"></ td><td ID="Observati la-Lnspqt-0k0 am4yl-68sw-88 d8-pc6u-5gz30 h5la6e5">Delia l</td> ALT 21U/L 14-54 <td [facility] ID="Observati ([facility] ga-Svhs-e9085 Rehabilitation & 659[facility]70[facility]ub[facility]) -2i42-04210n3 c49c1">(305) ALT</td><td ID="Observati yv-Vqpro-f923 2361-0981-14q e-2d71-44170x 2c49c1">21</t d><td ID="Observati fn-Szhi-t6951 209-4873-75xs -6a00-21380z8 c49c1">U/L</t d><td ID="Observati fp-MmsVihqj-r 5842089-7307- 36ev-0a28-117 60v4a46n5">14 -54</td><td ID="Observati st-Dcuhzysr-m 3714433-1428- 19uo-9v14-065 04n4n48m1"></ td><td ID="Observati qc-Cuskys-n97 [address]-03 gk-3f72-12817 n7b82e8">Delia l</td> CALCIUM 9.4MG/D 8.9-10. <td [facility] L 3 ID="Observati ([facility] de-Bizm-13ma4 Rehabilitation & 46f-343x-16z1 [facility] [place]) -8uw8-xl814p0 55e37">(306) CALCIUM</td>< td ID="Observati fv-Krtog-98qj 628r-247b-42v 1-4xx5-qi466q 855e37">9.4</ td><td ID="Observati vg-Jtfv-75eo3 52f-861x-71c6 -6rm5-bo974k0 55e37">MG/DL< /td><td ID="Observati fe-VuaKzxfp-9 9sr075n-997i- 55x2-5vn3-qm5 10z678u09">8. 9-10.3</td><t d ID="Observati yd-Vbkazgjw-6 2bu630a-001e- 81l6-1hv3-jo5 22x506w47"></ td><td ID="Observati iq-Nkpgny-07i t830r-423x-52 b9-1wd9-oz991 l040n14">Delia l</td> TOTAL BILI 1.6MG/D 0.3-1.2 Above high <td [facility] L normal ID="Observati ([facility] zq-Kmzc-64m87 Rehabilitation & 782-36t0-5381 [facility] [place]) -99aa-9287f78 27da7">(316) TOTAL BILI</td><td ID="Observati vg-Iquqr-39i9 0823-65m1-004 5-58vu-1936y7 427da7">1.6</ td><td ID="Observati ru-Wqkr-61y05 743-11v9-0119 -99aa-4464d91 27da7">MG/DL< /td><td ID="Observati aj-BifPxhll-6 1g44393-70r9- 2975-67ju-448 1m9768dy1">0. 3-1.2</td><td ID="Observati fr-Vrjbwdfv-6 6p78117-23i7- 6849-35la-426 4f9493rk5">H< /td><td ID="Observati yo-Siapth-31d 00251-72s4-95 22-71vf-7268s 5277ut7">Delia l</td> Procedure Vital Signs ID Date Data Source [id number] 11/18/2018 12:28:40 PM EDT [facility] ([facility]) Name Value Range Interpretation Code Description Data Source(s) PULSE 60 bpm 60 bpm [facility] PAIN LEVEL 0 0 [facility] ([facility]) DIASTOLIC BLOOD 50 mmHg 50 mmHg [facility] ([employer] [facility] [place] [facility]) SYSTOLIC BLOOD 109 mmHg 109 mmHg [facility] ([employer] [facility] [place] [facility]) PAIN LEVEL 0 0 [facility] [place] [facility] PULSE 63 bpm 63 bpm [facility] ([facility] [place] [facility]) PAIN LEVEL 4 4 [facility] [place] [facility] DIASTOLIC BLOOD 62 mmHg 62 mmHg [facility] ([employer] [facility] [place] [facility]) SYSTOLIC BLOOD 120 mmHg 120 mmHg [facility] ([employer] [facility] [place] [facility]) WEIGHT 101.2 lbs 101.2 lbs [facility] ([facility] [place] [facility]) PULSE 58 bpm 58 bpm [facility] ([facility] [place] [facility]) PAIN LEVEL 0 0 [facility] ([facility] [place] [facility]) DIASTOLIC BLOOD 78 mmHg 78 mmHg [facility] ([facility] [place] [facility]) SYSTOLIC BLOOD 140 mmHg 140 mmHg [facility] ([facility] [facility] [place] [facility]) PAIN LEVEL 0 0 [facility] ([facility] [place] [facility]) DIASTOLIC BLOOD 71 mmHg 71 mmHg [facility] ([facility] [facility] [place] [facility]) SYSTOLIC BLOOD 105 mmHg 105 mmHg [facility] ([facility] [facility] [place] [facility]) PAIN LEVEL 0 0 [facility] ([facility] [place] [facility]) PULSE 73 bpm 73 bpm [facility] ([facility] [place] [facility]) DIASTOLIC BLOOD 65 mmHg 65 mmHg [facility] ([facility] [facility] [place] [facility]) SYSTOLIC BLOOD 115 mmHg 115 mmHg [facility] ([facility] [facility] [place] [facility]) PAIN LEVEL 0 0 [facility] ([facility] [place] [facility]) WEIGHT 100.2 lbs 100.2 lbs [facility] ([facility] [place] [facility]) PAIN LEVEL 0 0 [facility] ([facility] [place] [facility]) TEMPERATURE 97.9 F 97.9 F [facility] [place] [facility] PULSE 67 bpm 67 bpm [facility] [place] [facility]) PAIN LEVEL 0 0 [facility] [place] [facility]) DIASTOLIC BLOOD 54 mmHg 54 mmHg [facility] ([facility] [place] [facility]) SYSTOLIC BLOOD 107 mmHg 107 mmHg [facility] ([facility] [place] [facility]) PAIN LEVEL 0 0 [facility] [place] [facility]) WEIGHT 103.6 lbs 103.6 lbs [facility] [place] [facility]) DIASTOLIC BLOOD 56 mmHg 56 mmHg [facility] ([facility] [place] [facility]) SYSTOLIC BLOOD 126 mmHg 126 mmHg [facility] ([facility] [place] [facility]) PULSE 55 bpm 55 bpm [facility] [place] [facility] PAIN LEVEL 0 0 [facility] [place] [facility]) DIASTOLIC BLOOD 77 mmHg 77 mmHg [facility] ([facility] [place] [facility]) SYSTOLIC BLOOD 135 mmHg 135 mmHg [facility] ([facility] [place] [facility]) PULSE 65 bpm 65 bpm [facility] [place] [facility]) PAIN LEVEL 2 2 [facility] ([facility] [place] [facility]) PAIN LEVEL 0 0 [facility] [place] [facility]) HEIGHT 56 in 56 in [facility] ([facility] [place] [facility]) WEIGHT 104.4 lbs 104.4 lbs [facility] ([facility] [place] [facility]) DIASTOLIC BLOOD 61 mmHg 61 mmHg [facility] ([facility] [place] [facility]) SYSTOLIC BLOOD 123 mmHg 123 mmHg [facility] ([facility] [place] [facility])
[2020-01-07] MEDS ORDERED: ACETAMINOPHEN 325 MG TABLET (FP) ONE (14:48)
[2020-01-07] MEDS: ACETAMINOPHEN 325 MG TABLET (FP) PO PRN ×2 (14:51→22:25)
--- NOTE | 2020-01-07 19:53 | EKG ---
Test Reason : Blood Pressure : / mmHG Vent. Rate : 052 BPM Atrial Rate : 208 BPM P-R Int : 000 ms QRS Dur : 106 ms QT Int : 486 ms P-R-T Axes : 111 046 -60 degrees QTc Int : 451 ms ATRIAL FLUTTER WITH VARIABLE A-V BLOCK RSR' OR QR PATTERN IN V1 SUGGESTS RIGHT VENTRICULAR CONDUCTION DELAY ABNORMAL ECG WHEN COMPARED WITH ECG OF 07-JAN-2020 05:53, T WAVE VARIATION Confirmed by EDVIN CARBALLO MD ([id number]) on 01/07/2020 7:53:00 PM Referred By: Confirmed By:EDVIN CARBALLO MD
--- NOTE | 2020-01-07 19:53 | EKG ---
Test Reason : Blood Pressure : / mmHG Vent. Rate : 052 BPM Atrial Rate : 208 BPM P-R Int : 000 ms QRS Dur : 106 ms QT Int : 472 ms P-R-T Axes : 000 048 -65 degrees QTc Int : 438 ms ATRIAL FLUTTER WITH VARIABLE A-V BLOCK NONSPECIFIC ST AND T WAVE ABNORMALITY ABNORMAL ECG WHEN COMPARED WITH ECG OF 19-OCT-2018 11:29, ATRIAL FLUTTER HAS REPLACED SINUS RHYTHM Confirmed by HARIS WINTERS, EDVIN ([id number]) on 01/07/2020 7:53:24 PM Referred By: Confirmed By:EDVIN CARBALLO MD
[2020-01-07] MEDS ORDERED: PT OWN MED DRAWER 7, Y5N ONE (20:27)
[2020-01-07] MEDS: CARVEDILOL 6.25 MG TABLET (FP) PO SCH (21:46)
[2020-01-07] MEDS: ATORVASTATIN CA 40 MG TABLET (FP) PO SCH (21:47)
[2020-01-07] MEDS: CALCIUM 500MG/VIT-D 200 UNITS COMBO TABLET (FP) PO SCH (21:47)
[2020-01-07] MEDS: CARBIDOPA/LEVODOPA 10/100 TABLET (FP) PO SCH (21:47)
[2020-01-07] MEDS ORDERED: LIDOCAINE PATCH REMOVAL MC SCH (22:00)
[2020-01-07] MEDS: LIDOCAINE PATCH REMOVAL MC SCH (22:19)
[2020-01-08] MEDS: ACETAMINOPHEN 325 MG TABLET (FP) PO PRN ×3 (05:53→21:57)
[2020-01-08] MEDS: CALCIUM 500MG/VIT-D 200 UNITS COMBO TABLET (FP) PO SCH ×3 (05:53→21:56)
[2020-01-08] MEDS: CARBIDOPA/LEVODOPA 10/100 TABLET (FP) PO SCH ×3 (05:53→21:57)
[2020-01-08 06:50] LABS: BASO % 0.4 % (0-2.0); EOS % 0.1 % (0-4.5); HEMATOCRIT 36.7 % (32.4-45.2); HEMOGLOBIN 12.1 GM/dL (10.7-15.3); LYMPH % 9.6 % (8-40); MCH 32.2 pg (25.7-33.7); MCHC 33.1 g/dl (32.0-36.0); MEAN CELL VOLUME 97.4 fl (80-96); MEAN PLT VOLUME 8.2 fl (7.5-11.1); MONO % 14.6 % (3.8-10.2); NEUT % 75.3 % (42.8-82.8); PLATELET COUNT 177 K/MM3 (134-434); RBC 3.76 M/mm3 (3.60-5.2); RDW 15.6 % (11.6-15.6); WHITE BLOOD COUNT 8.4 K/mm3 (4.0-10.0)
[2020-01-08 07:22] LABS: ALBUMIN 3.3 g/dl (3.4-5.0); BILIRUBIN,TOTAL 1.6 mg/dL (0.2-1); BLOOD UREA NITROGEN 17.7 mg/dL (7-18); CALCIUM 8.7 mg/dL (8.5-10.1); CREATININE 0.6 mg/dL (0.55-1.3); POTASSIUM 3.9 mmol/L (3.5-5.1)
--- NOTE | 2020-01-08 08:28 | HP ---
Admitting History and Physical - Primary Care Physician PCP: Ish Shultz - Admission Chief Complaint: SEVERE CHEST AND NECK PAIN History Source: Medical Record Limitations to Obtaining History: Clinical Condition - Past Medical History Cardiovascular: Yes: AFIB, CAD, HTN, Hyperlipdemia ...: No Musculoskeletal: Yes: Chronic low back pain Rheumatology: Yes: Other - Past Surgical History Past Surgical History: Yes: CABG, Joint Replacement (hip), Valve Replacement - Smoking History Smoking history: Unknown if ever smoked Have you smoked in the past 12 months: No Aproximately how many cigarettes per day: 0 - Alcohol/Substance Use Hx Alcohol Use: No Home Medications - Allergies Allergies/Adverse Reactions: Allergies Allergy/AdvReac Type Severity Reaction Status Date / Time codeine [Codeine] Allergy Mild sick Verified 10/18/18 09:21 NSAIDS (Non-Steroidal AdvReac Verified 10/18/18 09:21 Anti-Inflamma - Home Medications Home Medications: Ambulatory Orders Aspirin [ASA -] 81 mg PO DAILY #0 tab.chew 02/27/12 Potassium Chloride [K-Dur -] 10 meq PO DAILY #0 tablet.er 02/27/12 Calcium Carb/Vit D3/Minerals [Calcium 600 + D Tablet] 1 each PO TID 02/12/13 Omega3/Dha/Epa/Fish Oil/Vit D3 [Udchr-1-Dura Oil-Vit D3 Sftgl] 1 each PO DAILY 02/12/13 Nitroglycerin [Nitrostat] 0.4 mg SL PRN 08/22/13 Isosorbide Mononitrate [Imdur] 60 mg PO DAILY 09/30/14 Carvedilol [Coreg -] 6.25 mg PO BID tablet 09/19/15 Cholecalciferol (Vitamin D3) [Vitamin D3 -] 1,000 unit PO DAILY tab 09/19/15 Furosemide [Lasix -] 40 mg PO DAILY tablet 09/19/15 Carbidopa/Levodopa [Carbidopa-Levodopa 10-100 Tab] 1 each PO TID 03/25/17 Losartan Potassium 100 mg PO DAILY 02/16/18 Acetaminophen [Tylenol .Regular Strength -] 650 mg PO Q6H PRN tablet 02/18/18 Lidocaine 5% Patch [Lidoderm -] 1 patch TP DAILY patch 10/21/18 Atorvastatin Ca [Lipitor] 40 mg PO HS 01/07/20 Rivaroxaban [Xarelto] 20 mg PO DAILY 01/07/20 Review of Systems - Review of Systems Constitutional: reports: Weakness Neck: reports: Tenderness Cardiovascular: reports: Chest Pain Respiratory: reports: SOB Gastrointestinal: reports: Abdominal Pain Musculoskeletal: reports: Back Pain, Extremity Pain, Joint Pain, Muscle Pain, Muscle Cramps, Muscle Weakness Integumentary: reports: Rash Neurological: reports: Confusion, Pre-Existing Deficit, Other Physical Examination Vital Signs: Vital Signs Temperature 98.9 F 01/08/20 06:00 Pulse Rate 53 L 01/08/20 06:00 Respiratory Rate 20 01/08/20 06:00 Blood Pressure 155/73 01/08/20 06:00 O2 Sat by Pulse Oximetry (%) 96 01/08/20 06:00 Constitutional: Yes: Moderate Distress Cardiovascular: Yes: Pulse Irregular Respiratory: Yes: Diminished Gastrointestinal: Yes: Soft Musculoskeletal: Yes: Back Pain, Joint Stiffness, Muscle Pain, Muscle Weakness Extremities: Yes: Deformity Integumentary: Yes: Other Neurological: Yes: Confusion, Unsteady Gait, Weakness Psychiatric: Yes: Other Labs: CBC, BMP 01/08/20 06:17 01/08/20 06:17 Problem List - Problems (1) Acute electrocardiogram changes Code(s): R94.31 - ABNORMAL ELECTROCARDIOGRAM [ECG] [EKG] (3) Hx of CABG Code(s): Z95.1 - PRESENCE OF AORTOCORONARY BYPASS GRAFT (4) Neck pain Code(s): M54.2 - CERVICALGIA (5) Afib Code(s): I48.91 - UNSPECIFIED ATRIAL FIBRILLATION Qualifiers: (6) Ambulatory dysfunction Code(s): R26.2 - DIFFICULTY IN WALKING, NOT ELSEWHERE CLASSIFIED (7) HTN (hypertension) Code(s): I10 - ESSENTIAL (PRIMARY) HYPERTENSION Qualifiers: Hypertension type: essential hypertension Qualified Code(s): I10 - Essential (primary) hypertension (8) Hyperlipidemia Code(s): E78.5 - HYPERLIPIDEMIA, UNSPECIFIED Qualifiers: Hyperlipidemia type: pure hypercholesterolemia Qualified Code(s): E78.00 - Pure hypercholesterolemia, unspecified; E78.0 - Pure hypercholesterolemia (9) Inability to ambulate due to multiple joints Code(s): R26.2 - DIFFICULTY IN WALKING, NOT ELSEWHERE CLASSIFIED (10) Left shoulder pain Code(s): M25.512 - PAIN IN LEFT SHOULDER Qualifiers: Chronicity: chronic Qualified Code(s): M25.512 - Pain in left shoulder; G 89.29 - Other chronic pain (11) Low back pain Code(s): M54.5 - LOW BACK PAIN Qualifiers: Chronicity: chronic Back pain laterality: unspecified Sciatica presence: without sciatica Qualified Code(s): M54.5 - Low back pain (12) S/P CABG (coronary artery bypass graft) Code(s): Z95.1 - PRESENCE OF AORTOCORONARY BYPASS GRAFT Assessment/Plan CARDIAC EVAL ON TELEMETRY CHECKING TROPONINS ORTHOPEDIC EVAL PAIN PATCH LIDODERM OVERALL MEDICAL CONDITION IS POOR WOULD NOT HAVE AGGRESSIVE INTERVENTIONS ITH H/O OF CABG,CAD,DEMENTIA. CONSERVATIVE THERAPY
[2020-01-08] MEDS: POTASSIUM CHLORIDE TABS 10 MEQ TABLET.ER (FP) PO SCH (10:12)
[2020-01-08] MEDS: ASPIRIN 81 MG CHEWABLE TABLETS PO SCH (10:12)
[2020-01-08] MEDS: FUROSEMIDE 40 MG TABLET (FP) PO SCH (10:12)
[2020-01-08] MEDS: ISOSORBIDE MONONITRATE 30 MG TAB.SR.24H (FP) PO SCH (10:12)
[2020-01-08] MEDS: CARVEDILOL 6.25 MG TABLET (FP) PO SCH ×3 (10:12→21:56)
[2020-01-08] MEDS: RIVAROXABAN 20 MG TABLET PO SCH (10:12)
[2020-01-08] MEDS: LOSARTAN POTASSIUM 50 MG TABLET PO SCH (10:13)
[2020-01-08] MEDS: LIDOCAINE 5% TOPICAL PATCH TP SCH (10:13)
--- NOTE | 2020-01-08 10:48 | CON.CARD ---
Consult Consult Specialty:: Cardiology Referred by:: An Pack MD Reason for Consultation:: Cardiac evaluation - History of Present Illness Chief Complaint: Neck pain radiating to right shoulder and arm History of Present Illness: Patient is an 89 year old female well known to our service (sees Dr. 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 She denies chest pain or SOB. She denies palpitations. Denies PND or orthopnea. She denies fever or chills. She denies nausea, vomiting, diarrhea or abdominal pain. She denies headache or lightheadedness. 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: Dementia, Parkinson's Cardio/Vascular: Yes: AFIB, Aortic Stenosis, CAD, HTN, Hyperlipdemia, Mitral Insufficiency, Pulmonary Hypertension Gastrointestinal: Yes: GERD Musculoskeletal: Yes: Chronic low back pain - Past Surgical History Past Surgical History: Yes: CABG, Joint Replacement (hip), Valve Replacement (Mitral and tricuspid valve repair) - Alcohol/Substance Use Hx Alcohol Use: No - Smoking History Smoking history: Never smoked Have you smoked in the past 12 months: No Aproximately how many cigarettes per day: 0 Home Medications - Allergies Allergies/Adverse Reactions: Allergies Allergy/AdvReac Type Severity Reaction Status Date / Time codeine [Codeine] Allergy Mild sick Verified 10/18/18 09:21 NSAIDS (Non-Steroidal AdvReac Verified 10/18/18 09:21 Anti-Inflamma - Home Medications Home Medications: Ambulatory Orders Aspirin [ASA -] 81 mg PO DAILY #0 tab.chew 02/27/12 Potassium Chloride [K-Dur -] 10 meq PO DAILY #0 tablet.er 02/27/12 Calcium Carb/Vit D3/Minerals [Calcium 600 + D Tablet] 1 each PO TID 02/12/13 Omega3/Dha/Epa/Fish Oil/Vit D3 [Wrysc-3-Wqxh Oil-Vit D3 Sftgl] 1 each PO DAILY 02/12/13 Nitroglycerin [Nitrostat] 0.4 mg SL PRN 08/22/13 Isosorbide Mononitrate [Imdur] 60 mg PO DAILY 09/30/14 Carvedilol [Coreg -] 6.25 mg PO BID tablet 09/19/15 Cholecalciferol (Vitamin D3) [Vitamin D3 -] 1,000 unit PO DAILY tab 09/19/15 Furosemide [Lasix -] 40 mg PO DAILY tablet 09/19/15 Carbidopa/Levodopa [Carbidopa-Levodopa 10-100 Tab] 1 each PO TID 03/25/17 Losartan Potassium 100 mg PO DAILY 02/16/18 Acetaminophen [Tylenol .Regular Strength -] 650 mg PO Q6H PRN tablet 02/18/18 Lidocaine 5% Patch [Lidoderm -] 1 patch TP DAILY patch 10/21/18 Atorvastatin Ca [Lipitor] 40 mg PO HS 01/07/20 Rivaroxaban [Xarelto] 20 mg PO DAILY 01/07/20 Family Medical History Other Family History: CAD Review of Systems - Review of Systems Constitutional: denies: Chills, Fever Cardiovascular: denies: Chest Pain, Palpitations, Shortness of Breath Respiratory: denies: Cough, Hemoptysis, Orthopnea, PND, SOB, SOB on Exertion Gastrointestinal: denies: Abdominal Pain, Constipation, Diarrhea, Melena, Nausea, Rectal Bleeding, Vomiting Musculoskeletal: reports: Extremity Pain, Joint Pain. denies: Back Pain Neurological: denies: Dizziness, Headache, Seizure, Syncope Vital Signs: Vital Signs Temperature 98 F 01/08/20 09:00 Pulse Rate 58 L 01/08/20 09:00 Respiratory Rate 18 01/08/20 09:00 Blood Pressure 132/68 01/08/20 09:00 O2 Sat by Pulse Oximetry (%) 98 01/08/20 09:00 Neck: Yes: Supple Respiratory: Yes: Diminished Gastrointestinal: Yes: Normal Bowel Sounds, Soft. No: Tenderness Cardiovascular: Yes: Pulse Irregular JVD: No PMI: Non-Displaced Heart Sounds: Yes: S1, S2 Murmur: Yes: Systolic Murmur, Grade 2 Edema: No - Other Data Labs, Other Data: CBC, BMP 01/08/20 06:17 01/08/20 06:17 INR, PTT INR 2.15 (0.83-1.09) H 01/07/20 06:13 Troponin, BNP 01/07/20 01/08/20 19:36 06:17 Troponin I 0.03 0.03 Laboratory Results - last 24 hr 01/07/20 01/08/20 01/08/20 19:36 06:17 06:17 WBC 8.4 RBC 3.76 Hgb 12.1 Hct 36.7 MCV 97.4 H MCH 32.2 MCHC 33.1 RDW 15.6 Plt Count 177 MPV 8.2 Absolute Neuts (auto) 6.3 Neutrophils % 75.3 Lymphocytes % 9.6 Monocytes % 14.6 H D Eosinophils % 0.1 Basophils % 0.4 Nucleated RBC % 0 Sodium 136 Potassium 3.9 Chloride 103 Carbon Dioxide 26 Anion Gap 7 L BUN 17.7 Creatinine 0.6 Est GFR (CKD-EPI)AfAm 93.66 Est GFR (CKD-EPI)NonAf 80.81 Random Glucose 99 Calcium 8.7 Magnesium 2.0 Total Bilirubin 1.6 H AST 119 H ALT 87 H Alkaline Phosphatase 107 Creatine Kinase 34 33 Troponin I 0.03 0.03 Total Protein 6.0 L Albumin 3.3 L Atrial flutter Imaging - Results Chest X-ray: Report Reviewed Cat Scan: Report Reviewed (Chest CT bilateral interstitial thickening Cervical CT noted) EKG: Report Reviewed Problem List - Problems (1) Neck pain Code(s): M54.2 - CERVICALGIA (2) Afib Code(s): I48.91 - UNSPECIFIED ATRIAL FIBRILLATION Qualifiers: (3) Hx of CABG Code(s): Z95.1 - PRESENCE OF AORTOCORONARY BYPASS GRAFT (5) Coronary artery disease Code(s): I25.10 - ATHSCL HEART DISEASE OF [place] CORONARY ARTERY W/O ANG PCTRS Qualifiers: Coronary Disease-Associated Artery/Lesion type: [place] artery [place] vs. transplanted heart: [place] heart Associated angina: without angina Qualified Code(s): I25.10 - Atherosclerotic heart disease of [place] coronary artery without angina pectoris (6) HTN (hypertension) Code(s): I10 - ESSENTIAL (PRIMARY) HYPERTENSION Qualifiers: Hypertension type: essential hypertension Qualified Code(s): I10 - Essential (primary) hypertension (7) Hyperlipidemia Code(s): E78.5 - HYPERLIPIDEMIA, UNSPECIFIED Qualifiers: Hyperlipidemia type: pure hypercholesterolemia Qualified Code(s): E78.00 - Pure hypercholesterolemia, unspecified; E78.0 - Pure hypercholesterolemia (8) S/P CABG (coronary artery bypass graft) Code(s): Z95.1 - PRESENCE OF AORTOCORONARY BYPASS GRAFT (9) S/P mitral valve repair Code(s): Z98.890 - OTHER SPECIFIED POSTPROCEDURAL STATES Assessment/Plan 1. Neck and shoulder pain ?musculoskeletal likely due to DJD 2. CAD s/p CABG, angina pectoris 3. Mitral and tricuspid valve disease s/p MV and TV repair 4. Diastolic LV dysfunction with chronic 1-2 NYHA classification heart failure 5. Persistent atrial flutter/atrial fibrillation [id number] score of 6 on DOAC/Xarelto 6. HTN 7. Hypercholesterolemia 8. Aortic valve stenosis 9. Elevated hemoglobin A1C 10. Degenerative joint disease PLAN: 1. Orthopedic input to follow 2. Pain management 3. Continue Carvedilol 6.25 mg BID and Losartan 100 mg QD 4. Continue Xarelto 20 mg QD 5. Atorvastatin 40 mg QHS 6. Furosemide 40 mg QD Further plans are to follow Melecio Laguna MD
--- NOTE | 2020-01-08 11:00 | CON.ORTH ---
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 Cardio/Vascular: Yes: AFIB, Aortic Stenosis, CAD, HTN, Hyperlipdemia, Mitral Insufficiency, Pulmonary Hypertension Gastrointestinal: Yes: GERD ...: No Musculoskeletal: Yes: Chronic low back pain Rheumatology: Yes: Other - Past Surgical History Past Surgical History: Yes: CABG, Joint Replacement (hip), Valve Replacement (Mitral and tricuspid valve repair) - Alcohol/Substance Use Hx Alcohol Use: No - Smoking History Smoking history: Never smoked Have you smoked in the past 12 months: No Aproximately how many cigarettes per day: 0 Home Medications - Allergies Allergies/Adverse Reactions: Allergies Allergy/AdvReac Type Severity Reaction Status Date / Time codeine [Codeine] Allergy Mild sick Verified 10/18/18 09:21 NSAIDS (Non-Steroidal AdvReac Verified 10/18/18 09:21 Anti-Inflamma - Home Medications Home Medications: Ambulatory Orders Aspirin [ASA -] 81 mg PO DAILY #0 tab.chew 02/27/12 Potassium Chloride [K-Dur -] 10 meq PO DAILY #0 tablet.er 02/27/12 Calcium Carb/Vit D3/Minerals [Calcium 600 + D Tablet] 1 each PO TID 02/12/13 Omega3/Dha/Epa/Fish Oil/Vit D3 [Bhnop-6-Smyp Oil-Vit D3 Sftgl] 1 each PO DAILY 02/12/13 Nitroglycerin [Nitrostat] 0.4 mg SL PRN 08/22/13 Isosorbide Mononitrate [Imdur] 60 mg PO DAILY 09/30/14 Carvedilol [Coreg -] 6.25 mg PO BID tablet 09/19/15 Cholecalciferol (Vitamin D3) [Vitamin D3 -] 1,000 unit PO DAILY tab 09/19/15 Furosemide [Lasix -] 40 mg PO DAILY tablet 09/19/15 Carbidopa/Levodopa [Carbidopa-Levodopa 10-100 Tab] 1 each PO TID 03/25/17 Losartan Potassium 100 mg PO DAILY 02/16/18 Acetaminophen [Tylenol .Regular Strength -] 650 mg PO Q6H PRN tablet 02/18/18 Lidocaine 5% Patch [Lidoderm -] 1 patch TP DAILY patch 10/21/18 Atorvastatin Ca [Lipitor] 40 mg PO HS 01/07/20 Rivaroxaban [Xarelto] 20 mg PO DAILY 01/07/20 Family Medical History Other Family History: CAD Physical Exam for Ortho Vital Signs: Vital Signs Temperature 98 F 01/08/20 09:00 Pulse Rate 58 L 01/08/20 09:00 Respiratory Rate 18 01/08/20 09:00 Blood Pressure 132/68 01/08/20 09:00 O2 Sat by Pulse Oximetry (%) 98 01/08/20 09:00 Neck: Yes: Decreased ROM, Tenderness Labs: CBC, BMP 01/08/20 06:17 01/08/20 06:17 INR, PTT INR 2.15 (0.83-1.09) H 01/07/20 06:13 - Upper Extremity Shoulder: Yes: Right, Limited ROM, Pain, Other (+ ttp, limited active ROM, PROM ff 50, ER 10, nvi) Imaging - Results Cat Scan: Report Reviewed, Image Reviewed Assessment/Plan 8yo F w/ history of valve replacement, blood clots, and severe OA in both shoulders presents with sudden onset atraumatic neck pain that radiates to the back, R shoulder, and R arm. She was on the couch when the pain started. It is severe (9/10), sharp and achy. It is made worse by any manipulation of the aforementioned areas yet it is painful at rest too. She endorses regular pain e pisodes like this except they always happen on the left side. She states the episodes are from her OA. Pt has had cervical spidurals with relief from Dr. Diaz. Denies any numbness or tingling. a/p cervical DDD, right shoulder DJD xrays of right shoulder PT eval Pain management consult- Dr. Diaz analgesics prn will follow d/w Dr. Huber
[2020-01-08] MEDS ORDERED: PT OWN MED DRAWER 7, Y5N ONE ×2 (13:52→21:51)
[2020-01-08] MEDS: ATORVASTATIN CA 40 MG TABLET (FP) PO SCH (21:56)
[2020-01-08] MEDS: LIDOCAINE PATCH REMOVAL MC SCH (22:05)
[2020-01-09] MEDS: CARBIDOPA/LEVODOPA 10/100 TABLET (FP) PO SCH ×3 (05:52→22:08)
[2020-01-09] MEDS: CALCIUM 500MG/VIT-D 200 UNITS COMBO TABLET (FP) PO SCH ×3 (05:52→22:07)
--- NOTE | 2020-01-09 06:37 | PN ---
Progress Note (short form) - Note Progress Note: Chief Complaint: Events noted, notes reviewed, resting in bed, reports persistent neck and shoulder discomfort, denies chest discomfort, denies dyspnea History of Present Illness: Seen and examined on telemetry. Events noted, notes reviewed, resting in bed, reports persistent neck and shoulder discomfort, denies chest discomfort, denies dyspnea - Current Medication List Current Medications: Current Medications Generic Name Dose Route Start Last Admin Trade Name Freq PRN Reason Stop Dose Admin Acetaminophen 650 mg 01/07/20 14:42 01/08/20 21:57 Tylenol - PO 650 mg TID PRN Administration PAIN LEVEL 1-5 Acetaminophen 650 mg 01/07/20 15:03 01/08/20 10:16 Tylenol - PO 650 mg Q6H PRN Administration PAIN LEVEL 4 - 6 Aspirin 81 mg 01/08/20 10:00 01/08/20 10:12 Asa - PO 81 mg DAILY SAM Administration Atorvastatin Calcium 40 mg 01/07/20 22:00 01/08/20 21:56 Lipitor - PO 40 mg HS SAM Administration Calcium Carbonate/Cholecalciferol 1 tab 01/07/20 22:00 01/09/20 05:52 Os-Maik 500+D - PO 1 tab TID SAM Administration Carbidopa/Levodopa 1 each 01/07/20 22:00 01/09/20 05:52 Sinemet 10/100 - PO 1 each TID SAM Administration Carvedilol 6.25 mg 01/07/20 22:00 01/08/20 21:56 Coreg - PO 6.25 mg BID SAM Administration Furosemide 40 mg 01/08/20 10:00 01/08/20 10:12 Lasix - PO 40 mg DAILY SAM Administration Isosorbide Mononitrate 60 mg 01/08/20 10:00 01/08/20 10:12 Imdur - PO 60 mg DAILY SAM Administration Lidocaine 1 patch 01/08/20 10:00 01/08/20 10:13 Lidoderm Patch - TP 1 patch DAILY SAM Administration Losartan Potassium 100 mg 01/08/20 10:00 01/08/20 10:13 Cozaar - PO 100 mg DAILY SAM Administration Miscellaneous 1 each 01/07/20 22:00 01/08/20 22:05 Lidoderm Patch Removal MC 1 each DAILY@2200 SAM Administration Potassium Chloride 10 meq 01/08/20 10:00 01/08/20 10:12 K-Dur - PO 10 meq DAILY SAM Administration Rivaroxaban 20 mg 01/08/20 10:00 01/08/20 10:12 Xarelto PO 20 mg DAILY SAM Administration Review of Systems - Review of Systems Constitutional: denies: Chills, Fever Cardiovascular: As noted above Respiratory: denies: Cough or Sputum production Gastrointestinal: denies: Abdominal Pain, Constipation, Diarrhea, Melena, Nausea, Rectal Bleeding, Vomiting Musculoskeletal: reports: Extremity Pain, Joint Pain Neurological: denies: Dizziness, Headache, Seizure, Syncope - Objective Vital Signs: Last Vital Signs Temp Pulse Resp BP Pulse Ox 97.5 F L 51 L 20 137/73 98 01/09/20 05:29 01/09/20 05:29 01/09/20 05:29 01/09/20 05:29 01/08/20 21:45 Intake & Output 01/06/20 01/07/20 01/08/20 01/09/20 23:59 23:59 23:59 23:59 Intake Total 310 580 130 Balance 310 580 130 Weight 90 lb Neck: Supple Negative JVD Cardiovascular: S1 S2 Irregularly irregular Respiratory: Clear to A&P Bilaterally Gastrointestinal: Soft Benign Normal Bowel Sounds Ext: No Edema Labs: CBC, BMP 01/09/20 06:26 01/09/20 06:26 CBC, BMP 01/08/20 06:17 01/08/20 06:17 Hepatic Panel Total Bilirubin 1.6 mg/dL (0.2-1) H 01/08/20 06:17 AST 119 U/L (15-37) H 01/08/20 06:17 ALT 87 U/L (13-61) H 01/08/20 06:17 Alkaline Phosphatase 107 U/L (45-117) 01/08/20 06:17 Albumin 3.3 g/dl (3.4-5.0) L 01/08/20 06:17 INR, PTT INR 2.15 (0.83-1.09) H 01/07/20 06:13 Assessment/Plan ASSESSMENT: 1. Neck discomfort related to degenerative cervical disc disease with radiculopathy acute on chronic, bilateral shoulder discomfort related to degenerative joint disease acute on chronic 2. CAD post CABG angina pectoris 3. Diastolic LV dysfunction with chronic I-II NYHA classification heart failure, clinically compensated/euvolemic 4. Persistent atrial flutter/atrial fibrillation [id number] score of 6 on DOAC's/Xarelto 5. Mitral and tricuspid valve disease/post annuloplasty 6. Aortic valve stenosis mild in severity 7. HTN 8. Elevated hemoglobin A1C 9. Hypercholesterolemia 10. Degenerative joint disease PLAN: 1. Continue Coreg therapy 2. Continue Cozaar therapy 3. Continue Lasix therapy 4. Continue Xarelto therapy 5. Continue Lipitor therapy 6. Pain management as per the primary team Eduarda Strickland MD
[2020-01-09 07:03] LABS: HEMATOCRIT 32.1 % (32.4-45.2); HEMOGLOBIN 10.7 GM/dL (10.7-15.3); MCH 32.5 pg (25.7-33.7); MCHC 33.4 g/dl (32.0-36.0); MEAN CELL VOLUME 97.2 fl (80-96); MEAN PLT VOLUME 8.2 fl (7.5-11.1); PLATELET COUNT 172 K/MM3 (134-434); RDW 15.6 % (11.6-15.6); WHITE BLOOD COUNT 7.2 K/mm3 (4.0-10.0)
[2020-01-09 07:22] LABS: BLOOD UREA NITROGEN 16.9 mg/dL (7-18); CALCIUM 8.8 mg/dL (8.5-10.1); CREATININE 0.5 mg/dL (0.55-1.3); POTASSIUM 3.8 mmol/L (3.5-5.1); TOT PROT 5.4 g/dl (6.4-8.2)
[2020-01-09] MEDS: ACETAMINOPHEN 325 MG TABLET (FP) PO PRN ×2 (08:48→22:08)
[2020-01-09] MEDS: ASPIRIN 81 MG CHEWABLE TABLETS PO SCH (10:03)
[2020-01-09] MEDS: RIVAROXABAN 20 MG TABLET PO SCH (10:03)
[2020-01-09] MEDS: ISOSORBIDE MONONITRATE 30 MG TAB.SR.24H (FP) PO SCH (10:03)
[2020-01-09] MEDS: CARVEDILOL 6.25 MG TABLET (FP) PO SCH ×2 (10:03→22:07)
[2020-01-09] MEDS: LIDOCAINE 5% TOPICAL PATCH TP SCH (10:03)
[2020-01-09] MEDS: POTASSIUM CHLORIDE TABS 10 MEQ TABLET.ER (FP) PO SCH (10:03)
[2020-01-09] MEDS: FUROSEMIDE 40 MG TABLET (FP) PO SCH (10:03)
[2020-01-09] MEDS: LOSARTAN POTASSIUM 50 MG TABLET PO SCH (10:04)
[2020-01-09] MEDS ORDERED: FLU VACCINE (FLULAVAL) PF 60 MCG/0.5 ML SYRINGE 2020-2021 IM ONE (11:00)
[2020-01-09] MEDS ORDERED: PT OWN MED DRAWER 7, Y5N ONE ×2 (13:02→22:07)
--- NOTE | 2020-01-09 13:24 | PN ---
Progress Note, Physician Chief Complaint: AWAKE C/O WEAKNESS DOES NOT WANT TO TRY P.T. TODAY - Current Medication List Current Medications: Active Medications Acetaminophen (Tylenol -) 650 mg PO TID PRN PRN Reason: PAIN LEVEL 1-5 Last Admin: 01/08/20 21:57 Dose: 650 mg Documented by: Acetaminophen (Tylenol -) 650 mg PO Q6H PRN PRN Reason: PAIN LEVEL 4 - 6 Last Admin: 01/09/20 08:48 Dose: 650 mg Documented by: Aspirin (Asa -) 81 mg PO DAILY [facility] Last Admin: 01/09/20 10:03 Dose: 81 mg Documented by: Atorvastatin Calcium (Lipitor -) 40 mg PO HS [facility] Last Admin: 01/08/20 21:56 Dose: 40 mg Documented by: Calcium Carbonate/Cholecalciferol (Os-Maik 500+D -) 1 tab PO TID [facility] Last Admin: 01/09/20 05:52 Dose: 1 tab Documented by: Carbidopa/Levodopa (Sinemet -) 1 each PO TID [facility] Last Admin: 01/09/20 05:52 Dose: 1 each Documented by: Carvedilol (Coreg -) 6.25 mg PO BID [facility] Last Admin: 01/09/20 10:03 Dose: 6.25 mg Documented by: Furosemide (Lasix -) 40 mg PO DAILY [facility] Last Admin: 01/09/20 10:03 Dose: 40 mg Documented by: Isosorbide Mononitrate (Imdur -) 60 mg PO DAILY [facility] Last Admin: 01/09/20 10:03 Dose: 60 mg Documented by: Lidocaine (Lidoderm Patch -) 1 patch TP DAILY [facility] Last Admin: 01/09/20 10:03 Dose: 1 patch Documented by: Losartan Potassium (Cozaar -) 100 mg PO DAILY [facility] Last Admin: 01/09/20 10:04 Dose: 100 mg Documented by: Miscellaneous (Lidoderm Patch Removal) 1 each MC DAILY@2200 [facility] Last Admin: 01/08/20 22:05 Dose: 1 each Documented by: Potassium Chloride (K-Dur -) 10 meq PO DAILY [facility] Last Admin: 01/09/20 10:03 Dose: 10 meq Documented by: Rivaroxaban (Xarelto) 20 mg PO DAILY [facility] Last Admin: 01/09/20 10:03 Dose: 20 mg Documented by: - Objective Vital Signs: Vital Signs Temperature 98 F 01/09/20 09:00 Pulse Rate 54 L 01/09/20 09:00 Respiratory Rate 18 01/09/20 09:00 Blood Pressure 139/74 01/09/20 09:00 O2 Sat by Pulse Oximetry (%) 98 01/09/20 09:00 Constitutional: Yes: Mild Distress Cardiovascular: Yes: Pulse Irregular Respiratory: Yes: Diminished Gastrointestinal: Yes: Soft Genitourinary: Yes: Incontinence Musculoskeletal: Yes: Muscle Weakness Edema: No Integumentary: Yes: Other Wound/Incision: Yes: Other Neurological: Yes: Pre-Existing Deficit, Weakness Psychiatric: Yes: Other Labs: CBC, BMP 01/09/20 06:26 01/09/20 06:26 INR, PTT INR 2.15 (0.83-1.09) H 01/07/20 06:13 Problem List - Problems (1) Acute electrocardiogram changes Code(s): R94.31 - ABNORMAL ELECTROCARDIOGRAM [ECG] [EKG] (3) Hx of CABG Code(s): Z95.1 - PRESENCE OF AORTOCORONARY BYPASS GRAFT (4) Neck pain Code(s): M54.2 - CERVICALGIA (5) Afib Code(s): I48.91 - UNSPECIFIED ATRIAL FIBRILLATION Qualifiers: (6) Ambulatory dysfunction Code(s): R26.2 - DIFFICULTY IN WALKING, NOT ELSEWHERE CLASSIFIED (7) HTN (hypertension) Code(s): I10 - ESSENTIAL (PRIMARY) HYPERTENSION Qualifiers: Hypertension type: essential hypertension Qualified Code(s): I10 - Essential (primary) hypertension (8) Hyperlipidemia Code(s): E78.5 - HYPERLIPIDEMIA, UNSPECIFIED Qualifiers: Hyperlipidemia type: pure hypercholesterolemia Qualified Code(s): E78.00 - Pure hypercholesterolemia, unspecified; E78.0 - Pure hypercholesterolemia (9) Inability to ambulate due to multiple joints Code(s): R26.2 - DIFFICULTY IN WALKING, NOT ELSEWHERE CLASSIFIED (10) Left shoulder pain Code(s): M25.512 - PAIN IN LEFT SHOULDER Qualifiers: Chronicity: chronic Qualified Code(s): M25.512 - Pain in left shoulder; G89.29 - Other chronic pain (11) Low back pain Code(s): M54.5 - LOW BACK PAIN Qualifiers: Chronicity: chronic Back pain laterality: unspecified Sciatica presence: without sciatica Qualified Code(s): M54.5 - Low back pain (12) S/P CABG (coronary artery bypass graft) Code(s): Z95.1 - PRESENCE OF AORTOCORONARY BYPASS GRAFT Assessment/Plan TELE MONITORING CONTINUES MINIMAL CHANGES XRAYS SHOULDER CHRONIC CHANGES/ARTHRITIS LIDODERM PATCH FOR PAIN RELIEF OOB TO CHAIR PT EVAL REFUSING TODAY "VERY TIRED AND WEAK" GENTLE HYDRATION IVF NUTRITIONAL SUPPLEMENTS HOME WITH [facility] TOMORROW
--- NOTE | 2020-01-09 13:48 | CONSULT ---
Consult Consult Specialty:: Interventional Pain Management Reason for Consultation:: Pain Control - History of Present Illness Chief Complaint: Right [place] pain History of Present Illness: The patients pain is secondary to chronic right shoulder OA. Pt has a history of Left greater than right shoulder pain that has been treated the past with ultrasound guided suprascapular nerve blocks. Pt pain is sharp rated 8/10 with pain on range of motion. Pt was unable to make an appointmetn as an outpatient and was subsequently admitted. She also reports having difficult with ADL's and Ambulation which is seperate from her chronic joint pain. She denies numbness or tingling. Reviewed previous notes and medical history. 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: Dementia, Parkinson's Cardio/Vascular: Yes: AFIB, CAD, HTN, Hyperlipdemia Gastrointestinal: Yes: GERD ...: No Musculoskeletal: Yes: Chronic low back pain Rheumatology: Yes: Other - Past Surgical History Past Surgical History: Yes: CABG, Joint Replacement (hip), Valve Replacement - Alcohol/Substance Use Hx Alcohol Use: No - Smoking History Smoking history: Unknown if ever smoked Have you smoked in the past 12 months: No Aproximately how many cigarettes per day: 0 Home Medications - Allergies Allergies/Adverse Reactions: Allergies Allergy/AdvReac Type Severity Reaction Status Date / Time codeine [Codeine] Allergy Mild sick Verified 10/18/18 09:21 NSAIDS (Non-Steroidal AdvReac Verified 10/18/18 09:21 Anti-Inflamma - Home Medications Home Medications: Ambulatory Orders Aspirin [ASA -] 81 mg PO DAILY #0 tab.chew 02/27/12 Potassium Chloride [K-Dur -] 10 meq PO DAILY #0 tablet.er 02/27/12 Calcium Carb/Vit D3/Minerals [Calcium 600 + D Tablet] 1 each PO TID 02/12/13 Omega3/Dha/Epa/Fish Oil/Vit D3 [Meupm-3-Iimw Oil-Vit D3 Sftgl] 1 each PO DAILY 02/12/13 Nitroglycerin [Nitrostat] 0.4 mg SL PRN 08/22/13 Isosorbide Mononitrate [Imdur] 60 mg PO DAILY 09/30/14 Carvedilol [Coreg -] 6.25 mg PO BID tablet 09/19/15 Cholecalciferol (Vitamin D3) [Vitamin D3 -] 1,000 unit PO DAILY tab 09/19/15 Furosemide [Lasix -] 40 mg PO DAILY tablet 09/19/15 Carbidopa/Levodopa [Carbidopa-Levodopa 10-100 Tab] 1 each PO TID 03/25/17 Losartan Potassium 100 mg PO DAILY 02/16/18 Acetaminophen [Tylenol .Regular Strength -] 650 mg PO Q6H PRN tablet 02/18/18 Lidocaine 5% Patch [Lidoderm -] 1 patch TP DAILY patch 10/21/18 Atorvastatin Ca [Lipitor] 40 mg PO HS 01/07/20 Rivaroxaban [Xarelto] 20 mg PO DAILY 01/07/20 Family Medical History Other Family History: CAD Review of Systems - Review of Systems Constitutional: reports: No Symptoms Eyes: reports: No Symptoms HENT: reports: No Symptoms Neck: reports: Stiffness Cardiovascular: reports: No Symptoms Respiratory: reports: No Symptoms Gastrointestinal: reports: No Symptoms Genitourinary: reports: No Symptoms Breasts: reports: No Symptoms Reported Musculoskeletal: reports: Back Pain, Joint Pain Integumentary: reports: No Symptoms Neurological: reports: No Symptoms Endocrine: reports: No Symptoms Hematology/Lymphatic: reports: No Symptoms Physical Exam Vital Signs: Vital Signs Temperature 98 F 01/09/20 09:00 Pulse Rate 54 L 01/09/20 09:00 Respiratory Rate 18 01/09/20 09:00 Blood Pressure 139/74 01/09/20 09:00 O2 Sat by Pulse Oximetry (%) 98 01/09/20 09:00 Constitutional: Yes: No Distress, Calm Eyes: Yes: Conjunctiva Clear, EOM Intact HENT: Yes: Atraumatic, Normocephalic Neck: Yes: Trachea Midline Cardiovascular: Yes: Other (regular rate) Respiratory: Yes: Regular Musculoskeletal: Yes: Muscle Pain, Other (Shoulder Pain on ROM) Labs: CBC, BMP 01/09/20 06:26 01/09/20 06:26 Imaging - Results X-ray: Report Reviewed, Image Reviewed Assessment/Plan The patients chronic pain is secondary to Chronic B/L Shoulder OA. Pt responded well in the past to ultrasound guided suprascapular nerve block. Recommendations: Patient may follow up in office for Ultrasound Guided Suprscapular nerve blocks. Please contact me if patient needs have procedure does as an inpatient. Patient is a good candidate for Sprint system Peripheral Nerve (suprascapular stimulator) for chronic non operative shoulder pain and possible permanent implant pending longevity of sprint system. Tylenol 1000 mg BID or TID standing. Consider Gabapentin 100 mg QHS and monitor for sedation. May increase to TID over several days. Refrain from NSAIDS due to underlying cardiac disease. Continue Topical Lidocaine patch. If patient Discharged tomorrow. She may follow up in my office same day or the day after for her Intervention. Thank you for your consult, Janes Diaz DO Interventional Spine and Pain Management. Physical Medicine and Rehabilitation [phone]
--- NOTE | 2020-01-09 15:17 | PN ---
Progress Note (short form) - Note Progress Note: Ortho Pt seen and examined. Pts right shoulder has improved slightly with medications. Selected Entries 01/09/20 14:24 Temperature 98 F Pulse Rate 55 L Respiratory 20 Rate Blood Pressure 119/67 right shoulder- decr ttp, limited rom , nvi xrays show severe grade 4 GH jt djd a/p offered injection but pt would like injection by Dr. Diaz will be set-up as outpt analgesics prn ok to d/c from ortho pov f/u prn d/w Dr. Huber
[2020-01-09 16:10] VITALS: BMI 22.1
[2020-01-09] MEDS: ATORVASTATIN CA 40 MG TABLET (FP) PO SCH (22:07)
[2020-01-09] MEDS: LIDOCAINE PATCH REMOVAL MC SCH (22:08)
[2020-01-10] MEDS ORDERED: PT OWN MED DRAWER 7, Y5N ONE (06:02)
[2020-01-10] MEDS: CARBIDOPA/LEVODOPA 10/100 TABLET (FP) PO SCH (06:29)
[2020-01-10] MEDS: CALCIUM 500MG/VIT-D 200 UNITS COMBO TABLET (FP) PO SCH (06:29)
[2020-01-10 06:51] VITALS: PULSE 50
[2020-01-10] MEDS: ASPIRIN 81 MG CHEWABLE TABLETS PO SCH (09:16)
[2020-01-10] MEDS: LOSARTAN POTASSIUM 50 MG TABLET PO SCH (09:16)
[2020-01-10] MEDS: RIVAROXABAN 20 MG TABLET PO SCH (09:16)
[2020-01-10] MEDS: CARVEDILOL 6.25 MG TABLET (FP) PO SCH ×2 (09:16→09:19)
[2020-01-10] MEDS: ISOSORBIDE MONONITRATE 30 MG TAB.SR.24H (FP) PO SCH (09:16)
[2020-01-10] MEDS: POTASSIUM CHLORIDE TABS 10 MEQ TABLET.ER (FP) PO SCH (09:16)
[2020-01-10] MEDS: FUROSEMIDE 40 MG TABLET (FP) PO SCH (09:16)
[2020-01-10] MEDS: ACETAMINOPHEN 325 MG TABLET (FP) PO PRN (09:17)
[2020-01-10] MEDS: LIDOCAINE 5% TOPICAL PATCH TP SCH (09:17)
--- NOTE | 2020-01-10 09:22 | PN ---
Progress Note, Physician History of Present Illness: Left>right shoulder pain planned for nerve block. Denies chest pain, dyspnea, slow afib on telemetry. - Current Medication List Current Medications: Active Medications Acetaminophen (Tylenol -) 650 mg PO TID PRN PRN Reason: PAIN LEVEL 1-5 Last Admin: 01/10/20 09:17 Dose: 650 mg Documented by: Acetaminophen (Tylenol -) 650 mg PO Q6H PRN PRN Reason: PAIN LEVEL 4 - 6 Last Admin: 01/09/20 22:08 Dose: 650 mg Documented by: Aspirin (Asa -) 81 mg PO DAILY [facility] Last Admin: 01/10/20 09:16 Dose: 81 mg Documented by: Atorvastatin Calcium (Lipitor -) 40 mg PO [facility] Last Admin: 01/09/20 22:07 Dose: 40 mg Documented by: Calcium Carbonate/Cholecalciferol (Os-Maik 500+D -) 1 tab PO TID [facility] Last Admin: 01/10/20 06:29 Dose: 1 tab Documented by: Carbidopa/Levodopa (Sinemet -) 1 each PO TID [facility] Last Admin: 01/10/20 06:29 Dose: 1 each Documented by: Carvedilol (Coreg -) 6.25 mg PO BID [facility] Last Admin: 01/10/20 09:19 Dose: Not Given Documented by: Furosemide (Lasix -) 40 mg PO DAILY [facility] Last Admin: 01/10/20 09:16 Dose: 40 mg Documented by: Gabapentin (Neurontin -) 100 mg PO [facility] Isosorbide Mononitrate (Imdur -) 60 mg PO DAILY [facility] Last Admin: 01/10/20 09:16 Dose: 60 mg Documented by: Lidocaine (Lidoderm Patch -) 1 patch TP DAILY [facility] Last Admin: 01/10/20 09:17 Dose: 1 patch Documented by: Losartan Potassium (Cozaar -) 100 mg PO DAILY [facility] Last Admin: 01/10/20 09:16 Dose: 100 mg Documented by: Miscellaneous (Lidoderm Patch Removal) 1 each MC DAILY@2200 [facility] Last Admin: 01/09/20 22:08 Dose: 1 each Documented by: Potassium Chloride (K-Dur -) 10 meq PO DAILY [facility] Last Admin: 01/10/20 09:16 Dose: 10 meq Documented by: Rivaroxaban (Xarelto) 20 mg PO DAILY [facility] Last Admin: 01/10/20 09:16 Dose: 20 mg Documented by: - Objective Vital Signs: Vital Signs Temperature 97.8 F 01/10/20 01:44 Pulse Rate 50 L 01/10/20 06:00 Respiratory Rate 20 01/10/20 06:00 Blood Pressure 133/76 01/10/20 06:00 O2 Sat by Pulse Oximetry (%) 95 01/09/20 21:00 Constitutional: Yes: No Distress, Calm, Thin Neck: Yes: Supple Cardiovascular: Yes: Bradycardia, Pulse Irregular Respiratory: Yes: Regular, CTA Bilaterally Gastrointestinal: Yes: Normal Bowel Sounds, Soft Edema: No Labs: CBC, BMP 01/09/20 06:26 01/09/20 06:26 INR, PTT INR 2.15 (0.83-1.09) H 01/07/20 06:13 - ....Imaging EKG: Report Reviewed (Tele: Slow afib @ 48) Problem List - Problems (2) Hx of CABG Code(s): Z95.1 - PRESENCE OF AORTOCORONARY BYPASS GRAFT (3) Afib Code(s): I48.91 - UNSPECIFIED ATRIAL FIBRILLATION Qualifiers: Atrial fibrillation type: longstanding persistent Qualified Code(s): I48.11 - Longstanding persistent atrial fibrillation (4) Anticoagulation adequate with anticoagulant therapy Code(s): Z79.01 - MCFP (CURRENT) USE OF ANTICOAGULANTS (5) Coronary artery disease Code(s): I25.10 - ATHSCL HEART DISEASE OF [place] CORONARY ARTERY W/O ANG PCTRS Qualifiers: Coronary Disease-Associated Artery/Lesion type: [place] artery [place] vs. transplanted heart: [place] heart Associated angina: without angina Qualified Code(s): I25.10 - Atherosclerotic heart disease of [place] coronary artery without angina pectoris (6) Diastolic dysfunction with chronic heart failure Code(s): I50.32 - CHRONIC DIASTOLIC (CONGESTIVE) HEART FAILURE (7) Hyperlipidemia Code(s): E78.5 - HYPERLIPIDEMIA, UNSPECIFIED Qualifiers: Hyperlipidemia type: pure hypercholesterolemia Qualified Code(s): E78.00 - Pure hypercholesterolemia, unspecified; E78.0 - Pure hypercholesterolemia (8) Hypertensive cardiomegaly without heart failure Code(s): I11.9 - HYPERTENSIVE HEART DISEASE WITHOUT HEART FAILURE (9) Left shoulder pain Code(s): M25.512 - PAIN IN LEFT SHOULDER Qualifiers: Chronicity: chronic Qualified Code(s): M25.512 - Pain in left shoulder; G89.29 - Other chronic pain (10) S/P CABG (coronary artery bypass graft) Code(s): Z95.1 - PRESENCE OF AORTOCORONARY BYPASS GRAFT (11) S/P mitral valve repair Code(s): Z98.890 - OTHER SPECIFIED POSTPROCEDURAL STATES (12) Sick sinus syndrome due to SA node dysfunction Code(s): I49.5 - SICK SINUS SYNDROME Assessment/Plan SSESSMENT: 1. Chronic B/L Shoulder OA with plan for ultrasound guided suprascapular nerve block. 2. CAD post CABG angina pectoris 3. Diastolic LV dysfunction with chronic I-II NYHA classification heart failure, clinically compensated/euvolemic 4. Persistent atrial flutter/atrial fibrillation with slow ventricular response c/w sick sinus syndrome [id number] score of 6 on DOAC's/Xarelto 5. Mitral and tricuspid valve disease/post annuloplasty 6. Aortic valve stenosis mild in severity 7. HTN 8. Elevated hemoglobin A1C 9. Hypercholesterolemia 10. Degenerative joint disease PLAN: 1. Observe HR response off Coreg 6.25 bid, continue Imdur 60 qd 2. Continue Cozaar 100 qd 3. Continue Lasix 40 qd 4. Continue Xarelto therapy 20 qd, d/c concomitent ASA 81 qd as CAD is stable 5. Continue Lipitor 40 qd 6. Pain management as per the primary team 7. May d/c home with f/u in office with Dr. Strickland , consideration for dual chamber pacing if sig pauses off AV liliana blocking agents
[2020-01-10 10:23] VITALS: BP 154/54; TEMP 97.6
--- NOTE | 2020-01-10 11:01 | DS ---
Physical Examination Vital Signs: Vital Signs Temperature 97.6 F 01/10/20 09:00 Pulse Rate 50 L 01/10/20 09:00 Respiratory Rate 20 01/10/20 09:00 Blood Pressure 154/54 L 01/10/20 09:00 O2 Sat by Pulse Oximetry (%) 96 01/10/20 09:00 Constitutional: Yes: Mild Distress Cardiovascular: Yes: Pulse Irregular Respiratory: Yes: Diminished Gastrointestinal: Yes: Soft Renal/: Yes: WNL, Incontinence Musculoskeletal: Yes: Back Pain, Muscle Pain, Muscle Weakness Edema: No Neurological: Yes: Pre-Existing Deficit Labs: CBC, BMP 01/09/20 06:26 01/09/20 06:26 Discharge Summary Problems reviewed: Yes Reason For Visit: ACUTE ELECTROCARDIOGRAPHY CHANGES, NECK PAIN Current Active Problems Acute electrocardiogram changes (Acute) H/O tricuspid valve repair (Acute) Hx of CABG (Acute) Neck pain (Acute) Procedures: Principal: xrays/labs Hospital Course: admitted telemetry weakness, fall, cardiac workup complete, orthopedics and physical therapy recommended p.t. Plan of Treatment: snf for p.t. Condition: Fair - Instructions Diet, Activity, Other Instructions: aggressive P.T. follow with pmd Referrals: Ish Shultz MD [Primary Care Provider] - [facility] - Home Medications Comprehensive Discharge Medication List: Ambulatory Orders Aspirin [ASA -] 81 mg PO DAILY #0 tab.chew 02/27/12 Potassium Chloride [K-Dur -] 10 meq PO DAILY #0 tablet.er 02/27/12 Calcium Carb/Vit D3/Minerals [Calcium 600 + D Tablet] 1 each PO TID 02/12/13 Omega3/Dha/Epa/Fish Oil/Vit D3 [Nijxs-2-Vbac Oil-Vit D3 Sftgl] 1 each PO DAILY 02/12/13 Nitroglycerin [Nitrostat] 0.4 mg SL PRN 08/22/13 Isosorbide Mononitrate [Imdur] 60 mg PO DAILY 09/30/14 Carvedilol [Coreg -] 6.25 mg PO BID tablet 09/19/15 Cholecalciferol (Vitamin D3) [Vitamin D3 -] 1,000 unit PO DAILY tab 09/19/15 Furosemide [Lasix -] 40 mg PO DAILY tablet 09/19/15 Carbidopa/Levodopa [Carbidopa-Levodopa 10-100 Tab] 1 each PO TID 03/25/17 Losartan Potassium 100 mg PO DAILY 02/16/18 Acetaminophen [Tylenol .Regular Strength -] 650 mg PO Q6H PRN tablet 02/18/18 Lidocaine 5% Patch [Lidoderm -] 1 patch TP DAILY patch 10/21/18 Atorvastatin Ca [Lipitor] 40 mg PO HS 01/07/20 Rivaroxaban [Xarelto] 20 mg PO DAILY 01/07/20
[2020-01-10] MEDS ORDERED: GABAPENTIN 100 MG CAPSULE PO SCH (22:00)
== END 2020-01-10 13:00 | DRG 552 ==
LOC: JER 05:05 → JERBED 08:09 → OBSVTOIN 15:05 → J4W 18:30
PROVIDERS: ADMIT Family Medicine; ATTEND Family Medicine
DX: M50.10 Cervical disc disorder with radiculopathy, unspecified cervical region (principal); I48.92 Unspecified atrial flutter; I48.11 Longstanding persistent atrial fibrillation; M19.012 Primary osteoarthritis, left shoulder; Z95.2 Presence of prosthetic heart valve; Z95.1 Presence of aortocoronary bypass graft; I10 Essential (primary) hypertension; E78.5 Hyperlipidemia, unspecified; M19.011 Primary osteoarthritis, right shoulder; I44.0 Atrioventricular block, first degree; I25.10 Atherosclerotic heart disease of native coronary artery without angina pectoris; R94.31 Abnormal electrocardiogram [ECG] [EKG]; Z79.01 Long term (current) use of anticoagulants; K21.9 Gastro-esophageal reflux disease without esophagitis; G20 Parkinson's disease; F02.80 Dementia in other diseases classified elsewhere, unspecified severity, without behavioral disturbance, psychotic disturbance, mood disturbance, and anxiety
CPT/HCPCS: 36415; 71045-TC-FY; 71275-TC; 72125-TC; 73030-TC-RT-FY; 74174-TC; 80053; 80074; 82550; 83735; 84484; 85025; 85027; 85610; 85730; 93005; 93010; 93970-TC; 97116-GP; 97161-GP; 99285-25; G0378; Q2036; Q9967; U0003

== ENCOUNTER → 2020-03-15 | Day surgery (SDC) | payer OTHER, MEDICARE ==
[2020-03-14 13:39] VITALS: BMI 22.1
[~2020-03-15] MED LIST: LIDOCAINE 1% P/F 10 MG/ML VIAL SNB ONE
[2020-03-15 11:51] VITALS: BP 145/78; PULSE 58; TEMP 98
== END | disposition home or self-care (01) ==
LOC: JASU-SURG 05:59
PROVIDERS: ATTEND Pain Medicine Pain Medicine
PROC: 01HY3MZ Insertion of Neurostimulator Lead into Peripheral Nerve, Percutaneous Approach (ICD-10-PCS; principal; 2020-03-15 11:00)
DX: G89.3 Neoplasm related pain (acute) (chronic) (principal); M25.512 Pain in left shoulder
CPT/HCPCS: 64555; C1778